=== PATIENT | male | born 1945 | race Caucasian/White ===

== ENCOUNTER 2017-12-05 21:25 | Emergency (ER) | payer MEDICARE, MEDICAID, SELFPAY ==
[2017-12-05 21:30] VITALS: BP 102/62; PULSE 61; RESP 18; TEMP 37.8; O2SAT 93
[2017-12-05 21:34] VITALS: RESP 18
--- NOTE | 2017-12-05 21:37 | DI.REPORT_ITS ---
SYMPTOM/DIAGNOSIS: COUGH AP AND LATERAL CHEST: Comparison is made with 11/13/17. Heart size and pulmonary vasculature are within normal limits. There are increased lung markings seen in the left base posteriorly suspicious for pneumonia. The right lung base medially appears stable compared to examinations dating back to 05/11/16. No effusions or pneumothoraces are identified. The bones are intact. IMPRESSION: Left basilar infiltrate suspicious for pneumonia.
--- NOTE | 2017-12-05 21:37 | ED.GENADUL ---
Disposition Clinical Impression: Pneumonia Disposition: HOME Condition: Stable Instructions: Pneumonia (ED) Additional Instructions: follow up with your primary care provider within one week if you have worsening shortness of breath return to the emergency department Prescriptions: Levofloxacin 750 mg PO DAILY #6 tablet Medical Decision Making - Radiology Data Radiology results: image reviewed - Medical Decision Making pt here with feeling agitated earlier now feels well. HE has had a cough for a month and has low grade temperature here, will obtain xray. Otherwise he feels well and has stable vitals so do not feel workup for sepsis indicated at is time pt remains stable. Xray on my read shows left lower lobe infiltrate. HE is hd stable and feel he can be managed with oral abx at [facility] and rehab - Differential Diagnosis pneumonia, viral illness History of Present Illness - General Chief complaint: GenMedical Stated complaint: CALEX Time Seen by Provider: 12/05/17 21:26 Source: patient, EMS Mode of arrival: EMS Limitations: no limitations - History of Present Illness Initial comments: 72 yo male with hx of parkinson's, bipolar, who comes in with chief complaint of wanting to be checked out. HE apparently earlier in the day was awoken from a nap by nursing taking vitals and he got agitated. He calmed down and declined transfer to the ED. Tonight he states he got in an argument with his family and he decided he wanted an eval here. He denies any symptoms other than a cough that he states he has had for a month otherwise he states he feels well MD Complaint: cough Onset/Timin -: month(s) Improves with: none Worsens with: none - Related Data Carbidopa/Levodopa [Carbidopa-Levo 25-100 mg Odt] 2 tab PO QID 08/08/15 Divalproex [Depakote] 500 mg PO TID 08/08/15 Docusate Sodium 100 mg PO HS 08/08/15 Ergocalciferol [Vitamin D] 50,000 units PO .Friday08/08/15 Finasteride [Proscar] 5 mg PO DAILY 08/08/15 Metformin HCl [Fortamet] 500 mg PO BID 08/08/15 Metoprolol Tartrate 50 mg PO BID 08/08/15 Levofloxacin [Levaquin] 750 mg PO HS #5 tablet 05/11/16 Acetaminophen [Tylenol] 650 mg PO Q4H PRN PRN 05/20/16 Albuterol Sulfate 2.5 mg IH Q2H PRN PRN 05/20/16 Guaifenesin/Dextromethorphan [Guaifenesin Dm Syrup] 5 ml PO Q4H PRN PRN 05/20/16 Magnesium Hydroxide [Milk of Magnesia] 30 ml PO PRN 05/20/16 Multivitamin with Minerals [Multiple Vitamin] 1 each PO DAILY 05/20/16 TraZODone [Desyrel] 100 mg PO HS 05/20/16 Levofloxacin 750 mg PO DAILY #6 tablet 12/05/17 Allergies Allergy/AdvReac Type Severity Reaction Status Date / Time No Known Allergies Allergy Unverified 12/05/17 21:33 Review of Systems Constitutional: denies: fever Respiratory: cough. denies: shortness of breath Cardiovascular: denies: chest pain Skin: denies: rash Neurological: denies: headache Comment: All other systems reviewed and negative Past Medical History - Past Medical History Medical history: diabetes, hypertension parkinsons - Social History Alcohol use: none Drug use: none General Exam - General Limitations: no limitations General appearance: alert, in no apparent distress - Head Head exam: Present: atraumatic - Eye Eye exam: Present: normal apperance - ENT ENT exam: Present: mucous membranes moist - Neck Neck exam: Present: normal inspection, full ROM. Absent: meningismus - Respiratory Respiratory exam: Absent: respiratory distress, wheezes, accessory muscle use - Cardiovascular Cardiovascular Exam: Present: regular rate - GI/Abdominal GI/Abdominal exam: Present: soft. Absent: tenderness, diminished bowel sounds - Extremities Exam Extremities exam: Present: normal capillary refill, other (chronic wound left lower leg without erythema or tenderness). Absent: pedal edema - Neurological Exam Neurological exam: Present: alert, oriented X3 - Psychiatric Psychiatric exam: Present: flat affect. Absent: homicidal ideation, suicidal ideation - Skin Skin exam: Present: warm Course Vital Signs - 24 hr 12/05/17 12/05/17 21:30 21:34 Temperature 100.0 F H Pulse 61 Respiratory 18 18 Rate Blood Pressure 102/62 Pulse Oximetry 93 L
[2017-12-05] MEDS: LEVOFLOXACIN 500 MG, LEVOFLOXACIN 250 MG 750 MG PO (22:36)
[2017-12-05 22:37] VITALS: BP 102/62; PULSE 61; RESP 18; TEMP 37.8; O2SAT 93
--- NOTE | 2017-12-05 22:38 | DI.VRAD_ITS ---
EXAM: XR Chest, 2 Views EXAM DATE/TIME: 12/05/2017 10:18 PM CLINICAL HISTORY: 72 years old, male; Signs and symptoms; Shortness of breath TECHNIQUE: XR of the chest, 2 views. COMPARISON: CR - CHEST 2 VIEWS PA,LAT 2017-11-13 12:56 FINDINGS: Lungs: Mild to moderate left posterior basilar pneumonia. Pleural space: Normal. No pneumothorax. Heart/Mediastinum: Normal. No cardiomegaly. Bones/joints: Unremarkable for age. IMPRESSION: Mild to moderate left posterior basilar pneumonia. Dictated and Authenticated by: Puma Cook MD. Ordering:BELINDA NICHOLAS MD
== END 2017-12-05 22:51 | disposition home or self-care (01) ==
PROVIDERS: Emergency Provider Emergency Medicine; PCP Family Medicine
DX: J18.9 Pneumonia, unspecified organism (principal); G20 Parkinson's disease
CPT/HCPCS: 71046; 99283 ×2

== ENCOUNTER 2017-12-09 07:45 | Outpatient (REF) | payer MEDICARE, MEDICAID, SELFPAY ==
[2017-12-09 11:38] LABS: Anion Gap 5.1 mmol/L (3-11); BUN 16 mg/dL (7-18); CO2 35.9 mmol/L (21.0-32.0); CREATININE 2.08 mg/dL (0.70-1.30); Calcium 9.4 mg/dL (8.5-10.1); Chloride 100 mmol/L (98-107); Estimated GFR 31.73 (mL/min/1.73m2); Glucose 82 mg/dL (70-100); Potassium 3.7 mmol/L (3.5-5.1); Sodium 141 mmol/L (136-145)
== END 2017-12-09 07:46 ==
LOC: LBN 07:45
PROVIDERS: PCP Family Medicine; Visit Provider Family Medicine
DX: I10 Essential (primary) hypertension (principal); R60.0 Localized edema; E11.9 Type 2 diabetes mellitus without complications
CPT/HCPCS: 80048

== ENCOUNTER 2017-12-10 14:07 | Inpatient (IN) | payer MEDICARE, MEDICAID, SELFPAY ==
[2017-12-10] VITALS (39 sets, daily range): BP systolic 91–142; BP diastolic 52–119; PULSE 66–136; RESP 14–34; TEMP 36.7–37.2; O2SAT 87–98
--- NOTE | 2017-12-10 14:42 | DI.REPORT_ITS ---
SYMPTOM/DIAGNOSIS: SOB PA AND LATERAL CHEST: When compared with the previous images of 12/05, there has been some interval deterioration with increasing consolidation involving the left lower lobe. The right lung remains clear. The heart is unchanged in size. SUMMARY: Findings consistent with worsening of a left lower lobe pneumonitis when compared with a previous study of 12/05.
--- NOTE | 2017-12-10 14:42 | ED.GENADUL ---
Disposition Clinical Impression: Healthcare-associated pneumonia, Hypoxia, Acute kidney injury Disposition: [facility] INPATIENT Condition: Serious Medical Decision Making - Medical Decision Making Patient presents today with chief complaint of shortness of breath. He was [facility] Patient has been treated twice for pneumonia in the past 2 months. Was initially treated with IM ceftriaxone. Subsequently treated with Levaquin over the past 4 days. Patient reports that he is feeling much improved given his baseline confusion is difficult to go by this. Nursing staff reported that he was tachypneic, hypoxic and clearly working to breathe while at [facility] and rehab. Will obtain baseline labs and repeat chest x-ray. Discussed this plan of the patient is in agreement. Patient initially 91% on room air. Vital signs are otherwise stable. I was contacted by radiologist who advised that the right lower lobe pneumonia that was noticed on 12/05/2017 appears to have gotten worse. I did question the need for further imaging, particularly as the patient has had pneumonia for the past 2 months. He advised holding off on CT at this point but obtaining a PA and lateral view in 4-6 weeks. Laboratory evaluation significant for acute kidney injury. Creatinine is up to 2.53. Patient's baseline is typically around 1.43. GFR is 25. No leukocytosis. Patient is noted to be anemic which is down slightly from baseline. While on room air, patient desaturated to 86%. Is currently on 2 L and 95%. Contacted hospitalist. Spoke with Dr. Ashwin Hubbard who agrees to admission for worsening pneumonia, hypoxia and acute kidney injury. Based on patient's history of we will treat for presumed healthcare associated pneumonia. Patient is currently sleeping. Discussed admission with the patient prior to him going upstairs. History of Present Illness - General Chief complaint: RespSymp Stated complaint: CALEX Time Seen by Provider: 12/10/17 14:15 Source: patient, RN notes reviewed Mode of arrival: EMS Limitations: no limitations - History of Present Illness Initial comments: She is 72-year-old male presenting today with chief complaint of shortness of breath. Patient was sent here from [facility]. Patient is currently being treated for pneumonia which is diagnosed 5 days ago. Nurse reports that today she felt the patient appeared more pale, tachypneic and short of breath. Patient is currently denying feeling short of breath. Just reports that he was more confused than his baseline. At baseline patient does have a history of schizophrenia and frequently thinks he has Jack. However, today the patient was more difficult to orient per nursing report. Nursing taking care of him today here, reports that this is typical she has taken care of the patient multiple times historically. Patient is denying any pain. Is currently denying feeling short of breath. Feels that if anything he has been improving since beginning Levaquin. Denies any cough. Denies any throat pain or ear pain. No recent fevers or chills. Patient is only endorsing discomfort in his bilateral lower extremities that she reports is chronic and unchanged. - Related Data Carbidopa/Levodopa [Carbidopa-Levo 25-100 mg Odt] 2 tab PO QID 08/08/15 Divalproex [Depakote] 500 mg PO TID 08/08/15 Docusate Sodium 100 mg PO HS PRN 08/08/15 Ergocalciferol [Vitamin D] 50,000 units PO .Friday08/08/15 Finasteride [Proscar] 5 mg PO DAILY 08/08/15 Metformin HCl [Fortamet] 500 mg PO BID 08/08/15 Metoprolol Tartrate 50 mg PO BID 08/08/15 Levofloxacin [Levaquin] 750 mg PO HS #5 tablet 05/11/16 Acetaminophen [Tylenol] 650 mg PO Q4H PRN PRN 05/20/16 Albuterol Sulfate 2.5 mg IH Q6H PRN PRN 05/20/16 Guaifenesin/Dextromethorphan [Guaifenesin Dm Syrup] 5 ml PO Q4H PRN PRN 05/20/16 Magnesium Hydroxide [Milk of Magnesia] 30 ml PO DAILY 05/20/16 Multivitamin with Minerals [Multiple Vitamin] 1 each PO DAILY 05/20/16 TraZODone [Desyrel] 100 mg PO HS 05/20/16 Levofloxacin 750 mg PO DAILY #6 tablet 12/05/17 Bisacodyl 5 mg PO DAILY PRN 12/10/17 Bisacodyl [Dulcolax] 10 mg [place] DAILY PRN 12/10/17 Docusate Sodium 100 mg PO BID 12/10/17 Furosemide [Lasix] 20 mg PO BID 12/10/17 Mineral Oil-Enema [Fleet Mineral Oil Enema] 133 ml [place] DAILY PRN 12/10/17 Mouthwash [Biotene Mouthwash] 5 ml PO AC 12/10/17 Quetiapine Fumarate 75 mg PO BID 12/10/17 Quetiapine Fumarate 200 mg PO HS 12/10/17 Sennosides/Docusate Sodium [Senna Plus Tablet] 1 each PO BID PRN 12/10/17 Allergies Allergy/AdvReac Type Severity Reaction Status Date / Time No Known Allergies Allergy Unverified 12/05/17 21:33 Review of Systems Limitations: ROS unobtainable due to patients medical condition (Patient's history baseline confusion does not make review of systems limite) Constitutional: no symptoms reported. denies: chills, fever Eyes: denies: vision change Respiratory: see HPI. denies: cough, shortness of breath (Patient is currently denying shortness of breath. His oxygen is noted to be 91%. He was sent here for SOB and hypoxia by nursing staff. Patient is noted to be tachypneic with a rate of 24 while at health and rehab.) Cardiovascular: denies: chest pain, palpitations Gastrointestinal: denies: abdominal pain, nausea, vomiting, diarrhea Genitourinary: denies: urgency Neurological: denies: headache, weakness Psychiatric: denies: anxiety Past Medical History - Past Medical History Medical history: diabetes, hypertension parkinsons - Social History Alcohol use: none Drug use: none Living Situation: lives in skilled nursing General Exam - General Limitations: no limitations General appearance: alert, in no apparent distress - Head Head exam: Present: atraumatic - Eye Eye exam: Present: normal apperance - ENT ENT exam: Present: mucous membranes dry - Respiratory Respiratory exam: Present: wheezes (The right lower lobe.). Absent: normal lung sounds bilaterally (Patient has poor inspiratory effort, exam is limited), respiratory distress, chest wall tenderness - Cardiovascular Cardiovascular Exam: Present: regular rate, normal rhythm, normal heart sounds - GI/Abdominal GI/Abdominal exam: Present: soft. Absent: distended, tenderness, guarding - Rectal Rectal exam: Present: deferred - Extremities Exam Extremities exam: Absent: normal inspection (Exam of the lower extremities revealed bilateral pedal edema. Right lower extremity is wrapped in gauze for chronic wound.) - Back Exam Back exam: Present: normal inspection - Psychiatric Psychiatric exam: Present: normal affect, normal mood Course Vital Signs - 24 hr 12/10/17 14:14 Temperature 37 C Pulse 74 Respiratory 20 Rate Blood Pressure 133/99 Pulse Oximetry 93 L
--- NOTE | 2017-12-10 14:46 | ED.GENADUL_ITS ---
Disposition Clinical Impression: Healthcare-associated pneumonia, Hypoxia, Acute kidney injury Disposition: [facility]PATIENT Condition: Serious Medical Decision Making - Medical Decision Making Patient presents today with chief complaint of shortness of breath. He was [facility] from [facility]. Patient has been treated twice for pneumonia in the past 2 months. Was initially treated with IM ceftriaxone. Subsequently treated with Levaquin over the past 4 days. Patient reports that he is feeling much improved given his baseline confusion is difficult to go by this. Nursing staff reported that he was tachypneic, hypoxic and clearly working to breathe while at [facility] and rehab. Will obtain baseline labs and repeat chest x-ray. Discussed this plan of the patient is in agreement. Patient initially 91% on room air. Vital signs are otherwise stable. I was contacted by radiologist who advised that the right lower lobe pneumonia that was noticed on 12/05/2017 appears to have gotten worse. I did question the need for further imaging, particularly as the patient has had pneumonia for the past 2 months. He advised holding off on CT at this point but obtaining a PA and lateral view in 4-6 weeks. Laboratory evaluation significant for acute kidney injury. Creatinine is up to 2.53. Patient's baseline is typically around 1.43. GFR is 25. No leukocytosis. Patient is noted to be anemic which is down slightly from baseline. While on room air, patient desaturated to 86%. Is currently on 2 L and 95%. Contacted hospitalist. Spoke with Dr. Ashwin Hubbard who agrees to admission for worsening pneumonia, hypoxia and acute kidney injury. Based on patient's history of we will treat for presumed healthcare associated pneumonia. Patient is currently sleeping. Discussed admission with the patient prior to him going upstairs. History of Present Illness - General Chief complaint: RespSymp Stated complaint: CALEX Time Seen by Provider: 12/10/17 14:15 Source: patient, RN notes reviewed Mode of arrival: EMS Limitations: no limitations - History of Present Illness Initial comments: She is 72-year-old male presenting today with chief complaint of shortness of breath. Patient was sent here from [facility]. Patient is currently being treated for pneumonia which is diagnosed 5 days ago. Nurse reports that today she felt the patient appeared more pale, tachypneic and short of breath. Patient is currently denying feeling short of breath. Just reports that he was more confused than his baseline. At baseline patient does have a history of schizophrenia and frequently thinks he has Jack. However, today the patient was more difficult to orient per nursing report. Nursing taking care of him today here, reports that this is typical she has taken care of the patient multiple times historically. Patient is denying any pain. Is currently denying feeling short of breath. Feels that if anything he has been improving since beginning Levaquin. Denies any cough. Denies any throat pain or ear pain. No recent fevers or chills. Patient is only endorsing discomfort in his bilateral lower extremities that she reports is chronic and unchanged. - Related Data Carbidopa/Levodopa [Carbidopa-Levo 25-100 mg Odt] 2 tab PO QID 08/08/15 Divalproex [Depakote] 500 mg PO TID 08/08/15 Docusate Sodium 100 mg PO HS PRN 08/08/15 Ergocalciferol [Vitamin D] 50,000 units PO .Friday08/08/15 Finasteride [Proscar] 5 mg PO DAILY 08/08/15 Metformin HCl [Fortamet] 500 mg PO BID 08/08/15 Metoprolol Tartrate 50 mg PO BID 08/08/15 Levofloxacin [Levaquin] 750 mg PO HS #5 tablet 05/11/16 Acetaminophen [Tylenol] 650 mg PO Q4H PRN PRN 05/20/16 Albuterol Sulfate 2.5 mg IH Q6H PRN PRN 05/20/16 Guaifenesin/Dextromethorphan [Guaifenesin Dm Syrup] 5 ml PO Q4H PRN PRN Magnesium Hydroxide [Milk of Magnesia] 30 ml PO DAILY 05/20/16 Multivitamin with Minerals [Multiple Vitamin] 1 each PO DAILY 05/20/16 TraZODone [Desyrel] 100 mg PO HS 05/20/16 Levofloxacin 750 mg PO DAILY #6 tablet 12/05/17 Bisacodyl 5 mg PO DAILY PRN 12/10/17 Bisacodyl [Dulcolax] 10 mg [place] DAILY PRN 12/10/17 Docusate Sodium 100 mg PO BID 12/10/17 Furosemide [Lasix] 20 mg PO BID 12/10/17 Mineral Oil-Enema [Fleet Mineral Oil Enema] 133 ml [place] DAILY PRN 12/10/17 Mouthwash [Biotene Mouthwash] 5 ml PO AC 12/10/17 Quetiapine Fumarate 75 mg PO BID 12/10/17 Quetiapine Fumarate 200 mg PO HS 12/10/17 Sennosides/Docusate Sodium [Senna Plus Tablet] 1 each PO BID PRN 12/10/17 Allergies Allergy/AdvReac Type Severity Reaction Status Date / Time No Known Allergies Allergy Unverified 12/05/17 21:33 Review of Systems Limitations: ROS unobtainable due to patients medical condition (Patient's history baseline confusion does not make review of systems limite) Constitutional: no symptoms reported. denies: chills, fever Eyes: denies: vision change Respiratory: see HPI. denies: cough, shortness of breath (Patient is currently denying shortness of breath. His oxygen is noted to be 91%. He was sent here for SOB and hypoxia by nursing staff. Patient is noted to be tachypneic with a rate of 24 while at health and rehab.) Cardiovascular: denies: chest pain, palpitations Gastrointestinal: denies: abdominal pain, nausea, vomiting, diarrhea Genitourinary: denies: urgency Neurological: denies: headache, weakness Psychiatric: denies: anxiety Past Medical History - Past Medical History Medical history: diabetes, hypertension parkinsons - Social History Alcohol use: none Drug use: none Living Situation: lives in jail General Exam - General Limitations: no limitations General appearance: alert, in no apparent distress - Head Head exam: Present: atraumatic - Eye Eye exam: Present: normal apperance - ENT ENT exam: Present: mucous membranes dry - Respiratory Respiratory exam: Present: wheezes (The right lower lobe.). Absent: normal lung sounds bilaterally (Patient has poor inspiratory effort, exam is limited), respiratory distress, chest wall tenderness - Cardiovascular Cardiovascular Exam: Present: regular rate, normal rhythm, normal heart sounds - GI/Abdominal GI/Abdominal exam: Present: soft. Absent: distended, tenderness, guarding - Rectal Rectal exam: Present: deferred - Extremities Exam Extremities exam: Absent: normal inspection (Exam of the lower extremities revealed bilateral pedal edema. Right lower extremity is wrapped in gauze for chronic wound.) - Back Exam Back exam: Present: normal inspection - Psychiatric Psychiatric exam: Present: normal affect, normal mood Course Vital Signs - 24 hr 12/10/17 14:14 Temperature 37 C Pulse 74 Respiratory 20 Rate Blood Pressure 133/99 Pulse Oximetry 93 L
[2017-12-10 14:57] LABS: Abs Immature Grans 0.01 k/cumm (0.0-0.09); Absolute Basophil Count 0.01 k/cumm (0.0-0.2); Absolute Eosinophil Count 0.01 k/cumm (0.0-0.7); Absolute Lymphocyte Count 2.08 k/cumm (1.2-3.4); Absolute Neutrophil Count 4.23 k/cumm (1.2-6.7); Basophils % 0.1; Eosinophils % 0.1; HGB 9.2 g/dL (13.5-17.5); Immature Grans % 0.1; Lymphocytes % 29.5; Mean Corp. HGB Concentration 32.9 g/dL (32.0-36.0); Mean Corpuscular Hemoglobin 31.8 pg (27.0-33.0); Mean Corpuscular Volume 96.9 fL (80-95); Mean Platelet Volume 9.8 fL (8.0-11.0); Monocytes % 9.9; Neutrophils % 60.3; Platelet Count 199 x1000/uL (130-400); RBC 2.89 m/cumm (4.50-6.00); RBC Distribution Width 13.2 % (11.8-14.1); White Blood Cell Count 7.04 k/cumm (4.4-10.8)
[2017-12-10 15:13] LABS: Diff Comment RBC Morph Reviewed; RBC Morphology Normal
[2017-12-10 15:15] LABS: AST 15 U/L (15-37); Albumin 2.5 g/dL (3.4-5.0); Alkaline Phosphatase 44 U/L (46-116); BUN 18 mg/dL (7-18); Bilirubin, Total 0.7 mg/dL (0.2-1.0); CREATININE 2.53 mg/dL (0.70-1.30); Calcium 9.3 mg/dL (8.5-10.1); Chloride 101 mmol/L (98-107); Estimated GFR 25.31 (mL/min/1.73m2); Glucose 88 mg/dL (70-100); Potassium 3.8 mmol/L (3.5-5.1); Sodium 139 mmol/L (136-145); Total Protein 7.1 g/dL (6.4-8.2)
[2017-12-10 15:26] LABS: ALT 5 U/L (12-78)
[2017-12-10 16:10] LABS: Bilirubin Negative (Negative); Blood Negative (Negative); Clarity Clear; Glucose Negative (Negative); Ketones Trace mg/dL (Negative); Leukocyte Esterase Negative (Negative); Nitrite Negative (Negative); Specific Gravity 1.015 (1.005-1.025)
[2017-12-10] MEDS: VANCOMYCIN 1,500 MG in Normal Saline 500 ML 333.333 MG IVPB (17:25)
--- NOTE | 2017-12-10 17:28 | PDOC.HP ---
Date of Service: 12/10/17 Time of Service: 17:28 Assessment/Plan - Assessment/Plan (1) Healthcare-associated pneumonia Plan: He was treated with ceftriaxone in November 2017 for pneumonia. He presented to the emergency department again 5 days ago and was diagnosed with pneumonia, treatment with Levaquin was started at that time. There has been interval worsening of his pneumonia on chest x-ray. Plan to initiate healthcare associated pneumonia coverage, he does live in a [facility]. Plan to start vancomycin and cefepime. Supplemental oxygen and updrafts as needed. Sputum cultures are pending. Blood cultures are pending. Plan to obtain speech consult to evaluate swallowing to ensure that he is not aspirating. (2) Acute kidney injury Plan: His creatinine is up to 2.5 from a baseline of 1-1.2. Will provide gentle IV fluid hydration overnight at 75 cc/h. His Lasix has been placed on hold. Will plan to reassess kidney function in the morning. (3) Schizophrenia Plan: Continue his home dosing of his antipsychotic medications. (4) Superficial wound Plan: To his right carballo. With erythema and edema. Obtain wound care consult for dressing recommendations. Continue to monitor closely. (5) DVT prophylaxis Plan: Subcutaneous heparin. (6) Discharge planning issues Plan: He is a DNR/DNI. The plan will be for him to return back to [facility] rehab when he is stable. History of Present Illness - History of Present Illness Chief Complaint: Pneumonia History of Present Illness: Benton Kurtz is a 72-year-old male resident of [facility] re[facility] with a history significant for schizophrenia, diabetes, hypertension who presented to the emergency department via ambulance. He was in the emergency department 5 days ago and had an x-ray at that time which revealed left basilar infiltrate suspicious for pneumonia. He was started on oral Levaquin at that time and discharged back to the [facility]. Apparently his respiratory status continued to worsen, he appeared more pale, tachypneic and short of breath to nursing. He presented back today and had a repeat chest x-ray which showed worsening left lower lobe pneumonitis. Apparently he seemed more confused than his baseline at the [facility]. He did have labs drawn in the emergency department which did not show leukocytosis but did show worsening kidney function. His creatinine was 2.53, his baseline appears to be between 1 and 1.2. He was also noted to have worsening anemia with a hemoglobin of 9.2 and a hematocrit of 28. Given that his pneumonia worsened on outpatient treatment of Levaquin and in the setting of having a recent episode of pneumonia in November treated with IM ceftriaxone at the [facility]. [facility], gentle IV fluid hydration in the setting of an acute kidney injury, he will have a speech evaluation to evaluate his swallowing to ensure that he is not aspirating. 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 He denies shortness of breath.) Cardiovascular: denies: Chest Pain Other: Mr. Kurtz is unable to engage in a full review of systems as he is not responsive enough to do so. He does open his eyes to verbal stimuli and answer questions briefly. - Medications/Allergies Allergies/Adverse Reactions: Allergies Allergy/AdvReac Type Severity Reaction Status Date / Time No Known Allergies Allergy Unverified 12/05/17 21:33 Medications: Current Medications Acetaminophen (Tylenol) 650 mg PO Q4H PRN PRN Albuterol Sulfate (Proventil Updraft) 2.5 mg IH Q6H PRN PRN Albuterol/Ipratropium (Duoneb Updraft) 3 ml UPD Q6H PRN PRN Bisacodyl (Dulcolax Suppository) 10 mg [place] DAILY PRN PRN Bisacodyl (Dulcolax) 5 mg PO DAILY PRN PRN Carbidopa/Levodopa (Parcopa 25/100) 2 tab PO QID JUANI Dextrose (Insta-Glucose) 0 gm PO DIRECTED PRN Dextrose/Water () 0 gm IVP DIRECTED PRN Dimethicone/Zinc Oxide (Mannie Protect Cream) 0 gm TP PRN PRN Divalproex Sodium (Depakote) 500 mg PO TID JUANI Docusate Sodium (Colace) 100 mg PO BID JUANI Docusate Sodium (Colace) 100 mg PO HS PRN PRN Ergocalciferol (Vitamin D) 50,000 units PO .FRIDAY JUANI Finasteride (Proscar) 5 mg PO DAILY JUANI Guaifenesin/Dextromethorphan (Robitussin-Dm Syrup) 5 ml PO Q4H PRN PRN Heparin Sodium (Porcine) () 5,000 units SC Q8H JUANI Cefepime HCl 2 gm/ Sodium (Chloride) 100 mls @ 200 mls/hr IVPB Q12H JUANI Stop: 12/10/17 20:00 Sodium Chloride (Saline 1000ml Bag) 1,000 mls @ 75 mls/hr IV INFUSION JUANI Vancomycin HCl 1,500 mg/ (Sodium Chloride) 500 mls @ 333.333 mls/hr IVPB NOW ONE Stop: 12/10/17 19:29 Last Admin: 12/10/17 17:25 Dose: 333.333 mls/hr Vancomycin HCl 1,000 mg/ (Sodium Chloride) 250 mls @ 166.667 mls/hr IVPB Q24H JUANI Cefepime HCl 2 gm/ Sodium (Chloride) 100 mls @ 200 mls/hr IVPB Q12H [facility] Insulin Aspart (Novolog Flexpen) 0 units SC 0800,1200,1700 JUANI PRN Reason: Protocol Iron/Minerals/Multivitamins (Theragran-M) 1 tab PO DAILY [facility] Magnesium Hydroxide (Milk Of Magnesia) 30 ml PO DAILY JUANI Metoprolol Tartrate (Lopressor) 50 mg PO BID JUANI Mineral Oil (Fleet Mineral Oil Enema) 133 ml [place] DAILY PRN PRN Multi-Ingredient Mouthwash/Gargle (Biotene Mouthwash) 5 ml PO AC [facility] Polyethylene Glycol (Miralax) 17 gm PO DAILY PRN PRN PRN Reason: Constipation Quetiapine Fumarate (Seroquel) 75 mg PO BID [facility] Quetiapine Fumarate (Seroquel) 200 mg PO HS [facility] Senna/Docusate Sodium (Anne-Colace Tablet) 1 tab PO BID PRN PRN Trazodone HCl (Desyrel) 100 mg PO HS [facility] Objective - Exam Vitals and I&O: Vital Signs Temp 37 C 12/10/17 14:14 Pulse 74 12/10/17 14:14 Resp 20 12/10/17 14:14 BP 133/99 12/10/17 14:14 Pulse Ox 93 L 12/10/17 14:14 Intake & Output 12/09/17 12/10/17 12/10/17 23:59 11:59 23:59 Weight 100.1 kg General: No acute distress (His resting with eyes closed, he opens his eyes briefly to verbal stimuli. He appears ill but in no acute distress.). denies: Alert, Oriented x3, Cooperative HEENT: Atraumatic, Mucous membr. moist/pink Neck: Supple. denies: JVD Lungs: denies: Clear to auscultation (Lungs sound rhonchorous throughout, with wheezing throughout anteriorly. Is unable to follow directions to reposition for me to assess posterior lung sounds.), Normal air movement Cardiovascular: Regular rate, Other (No murmur appreciated however it is difficult to auscultate heart sounds over his rhonchorous lung sounds.) Abdomen: Normal bowel sounds, Soft. denies: Tenderness, Masses Extremities: Edema (2-3+ pitting edema to his right lower extremity. Minimal edema to the left lower extremity.). denies: Clubbing, Cyanosis Skin: Breakdown (Right carballo with significant superficial lesion, with serosanguineous drainage, with erythema surrounding the wounds.) Psych/Mental Status: denies: Mental status NL (Not engaging in conversation. Occasionally opens his eyes to verbal stimuli with brief responses to questions.) Results - Laboratory Data Result Diagrams: 12/16/17 06:20 12/16/17 06:20 Laboratory Results: Laboratory Tests 12/10/17 12/10/17 12/10/17 14:30 14:30 16:05 WBC 7.04 RBC 2.89 L Hgb 9.2 L Hct 28.0 L MCV 96.9 H MCH 31.8 MCHC 32.9 RDW 13.2 Plt Count 199 MPV 9.8 Immature Gran % 0.1 Neutrophils % 60.3 Lymphocytes % 29.5 Monocytes % 9.9 Eosinophils % 0.1 Basophils % 0.1 Absolute Neutrophils 4.23 Absolute Lymphocytes 2.08 Absolute Monocytes 0.70 Absolute Eosinophils 0.01 Absolute Basophils 0.01 Differential Comment Rbc morph reviewed RBC Morphology Normal Sodium 139 Potassium 3.8 Chloride 101 Carbon Dioxide 32.0 Anion Gap 6.0 BUN 18 Creatinine 2.53 H Estimated GFR/1.73 m2 25.31 Glucose 88 Calcium 9.3 Total Bilirubin 0.7 AST 15 ALT 5 L Alkaline Phosphatase 44 L Total Protein 7.1 Albumin 2.5 L Urine Color Yellow Urine Clarity Clear Urine pH 6.0 Ur Specific [place] 1.015 Urine Protein Negative Urine Ketones Trace H Urine Blood Negative Urine Nitrite Negative Urine Bilirubin Negative Urine Urobilinogen 2.0 H Ur Leukocyte Esterase Negative Urine Glucose Negative
--- NOTE | 2017-12-10 17:37 | PDOC.HP_ITS ---
Date of Service: 12/10/17 Time of Service: 17:28 Assessment/Plan - Assessment/Plan (1) Healthcare-associated pneumonia Plan: He was treated with ceftriaxone in November 2017 for pneumonia. He presented to the emergency department again 5 days ago and was diagnosed with pneumonia, treatment with Levaquin was started at that time. There has been interval worsening of his pneumonia on chest x-ray. Plan to initiate healthcare associated pneumonia coverage, he does live in a [facility]. Plan to start vancomycin and cefepime. Supplemental oxygen and updrafts as needed. Sputum cultures are pending. Blood cultures are pending. Plan to obtain speech consult to evaluate swallowing to ensure that he is not aspirating. (2) Acute kidney injury Plan: His creatinine is up to 2.5 from a baseline of 1-1.2. Will provide gentle IV fluid hydration overnight at 75 cc/h. His Lasix has been placed on hold. Will plan to reassess kidney function in the morning. (3) Schizophrenia Plan: Continue his home dosing of his antipsychotic medications. (4) Superficial wound Plan: To his right carballo. With erythema and edema. Obtain wound care consult for dressing recommendations. Continue to monitor closely. (5) DVT prophylaxis Plan: Subcutaneous heparin. (6) Discharge planning issues Plan: He is a DNR/DNI. The plan will be for him to return back to [facility] rehab when he is stable. History of Present Illness - History of Present Illness Chief Complaint: Pneumonia History of Present Illness: Benton Kurtz is a 72-year-old male resident of [facility] re[facility] with a history significant for schizophrenia, diabetes, hypertension who presented to the emergency department via ambulance. He was in the emergency department 5 days ago and had an x-ray at that time which revealed left basilar infiltrate suspicious for pneumonia. He was started on oral Levaquin at that time and discharged back to the [facility]. Apparently his respiratory status continued to worsen, he appeared more pale, tachypneic and short of breath to nursing. He presented back today and had a repeat chest x-ray which showed worsening left lower lobe pneumonitis. Apparently he seemed more confused than his baseline at the [facility]. He did have labs drawn in the emergency department which did not show leukocytosis but did show worsening kidney function. His creatinine was 2.53, his baseline appears to be between 1 and 1.2. He was also noted to have worsening anemia with a hemoglobin of 9.2 and a hematocrit of 28. Given that his pneumonia worsened on outpatient treatment of Levaquin and in the setting of having a recent episode of pneumonia in November treated with IM ceftriaxone at the [facility]. [facility] healthcare associated pneumonia coverage, gentle IV fluid hydration in the setting of an acute kidney injury, he will have a speech evaluation to evaluate his swallowing to ensure that he is not aspirating. 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 He denies shortness of breath.) Cardiovascular: denies: Chest Pain Other: Mr. Kurtz is unable to engage in a full review of systems as he is not responsive enough to do so. He does open his eyes to verbal stimuli and answer questions briefly. - Medications/Allergies Allergies/Adverse Reactions: Allergies Allergy/AdvReac Type Severity Reaction Status Date / Time No Known Allergies Allergy Unverified 12/05/17 21:33 Medications: Current Medications Acetaminophen (Tylenol) 650 mg PO Q4H PRN PRN Albuterol Sulfate (Proventil Updraft) 2.5 mg IH Q6H PRN PRN Albuterol/Ipratropium (Duoneb Updraft) 3 ml UPD Q6H PRN PRN Bisacodyl (Dulcolax Suppository) 10 mg [place] DAILY PRN PRN Bisacodyl (Dulcolax) 5 mg PO DAILY PRN PRN Carbidopa/Levodopa (Parcopa 25/100) 2 tab PO QID JUANI Dextrose (Insta-Glucose) 0 gm PO DIRECTED PRN Dextrose/Water () 0 gm IVP DIRECTED PRN Dimethicone/Zinc Oxide (Mannie Protect Cream) 0 gm TP PRN PRN Divalproex Sodium (Depakote) 500 mg PO TID JUANI Docusate Sodium (Colace) 100 mg PO BID JUANI Docusate Sodium (Colace) 100 mg PO HS PRN PRN Ergocalciferol (Vitamin D) 50,000 units PO .FRIDAY JUANI Finasteride (Proscar) 5 mg PO DAILY JUANI Guaifenesin/Dextromethorphan (Robitussin-Dm Syrup) 5 ml PO Q4H PRN PRN Heparin Sodium (Porcine) () 5,000 units SC Q8H JUANI Cefepime HCl 2 gm/ Sodium (Chloride) 100 mls @ 200 mls/hr IVPB Q12H [facility]UANI Stop: 12/10/17 20:00 Sodium Chloride (Saline 1000ml Bag) 1,000 mls @ 75 mls/hr IV INFUSION JUANI Vancomycin HCl 1,500 mg/ (Sodium Chloride) 500 mls @ 333.333 mls/hr IVPB NOW ONE Stop: 12/10/17 19:29 Last Admin: 12/10/17 17:25 Dose: 333.333 mls/hr Vancomycin HCl 1,000 mg/ (Sodium Chloride) 250 mls @ 166.667 mls/hr IVPB Q24H [facility]UANI Cefepime HCl 2 gm/ Sodium (Chloride) 100 mls @ 200 mls/hr IVPB Q12H [facility] Insulin Aspart (Novolog Flexpen) 0 units SC 0800,1200,1700 JUANI PRN Reason: Protocol Iron/Minerals/Multivitamins (Theragran-M) 1 tab PO DAILY [facility] Magnesium Hydroxide (Milk Of Magnesia) 30 ml PO DAILY [facility] Metoprolol Tartrate (Lopressor) 50 mg PO BID JUANI Mineral Oil (Fleet Mineral Oil Enema) 133 ml [place] DAILY PRN PRN Multi-Ingredient Mouthwash/Gargle (Biotene Mouthwash) 5 ml PO AC [facility] Polyethylene Glycol (Miralax) 17 gm PO DAILY PRN PRN PRN Reason: Constipation Quetiapine Fumarate (Seroquel) 75 mg PO BID [facility] Quetiapine Fumarate (Seroquel) 200 mg PO HS [facility] Senna/Docusate Sodium (Anne-Colace Tablet) 1 tab PO BID PRN PRN Trazodone HCl (Desyrel) 100 mg PO HS [facility] Objective - Exam Vitals and I&O: Vital Signs Temp 37 C 12/10/17 14:14 Pulse 74 12/10/17 14:14 Resp 20 12/10/17 14:14 BP 133/99 12/10/17 14:14 Pulse Ox 93 L 12/10/17 14:14 Intake & Output 12/09/17 12/10/17 12/10/17 23:59 11:59 23:59 Weight 100.1 kg General: No acute distress (His resting with eyes closed, he opens his eyes briefly to verbal stimuli. He appears ill but in no acute distress.). denies: Alert, Oriented x3, Cooperative HEENT: Atraumatic, Mucous membr. moist/pink Neck: Supple. denies: JVD Lungs: denies: Clear to auscultation (Lungs sound rhonchorous throughout, with wheezing throughout anteriorly. Is unable to follow directions to reposition for me to assess posterior lung sounds.), Normal air movement Cardiovascular: Regular rate, Other (No murmur appreciated however it is difficult to auscultate heart sounds over his rhonchorous lung sounds.) Abdomen: Normal bowel sounds, Soft. denies: Tenderness, Masses Extremities: Edema (2-3+ pitting edema to his right lower extremity. Minimal edema to the left lower extremity.). denies: Clubbing, Cyanosis Skin: Breakdown (Right carballo with significant superficial lesion, with serosanguineous drainage, with erythema surrounding the wounds.) Psych/Mental Status: denies: Mental status NL (Not engaging in conversation. Occasionally opens his eyes to verbal stimuli with brief responses to questions. ) Results - Laboratory Data Result Diagrams: 12/16/17 06:20 12/16/17 06:20 Laboratory Results: Laboratory Tests 12/10/17 12/10/17 12/10/17 14:30 14:30 16:05 WBC 7.04 RBC 2.89 L Hgb 9.2 L Hct 28.0 L MCV 96.9 H MCH 31.8 MCHC 32.9 RDW 13.2 Plt Count 199 MPV 9.8 Immature Gran % 0.1 Neutrophils % 60.3 Lymphocytes % 29.5 Monocytes % 9.9 Eosinophils % 0.1 Basophils % 0.1 Absolute Neutrophils 4.23 Absolute Lymphocytes 2.08 Absolute Monocytes 0.70 Absolute Eosinophils 0.01 Absolute Basophils 0.01 Differential Comment Rbc morph reviewed RBC Morphology Normal Sodium 139 Potassium 3.8 Chloride 101 Carbon Dioxide 32.0 Anion Gap 6.0 BUN 18 Creatinine 2.53 H Estimated GFR/1.73 m2 25.31 Glucose 88 Calcium 9.3 Total Bilirubin 0.7 AST 15 ALT 5 L Alkaline Phosphatase 44 L Total Protein 7.1 Albumin 2.5 L Urine Color Yellow Urine Clarity Clear Urine pH 6.0 Ur Specific [place] 1.015 Urine Protein Negative Urine Ketones Trace H Urine Blood Negative Urine Nitrite Negative Urine Bilirubin Negative Urine Urobilinogen 2.0 H Ur Leukocyte Esterase Negative Urine Glucose Negative
[2017-12-10] MEDS: Normal Saline 500 ML IV (18:00)
[2017-12-10] MEDS: CEFEPIME 2 GM in Normal Saline 100 ML IVPB (18:41)
[2017-12-10] MEDS: Heparin 5,000 UNITS/ML VIAL 5000 UNITS SC (18:54)
[2017-12-10] MEDS: Normal Saline 1,000 ML 75 ML IV (19:05)
[2017-12-10] MEDS: Divalproex 500 MG TABEC PO (20:25)
[2017-12-10] MEDS: Docusate Sodium 100 MG CAP PO (20:25)
[2017-12-10] MEDS: Metoprolol 50 MG TAB PO (20:25)
[2017-12-10] MEDS: QUEtiapine 100 MG TAB 200 MG PO (22:08)
[2017-12-10] MEDS: traZODone 100 MG TAB PO (22:08)
[2017-12-11] MEDS: Heparin 5,000 UNITS/ML VIAL 5000 UNITS SC ×3 (01:58→18:07)
[2017-12-11 04:32] VITALS: BP 108/57; PULSE 74; RESP 19; TEMP 37; O2SAT 93
[2017-12-11] MEDS: CEFEPIME 2 GM in Normal Saline 100 ML IVPB ×2 (04:46→16:33)
[2017-12-11 07:02] LABS: Anion Gap 7.4 mmol/L (3-11); BUN 15 mg/dL (7-18); CO2 30.6 mmol/L (21.0-32.0); Calcium 8.8 mg/dL (8.5-10.1); Chloride 104 mmol/L (98-107); Estimated GFR 35.22 (mL/min/1.73m2); Glucose 87 mg/dL (70-100); Potassium 3.8 mmol/L (3.5-5.1); Sodium 142 mmol/L (136-145)
[2017-12-11 07:03] LABS: Abs Immature Grans 0.01 k/cumm (0.0-0.09); Absolute Basophil Count 0.01 k/cumm (0.0-0.2); Absolute Eosinophil Count 0.03 k/cumm (0.0-0.7); Absolute Lymphocyte Count 2.53 k/cumm (1.2-3.4); Absolute Monocyte Count 0.55 k/cumm (0.11-0.7); Basophils % 0.2; Eosinophils % 0.6; HCT 26.8 % (40.0-50.0); HGB 8.8 g/dL (13.5-17.5); Immature Grans % 0.2; Lymphocytes % 48.4; Mean Corp. HGB Concentration 32.8 g/dL (32.0-36.0); Mean Corpuscular Volume 97.5 fL (80-95); Mean Platelet Volume 9.9 fL (8.0-11.0); Monocytes % 10.5; Neutrophils % 40.1; Platelet Count 163 x1000/uL (130-400); RBC 2.75 m/cumm (4.50-6.00); RBC Distribution Width 13.2 % (11.8-14.1); White Blood Cell Count 5.23 k/cumm (4.4-10.8)
[2017-12-11 07:25] VITALS: BP 105/61; PULSE 68; RESP 24; TEMP 37.1; O2SAT 94
[2017-12-11] MEDS: Multivitamin w/Minerals TAB 1 TAB PO (08:56)
[2017-12-11] MEDS: QUEtiapine 25 MG TAB 75 MG PO ×2 (08:56→16:37)
[2017-12-11] MEDS: Metoprolol 50 MG TAB PO ×2 (08:56→19:58)
[2017-12-11] MEDS: Potassium Chloride 20 MEQ TABCR PO (08:56)
[2017-12-11] MEDS: Finasteride 5 MG TAB PO (08:56)
[2017-12-11] MEDS: Docusate Sodium 100 MG CAP PO ×2 (08:56→19:58)
[2017-12-11] MEDS: Milk of Magnesia 30 ML CUP PO (08:56)
[2017-12-11] MEDS: Divalproex 500 MG TABEC PO ×3 (08:56→19:58)
[2017-12-11] MEDS: Normal Saline 1,000 ML 75 ML IV ×2 (08:57→19:58)
[2017-12-11 11:50] VITALS: RESP 20; RESP 7; RESP 8; O2SAT 92
[2017-12-11] MEDS: Albuterol/Ipratropium 3 ML UPD VIAL UPD (11:50)
[2017-12-11 14:48] VITALS: O2SAT 94
--- NOTE | 2017-12-11 15:14 | WOUNDCARE ---
Wound Care Report Mr Kurtz is a 72 year old gentleman who comes to the hospital from [facility] with a Dx of HCAP. He is seen at bedside and greets me with a smile. Current problems include HCAP, NEHEMIAH, schizophrenia, bipolar disorder, partial thickness wound on Anterior RLE of unknown origin, stage 2 pressure injury on right buttox, and an unstageable pressure injury on his coccyx. A nurse at [facility] reports that the facility is unsure how Pt obtained RLE wound measuring 13x7.5x0.1 with approximately 6 open areas. Surrounding skin is edematous and red, but not warm. Pt has been afebrile, and is currently on IV abx. Denies pain to RLE. Recommendation to Anterior RLE wound: Cleanse w/anasept spray and gauze. Apply Anasept gel to open areas on right carballo, cover with telfa and secure with kerlix, change daily and PRN. Unstageable on coccyx measures 1x0.5x0.1. Has 100% white/yellow slough covering wound bed, edges are pink. Stage 2 on right buttox measures 0.6x0.3x0.1 has pink wound bed and pink edges. Recommendation for unstageable pressure injury and stage 2 on right buttox: Cleanse wounds w/anaspet spray and gauze, apply medihoney to both open areas and cover with mepilex w/border, secure edges w/skin prep. Change daily and PRN. Thank you for the consult.
--- NOTE | 2017-12-11 15:29 | PDOC.PROG ---
Date of Service: 12/11/17 Time of Service: 15:29 Assessment/Plan - Assessment/Plan (1) Healthcare-associated pneumonia Plan: He was treated with Levaquin just prior to his admission to the hospital. Prior to that he was treated with ceftriaxone IM in November 2017 for pneumonia. His x-ray in the emergency department on admission revealed worsening pneumonia. He is currently being treated for healthcare associated pneumonia, as he lives in a [facility]. Continue vancomycin and cefepime, supplemental oxygen and updrafts as needed. Sputum cultures are still pending. Blood cultures are still pending. An order has been placed for a speech consult to evaluate his swallowing to ensure that he is not aspirating. (2) Acute kidney injury Plan: His creatinine has improved to 1.90 today from 2.5 on admission. His baseline creatinine is 1-1.2. He is not taking in much in the way of fluids orally. Continue gentle IV hydration and reassess kidney function in the morning. (3) Schizophrenia Plan: Stable. Continue his home dosing of his antipsychotic medications. (4) Superficial wound Plan: He has been evaluated by the wound care nurse. Will plan to initiate dressing recommendations and continue to monitor his wounds. (5) DVT prophylaxis Plan: Subcutaneous heparin. (6) Discharge planning issues Plan: He is a DNR/DNI. The plan will be for him to return back to [facility] and rehab when he is stable. History of Present Illness - History of Present Illness Chief Complaint: HCAP History of Present Illness: Benton Kurtz is a 72-year-old male resident of [facility] and rehab with a history significant for schizophrenia, diabetes, hypertension who is currently being treated for healthcare associated pneumonia with vancomycin and cefepime. He was treated with Levaquin just prior to this admission. One month ago he was treated for pneumonia with [facility]riaxone at the [facility]. He states he feels much better this morning. He is able to engage in a conversation. He reports that he continues to cough, he does not feel short of breath, he denies wheezing. He denies chest pain, he reports that he is trying to drink fluids, he does not have an appetite. He feels very weak. He denies any other concerns. Review of Systems - Review of Systems Constitutional: Weakness. denies: Fever, Chills, Sweats Respiratory: Cough. denies: Shortness of Breath, Hemoptysis, Wheezing Cardiovascular: Edema. denies: Chest Pain, Palpitations Gastrointestinal: Other (He does not have an appetite.). denies: Nausea, Vomiting, Abdominal Pain Genitourinary: denies: Dysuria Musculoskeletal: Other (He denies pain.) Neurological: denies: Weakness, Numbness, Incoordination - Medications/Allergies Allergies/Adverse Reactions: Allergies Allergy/AdvReac Type Severity Reaction Status Date / Time No Known Allergies Allergy Unverified 12/05/17 21:33 Medications: Current Medications Acetaminophen (Tylenol) 650 mg PO Q4H PRN PRN Albuterol Sulfate (Proventil Updraft) 2.5 mg IH Q6H PRN PRN Albuterol/Ipratropium (Duoneb Updraft) 3 ml UPD Q6H PRN PRN Last Admin: 12/11/17 11:50 Dose: 3 ml Bisacodyl (Dulcolax Suppository) 10 mg [place] DAILY PRN PRN Bisacodyl (Dulcolax) 5 mg PO DAILY PRN PRN Carbidopa/Levodopa (Parcopa 25/100) 2 tab PO QID [facility] Last Admin: 12/11/17 14:01 Dose: 2 tab Dextrose (Insta-Glucose) 0 gm PO DIRECTED PRN Dextrose/Water () 0 gm IVP DIRECTED PRN Dimethicone/Zinc Oxide (Mannie Protect Cream) 0 gm TP PRN PRN Divalproex Sodium (Depakote) 500 mg PO TID [facility] Last Admin: 12/11/17 14:01 Dose: 500 mg Docusate Sodium (Colace) 100 mg PO BID [facility] Last Admin: 12/11/17 08:56 Dose: 100 mg Docusate Sodium (Colace) 100 mg PO HS PRN PRN Ergocalciferol (Vitamin D) 50,000 units PO .FRIDAY [facility] Finasteride (Proscar) 5 mg PO DAILY [facility] Last Admin: 12/11/17 08:56 Dose: 5 mg Guaifenesin/Dextromethorphan (Robitussin-Dm Syrup) 5 ml PO Q4H PRN PRN Heparin Sodium (Porcine) () 5,000 units SC Q8H [facility] Last Admin: 12/11/17 10:35 Dose: 5,000 units Sodium Chloride (Saline 1000ml Bag) 1,000 mls @ 75 mls/hr IV INFUSION [facility] Last Admin: 12/11/17 08:57 Dose: 75 mls/hr Vancomycin HCl 1,000 mg/ (Sodium Chloride) 250 mls @ 166.667 mls/hr IVPB Q24H [facility] Cefepime HCl 2 gm/ Sodium (Chloride) 100 mls @ 200 mls/hr IVPB Q12H [facility] Last Admin: 12/11/17 04:46 Dose: 200 mls/hr Insulin Aspart (Novolog Flexpen) 0 units SC 0800,1200,1700 [facility] PRN Reason: Protocol Last Admin: 12/11/17 12:55 Dose: Not Given Iron/Minerals/Multivitamins (Theragran-M) 1 tab PO DAILY [facility] Last Admin: 12/11/17 08:56 Dose: 1 tab Leptospermum Honey (Medihoney) 0 ml TP DAILY [facility] Last Admin: 12/11/17 12:54 Dose: 1 applic Magnesium Hydroxide (Milk Of Magnesia) 30 ml PO DAILY [facility] Last Admin: 12/11/17 08:56 Dose: 30 ml Metoprolol Tartrate (Lopressor) 50 mg PO BID [facility] Last Admin: 12/11/17 08:56 Dose: 50 mg Mineral Oil (Fleet Mineral Oil Enema) 133 ml [place] DAILY PRN PRN Multi-Ingredient Mouthwash/Gargle (Biotene Mouthwash) 5 ml PO AC [facility] Last Admin: 12/11/17 12:54 Dose: 5 ml Polyethylene Glycol (Miralax) 17 gm PO DAILY PRN PRN PRN Reason: Constipation Quetiapine Fumarate (Seroquel) [address] [facility] Last Admin: 12/10/17 22:08 Dose: 200 mg Quetiapine Fumarate (Seroquel) 75 mg PO BID@0800,1600 [facility] Last Admin: 12/11/17 08:56 Dose: 75 mg Senna/Docusate Sodium (Anne-Colace Tablet) 1 tab PO BID PRN PRN Trazodone HCl (Desyrel) [address] [facility] Last Admin: 12/10/17 22:08 Dose: 100 mg Objective - Exam Vitals and I&O: Vital Signs Temp 37.1 C 12/11/17 07:25 Pulse 68 12/11/17 07:25 Resp 20 12/11/17 11:50 BP 105/61 12/11/17 07:25 Pulse Ox 94 L 12/11/17 14:48 Intake & Output 12/10/17 12/11/17 12/11/17 23:59 11:59 23:59 Intake Total 1163 680 Balance 1163 680 Weight 100.1 kg Intake: IV 1163 Oral 680 Other: Urine Color Yellow Urine Odor Strong Comment pT incontinent of moderate amounts of urine. Voiding Methods Diaper Incontinent General: Alert, Oriented x3 (He is able to state his name and date of , that he is at the hosptial and names the month correctly.), Cooperative. denies: No acute distress HEENT: Atraumatic, Mucous membr. moist/pink Neck: Supple. denies: JVD Lungs: Clear to auscultation (Diminished but clear throughout. Respirations are even and unlabored.), Normal air movement Cardiovascular: Regular rate (Distant heart sounds, non-tachycardic.) Abdomen: Normal bowel sounds, Soft. denies: Tenderness, Masses Extremities: Edema (He has 2+ edema to the right lower extremity. Markedly improved from yesterday, no longer erythematous.), Normal pulses. denies: Clubbing, Cyanosis, Tenderness/swelling Skin: Significant lesion (Dressing to his right carballo over superficial skin openings.) Neurological: Normal speech, Strength at 5/5 X4 ext, Normal tone - Results Results: Laboratory Results WBC 5.23 k/cumm (4.4-10.8) 12/11/17 06:38 RBC 2.75 m/cumm (4.50-6.00) L 12/11/17 06:38 Hgb 8.8 g/dL (13.5-17.5) L 12/11/17 06:38 Hct 26.8 % (40.0-50.0) L 12/11/17 06:38 MCV 97.5 fL (80-95) H 12/11/17 06:38 MCH 32.0 pg (27.0-33.0) 12/11/17 06:38 MCHC 32.8 g/dL (32.0-36.0) 12/11/17 06:38 RDW 13.2 % (11.8-14.1) 12/11/17 06:38 Plt Count 163 x1000/uL (130-400) 12/11/17 06:38 MPV 9.9 fL (8.0-11.0) 12/11/17 06:38 Immature Gran % 0.2 12/11/17 06:38 Neutrophils % 40.1 08 06:38 Lymphocytes % 48.4 12/11/17 06:38 Monocytes % 10.5 12/11/17 06:38 Eosinophils % 0.6 12/11/17 06:38 Basophils % 0.2 12/11/17 06:38 Absolute Neutrophils 2.10 k/cumm (1.2-6.7) 12/11/17 06:38 Absolute Lymphocytes 2.53 k/cumm (1.2-3.4) 12/11/17 06:38 Absolute Monocytes 0.55 k/cumm (0.11-0.7) 12/11/17 06:38 Absolute Eosinophils 0.03 k/cumm (0.0-0.7) 12/11/17 06:38 Absolute Basophils 0.01 k/cumm (0.0-0.2) 12/11/17 06:38 Differential Comment Rbc morph reviewed 12/10/17 14:30 RBC Morphology Normal 12/10/17 14:30 Sodium 142 mmol/L (136-145) 12/11/17 06:38 Potassium 3.8 mmol/L (3.5-5.1) 12/11/17 06:38 Chloride 104 mmol/L (98-107) 12/11/17 06:38 Carbon Dioxide 30.6 mmol/L (21.0-32.0) 12/11/17 06:38 Anion Gap 7.4 mmol/L (3-11) 12/11/17 06:38 BUN 15 mg/dL (7-18) 12/11/17 06:38 Creatinine 1.90 mg/dL (0.70-1.30) H 12/11/17 06:38 Estimated GFR/1.73 m2 35.22 (mL/min/1.73m2) 12/11/17 06:38 Glucose 87 mg/dL (70-100) 12/11/17 06:38 Calcium 8.8 mg/dL (8.5-10.1) 12/11/17 06:38 Total Bilirubin 0.7 mg/dL (0.2-1.0) 12/10/17 14:30 AST 15 U/L (15-37) 12/10/17 14:30 ALT 5 U/L (12-78) L 12/10/17 14:30 Alkaline Phosphatase 44 U/L (46-116) L 12/10/17 14:30 Total Protein 7.1 g/dL (6.4-8.2) 12/10/17 14:30 Albumin 2.5 g/dL (3.4-5.0) L 12/10/17 14:30 Urine Color Yellow (Yellow) 12/10/17 16:05 Urine Clarity Clear 12/10/17 16:05 Urine pH 6.0 (5-8) 12/10/17 16:05 Ur Specific [place] 1.015 (1.005-1.025) 12/10/17 16:05 Urine Protein Negative mg/dL (Negative) 12/10/17 16:05 Urine Ketones Trace mg/dL (Negative) H 12/10/17 16:05 Urine Blood Negative (Negative) 12/10/17 16:05 Urine Nitrite Negative (Negative) 12/10/17 16:05 Urine Bilirubin Negative (Negative) 12/10/17 16:05 Urine Urobilinogen 2.0 EU/dL (Up TO 0.2) H 12/10/17 16:05 Ur Leukocyte Esterase Negative (Negative) 12/10/17 16:05 Urine Glucose Negative mg/dL (Negative) 12/10/17 16:05
[2017-12-11 15:38] VITALS: BP 115/68; PULSE 68; RESP 24; TEMP 36; O2SAT 94
--- NOTE | 2017-12-11 15:39 | PDOC.PROG_ITS ---
Date of Service: 12/11/17 Time of Service: 15:29 Assessment/Plan - Assessment/Plan (1) Healthcare-associated pneumonia Plan: He was treated with Levaquin just prior to his admission to the hospital. Prior to that he was treated with ceftriaxone IM in November 2017 for pneumonia. His x-ray in the emergency department on admission revealed worsening pneumonia. He is currently being treated for healthcare associated pneumonia, as he lives in a custodial. Continue vancomycin and cefepime, supplemental oxygen and updrafts as needed. Sputum cultures are still pending. Blood cultures are still pending. An order has been placed for a speech consult to evaluate his swallowing to ensure that he is not aspirating. (2) Acute kidney injury Plan: His creatinine has improved to 1.90 today from 2.5 on admission. His baseline creatinine is 1-1.2. He is not taking in much in the way of fluids orally. Continue gentle IV hydration and reassess kidney function in the morning. (3) Schizophrenia Plan: Stable. Continue his home dosing of his antipsychotic medications. (4) Superficial wound Plan: He has been evaluated by the wound care nurse. Will plan to initiate dressing recommendations and continue to monitor his wounds. (5) DVT prophylaxis Plan: Subcutaneous heparin. (6) Discharge planning issues Plan: He is a DNR/DNI. The plan will be for him to return back to [facility] and rehab when he is stable. History of Present Illness - History of Present Illness Chief Complaint: HCAP History of Present Illness: Benton Kurtz is a 72-year-old male resident of [facility] and rehab with a history significant for schizophrenia, diabetes, hypertension who is currently being treated for healthcare associated pneumonia with vancomycin and cefepime. He was treated with Levaquin just prior to this admission. One month ago he was treated for pneumonia with ceftriaxone at the [facility]. He states he feels much better this morning. He is able to engage in a conversation. He reports that he continues to cough, he does not feel short of breath, he denies wheezing. He denies chest pain, he reports that he is trying to drink fluids, he does not have an appetite. He feels very weak. He denies any other concerns. Review of Systems - Review of Systems Constitutional: Weakness. denies: Fever, Chills, Sweats Respiratory: Cough. denies: Shortness of Breath, Hemoptysis, Wheezing Cardiovascular: Edema. denies: Chest Pain, Palpitations Gastrointestinal: Other (He does not have an appetite.). denies: Nausea, Vomiting, Abdominal Pain Genitourinary: denies: Dysuria Musculoskeletal: Other (He denies pain.) Neurological: denies: Weakness, Numbness, Incoordination - Medications/Allergies Allergies/Adverse Reactions: Allergies Allergy/AdvReac Type Severity Reaction Status Date / Time No Known Allergies Allergy Unverified 12/05/17 21:33 Medications: Current Medications Acetaminophen (Tylenol) 650 mg PO Q4H PRN PRN Albuterol Sulfate (Proventil Updraft) 2.5 mg IH Q6H PRN PRN Albuterol/Ipratropium (Duoneb Updraft) 3 ml UPD Q6H PRN PRN Last Admin: 12/11/17 11:50 Dose: 3 ml Bisacodyl (Dulcolax Suppository) 10 mg [place] DAILY PRN PRN Bisacodyl (Dulcolax) 5 mg PO DAILY PRN PRN Carbidopa/Levodopa (Parcopa 25/100) 2 tab PO QID [facility] Last Admin: 12/11/17 14:01 Dose: 2 tab Dextrose (Insta-Glucose) 0 gm PO DIRECTED PRN Dextrose/Water () 0 gm IVP DIRECTED PRN Dimethicone/Zinc Oxide (Mannie Protect Cream) 0 gm TP PRN PRN Divalproex Sodium (Depakote) 500 mg PO TID [facility] Last Admin: 12/11/17 14:01 Dose: 500 mg Docusate Sodium (Colace) 100 mg PO BID [facility] Last Admin: 12/11/17 08:56 Dose: 100 mg Docusate Sodium (Colace) 100 mg PO HS PRN PRN Ergocalciferol (Vitamin D) 50,000 units PO .FRIDAY [facility] Finasteride (Proscar) 5 mg PO DAILY [facility] Last Admin: 12/11/17 08:56 Dose: 5 mg Guaifenesin/Dextromethorphan (Robitussin-Dm Syrup) 5 ml PO Q4H PRN PRN Heparin Sodium (Porcine) () 5,000 units SC Q8H [facility] Last Admin: 12/11/17 10:35 Dose: 5,000 units Sodium Chloride (Saline 1000ml Bag) 1,000 mls @ 75 mls/hr IV INFUSION [facility] Last Admin: 12/11/17 08:57 Dose: 75 mls/hr Vancomycin HCl 1,000 mg/ (Sodium Chloride) 250 mls @ 166.667 mls/hr IVPB Q24H [facility] Cefepime HCl 2 gm/ Sodium (Chloride) 100 mls @ 200 mls/hr IVPB Q12H [facility] Last Admin: 12/11/17 04:46 Dose: 200 mls/hr Insulin Aspart (Novolog Flexpen) 0 units SC 0800,1200,1700 [facility] PRN Reason: Protocol Last Admin: 12/11/17 12:55 Dose: Not Given Iron/Minerals/Multivitamins (Theragran-M) 1 tab PO DAILY [facility] Last Admin: 12/11/17 08:56 Dose: 1 tab Leptospermum Honey (Medihoney) 0 ml TP DAILY [facility] Last Admin: 12/11/17 12:54 Dose: 1 applic Magnesium Hydroxide (Milk Of Magnesia) 30 ml PO DAILY [facility] Last Admin: 12/11/17 08:56 Dose: 30 ml Metoprolol Tartrate (Lopressor) 50 mg PO BID [facility] Last Admin: 12/11/17 08:56 Dose: 50 mg Mineral Oil (Fleet Mineral Oil Enema) 133 ml [place] DAILY PRN PRN Multi-Ingredient Mouthwash/Gargle (Biotene Mouthwash) 5 ml PO AC [facility] Last Admin: 12/11/17 12:54 Dose: 5 ml Polyethylene Glycol (Miralax) 17 gm PO DAILY PRN PRN PRN Reason: Constipation Quetiapine Fumarate (Seroquel) 200 mg PO [facility] Last Admin: 12/10/17 22:08 Dose: 200 mg Quetiapine Fumarate (Seroquel) 75 mg PO BID@0800,1600 [facility] Last Admin: 12/11/17 08:56 Dose: 75 mg Senna/Docusate Sodium (Anne-Colace Tablet) 1 tab PO BID PRN PRN Trazodone HCl (Desyrel) 100 mg PO [facility] Last Admin: 12/10/17 22:08 Dose: 100 mg Objective - Exam Vitals and I&O: Vital Signs Temp 37.1 C 12/11/17 07:25 Pulse 68 12/11/17 07:25 Resp 20 12/11/17 11:50 BP 105/61 12/11/17 07:25 Pulse Ox 94 L 12/11/17 14:48 Intake & Output 12/10/17 12/11/17 12/11/17 23:59 11:59 23:59 Intake Total 1163 680 Balance 1163 680 Weight 100.1 kg Intake: IV 1163 Oral 680 Other: Urine Color Yellow Urine Odor Strong Comment pT incontinent of moderate amounts of urine. Voiding Methods Diaper Incontinent General: Alert, Oriented x3 (He is able to state his name and date of , that he is at the hosptial and names the month correctly.), Cooperative. denies : No acute distress HEENT: Atraumatic, Mucous membr. moist/pink Neck: Supple. denies: JVD Lungs: Clear to auscultation (Diminished but clear throughout. Respirations are even and unlabored.), Normal air movement Cardiovascular: Regular rate (Distant heart sounds, non-tachycardic.) Abdomen: Normal bowel sounds, Soft. denies: Tenderness, Masses Extremities: Edema (He has 2+ edema to the right lower extremity. Markedly improved from yesterday, no longer erythematous.), Normal pulses. denies: Clubbing, Cyanosis, Tenderness/swelling Skin: Significant lesion (Dressing to his right carballo over superficial skin openings.) Neurological: Normal speech, Strength at 5/5 X4 ext, Normal tone - Results Results: Laboratory Results WBC 5.23 k/cumm (4.4-10.8) 12/11/17 06:38 RBC 2.75 m/cumm (4.50-6.00) L 12/11/17 06:38 Hgb 8.8 g/dL (13.5-17.5) L 12/11/17 06:38 Hct 26.8 % (40.0-50.0) L 12/11/17 06:38 MCV 97.5 fL (80-95) H 12/11/17 06:38 MCH 32.0 pg (27.0-33.0) 12/11/17 06:38 MCHC 32.8 g/dL (32.0-36.0) 12/11/17 06:38 RDW 13.2 % (11.8-14.1) 12/11/17 06:38 Plt Count 163 x1000/uL (130-400) 12/11/17 06:38 MPV 9.9 fL (8.0-11.0) 12/11/17 06:38 Immature Gran % 0.2 12/11/17 06:38 Neutrophils % 40.1 08 06:38 Lymphocytes % 48.4 12/11/17 06:38 Monocytes % 10.5 12/11/17 06:38 Eosinophils % 0.6 12/11/17 06:38 Basophils % 0.2 12/11/17 06:38 Absolute Neutrophils 2.10 k/cumm (1.2-6.7) 12/11/17 06:38 Absolute Lymphocytes 2.53 k/cumm (1.2-3.4) 12/11/17 06:38 Absolute Monocytes 0.55 k/cumm (0.11-0.7) 12/11/17 06:38 Absolute Eosinophils 0.03 k/cumm (0.0-0.7) 12/11/17 06:38 Absolute Basophils 0.01 k/cumm (0.0-0.2) 12/11/17 06:38 Differential Comment Rbc morph reviewed 12/10/17 14:30 RBC Morphology Normal 12/10/17 14:30 Sodium 142 mmol/L (136-145) 12/11/17 06:38 Potassium 3.8 mmol/L (3.5-5.1) 12/11/17 06:38 Chloride 104 mmol/L (98-107) 12/11/17 06:38 Carbon Dioxide 30.6 mmol/L (21.0-32.0) 12/11/17 06:38 Anion Gap 7.4 mmol/L (3-11) 12/11/17 06:38 BUN 15 mg/dL (7-18) 12/11/17 06:38 Creatinine 1.90 mg/dL (0.70-1.30) H 12/11/17 06:38 Estimated GFR/1.73 m2 35.22 (mL/min/1.73m2) 12/11/17 06:38 Glucose 87 mg/dL (70-100) 12/11/17 06:38 Calcium 8.8 mg/dL (8.5-10.1) 12/11/17 06:38 Total Bilirubin 0.7 mg/dL (0.2-1.0) 12/10/17 14:30 AST 15 U/L (15-37) 12/10/17 14:30 ALT 5 U/L (12-78) L 12/10/17 14:30 Alkaline Phosphatase 44 U/L (46-116) L 12/10/17 14:30 Total Protein 7.1 g/dL (6.4-8.2) 12/10/17 14:30 Albumin 2.5 g/dL (3.4-5.0) L 12/10/17 14:30 Urine Color Yellow (Yellow) 12/10/17 16:05 Urine Clarity Clear 12/10/17 16:05 Urine pH 6.0 (5-8) 12/10/17 16:05 Ur Specific [place] 1.015 (1.005-1.025) 12/10/17 16:05 Urine Protein Negative mg/dL (Negative) 12/10/17 16:05 Urine Ketones Trace mg/dL (Negative) H 12/10/17 16:05 Urine Blood Negative (Negative) 12/10/17 16:05 Urine Nitrite Negative (Negative) 12/10/17 16:05 Urine Bilirubin Negative (Negative) 12/10/17 16:05 Urine Urobilinogen 2.0 EU/dL (Up TO 0.2) H 12/10/17 16:05 Ur Leukocyte Esterase Negative (Negative) 12/10/17 16:05 Urine Glucose Negative mg/dL (Negative) 12/10/17 16:05
--- NOTE | 2017-12-11 16:15 | INITIAL_ITS ---
Care Management Initial Assess REASON FOR HOSPITALIZATION:: HCAP PAST MEDICAL HISTORY/PAST SURGICAL HISTORY:: Incomplete medical history; possible bipolar, personality disorder, schizophrenia. PREVIOUS FUNCTIONAL STATUS/SOCIAL/FAMILY SUPPORTS:: Benton is a current resident at [facility]. Support people include Roya Mccollum his POA and his son, Luis who resides in [place], [place]. CURRENT FUNCTIONAL STATUS:: Benton is sleeping when attempts to meet with him. Emily of [facility] reports Benton is pleasant and manageable at baseline and has been a resident at the facility for more than a few years. ADVANCE DIRECTIVES:: Roya Mccollum; AMIE. Has patient been provided with information about the portal?: No Did the patient sign up for the portal?: No CODE STATUS:: DNR/DNI INSURANCE COVERAGE / FINANCIAL ISSUES:: Medicaid. Medicare CURRENT HOME/COMMUNITY SERVICES/EQUIPMENT:: Benton resides at [facility]; the facility manages his service and equipment needs. PRIMARY CARE PHYSICIAN:: Puma Johnston. POTENTIAL DISCHARGE NEEDS:: Coordinated return to [facility]. ANTICIPATED BARRIERS TO DISCHARGE:: None identifed. TRANSPORTATION:: He will transport via the facility's wheelchair van. PLAN:: Benton will be treated for HCAP and when medically stable, will return to [facility]. He will transport via the facility's wheelchair van.
--- NOTE | 2017-12-11 16:31 | DM INPTCON_ITS ---
DESCRIPTION/ASSESSMENT: Appreciate diabetes consult for Mr. Kurtz. His blood sugars have all been at a non-diabetes level and his BMI at 5.3 does not indicate diabetes. Will check with him to see if he has nutritional or diabetes questions.
--- NOTE | 2017-12-11 17:00 | PHARADMIT ---
Addendum entered by mEma Chaudhari 12/18/17 17:29: Pharmacy Note Subjective post g-tube placement, tolerating tube feedings Objective vs ok, Assessment meds being given per PEG tube Plan watch that all meds are able to put into PEG tube Original Note: Addendum entered by Calvin Kwon III 12/17/17 13:24: Pharmacy Note Subjective Patient went to OR for PEG tube placement. Will begin tube feedings to help cope with aspiration difficulties. Objective VS-OK K+3.2 SCr-1.08 WBC-8.78 H&[facility]-9.4/28.6/Plts 227 Assessment Vancomycin timing adjusted to 8&8 . Meds t change to PEG-Tubable use. Plan Once medications have been switched over, he may be ready to return to [facility] Original Note: Addendum entered by Rina Landaverde 12/16/17 13:07: some PO meds were discontinued, while others were put on hold (carbidopa/levodopa, divalproex, finasteride, metoprolol, quetiapine, trazodone) Original Note: Addendum entered by Rina Ladnaverde 12/16/17 12:31: Pharmacy Note Subjective speech and neuro consults today, family meeting this morning; pt refused care yesterday per morning report Objective HR-96 other VS okay Na-148 Cl-111 SCr-1.06(up) Assessment vanco trough yesterday came back at 17.1, dose continues at 750 mg Q12H to target a trough of 15.3 cefepime changed to zosyn yesterday benztropine 2mg IV daily ordered due to pts inability to take PO meds per neurology Plan vanco trough ordered for tomorrow @1500 Original Note: Addendum entered by Calvin Kwon III 12/13/17 14:55: Pharmacy Note Subjective md ordered speech consult to varify that patient is not aspirating, as he is reprorted to be choking on him on secretions. Nutrition consult also. Objective VS-OK Na-147 K+4.2 SCr-1.24 H&H-9.3/29.0 WBC,Plts-OK No BM reported yet. Assessment Patient SCr has greatly improved, His Vanco trough was low 12.0, dose adjusted to a q12 schedule per MD request, Cefepime dosing is still appropriate. Plan Return to [facility] once IV ABX have completed Original Note: Admission Pharmacy Clinical Review HCAP Code Status DNR/DNI Current Weight Wgt-100.1 kg Renally Cleared and Narrow Therapeutic Index Meds CrCl~ 36 mL/min Meds-OK QTc Value / Action Taken QTc-440 na BP Control, Fever BP-115/68 Tmax- 37.2C Electrolytes reviewed Na- 142 K+3.8 DVT Prophylaxis Heparin SC Opiate Usage / Scheduled Bowel Regimen Ordered No Yes Plt/SCr for Heparin / Enoxaparin Plts-163 SCr-1.90 INR for Warfarin na H/H stable, WBC/Bands H&H- .8/26.8 WBC- 5.23 Antibiotic appropriateness Cefepime, Vancomycin Cultures and Sensitivities MRSA,Blood-Pending Surgical ABX d/c within 24 hr na DM control / Insulin Dosing BG- 87 Aspart, Heart Failure (Check EF%) (ZANE's, B-Block, Diuretics) Lopressor, IV to PO Switch No Home Meds Reviewed Yes Home Meds Not Ordered Lasix, Levaquin, Metformin, Comments [place]
[2017-12-11] MEDS: VANCOMYCIN 1,000 MG in Normal Saline 250 ML 166.667 MG IVPB (18:06)
[2017-12-11 20:01] VITALS: BP 128/65; PULSE 63; RESP 24
[2017-12-11] MEDS: QUEtiapine 100 MG TAB 200 MG PO (21:37)
[2017-12-11] MEDS: traZODone 100 MG TAB PO (21:37)
[2017-12-12 00:09] VITALS: BP 107/62; PULSE 60; RESP 18; TEMP 36; O2SAT 97
[2017-12-12] MEDS: Heparin 5,000 UNITS/ML VIAL 5000 UNITS SC ×3 (02:16→18:15)
[2017-12-12] MEDS: CEFEPIME 2 GM in Normal Saline 100 ML IVPB ×2 (05:05→17:01)
[2017-12-12 07:15] LABS: Abs Immature Grans 0.01 k/cumm (0.0-0.09); Absolute Basophil Count 0.01 k/cumm (0.0-0.2); Absolute Eosinophil Count 0.08 k/cumm (0.0-0.7); Absolute Lymphocyte Count 1.79 k/cumm (1.2-3.4); Absolute Monocyte Count 0.52 k/cumm (0.11-0.7); Basophils % 0.2; Eosinophils % 1.8; HGB 9.6 g/dL (13.5-17.5); Immature Grans % 0.2; Lymphocytes % 41.3; Mean Corpuscular Hemoglobin 31.6 pg (27.0-33.0); Mean Corpuscular Volume 98.7 fL (80-95); Neutrophils % 44.5; Platelet Count 164 x1000/uL (130-400); RBC 3.04 m/cumm (4.50-6.00); RBC Distribution Width 13.4 % (11.8-14.1); White Blood Cell Count 4.33 k/cumm (4.4-10.8)
[2017-12-12 07:25] LABS: Absolute Neutrophil Count 1.93 k/cumm (1.2-6.7)
[2017-12-12 07:29] LABS: Anion Gap 5.8 mmol/L (3-11); BUN 11 mg/dL (7-18); CO2 32.2 mmol/L (21.0-32.0); CREATININE 1.36 mg/dL (0.70-1.30); Calcium 9.1 mg/dL (8.5-10.1); Chloride 107 mmol/L (98-107); Estimated GFR 51.81 (mL/min/1.73m2); Glucose 84 mg/dL (70-100); Potassium 4.2 mmol/L (3.5-5.1); Sodium 145 mmol/L (136-145)
[2017-12-12 07:40] VITALS: BP 137/73; PULSE 65; RESP 18; TEMP 36.1; O2SAT 93
[2017-12-12] MEDS: Milk of Magnesia 30 ML CUP PO (08:38)
[2017-12-12] MEDS: Metoprolol 50 MG TAB PO ×2 (08:40→19:53)
[2017-12-12] MEDS: QUEtiapine 25 MG TAB 75 MG PO ×2 (08:40→17:00)
[2017-12-12] MEDS: Docusate Sodium 100 MG CAP PO ×2 (08:41→19:53)
[2017-12-12] MEDS: Divalproex 500 MG TABEC PO ×3 (08:41→19:53)
[2017-12-12] MEDS: Multivitamin w/Minerals TAB 1 TAB PO (08:41)
[2017-12-12] MEDS: Finasteride 5 MG TAB PO (08:41)
[2017-12-12 09:15] VITALS: O2SAT 93
--- NOTE | 2017-12-12 09:15 | EVALE_ITS ---
SPEECH EVALUATION DATE OF SERVICE December 12, 2017 CONCLUSIONS AND RECOMMENDATIONS On this limited bedside swallowing assessment, Benton Kurtz presents the clinical picture of dys phagia, but does respond to nectar-thick liquids and level 2 altered mechanical soft safely. Based u padmini these findings, this pathologist is recommending the following. 1. All liquids be thickened to nectar consistency. If he shows later in the day perhaps that he is u nable to manage these successfully, then he should have honey-thick liquids p.r.n., but it is my impr ession that he is managing the nectar well enough and safely enough. 2. The patient should be on an altered mechanical soft diet. This is soft mechanical soft and does n ot include breads and does not include solid foods and meats. 3. The patient should be fully assisted at all meals and observation should be made to ensure his sa fety. Thank you for referring this most interesting patient to my attention,. Demar Daniel M.A., C.C.C. Speech Pathologist HISTORY OF PRESENT ILLNESS Benton Kurtz was evaluated at [facility] on December 12, 2017 for dysp hagia. This 72-year-old male is a resident of [facility] and was admi tted with a pneumonia. The patient also has a history of psychiatric and mental disorders and also brings several wounds jacqiue t need tending for which he is currently receiving services. The staff reports that he has been coug joon and choking at times when eating and one nurse noted that he did have an entire piece of peerz d own in the back of the esophagus that came up on a very hard cough and apparently this had been lodge d there for possibly one or two hours. The patient refused most of the food that was provided on his a.m. tray, so supplemental food was del ivered. The results of the evaluation are as follows. 1. With the patient in an upright and 90-degree position, he was given thin liquids and he had signi ficant difficulty managing these. One of the staff who had worked with him at [facility] noted that he had been on thickened liquids. 2. [place]-thick liquids were then presented and he was able to drink these without any significant d ifficulty and with only an occasional clearing cough. 3. Puree food was presented by spoon and he was able to swallow this without any coughing or choking noted. Excursion times for all foods were satisfactory and elevation of the larynx during swallowing showed that excursion was satisfactory. 4. Food that was in the level 2 altered mechanical soft range, was also presented and he did well wi th this. He is edentulous, but was able to chew this food satisfactorily. This also may have been the problem with the perez, as he is probably unable to grind and break the food down and is more likely to put the entire piece in his mouth if he is not supervised. 5. Level 3 foods (advanced mechanical soft) were also presented, but he began having difficulty and at one point actually spit the food out. This came in the form of a muffin and he was unable to take anymore by his own request. It should be noted that he is an extremely picky eater.
[2017-12-12] MEDS: Normal Saline 1,000 ML 75 ML IV (09:38)
--- NOTE | 2017-12-12 10:28 | PDOC.CMPRO ---
Care Management Progress Note S/O: Benton was sitting up in his chair, speaking on the phone when CM entered the room. He has shown signs of improvement per provider and remains animated and conversant with staff. No change to overall plan. A: 72 year old male admitted to [facility] 12/10/17 for HCAP. P: Benton will be treated for HCAP and when medically stable, will return to [facility]. He will transport via the facility's wheelchair van.
--- NOTE | 2017-12-12 11:30 | PDOC.PROG ---
Date of Service: 12/12/17 Time of Service: 11:30 Assessment/Plan - Assessment/Plan (1) Healthcare-associated pneumonia Plan: He was treated with Levaquin just prior to his admission to the hospital. Prior to that he was treated with ceftriaxone IM in November 2017 for pneumonia. His x-ray in the emergency department on admission revealed worsening pneumonia. He is currently being treated for healthcare associated pneumonia, as he lives in a long term. Continue vancomycin and cefepime, supplemental oxygen and updrafts as needed. No sputum culture has been collected although it was ordered. His blood cultures are negative at 24 hours. (2) Acute kidney injury Plan: His creatinine has improved to 1.36 today, from 2.5 on admission. His baseline is 1-1.2. Plan to discontinue IV fluids today as long as he is taking in plenty of oral fluids. Plan to reassess kidney function in the morning. (3) Schizophrenia Plan: Stable. Continue his home dosing of his antipsychotic medications. (4) Superficial wound Plan: His right carballo was initially edematous, erythematous and warm, concerning for cellulitis. His leg is no longer erythematous, his edema has improved, it is no longer warm. He has been evaluated by the wound care nurse. Dressing orders per recommendations of wound care nurse. Continue to monitor wounds. (5) DVT prophylaxis Plan: Subcutaneous heparin. (6) Discharge planning issues Plan: He is a DNR/DNI. The plan will be for him to return back to [facility] when he is ready for discharge. History of Present Illness - History of Present Illness Chief Complaint: HCAP History of Present Illness: Benton Kurtz is a 72-year-old male resident of [facility] with a history significant for schizophrenia, diabetes, hypertension who is currently being treated for healthcare associated pneumonia with vancomycin and cefepime. He was treated with Levaquin just prior to this admission. One month ago he was treated for pneumonia with ceftriaxone at the long term. He reports improvement in his overall condition. He reports a continued cough. He is unable to tell me if it is a productive cough. He does not feel short of breath or wheezy. He denies chest pain/pressure or palpitations. He reports to me that he did not eat breakfast, however, review of the chart shows that he ate 75%. He states he is drinking fluids. He denies nausea. He has urinary incontinence. He denies problems with his stools. He was alert and oriented yesterday at the time of his exam. Today he thought it was near [place] time. He was able to state that he was at the hospital in [facility]. He denies pain. He had a speech consult today, recommendations were made to alter the texture of his foot. Review of Systems - Review of Systems Constitutional: Weakness (He reports continued weakness.). denies: Fever, Chills, Sweats, Malaise ENT: Other (Dry lips.) Respiratory: Cough. denies: Shortness of Breath, Wheezing Cardiovascular: Edema. denies: Chest Pain, Palpitations Gastrointestinal: Other (His appetite continues to be depressed.). denies: Nausea, Vomiting, Abdominal Pain, Diarrhea Genitourinary: Incontinence. denies: Dysuria Musculoskeletal: Other (He denies pain.) - Medications/Allergies Allergies/Adverse Reactions: Allergies Allergy/AdvReac Type Severity Reaction Status Date / Time No Known Allergies Allergy Unverified 12/05/17 21:33 Medications: Current Medications Acetaminophen (Tylenol) 650 mg PO Q4H PRN PRN Albuterol Sulfate (Proventil Updraft) 2.5 mg IH Q6H PRN PRN Albuterol/Ipratropium (Duoneb Updraft) 3 ml UPD Q6H PRN PRN Last Admin: 12/11/17 11:50 Dose: 3 ml Bisacodyl (Dulcolax Suppository) 10 mg WI DAILY PRN PRN Bisacodyl (Dulcolax) 5 mg PO DAILY PRN PRN Carbidopa/Levodopa (Parcopa 25/100) 2 tab PO QID [facility] Last Admin: 12/12/17 08:40 Dose: 2 tab Dextrose (Insta-Glucose) 0 gm PO DIRECTED PRN Dextrose/Water () 0 gm IVP DIRECTED PRN Dimethicone/Zinc Oxide (Mannie Protect Cream) 0 gm TP PRN PRN Divalproex Sodium (Depakote) 500 mg PO TID [facility] Last Admin: 12/12/17 08:41 Dose: 500 mg Docusate Sodium (Colace) 100 mg PO BID [facility] Last Admin: 12/12/17 08:41 Dose: 100 mg Docusate Sodium (Colace) 100 mg PO HS PRN PRN Ergocalciferol (Vitamin D) 50,000 units PO .FRIDAY [facility] Finasteride (Proscar) 5 mg PO DAILY [facility] Last Admin: 12/12/17 08:41 Dose: 5 mg Guaifenesin/Dextromethorphan (Robitussin-Dm Syrup) 5 ml PO Q4H PRN PRN Heparin Sodium (Porcine) () 5,000 units SC Q8H [facility] Last Admin: 12/12/17 09:46 Dose: 5,000 units Sodium Chloride (Saline 1000ml Bag) 1,000 mls @ 75 mls/hr IV INFUSION [facility] Last Admin: 12/12/17 09:38 Dose: 75 mls/hr Vancomycin HCl 1,000 mg/ (Sodium Chloride) 250 mls @ 166.667 mls/hr IVPB Q24H [facility] Last Admin: 12/11/17 18:06 Dose: 166.667 mls/hr Cefepime HCl 2 gm/ Sodium (Chloride) 100 mls @ 200 mls/hr IVPB Q12H [facility] Last Admin: 12/12/17 05:05 Dose: 200 mls/hr Insulin Aspart (Novolog Flexpen) 0 units SC 0800,1200,1700 [facility] PRN Reason: Protocol Last Admin: 12/12/17 08:43 Dose: Not Given Iron/Minerals/Multivitamins (Theragran-M) 1 tab PO DAILY [facility] Last Admin: 12/12/17 08:41 Dose: 1 tab Leptospermum Honey (Medihoney) 0 ml TP DAILY [facility] Last Admin: 12/12/17 09:46 Dose: 1 applic Magnesium Hydroxide (Milk Of Magnesia) 30 ml PO DAILY [facility] Last Admin: 12/12/17 08:38 Dose: 30 ml Metoprolol Tartrate (Lopressor) 50 mg PO BID [facility] Last Admin: 12/12/17 08:40 Dose: 50 mg Mineral Oil (Fleet Mineral Oil Enema) 133 ml WI DAILY PRN PRN Multi-Ingredient Mouthwash/Gargle (Biotene Mouthwash) 5 ml PO AC [facility] Last Admin: 12/12/17 08:41 Dose: 5 ml Polyethylene Glycol (Miralax) 17 gm PO DAILY PRN PRN PRN Reason: Constipation Quetiapine Fumarate (Seroquel) 200 mg PO HS [facility] Last Admin: 12/11/17 21:37 Dose: 200 mg Quetiapine Fumarate (Seroquel) 75 mg PO BID@0800,1600 [facility] Last Admin: 12/12/17 08:40 Dose: 75 mg Senna/Docusate Sodium (Anne-Colace Tablet) 1 tab PO BID PRN PRN Trazodone HCl (Desyrel) 100 mg PO [facility] Last Admin: 12/11/17 21:37 Dose: 100 mg Objective - Exam Vitals and I&O: Vital Signs Temp 36.1 C L 12/12/17 07:40 Pulse 65 12/12/17 07:40 Resp 18 12/12/17 07:40 BP 137/73 12/12/17 07:40 Pulse Ox 93 L 12/12/17 07:40 Intake & Output 12/11/17 12/11/17 12/12/17 11:59 23:59 11:59 Intake Total 1163 2015 960 Balance 1163 2015 960 Intake: IV 1163 1096 710 Oral 920 250 Other: Urine Color Yellow Yellow Yellow Urine Odor Strong Comment pT incontinent of moderate amounts of urine. Incontinent moderate amount of urine. Incontinent moderate amount of urine. Voiding Methods Diaper Diaper Diaper Incontinent Incontinent Incontinent General: Alert, Cooperative, No acute distress. denies: Oriented x3 (He is oriented to person and place, not time today, he thought it was winter.) HEENT: Atraumatic, PERRLA. denies: Mucous membr. moist/pink (lips dry.) Neck: Supple. denies: JVD Lungs: denies: Clear to auscultation, Normal air movement (Lung sounds diminished, more diminished on right than left. Few scattered wheezes on the right. No rales.) Cardiovascular: Regular rate. denies: Murmurs Abdomen: Normal bowel sounds. denies: Soft, Tenderness, Masses Extremities: Edema (He has mild edema to RUE and RLE. No erythema of right carballo, dressing intact to right carballo.), Normal pulses. denies: Clubbing, Cyanosis, Tenderness/swelling (No calf swelling or tenderness. ) Skin: Significant lesion (He has a dressing to his right carballo over superficial skin openings that he presented with. ) Neurological: Strength at 5/5 X4 ext, Normal tone - Results Results: Laboratory Results WBC 4.33 k/cumm (4.4-10.8) L 12/12/17 06:58 RBC 3.04 m/cumm (4.50-6.00) L 12/12/17 06:58 Hgb 9.6 g/dL (13.5-17.5) L 12/12/17 06:58 Hct 30.0 % (40.0-50.0) L 12/12/17 06:58 MCV 98.7 fL (80-95) H 12/12/17 06:58 MCH 31.6 pg (27.0-33.0) 12/12/17 06:58 MCHC 32.0 g/dL (32.0-36.0) 12/12/17 06:58 RDW 13.4 % (11.8-14.1) 12/12/17 06:58 Plt Count 164 x1000/uL (130-400) 12/12/17 06:58 MPV 10.0 fL (8.0-11.0) 12/12/17 06:58 Immature Gran % 0.2 12/12/17 06:58 Neutrophils % 44.5 12/12/17 06:58 Lymphocytes % 41.3 12/12/17 06:58 Monocytes % 12.0 12/12/17 06:58 Eosinophils % 1.8 12/12/17 06:58 Basophils % 0.2 12/12/17 06:58 Absolute Neutrophils 1.93 k/cumm (1.2-6.7) 12/12/17 06:58 Absolute Lymphocytes 1.79 k/cumm (1.2-3.4) 12/12/17 06:58 Absolute Monocytes 0.52 k/cumm (0.11-0.7) 12/12/17 06:58 Absolute Eosinophils 0.08 k/cumm (0.0-0.7) 12/12/17 06:58 Absolute Basophils 0.01 k/cumm (0.0-0.2) 12/12/17 06:58 Differential Comment Rbc morph reviewed 12/10/17 14:30 RBC Morphology Normal 12/10/17 14:30 Sodium 145 mmol/L (136-145) 12/12/17 06:58 Potassium 4.2 mmol/L (3.5-5.1) 12/12/17 06:58 Chloride 107 mmol/L (98-107) 12/12/17 06:58 Carbon Dioxide 32.2 mmol/L (21.0-32.0) H 12/12/17 06:58 Anion Gap 5.8 mmol/L (3-11) 12/12/17 06:58 BUN 11 mg/dL (7-18) 12/12/17 06:58 Creatinine 1.36 mg/dL (0.70-1.30) H 12/12/17 06:58 Estimated GFR/1.73 m2 51.81 (mL/min/1.73m2) 12/12/17 06:58 Glucose 84 mg/dL (70-100) 12/12/17 06:58 Calcium 9.1 mg/dL (8.5-10.1) 12/12/17 06:58 Total Bilirubin 0.7 mg/dL (0.2-1.0) 12/10/17 14:30 AST 15 U/L (15-37) 12/10/17 14:30 ALT 5 U/L (12-78) L 12/10/17 14:30 Alkaline Phosphatase 44 U/L (46-116) L 12/10/17 14:30 Total Protein 7.1 g/dL (6.4-8.2) 12/10/17 14:30 Albumin 2.5 g/dL (3.4-5.0) L 12/10/17 14:30 Urine Color Yellow (Yellow) 12/10/17 16:05 Urine Clarity Clear 12/10/17 16:05 Urine pH 6.0 (5-8) 12/10/17 16:05 Ur Specific [place] 1.015 (1.005-1.025) 12/10/17 16:05 Urine Protein Negative mg/dL (Negative) 12/10/17 16:05 Urine Ketones Trace mg/dL (Negative) H 12/10/17 16:05 Urine Blood Negative (Negative) 12/10/17 16:05 Urine Nitrite Negative (Negative) 12/10/17 16:05 Urine Bilirubin Negative (Negative) 12/10/17 16:05 Urine Urobilinogen 2.0 EU/dL (Up TO 0.2) H 12/10/17 16:05 Ur Leukocyte Esterase Negative (Negative) 12/10/17 16:05 Urine Glucose Negative mg/dL (Negative) 12/10/17 16:05
--- NOTE | 2017-12-12 11:36 | PDOC.PROG_ITS ---
Date of Service: 12/12/17 Time of Service: 11:30 Assessment/Plan - Assessment/Plan (1) Healthcare-associated pneumonia Plan: He was treated with Levaquin just prior to his admission to the hospital. Prior to that he was treated with ceftriaxone IM in November 2017 for pneumonia. His x-ray in the emergency department on admission revealed worsening pneumonia. He is currently being treated for healthcare associated pneumonia, as he lives in a long term. Continue vancomycin and cefepime, supplemental oxygen and updrafts as needed. No sputum culture has been collected although it was ordered. His blood cultures are negative at 24 hours. (2) Acute kidney injury Plan: His creatinine has improved to 1.36 today, from 2.5 on admission. His baseline is 1-1.2. Plan to discontinue IV fluids today as long as he is taking in plenty of oral fluids. Plan to reassess kidney function in the morning. (3) Schizophrenia Plan: Stable. Continue his home dosing of his antipsychotic medications. (4) Superficial wound Plan: His right carballo was initially edematous, erythematous and warm, concerning for cellulitis. His leg is no longer erythematous, his edema has improved, it is no longer warm. He has been evaluated by the wound care nurse. Dressing orders per recommendations of wound care nurse. Continue to monitor wounds. (5) DVT prophylaxis Plan: Subcutaneous heparin. (6) Discharge planning issues Plan: He is a DNR/DNI. The plan will be for him to return back to [facility] when he is ready for discharge. History of Present Illness - History of Present Illness Chief Complaint: HCAP History of Present Illness: Benton Kurtz is a 72-year-old male resident of [facility] and rehab with a history significant for schizophrenia, diabetes, hypertension who is currently being treated for healthcare associated pneumonia with vancomycin and cefepime. He was treated with Levaquin just prior to this admission. One month ago he was treated for pneumonia with ceftriaxone at the long term. He reports improvement in his overall condition. He reports a continued cough. He is unable to tell me if it is a productive cough. He does not feel short of breath or wheezy. He denies chest pain/pressure or palpitations. He reports to me that he did not eat breakfast, however, review of the chart shows that he ate 75%. He states he is drinking fluids. He denies nausea. He has urinary incontinence. He denies problems with his stools. He was alert and oriented yesterday at the time of his exam. Today he thought it was near [place] time. He was able to state that he was at the hospital in [facility]. He denies pain. He had a speech consult today, recommendations were made to alter the texture of his foot. Review of Systems - Review of Systems Constitutional: Weakness (He reports continued weakness.). denies: Fever, Chills, Sweats, Malaise ENT: Other (Dry lips.) Respiratory: Cough. denies: Shortness of Breath, Wheezing Cardiovascular: Edema. denies: Chest Pain, Palpitations Gastrointestinal: Other (His appetite continues to be depressed.). denies: Nausea, Vomiting, Abdominal Pain, Diarrhea Genitourinary: Incontinence. denies: Dysuria Musculoskeletal: Other (He denies pain.) - Medications/Allergies Allergies/Adverse Reactions: Allergies Allergy/AdvReac Type Severity Reaction Status Date / Time No Known Allergies Allergy Unverified 12/05/17 21:33 Medications: Current Medications Acetaminophen (Tylenol) 650 mg PO Q4H PRN PRN Albuterol Sulfate (Proventil Updraft) 2.5 mg IH Q6H PRN PRN Albuterol/Ipratropium (Duoneb Updraft) 3 ml UPD Q6H PRN PRN Last Admin: 12/11/17 11:50 Dose: 3 ml Bisacodyl (Dulcolax Suppository) 10 mg [place] DAILY PRN PRN Bisacodyl (Dulcolax) 5 mg PO DAILY PRN PRN Carbidopa/Levodopa (Parcopa 25/100) 2 tab PO QID [facility] Last Admin: 12/12/17 08:40 Dose: 2 tab Dextrose (Insta-Glucose) 0 gm PO DIRECTED PRN Dextrose/Water () 0 gm IVP DIRECTED PRN Dimethicone/Zinc Oxide (Mannie Protect Cream) 0 gm TP PRN PRN Divalproex Sodium (Depakote) 500 mg PO TID [facility] Last Admin: 12/12/17 08:41 Dose: 500 mg Docusate Sodium (Colace) 100 mg PO BID [facility] Last Admin: 12/12/17 08:41 Dose: 100 mg Docusate Sodium (Colace) 100 mg PO HS PRN PRN Ergocalciferol (Vitamin D) 50,000 units PO .FRIDAY [facility] Finasteride (Proscar) 5 mg PO DAILY [facility] Last Admin: 12/12/17 08:41 Dose: 5 mg Guaifenesin/Dextromethorphan (Robitussin-Dm Syrup) 5 ml PO Q4H PRN PRN Heparin Sodium (Porcine) () 5,000 units SC Q8H [facility] Last Admin: 12/12/17 09:46 Dose: 5,000 units Sodium Chloride (Saline 1000ml Bag) 1,000 mls @ 75 mls/hr IV INFUSION [facility] Last Admin: 12/12/17 09:38 Dose: 75 mls/hr Vancomycin HCl 1,000 mg/ (Sodium Chloride) 250 mls @ 166.667 mls/hr IVPB Q24H [facility] Last Admin: 12/11/17 18:06 Dose: 166.667 mls/hr Cefepime HCl 2 gm/ Sodium (Chloride) 100 mls @ 200 mls/hr IVPB Q12H [facility] Last Admin: 12/12/17 05:05 Dose: 200 mls/hr Insulin Aspart (Novolog Flexpen) 0 units SC 0800,1200,1700 [facility] PRN Reason: Protocol Last Admin: 12/12/17 08:43 Dose: Not Given Iron/Minerals/Multivitamins (Theragran-M) 1 tab PO DAILY [facility] Last Admin: 12/12/17 08:41 Dose: 1 tab Leptospermum Honey (Medihoney) 0 ml TP DAILY [facility] Last Admin: 12/12/17 09:46 Dose: 1 applic Magnesium Hydroxide (Milk Of Magnesia) 30 ml PO DAILY [facility] Last Admin: 12/12/17 08:38 Dose: 30 ml Metoprolol Tartrate (Lopressor) 50 mg PO BID [facility] Last Admin: 12/12/17 08:40 Dose: 50 mg Mineral Oil (Fleet Mineral Oil Enema) 133 ml AR DAILY PRN PRN Multi-Ingredient Mouthwash/Gargle (Biotene Mouthwash) 5 ml PO AC [facility] Last Admin: 12/12/17 08:41 Dose: 5 ml Polyethylene Glycol (Miralax) 17 gm PO DAILY PRN PRN PRN Reason: Constipation Quetiapine Fumarate (Seroquel) 200 mg PO HS [facility] Last Admin: 12/11/17 21:37 Dose: 200 mg Quetiapine Fumarate (Seroquel) 75 mg PO BID@0800,1600 [facility] Last Admin: 12/12/17 08:40 Dose: 75 mg Senna/Docusate Sodium (Anne-Colace Tablet) 1 tab PO BID PRN PRN Trazodone HCl (Desyrel) 100 mg PO [facility] Last Admin: 12/11/17 21:37 Dose: 100 mg Objective - Exam Vitals and I&O: Vital Signs Temp 36.1 C L 12/12/17 07:40 Pulse 65 12/12/17 07:40 Resp 18 12/12/17 07:40 BP 137/73 12/12/17 07:40 Pulse Ox 93 L 12/12/17 07:40 Intake & Output 12/11/17 12/11/17 12/12/17 11:59 23:59 11:59 Intake Total 1163 2015 960 Balance 1163 2015 960 Intake: IV 1163 1096 710 Oral 920 250 Other: Urine Color Yellow Yellow Yellow Urine Odor Strong Comment pT incontinent of moderate amounts of urine. Incontinent moderate amount of urine. Incontinent moderate amount of urine. Voiding Methods Diaper Diaper Diaper Incontinent Incontinent Incontinent General: Alert, Cooperative, No acute distress. denies: Oriented x3 (He is oriented to person and place, not time today, he thought it was winter.) HEENT: Atraumatic, PERRLA. denies: Mucous membr. moist/pink (lips dry.) Neck: Supple. denies: JVD Lungs: denies: Clear to auscultation, Normal air movement (Lung sounds diminished, more diminished on right than left. Few scattered wheezes on the right. No rales.) Cardiovascular: Regular rate. denies: Murmurs Abdomen: Normal bowel sounds. denies: Soft, Tenderness, Masses Extremities: Edema (He has mild edema to RUE and RLE. No erythema of right carballo , dressing intact to right carballo.), Normal pulses. denies: Clubbing, Cyanosis, Tenderness/swelling (No calf swelling or tenderness. ) Skin: Significant lesion (He has a dressing to his right carballo over superficial skin openings that he presented with. ) Neurological: Strength at 5/5 X4 ext, Normal tone - Results Results: Laboratory Results WBC 4.33 k/cumm (4.4-10.8) L 12/12/17 06:58 RBC 3.04 m/cumm (4.50-6.00) L 12/12/17 06:58 Hgb 9.6 g/dL (13.5-17.5) L 12/12/17 06:58 Hct 30.0 % (40.0-50.0) L 12/12/17 06:58 MCV 98.7 fL (80-95) H 12/12/17 06:58 MCH 31.6 pg (27.0-33.0) 12/12/17 06:58 MCHC 32.0 g/dL (32.0-36.0) 12/12/17 06:58 RDW 13.4 % (11.8-14.1) 12/12/17 06:58 Plt Count 164 x1000/uL (130-400) 12/12/17 06:58 MPV 10.0 fL (8.0-11.0) 12/12/17 06:58 Immature Gran % 0.2 12/12/17 06:58 Neutrophils % 44.5 12/12/17 06:58 Lymphocytes % 41.3 12/12/17 06:58 Monocytes % 12.0 12/12/17 06:58 Eosinophils % 1.8 12/12/17 06:58 Basophils % 0.2 12/12/17 06:58 Absolute Neutrophils 1.93 k/cumm (1.2-6.7) 12/12/17 06:58 Absolute Lymphocytes 1.79 k/cumm (1.2-3.4) 12/12/17 06:58 Absolute Monocytes 0.52 k/cumm (0.11-0.7) 12/12/17 06:58 Absolute Eosinophils 0.08 k/cumm (0.0-0.7) 12/12/17 06:58 Absolute Basophils 0.01 k/cumm (0.0-0.2) 12/12/17 06:58 Differential Comment Rbc morph reviewed 12/10/17 14:30 RBC Morphology Normal 12/10/17 14:30 Sodium 145 mmol/L (136-145) 12/12/17 06:58 Potassium 4.2 mmol/L (3.5-5.1) 12/12/17 06:58 Chloride 107 mmol/L (98-107) 12/12/17 06:58 Carbon Dioxide 32.2 mmol/L (21.0-32.0) H 12/12/17 06:58 Anion Gap 5.8 mmol/L (3-11) 12/12/17 06:58 BUN 11 mg/dL (7-18) 12/12/17 06:58 Creatinine 1.36 mg/dL (0.70-1.30) H 12/12/17 06:58 Estimated GFR/1.73 m2 51.81 (mL/min/1.73m2) 12/12/17 06:58 Glucose 84 mg/dL (70-100) 12/12/17 06:58 Calcium 9.1 mg/dL (8.5-10.1) 12/12/17 06:58 Total Bilirubin 0.7 mg/dL (0.2-1.0) 12/10/17 14:30 AST 15 U/L (15-37) 12/10/17 14:30 ALT 5 U/L (12-78) L 12/10/17 14:30 Alkaline Phosphatase 44 U/L (46-116) L 12/10/17 14:30 Total Protein 7.1 g/dL (6.4-8.2) 12/10/17 14:30 Albumin 2.5 g/dL (3.4-5.0) L 12/10/17 14:30 Urine Color Yellow (Yellow) 12/10/17 16:05 Urine Clarity Clear 12/10/17 16:05 Urine pH 6.0 (5-8) 12/10/17 16:05 Ur Specific [place] 1.015 (1.005-1.025) 12/10/17 16:05 Urine Protein Negative mg/dL (Negative) 12/10/17 16:05 Urine Ketones Trace mg/dL (Negative) H 12/10/17 16:05 Urine Blood Negative (Negative) 12/10/17 16:05 Urine Nitrite Negative (Negative) 12/10/17 16:05 Urine Bilirubin Negative (Negative) 12/10/17 16:05 Urine Urobilinogen 2.0 EU/dL (Up TO 0.2) H 12/10/17 16:05 Ur Leukocyte Esterase Negative (Negative) 12/10/17 16:05 Urine Glucose Negative mg/dL (Negative) 12/10/17 16:05
[2017-12-12 12:15] VITALS: O2SAT 91
[2017-12-12 14:07] VITALS: BP 107/62; PULSE 65; O2SAT 95
[2017-12-12] MEDS: Normal Saline Flush 10 ML SYR (14:23)
--- NOTE | 2017-12-12 15:40 | SATEXT_ITS ---
Assessment: Consult for wound healing. Pt. 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 Diet order is now carbohydrate counting mechanically altered with nectar thick liquids. Supervised feedings. Pt. is 71 and 100.1 kg. BMI is 32.6 kg/m2 c/w class 1 obesity. Adjusted IBW is 93.8 kg. Estimated energy needs are 2120 kcal/day based on REE x 1.2. Estimated protein needs are 120 grams per day based on 1.2 g/kg/day adjusted IBW. Nutritional Diagnosis: Increased needs for nutrients related to wounds. Intervention: Providing Sidney supplement (glutamine/arginine liquid supplement ) for wound healing twice daily with meals. Also providing Glucerna at meals as pt. verbalizes that liquids are easier for him. Monitoring and Evaluation: 1. Will monitor tolerance to supplements 2. Will monitor PO intake. 3. Will monitor weight. 4. Evaluate nutrition care plan ongoing and adjust as needed. Thank you for the consult.
[2017-12-12 16:30] VITALS: BP 121/61; PULSE 62; RESP 20; TEMP 36; O2SAT 99
[2017-12-12] MEDS: VANCOMYCIN 1,000 MG in Normal Saline 250 ML 166.667 MG IVPB (18:14)
[2017-12-12] MEDS: QUEtiapine 100 MG TAB 200 MG PO (21:55)
[2017-12-12] MEDS: traZODone 100 MG TAB PO (21:56)
[2017-12-13] MEDS: Heparin 5,000 UNITS/ML VIAL 5000 UNITS SC ×3 (01:34→17:24)
[2017-12-13 01:57] VITALS: BP 158/90; PULSE 66; RESP 20; TEMP 37.2; O2SAT 96
[2017-12-13] MEDS: CEFEPIME 2 GM in Normal Saline 100 ML IVPB ×2 (04:19→15:40)
[2017-12-13 07:15] VITALS: BP 163/90; PULSE 94; RESP 19; TEMP 37; O2SAT 94
[2017-12-13 07:23] LABS: Abs Immature Grans 0.02 k/cumm (0.0-0.09); Absolute Basophil Count 0.01 k/cumm (0.0-0.2); Absolute Eosinophil Count 0.08 k/cumm (0.0-0.7); Absolute Monocyte Count 0.57 k/cumm (0.11-0.7); Absolute Neutrophil Count 2.14 k/cumm (1.2-6.7); Basophils % 0.2; Eosinophils % 1.7; HGB 9.3 g/dL (13.5-17.5); Immature Grans % 0.4; Mean Corp. HGB Concentration 32.1 g/dL (32.0-36.0); Mean Corpuscular Hemoglobin 31.7 pg (27.0-33.0); Mean Platelet Volume 9.6 fL (8.0-11.0); Monocytes % 12.3; Neutrophils % 46.4; Platelet Count 157 x1000/uL (130-400); RBC 2.93 m/cumm (4.50-6.00); RBC Distribution Width 13.2 % (11.8-14.1); White Blood Cell Count 4.62 k/cumm (4.4-10.8)
[2017-12-13 07:28] LABS: Anion Gap 3.6 mmol/L (3-11); BUN 11 mg/dL (7-18); CO2 33.4 mmol/L (21.0-32.0); CREATININE 1.24 mg/dL (0.70-1.30); Calcium 9.3 mg/dL (8.5-10.1); Chloride 110 mmol/L (98-107); Estimated GFR 57.63 (mL/min/1.73m2); Glucose 77 mg/dL (70-100); Potassium 4.2 mmol/L (3.5-5.1); Sodium 147 mmol/L (136-145)
[2017-12-13] MEDS: QUEtiapine 25 MG TAB 75 MG PO ×2 (08:48→16:16)
[2017-12-13] MEDS: Milk of Magnesia 30 ML CUP PO (08:48)
[2017-12-13] MEDS: Docusate Sodium 100 MG CAP PO ×2 (08:48→19:33)
[2017-12-13] MEDS: Finasteride 5 MG TAB PO (08:48)
[2017-12-13] MEDS: Metoprolol 50 MG TAB PO ×2 (08:48→19:33)
[2017-12-13] MEDS: Divalproex 500 MG TABEC PO ×3 (08:49→19:33)
[2017-12-13] MEDS: Multivitamin w/Minerals TAB 1 TAB PO (08:49)
--- NOTE | 2017-12-13 14:10 | PDOC.PROG ---
Date of Service: 12/13/17 Time of Service: 11:40 Assessment/Plan - Assessment/Plan (1) Healthcare-associated pneumonia Plan: Continue cefepime and vancomycin. Vanco trough today. Will adjust vancomycin dosing accordingly. Today is day 3 of antibiotics. No leukocytosis, fever, evidence of increased work of breathing. RT following to administer nebs. (2) Discharge planning issues Plan: CM working on DC plan. Will likely head back to [facility] and rehab once abx course is complete. (3) Schizophrenia Plan: No significant behavioral issues. Continue home antipsychotics. (4) Acute kidney injury Plan: NEHEMIAH has improved. Now with normal Cr. Will continue to monitor. Time spent with patient 25 mins Discuss[address] case with Dr. Chavira who is in agreement. History of Present Illness - History of Present Illness History of Present Illness: Mr. Kurtz is a 72 yo usp resident of [facility] and rehab who is currently being treated for healthcare associated pneumonia. Overall he seems to be doing well from a respiratory standpoint. Complains of a persistent productive cough. His schizophrenia makes obtaining a history somewhat difficult. Overall he is not noticing much improvement. States he has not been eating much because he does not like the food. Denies SOB, CP, abd pain, N/V/D/constipation, dysuria. Review of Systems - Review of Systems Constitutional: Other (10 point ROS obtained with pertinent positives noted in HPI, otherwise negative.) - Medications/Allergies Allergies/Adverse Reactions: Allergies Allergy/AdvReac Type Severity Reaction Status Date / Time No Known Allergies Allergy Unverified 12/05/17 21:33 Medications: Current Medications Acetaminophen (Tylenol) 650 mg PO Q4H PRN PRN Albuterol Sulfate (Proventil Updraft) 2.5 mg IH Q6H PRN PRN Albuterol/Ipratropium (Duoneb Updraft) 3 ml UPD Q6H PRN PRN Last Admin: 12/11/17 11:50 Dose: 3 ml Bisacodyl (Dulcolax Suppository) 10 mg [place] DAILY PRN PRN Bisacodyl (Dulcolax) 5 mg PO DAILY PRN PRN Carbidopa/Levodopa (Parcopa 25/100) 2 tab PO QID [facility] Last Admin: 12/13/17 12:18 Dose: 2 tab Dextrose (Insta-Glucose) 0 gm PO DIRECTED PRN Dextrose/Water () 0 gm IVP DIRECTED PRN Dimethicone/Zinc Oxide (Mannie Protect Cream) 0 gm TP PRN PRN Divalproex Sodium (Depakote) 500 mg PO TID [facility] Last Admin: 12/13/17 08:49 Dose: 500 mg Docusate Sodium (Colace) 100 mg PO BID [facility] Last Admin: 12/13/17 08:48 Dose: 100 mg Docusate Sodium (Colace) 100 mg PO HS PRN PRN Ergocalciferol (Vitamin D) 50,000 units PO .FRIDAY [facility] Finasteride (Proscar) 5 mg PO DAILY [facility] Last Admin: 12/13/17 08:48 Dose: 5 mg Guaifenesin/Dextromethorphan (Robitussin-Dm Syrup) 5 ml PO Q4H PRN PRN Heparin Sodium (Porcine) () 5,000 units SC Q8H [facility] Last Admin: 12/13/17 10:55 Dose: 5,000 units Vancomycin HCl 1,000 mg/ (Sodium Chloride) 250 mls @ 166.667 mls/hr IVPB Q24H [facility] Last Admin: 12/12/17 18:14 Dose: 166.667 mls/hr Cefepime HCl 2 gm/ Sodium (Chloride) 100 mls @ 200 mls/hr IVPB Q12H [facility] Last Admin: 12/13/17 04:19 Dose: 200 mls/hr Insulin Aspart (Novolog Flexpen) 0 units SC 0800,1200,1700 [facility] PRN Reason: Protocol Last Admin: 12/13/17 11:58 Dose: Not Given Iron/Minerals/Multivitamins (Theragran-M) 1 tab PO DAILY [facility] Last Admin: 12/13/17 08:49 Dose: 1 tab Leptospermum Honey (Medihoney) 0 ml TP DAILY [facility] Last Admin: 12/13/17 08:50 Dose: 1 applic Magnesium Hydroxide (Milk Of Magnesia) 30 ml PO DAILY [facility] Last Admin: 12/13/17 08:48 Dose: 30 ml Metoprolol Tartrate (Lopressor) 50 mg PO BID [facility] Last Admin: 12/13/17 08:48 Dose: 50 mg Mineral Oil (Fleet Mineral Oil Enema) 133 ml RI DAILY PRN PRN Multi-Ingredient Mouthwash/Gargle (Biotene Mouthwash) 5 ml PO AC [facility] Last Admin: 12/13/17 12:18 Dose: 5 ml Polyethylene Glycol (Miralax) 17 gm PO DAILY PRN PRN PRN Reason: Constipation Quetiapine Fumarate (Seroquel) 200 mg PO HS [facility] Last Admin: 12/12/17 21:55 Dose: 200 mg Quetiapine Fumarate (Seroquel) 75 mg PO BID@0800,1600 [facility] Last Admin: 12/13/17 08:48 Dose: 75 mg Senna/Docusate Sodium (Anne-Colace Tablet) 1 tab PO BID PRN PRN Trazodone HCl (Desyrel) 100 mg PO [facility] Last Admin: 12/12/17 21:56 Dose: 100 mg Objective - Exam Vitals and I&O: Vital Signs Temp 37 C 12/13/17 07:15 Pulse 94 H 12/13/17 07:15 Resp 19 12/13/17 07:15 BP 163/90 12/13/17 07:15 Pulse Ox 94 L 12/13/17 07:15 Intake & Output 12/12/17 12/13/17 12/13/17 23:59 11:59 23:59 Intake Total 621 550 Balance 621 550 Intake: IV 621 550 Other: Urine Color Yellow Comment Incontinent moderate amount. Voiding Methods Diaper Incontinent General: Alert, Cooperative, No acute distress, Other (A/Ox2, person and place) HEENT: Atraumatic, PERRLA, EOMI, Mucous membr. moist/pink Neck: Supple Lungs: Normal air movement, Other (LLL fine crackles, otherwise lungs CTA, somewhat diminished BLL) Cardiovascular: Regular rate, Normal S1, Normal S2. denies: Murmurs, Gallops, Rubs, Other Abdomen: Normal bowel sounds, Soft. denies: Tenderness, Hepatospenomegaly, Masses, Other Extremities: Normal pulses, Other (non pitting bilateral pedal edema) Neurological: Normal tone, Sensation intact, Other (non focal, generalized weakness/debilitation) - Results Results: Laboratory Results WBC 4.62 k/cumm (4.4-10.8) 12/13/17 07:00 RBC 2.93 m/cumm (4.50-6.00) L 12/13/17 07:00 Hgb 9.3 g/dL (13.5-17.5) L 12/13/17 07:00 Hct 29.0 % (40.0-50.0) L 12/13/17 07:00 MCV 99.0 fL (80-95) H 12/13/17 07:00 MCH 31.7 pg (27.0-33.0) 12/13/17 07:00 MCHC 32.1 g/dL (32.0-36.0) 12/13/17 07:00 RDW 13.2 % (11.8-14.1) 12/13/17 07:00 Plt Count 157 x1000/uL (130-400) 12/13/17 07:00 MPV 9.6 fL (8.0-11.0) 12/13/17 07:00 Immature Gran % 0.4 12/13/17 07:00 Neutrophils % 46.4 12/13/17 07:00 Lymphocytes % 39.0 12/13/17 07:00 Monocytes % 12.3 12/13/17 07:00 Eosinophils % 1.7 12/13/17 07:00 Basophils % 0.2 12/13/17 07:00 Absolute Neutrophils 2.14 k/cumm (1.2-6.7) 12/13/17 07:00 Absolute Lymphocytes 1.80 k/cumm (1.2-3.4) 12/13/17 07:00 Absolute Monocytes 0.57 k/cumm (0.11-0.7) 12/13/17 07:00 Absolute Eosinophils 0.08 k/cumm (0.0-0.7) 12/13/17 07:00 Absolute Basophils 0.01 k/cumm (0.0-0.2) 12/13/17 07:00 Differential Comment Rbc morph reviewed 12/10/17 14:30 RBC Morphology Normal 12/10/17 14:30 Sodium 147 mmol/L (136-145) H 12/13/17 07:00 Potassium 4.2 mmol/L (3.5-5.1) 12/13/17 07:00 Chloride 110 mmol/L (98-107) H 12/13/17 07:00 Carbon Dioxide 33.4 mmol/L (21.0-32.0) H 12/13/17 07:00 Anion Gap 3.6 mmol/L (3-11) 12/13/17 07:00 BUN 11 mg/dL (7-18) 12/13/17 07:00 Creatinine 1.24 mg/dL (0.70-1.30) 12/13/17 07:00 Estimated GFR/1.73 m2 57.63 (mL/min/1.73m2) 12/13/17 07:00 Glucose 77 mg/dL (70-100) 12/13/17 07:00 Calcium 9.3 mg/dL (8.5-10.1) 12/13/17 07:00 Total Bilirubin 0.7 mg/dL (0.2-1.0) 12/10/17 14:30 AST 15 U/L (15-37) 12/10/17 14:30 ALT 5 U/L (12-78) L 12/10/17 14:30 Alkaline Phosphatase 44 U/L (46-116) L 12/10/17 14:30 Total Protein 7.1 g/dL (6.4-8.2) 12/10/17 14:30 Albumin 2.5 g/dL (3.4-5.0) L 12/10/17 14:30 Urine Color Yellow (Yellow) 12/10/17 16:05 Urine Clarity Clear 12/10/17 16:05 Urine pH 6.0 (5-8) 12/10/17 16:05 Ur Specific [place] 1.015 (1.005-1.025) 12/10/17 16:05 Urine Protein Negative mg/dL (Negative) 12/10/17 16:05 Urine Ketones Trace mg/dL (Negative) H 12/10/17 16:05 Urine Blood Negative (Negative) 12/10/17 16:05 Urine Nitrite Negative (Negative) 12/10/17 16:05 Urine Bilirubin Negative (Negative) 12/10/17 16:05 Urine Urobilinogen 2.0 EU/dL (Up TO 0.2) H 12/10/17 16:05 Ur Leukocyte Esterase Negative (Negative) 12/10/17 16:05 Urine Glucose Negative mg/dL (Negative) 12/10/17 16:05 Vancomycin Trough 12.0 ug/mL (10.0-20.0) 12/13/17 13:08
--- NOTE | 2017-12-13 14:15 | PDOC.PROG_ITS ---
Date of Service: 12/13/17 Time of Service: 11:40 Assessment/Plan - Assessment/Plan (1) Healthcare-associated pneumonia Plan: Continue cefepime and vancomycin. Vanco trough today. Will adjust vancomycin dosing accordingly. Today is day 3 of antibiotics. No leukocytosis, fever, evidence of increased work of breathing. RT following to administer nebs. (2) Discharge planning issues Plan: CM working on DC plan. Will likely head back to [facility] re[facility] once abx course is complete. (3) Schizophrenia Plan: No significant behavioral issues. Continue home antipsychotics. (4) Acute kidney injury Plan: NEHEMIAH has improved. Now with normal Cr. Will continue to monitor. Time spent with patient 25 mins [address]iscuss[address] case with Dr. Chavira who is in agreement. History of Present Illness - History of Present Illness History of Present Illness: Mr. Kurtz is a 72 yo fdc resident of [facility] rehab who is currently being treated for healthcare associated pneumonia. Overall he seems to be doing well from a respiratory standpoint. Complains of a persistent productive cough. His schizophrenia makes obtaining a history somewhat difficult. Overall he is not noticing much improvement. States he has not been eating much because he does not like the food. Denies SOB, CP, abd pain, N/V/D/ constipation, dysuria. Review of Systems - Review of Systems Constitutional: Other (10 point ROS obtained with pertinent positives noted in HPI, otherwise negative.) - Medications/Allergies Allergies/Adverse Reactions: Allergies Allergy/AdvReac Type Severity Reaction Status Date / Time No Known Allergies Allergy Unverified 12/05/17 21:33 Medications: Current Medications Acetaminophen (Tylenol) 650 mg PO Q4H PRN PRN Albuterol Sulfate (Proventil Updraft) 2.5 mg IH Q6H PRN PRN Albuterol/Ipratropium (Duoneb Updraft) 3 ml UPD Q6H PRN PRN Last Admin: 12/11/17 11:50 Dose: 3 ml Bisacodyl (Dulcolax Suppository) 10 mg [place] DAILY PRN PRN Bisacodyl (Dulcolax) 5 mg PO DAILY PRN PRN Carbidopa/Levodopa (Parcopa 25/100) 2 tab PO QID [facility] Last Admin: 12/13/17 12:18 Dose: 2 tab Dextrose (Insta-Glucose) 0 gm PO DIRECTED PRN Dextrose/Water () 0 gm IVP DIRECTED PRN Dimethicone/Zinc Oxide (Mannie Protect Cream) 0 gm TP PRN PRN Divalproex Sodium (Depakote) 500 mg PO TID [facility] Last Admin: 12/13/17 08:49 Dose: 500 mg Docusate Sodium (Colace) 100 mg PO BID [facility] Last Admin: 12/13/17 08:48 Dose: 100 mg Docusate Sodium (Colace) 100 mg PO HS PRN PRN Ergocalciferol (Vitamin D) 50,000 units PO .FRIDAY [facility] Finasteride (Proscar) 5 mg PO DAILY [facility] Last Admin: 12/13/17 08:48 Dose: 5 mg Guaifenesin/Dextromethorphan (Robitussin-Dm Syrup) 5 ml PO Q4H PRN PRN Heparin Sodium (Porcine) () 5,000 units SC Q8H [facility] Last Admin: 12/13/17 10:55 Dose: 5,000 units Vancomycin HCl 1,000 mg/ (Sodium Chloride) 250 mls @ 166.667 mls/hr IVPB Q24H [facility] Last Admin: 12/12/17 18:14 Dose: 166.667 mls/hr Cefepime HCl 2 gm/ Sodium (Chloride) 100 mls @ 200 mls/hr IVPB Q12H [facility] Last Admin: 12/13/17 04:19 Dose: 200 mls/hr Insulin Aspart (Novolog Flexpen) 0 units SC 0800,1200,1700 [facility] PRN Reason: Protocol Last Admin: 12/13/17 11:58 Dose: Not Given Iron/Minerals/Multivitamins (Theragran-M) 1 tab PO DAILY [facility] Last Admin: 12/13/17 08:49 Dose: 1 tab Leptospermum Honey (Medihoney) 0 ml TP DAILY [facility] Last Admin: 12/13/17 08:50 Dose: 1 applic Magnesium Hydroxide (Milk Of Magnesia) 30 ml PO DAILY [facility] Last Admin: 12/13/17 08:48 Dose: 30 ml Metoprolol Tartrate (Lopressor) 50 mg PO BID [facility] Last Admin: 12/13/17 08:48 Dose: 50 mg Mineral Oil (Fleet Mineral Oil Enema) 133 ml [place] DAILY PRN PRN Multi-Ingredient Mouthwash/Gargle (Biotene Mouthwash) 5 ml PO AC [facility] Last Admin: 12/13/17 12:18 Dose: 5 ml Polyethylene Glycol (Miralax) 17 gm PO DAILY PRN PRN PRN Reason: Constipation Quetiapine Fumarate (Seroquel) 200 mg PO HS [facility] Last Admin: 12/12/17 21:55 Dose: 200 mg Quetiapine Fumarate (Seroquel) 75 mg PO BID@0800,1600 [facility] Last Admin: 12/13/17 08:48 Dose: 75 mg Senna/Docusate Sodium (Anne-Colace Tablet) 1 tab PO BID PRN PRN Trazodone HCl (Desyrel) 100 mg PO [facility] Last Admin: 12/12/17 21:56 Dose: 100 mg Objective - Exam Vitals and I&O: Vital Signs Temp 37 C 12/13/17 07:15 Pulse 94 H 12/13/17 07:15 Resp 19 12/13/17 07:15 BP 163/90 12/13/17 07:15 Pulse Ox 94 L 12/13/17 07:15 Intake & Output 12/12/17 12/13/17 12/13/17 23:59 11:59 23:59 Intake Total 621 550 Balance 621 550 Intake: IV 621 550 Other: Urine Color Yellow Comment Incontinent moderate amount. Voiding Methods Diaper Incontinent General: Alert, Cooperative, No acute distress, Other (A/Ox2, person and place) HEENT: Atraumatic, PERRLA, EOMI, Mucous membr. moist/pink Neck: Supple Lungs: Normal air movement, Other (LLL fine crackles, otherwise lungs CTA, somewhat diminished BLL) Cardiovascular: Regular rate, Normal S1, Normal S2. denies: Murmurs, Gallops, Rubs, Other Abdomen: Normal bowel sounds, Soft. denies: Tenderness, Hepatospenomegaly, Masses, Other Extremities: Normal pulses, Other (non pitting bilateral pedal edema) Neurological: Normal tone, Sensation intact, Other (non focal, generalized weakness/debilitation) - Results Results: Laboratory Results WBC 4.62 k/cumm (4.4-10.8) 12/13/17 07:00 RBC 2.93 m/cumm (4.50-6.00) L 12/13/17 07:00 Hgb 9.3 g/dL (13.5-17.5) L 12/13/17 07:00 Hct 29.0 % (40.0-50.0) L 12/13/17 07:00 MCV 99.0 fL (80-95) H 12/13/17 07:00 MCH 31.7 pg (27.0-33.0) 12/13/17 07:00 MCHC 32.1 g/dL (32.0-36.0) 12/13/17 07:00 RDW 13.2 % (11.8-14.1) 12/13/17 07:00 Plt Count 157 x1000/uL (130-400) 12/13/17 07:00 MPV 9.6 fL (8.0-11.0) 12/13/17 07:00 Immature Gran % 0.4 12/13/17 07:00 Neutrophils % 46.4 12/13/17 07:00 Lymphocytes % 39.0 12/13/17 07:00 Monocytes % 12.3 12/13/17 07:00 Eosinophils % 1.7 12/13/17 07:00 Basophils % 0.2 12/13/17 07:00 Absolute Neutrophils 2.14 k/cumm (1.2-6.7) 12/13/17 07:00 Absolute Lymphocytes 1.80 k/cumm (1.2-3.4) 12/13/17 07:00 Absolute Monocytes 0.57 k/cumm (0.11-0.7) 12/13/17 07:00 Absolute Eosinophils 0.08 k/cumm (0.0-0.7) 12/13/17 07:00 Absolute Basophils 0.01 k/cumm (0.0-0.2) 12/13/17 07:00 Differential Comment Rbc morph reviewed 12/10/17 14:30 RBC Morphology Normal 12/10/17 14:30 Sodium 147 mmol/L (136-145) H 12/13/17 07:00 Potassium 4.2 mmol/L (3.5-5.1) 12/13/17 07:00 Chloride 110 mmol/L (98-107) H 12/13/17 07:00 Carbon Dioxide 33.4 mmol/L (21.0-32.0) H 12/13/17 07:00 Anion Gap 3.6 mmol/L (3-11) 12/13/17 07:00 BUN 11 mg/dL (7-18) 12/13/17 07:00 Creatinine 1.24 mg/dL (0.70-1.30) 12/13/17 07:00 Estimated GFR/1.73 m2 57.63 (mL/min/1.73m2) 12/13/17 07:00 Glucose 77 mg/dL (70-100) 12/13/17 07:00 Calcium 9.3 mg/dL (8.5-10.1) 12/13/17 07:00 Total Bilirubin 0.7 mg/dL (0.2-1.0) 12/10/17 14:30 AST 15 U/L (15-37) 12/10/17 14:30 ALT 5 U/L (12-78) L 12/10/17 14:30 Alkaline Phosphatase 44 U/L (46-116) L 12/10/17 14:30 Total Protein 7.1 g/dL (6.4-8.2) 12/10/17 14:30 Albumin 2.5 g/dL (3.4-5.0) L 12/10/17 14:30 Urine Color Yellow (Yellow) 12/10/17 16:05 Urine Clarity Clear 12/10/17 16:05 Urine pH 6.0 (5-8) 12/10/17 16:05 Ur Specific [place] 1.015 (1.005-1.025) 12/10/17 16:05 Urine Protein Negative mg/dL (Negative) 12/10/17 16:05 Urine Ketones Trace mg/dL (Negative) H 12/10/17 16:05 Urine Blood Negative (Negative) 12/10/17 16:05 Urine Nitrite Negative (Negative) 12/10/17 16:05 Urine Bilirubin Negative (Negative) 12/10/17 16:05 Urine Urobilinogen 2.0 EU/dL (Up TO 0.2) H 12/10/17 16:05 Ur Leukocyte Esterase Negative (Negative) 12/10/17 16:05 Urine Glucose Negative mg/dL (Negative) 12/10/17 16:05 Vancomycin Trough 12.0 ug/mL (10.0-20.0) 12/13/17 13:08
--- NOTE | 2017-12-13 14:26 | PDOC.CMPRO ---
Date of Service: 12/13/17 Time of Service: 14:26 Care Management Progress Note S/O: Pt presented at interdisciplinary rounds. Benton was sleeping both times CM attempted to visit. He has reportedly shown signs of improvement per his provider. There are no changes to his overall plan. A: 72 year old male admitted to [facility] 12/10/17 for HCAP. P: Benton will discharge to [facility] where he has been residing when medically ready per MD. He will transport via the facility's wheelchair van. CM will continue to provide support to patient and careteam regarding discharge planning and disposition.
--- NOTE | 2017-12-13 14:31 | CMPROGNOTE_ITS ---
Date of Service: 12/13/17 Time of Service: 14:26 Care Management Progress Note S/O: Pt presented at interdisciplinary rounds. Benton was sleeping both times CM attempted to visit. He has reportedly shown signs of improvement per his provider. There are no changes to his overall plan. A: 72 year old male admitted to [facility] 12/10/17 for HCAP. P: Benton will discharge to [facility] where he has been residing when medically ready per MD. He will transport via the facility's wheelchair van. CM will continue to provide support to patient and careteam regarding discharge planning and disposition.
[2017-12-13 15:50] VITALS: BP 117/74; PULSE 74; RESP 22; TEMP 36.5; O2SAT 97
[2017-12-13] MEDS: VANCOMYCIN 750 MG in Normal Saline 250 ML 166.667 MG IVPB (16:15)
[2017-12-13] MEDS: traZODone 100 MG TAB PO (21:55)
[2017-12-13] MEDS: QUEtiapine 100 MG TAB 200 MG PO (21:55)
[2017-12-14 00:02] VITALS: BP 158/86; PULSE 73; RESP 18; TEMP 36.2; O2SAT 97
[2017-12-14] MEDS: Heparin 5,000 UNITS/ML VIAL 5000 UNITS SC ×2 (02:50→12:23)
[2017-12-14] MEDS: CEFEPIME 2 GM in Normal Saline 100 ML IVPB ×2 (03:09→16:01)
[2017-12-14] MEDS: VANCOMYCIN 750 MG in Normal Saline 250 ML 166.667 MG IVPB ×2 (03:58→16:52)
[2017-12-14 07:32] VITALS: BP 147/93; PULSE 70; RESP 20; TEMP 36.6; O2SAT 99
[2017-12-14 07:39] LABS: Anion Gap 2.9 mmol/L (3-11); BUN 11 mg/dL (7-18); CO2 32.1 mmol/L (21.0-32.0); CREATININE 1.04 mg/dL (0.70-1.30); Calcium 9.5 mg/dL (8.5-10.1); Chloride 112 mmol/L (98-107); Glucose 79 mg/dL (70-100); Potassium 4.3 mmol/L (3.5-5.1); Sodium 147 mmol/L (136-145)
[2017-12-14 07:40] LABS: Abs Immature Grans 0.01 k/cumm (0.0-0.09); Absolute Basophil Count 0.01 k/cumm (0.0-0.2); Absolute Eosinophil Count 0.05 k/cumm (0.0-0.7); Absolute Lymphocyte Count 1.83 k/cumm (1.2-3.4); Absolute Monocyte Count 0.58 k/cumm (0.11-0.7); Absolute Neutrophil Count 2.44 k/cumm (1.2-6.7); Basophils % 0.2; HCT 27.9 % (40.0-50.0); HGB 8.9 g/dL (13.5-17.5); Immature Grans % 0.2; Lymphocytes % 37.2; Mean Corp. HGB Concentration 31.9 g/dL (32.0-36.0); Mean Corpuscular Hemoglobin 31.7 pg (27.0-33.0); Mean Corpuscular Volume 99.3 fL (80-95); Monocytes % 11.8; Neutrophils % 49.6; Platelet Count 169 x1000/uL (130-400); RBC 2.81 m/cumm (4.50-6.00); RBC Distribution Width 13.5 % (11.8-14.1); White Blood Cell Count 4.92 k/cumm (4.4-10.8)
--- NOTE | 2017-12-14 11:55 | PDOC.PROG ---
Date of Service: 12/14/17 Time of Service: 11:30 Assessment/Plan - Assessment/Plan (1) Healthcare-associated pneumonia Plan: Continue cefepime and vancomycin, both are currently Q12H. No leukocystosis, fever. (2) Discharge planning issues Plan: Likely discharge to [facility] tomorrow if they have staff to support IV antibiotics twice daily. If not tomorrow will be day 5 of antibiotics and he could be discharged without IV meds as early as Friday if stable from a respiratory standpoint. (3) Schizophrenia Plan: Continue antipsychotics. (4) Acute kidney injury Plan: This has resolved as evidenced by normalized Cr. Time spent with patient 25 mins Discussed case with Dr. Chavira who is in agreement History of Present Illness - History of Present Illness History of Present Illness: Benton is a 72 yo gentleman with schizophrenia who is a custodial resident at [facility] and [facility] and is currently admitted being treated for healthcare associated pneumonia. Today nursing reports that he has thus far been refusing oral medications but has allowed IV antibiotics. Has also been complaining of the food resulting in some decreased po intake. Obtaining a history continues to be difficult, however nursing and I entered the room around the same time when Benton had finally agreed to take his PO meds. He then began coughing excessively and appeared to have significant dysphagia, possibly aspiration. It seems that he is unable to manage secretions and his expiratory effort is poor. Other than having difficulty swallowing he appears to be doing ok. Has not complained of anything to nursing. Denies CP, SOB, abd pain, N/V/D/constipation, dysuria. Review of Systems - Review of Systems Constitutional: Other (10 point ROS obtained with pertinent positives noted in HPI, otherwise negative.) - Medications/Allergies Allergies/Adverse Reactions: Allergies Allergy/AdvReac Type Severity Reaction Status Date / Time No Known Allergies Allergy Unverified 12/05/17 21:33 Medications: Current Medications Acetaminophen (Tylenol) 650 mg PO Q4H PRN PRN Albuterol Sulfate (Proventil Updraft) 2.5 mg IH Q6H PRN PRN Albuterol/Ipratropium (Duoneb Updraft) 3 ml UPD Q6H PRN PRN Last Admin: 12/11/17 11:50 Dose: 3 ml Bisacodyl (Dulcolax Suppository) 10 mg [place] DAILY PRN PRN Bisacodyl (Dulcolax) 5 mg PO DAILY PRN PRN Carbidopa/Levodopa (Parcopa 25/100) 2 tab PO QID [facility] Last Admin: 12/13/17 19:33 Dose: 2 tab Dextrose (Insta-Glucose) 0 gm PO DIRECTED PRN Dextrose/Water () 0 gm IVP DIRECTED PRN Dimethicone/Zinc Oxide (Mannie Protect Cream) 0 gm TP PRN PRN Divalproex Sodium (Depakote) 500 mg PO TID [facility] Last Admin: 12/13/17 19:33 Dose: 500 mg Docusate Sodium (Colace) 100 mg PO BID [facility] Last Admin: 12/13/17 19:33 Dose: 100 mg Docusate Sodium (Colace) 100 mg PO HS PRN PRN Ergocalciferol (Vitamin D) 50,000 units PO .FRIDAY [facility] Finasteride (Proscar) 5 mg PO DAILY [facility] Last Admin: 12/13/17 08:48 Dose: 5 mg Guaifenesin/Dextromethorphan (Robitussin-Dm Syrup) 5 ml PO Q4H PRN PRN Heparin Sodium (Porcine) () 5,000 units SC Q8H [facility] Last Admin: 12/14/17 02:50 Dose: 5,000 units Cefepime HCl 2 gm/ Sodium (Chloride) 100 mls @ 200 mls/hr IVPB Q12H [facility] Last Admin: 12/14/17 03:09 Dose: 200 mls/hr Vancomycin HCl 750 mg/ Sodium (Chloride) 250 mls @ 166.667 mls/hr IVPB Q12H [facility] Last Admin: 12/14/17 03:58 Dose: 166.667 mls/hr Insulin Aspart (Novolog Flexpen) 0 units SC 0800,1200,1700 [facility] PRN Reason: Protocol Last Admin: 12/13/17 17:14 Dose: Not Given Iron/Minerals/Multivitamins (Theragran-M) 1 tab PO DAILY [facility] Last Admin: 12/13/17 08:49 Dose: 1 tab Leptospermum Honey (Medihoney) 0 ml TP DAILY [facility] Last Admin: 12/14/17 08:59 Dose: 1 applic Magnesium Hydroxide (Milk Of Magnesia) 30 ml PO DAILY [facility] Last Admin: 12/13/17 08:48 Dose: 30 ml Metoprolol Tartrate (Lopressor) 50 mg PO BID [facility] Last Admin: 12/13/17 19:33 Dose: 50 mg Mineral Oil (Fleet Mineral Oil Enema) 133 ml [place] DAILY PRN PRN Multi-Ingredient Mouthwash/Gargle (Biotene Mouthwash) 5 ml PO AC [facility] Last Admin: 12/14/17 08:59 Dose: Not Given Polyethylene Glycol (Miralax) 17 gm PO DAILY PRN PRN PRN Reason: Constipation Quetiapine Fumarate (Seroquel) 200 mg PO [facility] Last Admin: 12/13/17 21:55 Dose: 200 mg Quetiapine Fumarate (Seroquel) 75 mg PO BID@0800,1600 [facility] Last Admin: 12/13/17 16:16 Dose: 75 mg Senna/Docusate Sodium (Anne-Colace Tablet) 1 tab PO BID PRN PRN Trazodone HCl (Desyrel) 100 mg PO [facility] Last Admin: 12/13/17 21:55 Dose: 100 mg Objective - Exam Vitals and I&O: Vital Signs Temp 36.6 C 12/14/17 07:32 Pulse 70 12/14/17 07:32 Resp 20 12/14/17 07:32 BP 147/93 12/14/17 07:32 Pulse Ox 99 12/14/17 07:32 Intake & Output 12/13/17 12/13/17 12/14/17 11:59 23:59 11:59 Intake Total 550 450 423 Balance 550 450 423 Intake: IV 550 400 423 Oral 50 Other: Urine Color Yellow Comment Incontinent moderate amount. dry Voiding Methods Diaper Diaper Incontinent Incontinent General: Alert, Cooperative, Mild distress, Other (oriented x2) HEENT: Atraumatic, PERRLA, EOMI, Mucous membr. moist/pink Neck: Supple Lungs: Normal air movement (coarse lung sounds throughout, more so on the R, clears mostly with cough), Other Cardiovascular: Regular rate, Normal S1, Normal S2. denies: Murmurs, Gallops, Rubs, Other Abdomen: Normal bowel sounds, Soft Extremities: Other (non pitting pedal edema BLE) Neurological: Other (nonfocal) - Results Results: Laboratory Results WBC 4.92 k/cumm (4.4-10.8) 12/14/17 06:30 RBC 2.81 m/cumm (4.50-6.00) L 12/14/17 06:30 Hgb 8.9 g/dL (13.5-17.5) L 12/14/17 06:30 Hct 27.9 % (40.0-50.0) L 12/14/17 06:30 MCV 99.3 fL (80-95) H 12/14/17 06:30 MCH 31.7 pg (27.0-33.0) 12/14/17 06:30 MCHC 31.9 g/dL (32.0-36.0) L 12/14/17 06:30 RDW 13.5 % (11.8-14.1) 12/14/17 06:30 Plt Count 169 x1000/uL (130-400) 12/14/17 06:30 MPV 10.0 fL (8.0-11.0) 12/14/17 06:30 Immature Gran % 0.2 12/14/17 06:30 Neutrophils % 49.6 12/14/17 06:30 Lymphocytes % 37.2 12/14/17 06:30 Monocytes % 11.8 12/14/17 06:30 Eosinophils % 1.0 12/14/17 06:30 Basophils % 0.2 12/14/17 06:30 Absolute Neutrophils 2.44 k/cumm (1.2-6.7) 12/14/17 06:30 Absolute Lymphocytes 1.83 k/cumm (1.2-3.4) 12/14/17 06:30 Absolute Monocytes 0.58 k/cumm (0.11-0.7) 12/14/17 06:30 Absolute Eosinophils 0.05 k/cumm (0.0-0.7) 12/14/17 06:30 Absolute Basophils 0.01 k/cumm (0.0-0.2) 12/14/17 06:30 Differential Comment Rbc morph reviewed 12/10/17 14:30 RBC Morphology Normal 12/10/17 14:30 Sodium 147 mmol/L (136-145) H 12/14/17 06:30 Potassium 4.3 mmol/L (3.5-5.1) 12/14/17 06:30 Chloride 112 mmol/L (98-107) H 12/14/17 06:30 Carbon Dioxide 32.1 mmol/L (21.0-32.0) H 12/14/17 06:30 Anion Gap 2.9 mmol/L (3-11) L 12/14/17 06:30 BUN 11 mg/dL (7-18) 12/14/17 06:30 Creatinine 1.04 mg/dL (0.70-1.30) 12/14/17 06:30 Estimated GFR/1.73 m2 >= 60.00 (mL/min/1.73m2) 12/14/17 06:30 Glucose 79 mg/dL (70-100) 12/14/17 06:30 Calcium 9.5 mg/dL (8.5-10.1) 12/14/17 06:30 Total Bilirubin 0.7 mg/dL (0.2-1.0) 12/10/17 14:30 AST 15 U/L (15-37) 12/10/17 14:30 ALT 5 U/L (12-78) L 12/10/17 14:30 Alkaline Phosphatase 44 U/L (46-116) L 12/10/17 14:30 Total Protein 7.1 g/dL (6.4-8.2) 12/10/17 14:30 Albumin 2.5 g/dL (3.4-5.0) L 12/10/17 14:30 Urine Color Yellow (Yellow) 12/10/17 16:05 Urine Clarity Clear 12/10/17 16:05 Urine pH 6.0 (5-8) 12/10/17 16:05 Ur Specific [place] 1.015 (1.005-1.025) 12/10/17 16:05 Urine Protein Negative mg/dL (Negative) 12/10/17 16:05 Urine Ketones Trace mg/dL (Negative) H 12/10/17 16:05 Urine Blood Negative (Negative) 12/10/17 16:05 Urine Nitrite Negative (Negative) 12/10/17 16:05 Urine Bilirubin Negative (Negative) 12/10/17 16:05 Urine Urobilinogen 2.0 EU/dL (Up TO 0.2) H 12/10/17 16:05 Ur Leukocyte Esterase Negative (Negative) 12/10/17 16:05 Urine Glucose Negative mg/dL (Negative) 12/10/17 16:05 Vancomycin Trough 12.0 ug/mL (10.0-20.0) 12/13/17 13:08
--- NOTE | 2017-12-14 11:59 | PDOC.PROG_ITS ---
Date of Service: 12/14/17 Time of Service: 11:30 Assessment/Plan - Assessment/Plan (1) Healthcare-associated pneumonia Plan: Continue cefepime and vancomycin, both are currently Q12H. No leukocystosis, fever. (2) Discharge planning issues Plan: Likely discharge to [facility] tomorrow if they have staff to support IV antibiotics twice daily. If not tomorrow will be day 5 of antibiotics and he could be discharged without IV meds as early as Friday if stable from a respiratory standpoint. (3) Schizophrenia Plan: Continue antipsychotics. (4) Acute kidney injury Plan: This has resolved as evidenced by normalized Cr. Time spent with patient 25 mins Discussed case with Dr. Chavira who is in agreement History of Present Illness - History of Present Illness History of Present Illness: Benton is a 72 yo gentleman with schizophrenia who is a correction resident at [facility] and is currently admitted being treated for healthcare associated pneumonia. Today nursing reports that he has thus far been refusing oral medications but has allowed IV antibiotics. Has also been complaining of the food resulting in some decreased po intake. Obtaining a history continues to be difficult, however nursing and I entered the room around the same time when Benton had finally agreed to take his PO meds. He then began coughing excessively and appeared to have significant dysphagia, possibly aspiration. It seems that he is unable to manage secretions and his expiratory effort is poor. Other than having difficulty swallowing he appears to be doing ok. Has not complained of anything to nursing. Denies CP, SOB, abd pain, N/V/D/constipation, dysuria. Review of Systems - Review of Systems Constitutional: Other (10 point ROS obtained with pertinent positives noted in HPI, otherwise negative.) - Medications/Allergies Allergies/Adverse Reactions: Allergies Allergy/AdvReac Type Severity Reaction Status Date / Time No Known Allergies Allergy Unverified 12/05/17 21:33 Medications: Current Medications Acetaminophen (Tylenol) 650 mg PO Q4H PRN PRN Albuterol Sulfate (Proventil Updraft) 2.5 mg IH Q6H PRN PRN Albuterol/Ipratropium (Duoneb Updraft) 3 ml UPD Q6H PRN PRN Last Admin: 12/11/17 11:50 Dose: 3 ml Bisacodyl (Dulcolax Suppository) 10 mg KS DAILY PRN PRN Bisacodyl (Dulcolax) 5 mg PO DAILY PRN PRN Carbidopa/Levodopa (Parcopa 25/100) 2 tab PO QID [facility] Last Admin: 12/13/17 19:33 Dose: 2 tab Dextrose (Insta-Glucose) 0 gm PO DIRECTED PRN Dextrose/Water () 0 gm IVP DIRECTED PRN Dimethicone/Zinc Oxide (Mannie Protect Cream) 0 gm TP PRN PRN Divalproex Sodium (Depakote) 500 mg PO TID [facility] Last Admin: 12/13/17 19:33 Dose: 500 mg Docusate Sodium (Colace) 100 mg PO BID [facility] Last Admin: 12/13/17 19:33 Dose: 100 mg Docusate Sodium (Colace) 100 mg PO HS PRN PRN Ergocalciferol (Vitamin D) 50,000 units PO .FRIDAY [facility] Finasteride (Proscar) 5 mg PO DAILY [facility] Last Admin: 12/13/17 08:48 Dose: 5 mg Guaifenesin/Dextromethorphan (Robitussin-Dm Syrup) 5 ml PO Q4H PRN PRN Heparin Sodium (Porcine) () 5,000 units SC Q8H [facility] Last Admin: 12/14/17 02:50 Dose: 5,000 units Cefepime HCl 2 gm/ Sodium (Chloride) 100 mls @ 200 mls/hr IVPB Q12H [facility] Last Admin: 12/14/17 03:09 Dose: 200 mls/hr Vancomycin HCl 750 mg/ Sodium (Chloride) 250 mls @ 166.667 mls/hr IVPB Q12H [facility] Last Admin: 12/14/17 03:58 Dose: 166.667 mls/hr Insulin Aspart (Novolog Flexpen) 0 units SC 0800,1200,1700 [facility] PRN Reason: Protocol Last Admin: 12/13/17 17:14 Dose: Not Given Iron/Minerals/Multivitamins (Theragran-M) 1 tab PO DAILY [facility] Last Admin: 12/13/17 08:49 Dose: 1 tab Leptospermum Honey (Medihoney) 0 ml TP DAILY [facility] Last Admin: 12/14/17 08:59 Dose: 1 applic Magnesium Hydroxide (Milk Of Magnesia) 30 ml PO DAILY [facility] Last Admin: 12/13/17 08:48 Dose: 30 ml Metoprolol Tartrate (Lopressor) 50 mg PO BID [facility] Last Admin: 12/13/17 19:33 Dose: 50 mg Mineral Oil (Fleet Mineral Oil Enema) 133 ml KS DAILY PRN PRN Multi-Ingredient Mouthwash/Gargle (Biotene Mouthwash) 5 ml PO AC [facility] Last Admin: 12/14/17 08:59 Dose: Not Given Polyethylene Glycol (Miralax) 17 gm PO DAILY PRN PRN PRN Reason: Constipation Quetiapine Fumarate (Seroquel) 200 mg PO [facility] Last Admin: 12/13/17 21:55 Dose: 200 mg Quetiapine Fumarate (Seroquel) 75 mg PO BID@0800,1600 [facility] Last Admin: 12/13/17 16:16 Dose: 75 mg Senna/Docusate Sodium (Anne-Colace Tablet) 1 tab PO BID PRN PRN Trazodone HCl (Desyrel) 100 mg PO [facility] Last Admin: 12/13/17 21:55 Dose: 100 mg Objective - Exam Vitals and I&O: Vital Signs Temp 36.6 C 12/14/17 07:32 Pulse 70 12/14/17 07:32 Resp 20 12/14/17 07:32 BP 147/93 12/14/17 07:32 Pulse Ox 99 12/14/17 07:32 Intake & Output 12/13/17 12/13/17 12/14/17 11:59 23:59 11:59 Intake Total 550 450 423 Balance 550 450 423 Intake: IV 550 400 423 Oral 50 Other: Urine Color Yellow Comment Incontinent moderate amount. dry Voiding Methods Diaper Diaper Incontinent Incontinent General: Alert, Cooperative, Mild distress, Other (oriented x2) HEENT: Atraumatic, PERRLA, EOMI, Mucous membr. moist/pink Neck: Supple Lungs: Normal air movement (coarse lung sounds throughout, more so on the R, clears mostly with cough), Other Cardiovascular: Regular rate, Normal S1, Normal S2. denies: Murmurs, Gallops, Rubs, Other Abdomen: Normal bowel sounds, Soft Extremities: Other (non pitting pedal edema BLE) Neurological: Other (nonfocal) - Results Results: Laboratory Results WBC 4.92 k/cumm (4.4-10.8) 12/14/17 06:30 RBC 2.81 m/cumm (4.50-6.00) L 12/14/17 06:30 Hgb 8.9 g/dL (13.5-17.5) L 12/14/17 06:30 Hct 27.9 % (40.0-50.0) L 12/14/17 06:30 MCV 99.3 fL (80-95) H 12/14/17 06:30 MCH 31.7 pg (27.0-33.0) 12/14/17 06:30 MCHC 31.9 g/dL (32.0-36.0) L 12/14/17 06:30 RDW 13.5 % (11.8-14.1) 12/14/17 06:30 Plt Count 169 x1000/uL (130-400) 12/14/17 06:30 MPV 10.0 fL (8.0-11.0) 12/14/17 06:30 Immature Gran % 0.2 12/14/17 06:30 Neutrophils % 49.6 12/14/17 06:30 Lymphocytes % 37.2 12/14/17 06:30 Monocytes % 11.8 12/14/17 06:30 Eosinophils % 1.0 12/14/17 06:30 Basophils % 0.2 12/14/17 06:30 Absolute Neutrophils 2.44 k/cumm (1.2-6.7) 12/14/17 06:30 Absolute Lymphocytes 1.83 k/cumm (1.2-3.4) 12/14/17 06:30 Absolute Monocytes 0.58 k/cumm (0.11-0.7) 12/14/17 06:30 Absolute Eosinophils 0.05 k/cumm (0.0-0.7) 12/14/17 06:30 Absolute Basophils 0.01 k/cumm (0.0-0.2) 12/14/17 06:30 Differential Comment Rbc morph reviewed 12/10/17 14:30 RBC Morphology Normal 12/10/17 14:30 Sodium 147 mmol/L (136-145) H 12/14/17 06:30 Potassium 4.3 mmol/L (3.5-5.1) 12/14/17 06:30 Chloride 112 mmol/L (98-107) H 12/14/17 06:30 Carbon Dioxide 32.1 mmol/L (21.0-32.0) H 12/14/17 06:30 Anion Gap 2.9 mmol/L (3-11) L 12/14/17 06:30 BUN 11 mg/dL (7-18) 12/14/17 06:30 Creatinine 1.04 mg/dL (0.70-1.30) 12/14/17 06:30 Estimated GFR/1.73 m2 >= 60.00 (mL/min/1.73m2) 12/14/17 06:30 Glucose 79 mg/dL (70-100) 12/14/17 06:30 Calcium 9.5 mg/dL (8.5-10.1) 12/14/17 06:30 Total Bilirubin 0.7 mg/dL (0.2-1.0) 12/10/17 14:30 AST 15 U/L (15-37) 12/10/17 14:30 ALT 5 U/L (12-78) L 12/10/17 14:30 Alkaline Phosphatase 44 U/L (46-116) L 12/10/17 14:30 Total Protein 7.1 g/dL (6.4-8.2) 12/10/17 14:30 Albumin 2.5 g/dL (3.4-5.0) L 12/10/17 14:30 Urine Color Yellow (Yellow) 12/10/17 16:05 Urine Clarity Clear 12/10/17 16:05 Urine pH 6.0 (5-8) 12/10/17 16:05 Ur Specific Haines 1.015 (1.005-1.025) 12/10/17 16:05 Urine Protein Negative mg/dL (Negative) 12/10/17 16:05 Urine Ketones Trace mg/dL (Negative) H 12/10/17 16:05 Urine Blood Negative (Negative) 12/10/17 16:05 Urine Nitrite Negative (Negative) 12/10/17 16:05 Urine Bilirubin Negative (Negative) 12/10/17 16:05 Urine Urobilinogen 2.0 EU/dL (Up TO 0.2) H 12/10/17 16:05 Ur Leukocyte Esterase Negative (Negative) 12/10/17 16:05 Urine Glucose Negative mg/dL (Negative) 12/10/17 16:05 Vancomycin Trough 12.0 ug/mL (10.0-20.0) 12/13/17 13:08
--- NOTE | 2017-12-14 14:09 | PDOC.CMPRO ---
Date of Service: 12/14/17 (n) Time of Service: 14:09 Care Management Progress Note S/O: Pt presented at interdisciplinary rounds. Benton was sleeping both times CM attempted to visit. There are no changes to his overall plan. A: 72 year old male admitted to [facility] 12/10/17 for HCAP. P: Benton will discharge to [facility] where he has been residing when medically ready per MD. He will transport via the facility's wheelchair van. CM will continue to provide support to patient and careteam regarding discharge planning and disposition.
[2017-12-14] MEDS: Divalproex 500 MG TABEC PO (14:23)
--- NOTE | 2017-12-14 14:51 | CMPROGNOTE_ITS ---
Date of Service: 12/14/17 (n) Time of Service: 14:09 Care Management Progress Note S/O: Pt presented at interdisciplinary rounds. Benton was sleeping both times CM attempted to visit. There are no changes to his overall plan. A: 72 year old male admitted to [facility] 12/10/17 for HCAP. P: Benton will discharge to [facility] where he has been residing when medically ready per MD. He will transport via the facility's wheelchair van. CM will continue to provide support to patient and careteam regarding discharge planning and disposition.
[2017-12-14 15:58] VITALS: BP 173/85; PULSE 83; RESP 18; TEMP 37; O2SAT 96
--- NOTE | 2017-12-14 18:03 | NUR.NOTE ---
Pt attempted to drink v8 juice for pts dinner tray with nursing assistance. Pt aspirated and coughed up sputum pt was suctioned PRN. Doctor is aware of pts aspirations and that pt is unable to tolerate PO pills. Nursing Note:
--- NOTE | 2017-12-14 18:14 | PNE_ITS ---
DATE: December 14, 2017 SUBJECTIVE: This pathologist received a phone call to indicate that the patient has been choking on his saliva an d has been refusing many of the foods that have been offered to him. OBJECTIVE: The patient would not eat breakfast this morning, indicting he had no preference for anything on his tray. He did try some chocolate ice cream but took nothing else. CARE GIVEN: Management of secretions by having the patient sitting upright at a 90-degree angle and by keeping th e TV set off, with his chin and head down. ASSESSMENT: It appears that the patient is usually either in bed or in a reclined position watching television, b ringing his chin higher than it should be. By turning the TV off and suggesting that a table top TV be procured for his room the patient will be able to keep his chin down and this should help. The sa me is true for the liquids. It was suggested he continue to keep his chin on the horizon and that he should be offered different foods to build up his blood sugar which is low. He could try again some Coca-Cola which he refused this morning, but I would suggest intermittent supplements such as ice cr eam or other things he prefers including V8 juice and tomato juice. This pathologist spoke with a me mber of the kitchen staff and they will put V8 juice in the refrigerator for his consumption. PLAN: The staff is to continue the current outline and follow the safe swallow protocol posted at bedside. Demar Daniel M.A., C.C.C., Speech Pathologist
[2017-12-15 00:10] VITALS: BP 149/90; PULSE 79; RESP 19; TEMP 37.5; O2SAT 93
[2017-12-15] MEDS: Normal Saline Flush 10 ML SYR IVP ×2 (03:16→10:32)
[2017-12-15] MEDS: Normal Saline 500 ML 100 ML IV (03:17)
[2017-12-15] MEDS: Heparin 5,000 UNITS/ML VIAL 5000 UNITS SC ×3 (03:18→18:03)
[2017-12-15 03:24] VITALS: BP 166/90; PULSE 86; RESP 19; TEMP 37.8; O2SAT 92
[2017-12-15] MEDS: CEFEPIME 2 GM in Normal Saline 100 ML IVPB (04:20)
[2017-12-15] MEDS: VANCOMYCIN 750 MG in Normal Saline 250 ML 166.667 MG IVPB ×2 (05:03→16:40)
[2017-12-15 05:42] VITALS: O2SAT 93
[2017-12-15 07:20] VITALS: BP 172/94; PULSE 75; RESP 18; TEMP 37.4; O2SAT 95
[2017-12-15 07:21] LABS: Abs Immature Grans 0.01 k/cumm (0.0-0.09); Absolute Basophil Count 0.02 k/cumm (0.0-0.2); Absolute Eosinophil Count 0.01 k/cumm (0.0-0.7); Absolute Lymphocyte Count 1.81 k/cumm (1.2-3.4); Absolute Monocyte Count 0.99 k/cumm (0.11-0.7); Basophils % 0.2; Eosinophils % 0.1; HCT 28.6 % (40.0-50.0); HGB 9.3 g/dL (13.5-17.5); Immature Grans % 0.1; Lymphocytes % 20.7; Mean Corp. HGB Concentration 32.5 g/dL (32.0-36.0); Mean Corpuscular Hemoglobin 32.2 pg (27.0-33.0); Mean Platelet Volume 9.8 fL (8.0-11.0); Monocytes % 11.3; Neutrophils % 67.6; Platelet Count 164 x1000/uL (130-400); RBC 2.89 m/cumm (4.50-6.00); RBC Distribution Width 13.5 % (11.8-14.1); White Blood Cell Count 8.73 k/cumm (4.4-10.8)
[2017-12-15 07:35] VITALS: O2SAT 95
[2017-12-15 07:37] LABS: Anion Gap 5.6 mmol/L (3-11); BUN 14 mg/dL (7-18); CO2 29.4 mmol/L (21.0-32.0); CREATININE 0.99 mg/dL (0.70-1.30); Calcium 9.6 mg/dL (8.5-10.1); Chloride 113 mmol/L (98-107); Glucose 91 mg/dL (70-100); Potassium 4.1 mmol/L (3.5-5.1); Sodium 148 mmol/L (136-145)
[2017-12-15] MEDS: PIPERACILLIN/TAZO 4.5 GM in Normal Saline 100 ML IVPB ×2 (09:12→14:44)
--- NOTE | 2017-12-15 09:40 | NUR.NOTE ---
Nursing Note: 0951 pt continues to refuse breakfast, meds and CXR - discussed with Nash and Care Management. This nurse will call Power of Director Of Archives
--- NOTE | 2017-12-15 09:54 | PDOC.CMPRO ---
Care Management Progress Note S/O: Benton was refusing medications and interventions including Chest Xray today. Nani; PATIENT CARE ASSOCIATE outreached to Benton's Guardian; his daughter who requested a family meeting with hospitalist tomorrow at 1000 to decide next steps in Benton's care. CM spoke with Vaishali at [facility] who faxed documents including COLST, POA and Involuntary Guardianship to this story writer who provided to Afsaneh; Registered Associate. CM left for Dr. Johnston; scheduled hospitalist for tomorrow; 12/16/17 to notify of requested family meeting for approval and coordination. A: 72 year old male admitted to [facility] 12/10/17 for HCAP. P: CM will participate in family meeting with Benton and his daughter tomorrow; plan remains for Benton to return to [facility]. He will transport via the facility's wheelchair van.
[2017-12-15] MEDS: Normal Saline 500 ML 250 ML IV (11:28)
--- NOTE | 2017-12-15 12:31 | CMPROGNOTE_ITS ---
Care Management Progress Note S/O: Benton was refusing medications and interventions including Chest Xray today. Nani; REHAB AID outreached to Benton's Guardian; his daughter who requested a family meeting with hospitalist tomorrow at 1000 to decide next steps in Benton's care. CM spoke with Vaishali at [facility] who faxed documents including COLST, POA and Involuntary Guardianship to this staff writer who provided to Afsaneh; [employer]. CM left for Dr. Johnston; scheduled hospitalist for tomorrow; 12/16/17 to notify of requested family meeting for approval and coordination. A: 72 year old male admitted to [facility] 12/10/17 for HCAP. P: CM will participate in family meeting with Benton and his daughter tomorrow; plan remains for Benton to return to [facility]. He will transport via the facility's wheelchair van.
--- NOTE | 2017-12-15 14:11 | PGE_ITS ---
DATE: DECEMBER 15, 2017 @14:22 ASSESSMENT/PLAN: 1. Healthcare associated pneumonia. I now suspect there is significant likelihood that this also involves aspiration pneumonia. Currently Benton is unable to manage his own secretions, let alone food or drink. At this point he has choked so many times during attempts at eating, drinking, taking medications that he is now refusing all p.o. intake. Will discontinue Cefepime and start him o Piperacillin/ Tazobactam for presumed treatment of aspiration pneumonia. I ordered a portable chest x-ray however Benton is currently refusing. I do not believe that he would e a great candidate for an artificial feeding tube nor do I think this is consistent with his goals or plan of care. His daughter Pretty is his court appointed guardian. I was able to have a long discussion with her on the telephone regarding goals and plan as I suspect that he will not be safe from aspiration any time soon meaning he would need some sort of artificial delivery of his nutrition. She did not think that he would want this, however requested a family meeting to be held tomorrow at 10:00 a.m. to include herself in addition to the hospitalist and case management to decide what his plan of care will be moving forward. We did briefly discuss that there were one of two options being either letting him dictate what he eats or drinks knowing that he will likely aspirate leading to future bouts of aspiration pneumonia versus artificially feeding him and not allowing him to have any p.o. intake. We also briefly discussed Palliative Care. She is interested to have a discussion tomorrow at which point she will decide how we will move forward. 2. Discharge planning issues. He will likely be transferred back to [facility]. Case Management is currently involved in discharge plan. Family meeting tomorrow. 3. Schizophrenia Continue antipsychotics however he is currently refusing medications. Advised nursing to offer medications crushed in pudding 4. Acute kidney injury, resolved. Creatinine is normal. Time spent with patient 35 minutes, over 50% of which was in counselling and education and coordinating with family. I discussed the case with Dr. Chavira who is in agreement. HISTORY: Benton is a 72 year-old gentleman, long-term resident at [facility] with a past medical history significant for schizophrenia who is currently being treated for presumed healthcare aspiration pneumonia. In the past he has had a feeding tube however was deemed safe to eat so this was removed. According to his long-term partner Roya this was removed a couple of years ago. Since then he has not seemed to have any difficulties swallowing , at least to her knowledge. During his hospital admission he has been noted to aspirate and have difficulty managing his own secretions. Speech therapy has been involved in his care and has made a few recommendations, please refer to their notes. Overnight Benton spiked a fever of 37.8 despite being on Cefepime and Vancomycin. Today he is refusing all p.o. intake and has had a persistent and productive cough, however, he has been having difficulty clearing his own secretions. Nursing also reports he has had more rhonchorous lung sounds. He continues to require two liter via nasal cannula to maintain sats in the low 90s. It is extremely difficult to obtain any sort of history from Benton given his severe delusions. Currently he believes he is Jack Gallo. REVIEW OF SYSTEMS: Ten point review of systems obtained with pertinent positives noted in history of present illness, otherwise negative. EXAMINATION: General: Alert, uncooperative, is not oriented even to self. Vital Signs: Temperature 37.4, pulse 75 and regular, blood pressure 172/94, respirations 18, O2 sat 95% on two liters. Cardiovascular: Regular rate and rhythm, S-1, S-2, no S-3, S-4. No murmurs. Lungs: Chest expansion symmetrical, respirations unlabored. Rhonchorous lung sounds bilaterally, clear minimally with cough. Abdomen: Round, soft, nontender to palpation with normal active bowel sounds in all four quadrants, no hepatosplenomegaly or prominent masses. Extremities: Nonpitting edema to bilateral lower and upper extremities. Neurological examination is nonfocal. LABORATORY DATA: White blood count 8.73, hemoglobin 9.3, hematocrit 28.6, platelets 164, no evidence of left shift. Sodium 148, potassium 4.1, chloride 113, bicarb 29.4, BUN 14, creatinine 0.99. Dictated by Nani Stone N.P. under the supervision of Michael Chavira M.D.
[2017-12-15 16:03] LABS: Vancomycin, Trough 17.1 ug/mL (10.0-20.0)
[2017-12-15 21:30] VITALS: BP 133/85; PULSE 91; RESP 19; TEMP 37.5; O2SAT 92
--- NOTE | 2017-12-15 22:06 | NUR.NOTE ---
Nursing Note: RN assume care for patient at 1999. Patient refused all PM medications, assessment and care until 2129. Patient verbally abusive towards RN with repeating swears and assisting RN to leave his room. RN re-approached with HOSPITAL ADMITTING CLERK; vital signs, assessment and IV atbx administered. Patient upset with staff, however agreeable to care at this time.
[2017-12-16] MEDS: Normal Saline Flush 10 ML SYR IVP ×5 (02:10→15:40)
[2017-12-16] MEDS: Heparin 5,000 UNITS/ML VIAL 5000 UNITS SC ×3 (02:10→17:29)
[2017-12-16 03:31] VITALS: BP 150/91; PULSE 88; RESP 20; TEMP 37.3; O2SAT 94
[2017-12-16] MEDS: VANCOMYCIN 750 MG in Normal Saline 250 ML 166.667 MG IVPB ×2 (03:49→17:30)
[2017-12-16 07:32] LABS: Abs Immature Grans 0.02 k/cumm (0.0-0.09); Absolute Basophil Count 0.02 k/cumm (0.0-0.2); Absolute Eosinophil Count 0.05 k/cumm (0.0-0.7); Absolute Lymphocyte Count 2.11 k/cumm (1.2-3.4); Absolute Neutrophil Count 4.92 k/cumm (1.2-6.7); Basophils % 0.2; Eosinophils % 0.6; HCT 30.2 % (40.0-50.0); HGB 9.6 g/dL (13.5-17.5); Immature Grans % 0.2; Lymphocytes % 25.7; Mean Corp. HGB Concentration 31.8 g/dL (32.0-36.0); Mean Corpuscular Hemoglobin 31.3 pg (27.0-33.0); Mean Corpuscular Volume 98.4 fL (80-95); Monocytes % 13.4; Neutrophils % 59.9; Platelet Count 182 x1000/uL (130-400); RBC 3.07 m/cumm (4.50-6.00); RBC Distribution Width 13.6 % (11.8-14.1); White Blood Cell Count 8.22 k/cumm (4.4-10.8)
[2017-12-16 07:40] VITALS: BP 143/109; PULSE 96; RESP 22; TEMP 36.5; O2SAT 91
[2017-12-16 07:45] LABS: Anion Gap 9.5 mmol/L (3-11); BUN 16 mg/dL (7-18); CO2 27.5 mmol/L (21.0-32.0); CREATININE 1.06 mg/dL (0.70-1.30); Calcium 10.1 mg/dL (8.5-10.1); Chloride 111 mmol/L (98-107); Glucose 89 mg/dL (70-100); Potassium 3.5 mmol/L (3.5-5.1); Sodium 148 mmol/L (136-145)
[2017-12-16] MEDS: Normal Saline 500 ML 30 ML IV (09:20)
[2017-12-16] MEDS: QUEtiapine 25 MG TAB 75 MG PO (09:30)
[2017-12-16] MEDS: Metoprolol 50 MG TAB PO (09:31)
[2017-12-16] MEDS: Finasteride 5 MG TAB PO (09:31)
[2017-12-16 11:08] VITALS: O2SAT 95
--- NOTE | 2017-12-16 13:52 | NCONE_ITS ---
DATE OF CONSULTATION: December 16, 2017 ASSESSMENT/PLAN: Mr. Kurtz is a 72-year-old right-handed man with a history of bipolar disorder and neuroleptic-induced Parkinsonism and tardive dyskinesia. He was recently admitted for worsening pneumonia which has been progressing over the last two months; likely secondary to aspiration with concomitant increasing dysphagia and dysarthria with difficulty clearing his oral secretions. He has also had increase in his bipolar disorder and is now refusing his oral medications, including his Parkinson medications, which are contributing further to his dysarthria and dysphagia. Mr. Kurtz remains a very complex patient. He had previously had a PEG tube in 2016 and it was recommended at that time that he keep it forever due to likely progression of dysphagia over time, but at some point between then and now it was taken out. The question is whether he needs another PEG placement and whether family wants to do this at this time. My recommendation at this time would be to consult Psychiatry for medication management while he is refusing medications. Perhaps with improvement in his bipolar disorder he will be agreeable to taking medications. In the meantime, I think it is important to restart medications for his Parkinsonism to see if that can improve his ability to swallow. After discussion with the pharmacy, we will try 2 mg of IV Cogentin daily. This does have anticholinergic properties, which may help with his secretions and further improve his ability to swallow. This can worsen cognition and thus he needs close monitoring here in the hospital. I will continue to follow along. Thank you for this consult. Addendum: per primary team, after I met with patient and family, they opted for PEG tube placement. Once PEG is placed and usable, I recommend d/c Cogentin and resume previous Sinemet dosing 2x25/100mg QID (q4-5hr during wakefulness). I will sign off. Please call with any questions or concerns. He should probably follow-up in the neurology clinic for further management of his PDism. He can be seen in 4-6 weeks. ++++++++++++++++++ REASON FOR CONSULTATION: I was asked to see Mr. Kurtz in neurological consultation by Dr. Johnston for Parkinsonism and progressive dysphagia. HISTORY OF PRESENT ILLNESS: Mr. Kurtz is a 72-year-old right-handed man with a past medical history of bipolar disorder, hypertension, BPH, type 2 diabetes, Parkinsonism and an idiopathic severe axonal peripheral neuropathy. Per prior notes, he was treated with Navane and Depakote for his bipolar disorder since the with fairly good benefit. He first developed a tremor in the right arm beginning in 2011 and eventually sought neurological care in 2014 at [facility] with movement specialist Dr. Hilliard at which time he was also developing dysphagia. She stopped Navane thinking it could have been causing his Parkinsonian symptoms; however, he had no improvement after stopping it. He was thus then diagnosed with Parkinsonism and started on Artane , which initially was helpful. In early 2015 he had further decline (lower extremity weakness/imbalance) and difficulty swallowing for which he was admitted to [facility]. At that time he was found to have the severe axonal peripheral neuropathy via nerve conduction and EMG. He underwent an extensive laboratory workup including anti-MAG antibodies , B6, Celiac antibodies, SYLVAIN, SSA, SSB, anti-Hu, GD1b antibodies, GQ1 antibodies , HIV, HTLV, CK, aldolase, lumbar puncture, thyroid, B12, Lyme and heavy metal screening, all of which was normal. He also underwent brain and spine imaging which was unremarkable per prior notes. He underwent a muscle biopsy at that time but I could not find the results. His neuropathy was concluded to be idiopathic. He continued to decline and was admitted to [facility] in August and September of 2015 with progressive aspiration, dysphagia, UTI and acute renal injury. He had a PEG placed in September of 2015. He was also started on Sinemet at that time with apparent improvement in Parkinsonian symptoms and his dysphagia. He last followed with neurologist Dr. Hilliard in November of 2015 at which time she increased his Sinemet from three times a day to four times per day. She also recommended that he keep his PEG forever, i.e. indefinitely, even though he was no longer requiring it, as she anticipated that his swallowing would get worse over time, as Parkinson's does get worse over time. His difficulty swallowing was felt to be multifactorial from the Parkinson's and his tardive dyskinesia. Since his admission in August of 2015 he has been living at the [facility]. Prior to that he was living independently and his family notes that his bipolar has been significantly worse since being off of Navane. They had not noticed any coughing or aspiration with eating or drinking; however he's had multiple E.R. visits recently for pneumonia; the first occurred on November 13 in which he was first diagnosed with pneumonia and treated initially with IM Ceftriaxone. He had a CT head at that time, which I was able to review, and showed moderate, diffuse cerebral and cerebellar atrophy with slightly more atrophy in the frontal lobes. He presented back to the E.R. on August 05 where he was again diagnosed with pneumonia and started on Levaquin and then readmitted on December 10 with worsening pneumonia, hypoxia and acute renal injury with a creatinine of 2.5. His creatinine is now at 1.06. Initially he was thought to have healthcare-acquired pneumonia, however during his hospital stay he has had progressive difficulty swallowing with aspiration and choking and now it's presumed that his pneumonia was actually an aspiration pneumonia. In addition, he has had increased agitation and has refused all oral medication since 12/13/17 p.m., including his Parkinson's medications. He's had increasing secretions that he is unable to clear on his own. His last previous known bout of pneumonia was in May of 2016; though his daughter and sister who are with him today note that he has had pneumonia for six months or longer. He also has some mild dysarthria on exam, which they think is new this admission. He otherwise does not have any focal abnormalities and remains confused with hallucinations. PAST MEDICAL HISTORY: 1. Bipolar disorder. 2. Neuroleptic-induced tardive dyskinesia and Parkinsonism. 3. Hypertension. 4. Type 2 diabetes. 5. BPH. 6. Idiopathic severe axonal peripheral neuropathy. PAST SURGICAL HISTORY: Unknown. FAMILY HISTORY: No Parkinson's. SOCIAL HISTORY: [facility]. He has two children. His sister's name is Sindy. He does not smoke, drink alcohol or use illicit drugs. REVIEW OF SYSTEMS: Unobtainable due to his confusion. VITALS: T-max 37.8, pulse 75-96, blood pressure 133-172/85-109, respiratory rate 18-20, saturation 91-95% on 2 liters nasal cannula. PHYSICAL EXAM: GENERAL: Patient of apparent stated age. No apparent distress. Fairly constant oral movements consistent with tardive dyskinesia. HEAD/FACE: No facial or cranial abnormalities. NECK: Supple, no meningismus, no occipital tenderness. CARDIOVASCULAR: Regular rate and rhythm. RESPIRATORY: Reduced air sounds in the right lower lobe. ABDOMEN: Soft, nontender, nondistended, positive bowel sounds. EXTREMITIES: No edema, no clubbing or cyanosis; no bony deformity. NEUROLOGICAL EXAM: Language: fluency, naming and repetition intact. Comprehension is impaired. Mental Status: he's awake and alert; oriented to self only. He has significant delusions, which he talks about frequently. Speech: CRANIAL NERVES: CN II: visual bocanegra intact. CN III, IV and : extraocular movements intact; no nystagmus; pupils are symmetric and reactive to light. CN V: face sensation intact to pinprick. CN VII: no facial asymmetry noted. CN VIII: hearing intact bilaterally. CN IX and X: palate rises symmetrically. CN XI: unable to test due to patient noncooperation. CN XII: protrudes tongue symmetrically. Sensation: intact to pinprick throughout. Unable to test other modalities reliably in this confused patient. Motor: bulk intact; he has significant cogwheel rigidity in the bilateral upper extremities, left greater than right. Fine motor movements were significantly reduced bilaterally. He had no apparent pronator drift. He has diffuse bradykinesia. Strength appears 5/5 throughout, but difficult to test. Reflexes: were reduced throughout with absent lower extremity reflexes. Toes were neutral bilaterally. Coordination: he had a bilateral, left greater than right, upper extremity resting tremor with bilateral postural and kinetic tremors of the bilateral upper extremities, mild to moderate. Gait: deferred.
--- NOTE | 2017-12-16 14:47 | PDOC.CMPRO ---
Care Management Progress Note S/O: CM met with Dr. Johnston and Benton's family including his longtime partner, Roya and his daughter/guardian; Pretty. His daughter reported she had discussed next steps with her brother, Luis and wished for Benton to have PED tube placed due to risk of aspiration and medication refusal. Dr. Johnston processed decision making with Benton (who struggled to engage appropriately throughout the meeting) and reported Surgery would be contacted to coordinate next steps. CM will continue to follow. A: 72 year old male admitted to [facility] 12/10/17 for HCAP. P: Benton will have surgical consult for planning of PEG tube placement; plan remains for Benton to return to [facility] when ready. He will transport via the facility's wheelchair van.
--- NOTE | 2017-12-16 14:55 | CMPROGNOTE_ITS ---
Care Management Progress Note S/O: CM met with Dr. Johnston and Benton's family including his longtime partner, Roya and his daughter/guardian; Pretty. His daughter reported she had discussed next steps with her brother, Luis and wished for Benton to have PED tube placed due to risk of aspiration and medication refusal. Dr. Johnston processed decision making with Benton (who struggled to engage appropriately throughout the meeting) and reported Surgery would be contacted to coordinate next steps. CM will continue to follow. A: 72 year old male admitted to [facility] 12/10/17 for HCAP. P: Benton will have surgical consult for planning of PEG tube placement; plan remains for Benton to return to [facility] when ready. He will transport via the facility's wheelchair van.
[2017-12-16 15:56] VITALS: BP 183/95; PULSE 71; RESP 18; TEMP 37.3; O2SAT 92
--- NOTE | 2017-12-16 17:40 | SCONE_ITS ---
DATE: December 16, 2017 ASSESSMENT: 72-year-old male with worsening dysphagia and dysarthria secondary to being unable to take his Parkinsonian and bipolar medications along with difficulty secondary to aspiration. PLAN: For endoscopic gastrostomy tube placement, possible open gastrostomy tube placement. I have discussed this plan with Mr. Kurtz's daughter. The risks and benefits of this were discu ssed with her and all her questions were answered to her satisfaction. Consent was obtained to proce ed. CONSULTING PHYSICIAN: Huey Molina D.O. CONSULT REGARDING: I have been asked to place a percutaneous gastrostomy tube for nutritional and m edication needs in a 72-year-old gentleman with worsening Parkinson's and progressive dysphagia. HISTORY OF PRESENT ILLNESS: Mr. Kurtz is a 72-year-old gentleman with multiple medical comorbi dities. He was recently admitted for worsening pneumonia which he has been progressing over the last 2 months, believed to be secondary to aspiration with concomitant increasing dysphagia and dysarthri a. He is refusing his bipolar medications and his Parkinson's medications which are making his dysar thria and dysphagia worse. Family wishes to continue treatment for Mr. Kurtz and therefore has requested placement of a percutaneous endoscopic gastrostomy tube. He has had a prior tube placed a number of years ago. At some point it was removed. Surgery was consulted for placement. ALLERGIES: He has no known drug allergies. PAST MEDICAL HISTORY: Health-care acquired pneumonia. Acute kidney injury. Schizophrenia. Hypertension. Parkinson's disease. Diabetes. PAST SURGICAL HISTORY: Gastrostomy tube placement. FAMILY HISTORY: Reviewed and noncontributory. SOCIAL HISTORY: The patient is a resident of [facility]. No recent to bacco use. No recent alcohol use. No illicit drug use. REVIEW OF SYSTEMS: Unobtainable as the patient is a poor historian. PHYSICAL EXAMINATION: Vital signs - temperature 37.3, blood pressure 183/95, pulse 71, respirations 18, O2 saturation is 92%. He is on 2 L. On physical examination, this is a 72-year-old male who appears his stated age, alert but not oriente d to person, place or time. Chest - coarse. Heart regular. Abdomen - soft, nontender, nondistended. Integument - warm and dry.
--- NOTE | 2017-12-16 20:13 | PNE_ITS ---
DATE: December 16, 2017 SUBJECTIVE: The staff reports that the patient has been refusing food, especially with the advanced thickener. A pparently they felt that he would do better with the honey-thick liquid as opposed to the nectar-thic k liquids but he has been refusing intake in this way. Some of the staff feels that he may do better once he goes back to [facility]. OBJECTIVE: The patient did indicate to this pathologist that he felt that we (the staff) were trying to poison h im because we were wearing masks and gowns and gloves. CARE GIVEN: Dysphagia therapy. ASSESSMENT: The patient did not respond well to therapy this day. He refused most intake but did manage a small amount of chocolate ice cream. It was suggested again that the patient be in an upright position and if he is watching TV, if possible, the TV screen should be at horizon level and not above his head. At this time, the staff may want to consider alternative feeding to assist the patient in nourishmen t and hydration. I do not believe that he will respond to traditional therapy treatment but this faith uld be continued, offering the patient food and drink that he likes or agrees to. PLAN: Therapy should continue while he is a patient at [facility]. Demar Daniel M.A., C.C.C., Speech Pathologist
--- NOTE | 2017-12-16 21:06 | PGE_ITS ---
DATE: December 16, 2017 ASSESSMENT AND PLAN: #1. Healthcare-associated pneumonia. He continues on Zosyn and vancomycin. He is now afebrile without an elevated white count. His respiratory status appears to be stable. The concern is that he has ongoing aspiration episodes and he is at risk for recurrent pneumonia. The plan is to insert the PEG tube and limit p.o. intake. It will also allow us to medication compliant. His daughter who is his guardian would like him to receive his usual medications as ordered. Plan: Surgical consult. Discussed the case with Dr. Huey Molina and I believe his plan is to consent him through his guardian and place him on the schedule to have a PEG tube placed this week. #2. Bipolar disorder. Behaviors are escalating. He is refusing medications, spitting them onto staff. We will hold on p.o. medications for now. #3. Parkinsonism. Dr. Estrella Kapadia saw him from Neurology. She recommended IV Cogentin until he can take his p.o. reliably. #4. Neurodegenerative disorder. He has been diagnosed with an axonal degenerative disorder in the past. Dr. Kapadia notes the Neurology team at [facility] recommended that he keep his PEG tube indefinitely because his swallowing issues would become worse over time. His PEG tube had been discontinued [facility] because it had not been used in several months and his nutritional status had improved greatly. The plan is to reinsert the PEG tube and begin PEG tube feeds, given his meds through his PEG tube, and try to minimize his risk of recurrent aspiration. #5. Disposition. He is DNR/DNI. His daughter is his guardian and is helping make his healthcare decisions despite the patient's apparent wishes to just . REASON FOR ADMISSION: Healthcare-associated pneumonia/aspiration pneumonia. SUBJECTIVE: The patient is markedly confused and confabulatory yet is oriented to self and date of . His sister and daughter were here for a family meeting today. We had an extensive discussion of his overall deterioration. They are familiar with this from previous episodes of deteriorating health. He is now refusing all p.o. medications (he spit his morning meds onto the nurse's chest). We had a long discussion about ongoing swallowing difficulties and how this is actually made worse when he misses his medications. The upshot of the discussion was that the PEG tube should be replaced. Neurology consult today. The patient refused his chest x-ray. OBJECTIVE: Vital signs: Temperature 37.3. Blood pressure 183/95. Respiratory rate 18. Pulse 71. Saturation 92% on 2 liters. General: On exam he is awake and alert. He carries on about wanting Governor Anders and President Guido to come evaluate him, It's an emergency. He seemed fairly clear that he did not want to go on living. He thought, If I that' s no problem. He had no respiratory difficulty. He had a mild cough. He agreed to sit upright for me. Lungs: His posterior lung exam showed some quiet breath sounds, especially in the left lower region of his lung field, but otherwise good air movement. I did not hear a lot of adventitial breath sounds. Heart: Heart sounds were somewhat distant. I did not appreciate a murmur. Abdomen: Obese but very soft and nontender. Lower extremities: No significant edema. LABORATORY EVALUATION: White count 8.22 thousand, hemoglobin 9.6, hematocrit 30.2, platelets 182,000, 59 segs, 25 lymphs, no bands. Sodium 148, potassium 3.5, BUN 16, creatinine 1.06, blood sugar 89.
[2017-12-17] VITALS (25 sets, daily range): BP systolic 160–207; BP diastolic 88–145; PULSE 66–115; RESP 20–46; TEMP 36.6–37.8; O2SAT 92–100
[2017-12-17] MEDS: Normal Saline Flush 10 ML SYR IVP ×6 (01:39→22:13)
[2017-12-17] MEDS: Heparin 5,000 UNITS/ML VIAL 5000 UNITS SC ×2 (01:39→17:42)
[2017-12-17 07:20] LABS: Abs Immature Grans 0.02 k/cumm (0.0-0.09); Absolute Basophil Count 0.03 k/cumm (0.0-0.2); Absolute Eosinophil Count 0.04 k/cumm (0.0-0.7); Absolute Lymphocyte Count 2.23 k/cumm (1.2-3.4); Absolute Monocyte Count 1.15 k/cumm (0.11-0.7); Absolute Neutrophil Count 5.31 k/cumm (1.2-6.7); Basophils % 0.3; Eosinophils % 0.5; HCT 28.6 % (40.0-50.0); HGB 9.4 g/dL (13.5-17.5); Immature Grans % 0.2; Lymphocytes % 25.4; Mean Corp. HGB Concentration 32.9 g/dL (32.0-36.0); Mean Corpuscular Hemoglobin 31.9 pg (27.0-33.0); Mean Corpuscular Volume 96.9 fL (80-95); Mean Platelet Volume 9.2 fL (8.0-11.0); Monocytes % 13.1; Neutrophils % 60.5; Platelet Count 227 x1000/uL (130-400); RBC 2.95 m/cumm (4.50-6.00); RBC Distribution Width 13.4 % (11.8-14.1); White Blood Cell Count 8.78 k/cumm (4.4-10.8)
[2017-12-17 07:25] LABS: Anion Gap 10.9 mmol/L (3-11); BUN 19 mg/dL (7-18); CO2 27.1 mmol/L (21.0-32.0); CREATININE 1.08 mg/dL (0.70-1.30); Calcium 10.2 mg/dL (8.5-10.1); Chloride 110 mmol/L (98-107); Glucose 95 mg/dL (70-100); Potassium 3.2 mmol/L (3.5-5.1); Sodium 148 mmol/L (136-145)
[2017-12-17] MEDS: Normal Saline 500 ML 30 ML IV (09:09)
[2017-12-17] MEDS: VANCOMYCIN 750 MG in Normal Saline 250 ML 166.667 MG IVPB ×2 (10:07→20:55)
--- NOTE | 2017-12-17 10:21 | PDOC.CMPRO ---
Care Management Progress Note S/O: Benton was lying in bed, readying for surgery; his comprehension remains limited. Benton was reviewed in interdisciplinary rounds the goal is for PEG tube placement to allow for medication administration and nutrition, and once Benton is more stable, aspiration risk will decrease per MD. A: 72 year old male admitted to [facility] 12/10/17 for HCAP. P: Benton will have PEG tube placed in the OR today. Plan remains for Benton to return to [facility] when ready. He will transport via the facility's wheelchair van.
--- NOTE | 2017-12-17 10:31 | CMPROGNOTE_ITS ---
Care Management Progress Note S/O: Benton was lying in bed, readying for surgery; his comprehension remains limited. Benton was reviewed in interdisciplinary rounds the goal is for PEG tube placement to allow for medication administration and nutrition, and once Benton is more stable, aspiration risk will decrease per MD. A: 72 year old male admitted to [facility] 12/10/17 for HCAP. P: Benton will have PEG tube placed in the OR today. Plan remains for Benton to return to [facility] when ready. He will transport via the facility's wheelchair van.
[2017-12-17] MEDS: Normal Saline 500 ML 400 ML IV (10:59)
--- NOTE | 2017-12-17 13:43 | ROE_ITS ---
REPORT OF OPERATIVE PROCEDURE DATE OF PROCEDURE December 17, 2017 PREOPERATIVE DIAGNOSES Aspiration pneumonia secondary to dysphagia and dysarthria from Parkinson's disease. POSTOPERATIVE DIAGNOSES Aspiration pneumonia secondary to dysphagia and dysarthria from Parkinson's disease. PROCEDURE Percutaneous endoscopic gastrostomy tube placement. SURGEON Huey Molina D.O. MR TEACHER Emily Manriquez PA-C. ANESTHESIA General anesthesia by Pat Chance CRNA ASA-III Mallampati Class - 4 ESTIMATED BLOOD LOSS Minimal. TUBE: BARD percutaneous Ponsky gastrostomy tube, lot #[id number]. INDICATIONS This is a 72-year-old gentleman who has multiple medical comorbidities. He is bipolar. He has Parkinson's disease. He has developed aspiration pneumonia that has really been recurrent, secondary to dysphagia and dysarthria caused by his Parkinsonian disease. It has regressed to the point where he is unable to swallow his bipolar medications, nor his Parkinsonian medications, which worsens all of his symptoms. It was recommended that he have a gastrostomy tube placed. The risks and benefits of which were discussed with his daughter, who is the DPOA. All of the daughter's questions were answered and consent was obtained to proceed with percutaneous endoscopic gastrostomy tube placement and possible open placement. The risks and benefits of the procedure again had been discussed with her. These included bleeding, infection, injury to bowel, worsened aspiration. FINDINGS Percutaneous endoscopic gastrostomy tube placed without apparent complications. DESCRIPTION OF PROCEDURE The patient was brought to the preanesthesia staging area. The patient's identification was confirmed and consent signed. He was then brought to the Operating Room positioned supine. An endotracheal tube was inserted and sedation titrated for effect. Once adequate sedation was reached, appropriate time-out was performed reviewing the patient's identification, allergies, medications, procedure. He is on Zosyn for his resolving pneumonia. His abdomen was prepped with ChloraPrep and block draped in standard sterile fashion. I began by advancing the Olympus variable stiffness endoscope from the oropharynx down into the stomach. The room was darkened, and we could see the illumination of the light on the anterior abdominal wall. Gentle probing and with pressure on the abdominal wall, I could see indentation of the stomach to coincide with position. Local was then infiltrated over the illuminated spot on the anterior abdominal wall, and an introducer catheter with needle was advanced into the stomach. I then passed a wire snare down through the scope looping this over the introducer shaft. The needle was removed and the wire was passed through the snare, which was cinched holding the wire. I then removed the endoscope and the wire up through the esophagus out through the oropharynx. Once this was done, I then attached the Ponsky gastrostomy tube to the wire and then the wire was pulled back through the incision after the skin incision was widened slightly. As the tube was being pulled back into the stomach, I followed this down with the endoscope to check position. The tube was pulled up into position onto the stomach wall and then pulled up against the abdominal wall. Once this was in place, I adjusted it until the button for the G-tube could be easily spun, where it was adequately holding the stomach against the anterior abdominal wall. I then trimmed the end of the Ponsky tube allowing passage over the skin platen, clamp and adaptor. With these in place, I again checked position of the Ponsky gastrostomy tube to make sure it was pulled up adequately. I could see the abdominal wall, and that the button could easily spin in place. Once this was confirmed and the platen was pressed up against the skin, the platen was then sewn in place with three -point fixation. A fixation suture was placed around the neck to prevent migration of the tube and the gastrostomy tube was open to drainage. I then withdrew the scope. There were no apparent complications during the case. The patient tolerated it very well. He was returned to his room in good condition.
--- NOTE | 2017-12-17 13:54 | NS.NUTBLAN_ITS ---
ASSESSMENT: Consult for tube feeding for Mr. Kurtz who has had poor to no PO intake since admission. It is possibly multifactorial with the predominant reason being that he has difficulty swallowing secondary to neurodegenerative disorder even with mechanically altered nectar thick liquids. His intake since admission 12/10 has been negligible. BMI 31; height 69 and weight 100.1kg. Caloric needs: 2120 caloires based on REE x 1.2. Protein needs 120 grams daily based on 1.2g/kg/day adjusted IBW. NUTRITIONAL DIAGNOSIS: Inadequate nutrient intake due to inability to swallow. INTERVENTION: Mr. Kurtz needs 1.8 liters Osmolite 1.2 per 24 hours to obtain 2120 calories and 100 grams protein. This is inadequate for protein. Consider offering Sidney to his tube to promote wound healing and offer protein supplementation. If his blood sugars are elevated as a result of tube feeding, we can switch to Gluerna 1.2. MONITORING and EVALUATION: Will monitor his tolerance to Peg tube feeding. Will follow blood sugars. Will monitor his weight and assess any further nutritional needs as they arise.
[2017-12-17] MEDS: Metoprolol 5 MG/5 ML VIAL IVP ×3 (15:08→22:16)
[2017-12-17] MEDS: LORazepam 2 MG/ML VIAL 0.5 MG IVP (16:09)
[2017-12-17] MEDS: POTASSIUM CHLORIDE/D5-0.45NACL 1,000 ML 125 MEQ IV (16:12)
[2017-12-17 16:33] LABS: Vancomycin, Trough 19.3 ug/mL (10.0-20.0)
--- NOTE | 2017-12-17 16:38 | PDOC.PROG ---
Date of Service: 12/17/17 Time of Service: 16:38 Assessment/Plan - Assessment/Plan (1) Healthcare-associated pneumonia Assessment: He remains on parenteral antibiotics. No recent fever, normal white count. He should be able to complete IV antibiotics in the next 24-48 hours. PEG tube placed for enteral feeding, to avoid further aspiration events. (2) Bipolar disorder Assessment: He has been off his p.o. Depakote for several days now. His behaviors are escalating. Goal is to get him back on his usual meds once the G-tube is functioning. His daughter, guardian, wishes him to be medicated via the G-tube despite his protestations. (3) Schizoaffective disorder Assessment: He been off his meds a few days now because of refusal. He clearly demonstrates itself in behavioral changes. Hopefully will be able to resume his usual medical regimen once the G-tube is cleared for use tomorrow. (4) Parkinsons disease Assessment: He has been off of his Sinemet for several days now. Ideally we will be able to resume this via G-tube tomorrow. Continue on the IV Cogentin as a bridging measure. (5) Hypokalemia Assessment: Potassium level remains low he did not take the p.o. dose ordered yesterday. Will add IV fluids with potassium supplementation. Recheck electrolytes in the a.m. (6) Tardive dyskinesia Assessment: Continues with tongue thrusting. This may be affecting his swallowing as well. Remains n.p.o. for now. (7) Discharge planning issues Assessment: Continues DNR/DNI. Continue to monitor in acute care status. History of Present Illness - History of Present Illness Chief Complaint: Aspiration pneumonia/swallowing dysfunction History of Present Illness: Patient remains quite confabulatory. At times he seems frustrated and angry. He expresses his frustration about his appointed guardian, his daughter. He became somewhat verbally abusive toward the latter part of our encounter. He went down for PEG tube placement today. The procedure was uneventful. He remains n.p.o. He states he wants a [employer]. Review of Systems - Review of Systems Constitutional: denies: Fever, Chills, Sweats Respiratory: Cough. denies: Shortness of Breath Cardiovascular: denies: Chest Pain, Palpitations Gastrointestinal: denies: Nausea, Vomiting, Abdominal Pain Musculoskeletal: denies: Foot Pain Neurological: denies: Weakness, Numbness - Medications/Allergies Allergies/Adverse Reactions: Allergies Allergy/AdvReac Type Severity Reaction Status Date / Time No Known Allergies Allergy Unverified 12/05/17 21:33 Medications: Current Medications Acetaminophen (Tylenol) 650 mg PO Q4H PRN PRN Albuterol Sulfate (Proventil Updraft) 2.5 mg IH Q6H PRN PRN Albuterol/Ipratropium (Duoneb Updraft) 3 ml UPD Q6H PRN PRN Last Admin: 12/11/17 11:50 Dose: 3 ml Benztropine Mesylate (Cogentin Injection) 2 mg IV DAILY [facility] Last Admin: 12/17/17 09:10 Dose: 2 mg Bisacodyl (Dulcolax Suppository) 10 mg WI DAILY PRN PRN Bisacodyl (Dulcolax) 5 mg PO DAILY PRN PRN Carbidopa/Levodopa (Parcopa 25/100) 2 tab PO QID [facility] Last Admin: 12/16/17 13:18 Dose: Not Given Dextrose (Insta-Glucose) 0 gm PO DIRECTED PRN Dextrose/Water () 0 gm IVP DIRECTED PRN Dimethicone/Zinc Oxide (Mannie Protect Cream) 0 gm TP PRN PRN Divalproex Sodium (Depakote) 500 mg PO TID [facility] Last Admin: 12/16/17 10:02 Dose: Not Given Docusate Sodium (Colace) 100 mg PO HS PRN PRN Finasteride (Proscar) 5 mg PO DAILY [facility] Last Admin: 12/16/17 09:31 Dose: 5 mg Heparin Sodium (Porcine) () 5,000 units SC Q8H [facility] Last Admin: 12/17/17 10:00 Dose: Not Given Sodium Chloride (Saline 500ml Bag) 500 mls @ 0 mls/hr IV PRN PRN PRN Reason: As Directed Last Admin: 12/17/17 10:59 Dose: 400 mls Piperacillin/Tazobactam/Dextrose (Zosyn) 4.5 gm in 100 mls @ 200 mls/hr IVPB Q6H [facility] Last Admin: 12/17/17 13:51 Dose: 200 mls/hr Vancomycin HCl 750 mg/ Sodium (Chloride) 250 mls @ 166.667 mls/hr IVPB Q12H [facility] Last Admin: 12/17/17 10:07 Dose: 166.667 mls/hr Potassium Chloride/Sodium Chloride (Kcl 40meq/D5-0.45% Nacl) 1,000 mls @ 125 mls/hr IV INFUSION [facility] Last Admin: 12/17/17 16:12 Dose: 125 mls/hr IV Miscellaneous Supplies () 1 each IV DIRECTED [facility] Insulin Aspart (Novolog Flexpen) 0 units SC 0800,1200,1700 [facility] PRN Reason: Protocol Last Admin: 12/17/17 12:00 Dose: Not Given Leptospermum Honey (Medihoney) 0 ml TP DAILY [facility] Last Admin: 12/17/17 09:01 Dose: 1 applic Lorazepam (Ativan Injection) 0.5 mg IVP Q4H PRN PRN Last Admin: 12/17/17 16:09 Dose: 0.5 mg Metoprolol Tartrate (Lopressor) 50 mg PO BID [facility] Last Admin: 12/16/17 09:31 Dose: 50 mg Metoprolol Tartrate (Lopressor Injection) 5 mg IVP Q4H [facility] Last Admin: 12/17/17 15:08 Dose: 5 mg Mineral Oil (Fleet Mineral Oil Enema) 133 ml WI DAILY PRN PRN Multi-Ingredient Mouthwash/Gargle (Biotene Mouthwash) 5 ml PO AC [facility] Last Admin: 12/17/17 13:45 Dose: 5 ml Polyethylene Glycol (Miralax) 17 gm PO DAILY PRN PRN PRN Reason: Constipation Quetiapine Fumarate (Seroquel) 200 mg PO [facility] Last Admin: 12/15/17 20:59 Dose: Not Given Quetiapine Fumarate (Seroquel) 75 mg PO BID@0800,1600 [facility] Last Admin: 12/16/17 09:30 Dose: 75 mg Senna/Docusate Sodium (Anne-Colace Tablet) 1 tab PO BID PRN PRN Sodium Chloride (Saline Flush 10 Ml Syringe) 0 ml IVP PRN PRN Last Admin: 12/17/17 16:09 Dose: 20 ml Trazodone HCl (Desyrel) 100 mg PO [facility] Last Admin: 12/15/17 21:00 Dose: Not Given Objective - Exam Vitals and I&O: Vital Signs Temp 37.4 C 12/17/17 15:44 Pulse 83 12/17/17 15:44 Resp 46 H 12/17/17 15:44 BP 166/112 12/17/17 15:44 Pulse Ox 95 12/17/17 15:44 Intake & Output 12/16/17 12/17/17 12/17/17 23:59 11:59 23:59 Intake Total 10 400 200 Balance 10 400 200 Intake: IV 10 400 200 Oral 0 Other: Urine Color Yellow Yellow Urine Appearance Clear Comment inc care given incont care given Voiding Methods Diaper Diaper Diaper Incontinent Incontinent General: Alert, Other (Agitated and upset). denies: Cooperative Lungs: Clear to auscultation Cardiovascular: Regular rate Abdomen: Soft, Other (PEG tube in place dressing intact no drainage or discharge). denies: Tenderness Extremities: denies: Clubbing, Cyanosis, Edema Psych/Mental Status: Other (Moderately agitated, confused, disoriented, confabulatory) - Results Results: Laboratory Results WBC 8.78 k/cumm (4.4-10.8) 12/17/17 07:03 RBC 2.95 m/cumm (4.50-6.00) L 12/17/17 07:03 Hgb 9.4 g/dL (13.5-17.5) L 12/17/17 07:03 Hct 28.6 % (40.0-50.0) L 12/17/17 07:03 MCV 96.9 fL (80-95) H 12/17/17 07:03 MCH 31.9 pg (27.0-33.0) 12/17/17 07:03 MCHC 32.9 g/dL (32.0-36.0) 12/17/17 07:03 RDW 13.4 % (11.8-14.1) 12/17/17 07:03 Plt Count 227 x1000/uL (130-400) 12/17/17 07:03 MPV 9.2 fL (8.0-11.0) 12/17/17 07:03 Immature Gran % 0.2 12/17/17 07:03 Neutrophils % 60.5 12/17/17 07:03 Lymphocytes % 25.4 12/17/17 07:03 Monocytes % 13.1 12/17/17 07:03 Eosinophils % 0.5 12/17/17 07:03 Basophils % 0.3 12/17/17 07:03 Absolute Neutrophils 5.31 k/cumm (1.2-6.7) 12/17/17 07:03 Absolute Lymphocytes 2.23 k/cumm (1.2-3.4) 12/17/17 07:03 Absolute Monocytes 1.15 k/cumm (0.11-0.7) H 12/17/17 07:03 Absolute Eosinophils 0.04 k/cumm (0.0-0.7) 12/17/17 07:03 Absolute Basophils 0.03 k/cumm (0.0-0.2) 12/17/17 07:03 Differential Comment Rbc morph reviewed 12/10/17 14:30 RBC Morphology Normal 12/10/17 14:30 Sodium 148 mmol/L (136-145) H 12/17/17 07:03 Potassium 3.2 mmol/L (3.5-5.1) L 12/17/17 07:03 Chloride 110 mmol/L (98-107) H 12/17/17 07:03 Carbon Dioxide 27.1 mmol/L (21.0-32.0) 12/17/17 07:03 Anion Gap 10.9 mmol/L (3-11) 12/17/17 07:03 BUN 19 mg/dL (7-18) H 12/17/17 07:03 Creatinine 1.08 mg/dL (0.70-1.30) 12/17/17 07:03 Estimated GFR/1.73 m2 >= 60.00 (mL/min/1.73m2) 12/17/17 07:03 Glucose 95 mg/dL (70-100) 12/17/17 07:03 Calcium 10.2 mg/dL (8.5-10.1) H 12/17/17 07:03 Total Bilirubin 0.7 mg/dL (0.2-1.0) 12/10/17 14:30 AST 15 U/L (15-37) 12/10/17 14:30 ALT 5 U/L (12-78) L 12/10/17 14:30 Alkaline Phosphatase 44 U/L (46-116) L 12/10/17 14:30 Total Protein 7.1 g/dL (6.4-8.2) 12/10/17 14:30 Albumin 2.5 g/dL (3.4-5.0) L 12/10/17 14:30 Urine Color Yellow (Yellow) 12/10/17 16:05 Urine Clarity Clear 12/10/17 16:05 Urine pH 6.0 (5-8) 12/10/17 16:05 Ur Specific [place] 1.015 (1.005-1.025) 12/10/17 16:05 Urine Protein Negative mg/dL (Negative) 12/10/17 16:05 Urine Ketones Trace mg/dL (Negative) H 12/10/17 16:05 Urine Blood Negative (Negative) 12/10/17 16:05 Urine Nitrite Negative (Negative) 12/10/17 16:05 Urine Bilirubin Negative (Negative) 12/10/17 16:05 Urine Urobilinogen 2.0 EU/dL (Up TO 0.2) H 12/10/17 16:05 Ur Leukocyte Esterase Negative (Negative) 12/10/17 16:05 Urine Glucose Negative mg/dL (Negative) 12/10/17 16:05 Vancomycin Trough 17.1 ug/mL (10.0-20.0) 12/15/17 15:28
[2017-12-17] MEDS: Insulin Aspart 300 UNITS/3 ML PEN SC (17:39)
[2017-12-18] VITALS (14 sets, daily range): BP systolic 98–198; BP diastolic 66–113; PULSE 69–107; RESP 18–24; TEMP 36.7–37.4; O2SAT 88–95
[2017-12-18] MEDS: POTASSIUM CHLORIDE/D5-0.45NACL 1,000 ML 125 MEQ IV ×3 (02:23→21:17)
[2017-12-18] MEDS: Normal Saline Flush 10 ML SYR IVP ×3 (02:41→11:30)
[2017-12-18] MEDS: Metoprolol 5 MG/5 ML VIAL IVP ×2 (02:41→11:31)
[2017-12-18] MEDS: Heparin 5,000 UNITS/ML VIAL 5000 UNITS SC ×3 (02:45→18:27)
[2017-12-18 07:22] LABS: Abs Immature Grans 0.07 k/cumm (0.0-0.09); Absolute Basophil Count 0.01 k/cumm (0.0-0.2); Absolute Monocyte Count 1.48 k/cumm (0.11-0.7); Absolute Neutrophil Count 9.86 k/cumm (1.2-6.7); Basophils % 0.1; HCT 32.9 % (40.0-50.0); HGB 11.2 g/dL (13.5-17.5); Immature Grans % 0.5; Lymphocytes % 14.3; Mean Platelet Volume 9.5 fL (8.0-11.0); Monocytes % 11.1; Platelet Count 322 x1000/uL (130-400); RBC Distribution Width 13.6 % (11.8-14.1); White Blood Cell Count 13.32 k/cumm (4.4-10.8)
[2017-12-18 07:36] LABS: Anion Gap 8.3 mmol/L (3-11); BUN 24 mg/dL (7-18); CO2 26.7 mmol/L (21.0-32.0); CREATININE 1.16 mg/dL (0.70-1.30); Calcium 9.7 mg/dL (8.5-10.1); Chloride 111 mmol/L (98-107); Glucose 167 mg/dL (70-100); Potassium 3.3 mmol/L (3.5-5.1); Sodium 146 mmol/L (136-145)
[2017-12-18] MEDS: Insulin Aspart 300 UNITS/3 ML PEN SC ×2 (09:00→12:15)
[2017-12-18] MEDS: VANCOMYCIN 750 MG in Normal Saline 250 ML 166.667 MG IVPB (10:00)
--- NOTE | 2017-12-18 10:31 | WOUNDCARE ---
Wound Care Report Weekly reevaluation of Mr. Moser' wounds completed @ bedside. Right carballo is markedly improved. No edema, warmth, or redness noted. No open areas at this time. All previously open areas are now closed/scabbed over, surrounding skin light pink. Recommend changing current Tx to as follows: RLE Wound: Cleanse area with soap and water. Pat dry. Cover with Mepilex Ag w/o border 6x6. Placed Flex net over Drsg. Change drsg every 3 days and PRN. Assess wound Daily for deterioration. Unstageable coccyx pressure injury and Stage 2 on right buttox have no significant, noticeable improvement. Wound bed of coccyx PI is still 100% white/pale yellow slough. Buttox wound is still pink, partial thickness, and painful. Surround skin of both sites is turning purple in color, blanchable. Recommend changing current Tx to as follows: Coccyx and right buttox: Cleanse area with wound cleanser, pat dry. Apply skin prep to regine wound skin. Apply hydrocolloid drsg, position so it covers both wounds. Change every 5 days and PRN. Please notify wound nurse if drsg is not staying in place r/t incontinence.
--- NOTE | 2017-12-18 10:44 | PDOC.CMPRO ---
Care Management Progress Note S/O: Benton continues to be monitored with his new PEG tube placement, CM supported coordination of his return for tomorrow, 12/19/17@1100; the facility is requesting a change in enteral nutrition to Jevity 1.2. CM consulted Michell Alberto who reported Benton could safely transition to Jevity once he returns to [facility]. CM updated Bernadette; JUJU CC of this information. A: 72 year old male admitted to [facility] 12/10/17 for HCAP. P: Benton will discharge to [facility] when ready. CM supported coordination of his return for tomorrow, 12/19/17@1100. The facility is requesting a change in enteral nutrition to Jevity 1.2. He will transport via the facility's wheelchair van.
[2017-12-18] MEDS: Carbidopa 25/Levodopa 100 TAB PO ×3 (13:22→20:50)
--- NOTE | 2017-12-18 13:36 | CMPROGNOTE_ITS ---
Care Management Progress Note S/O: Benton continues to be monitored with his new PEG tube placement, CM supported coordination of his return for tomorrow, 12/19/17@1100; the facility is requesting a change in enteral nutrition to Jevity 1.2. CM consulted Michell Alberto who reported Benton could safely transition to Jevity once he returns to [facility]. CM updated Bernadette; JUJU CC of this information. A: 72 year old male admitted to [facility] 12/10/17 for HCAP. P: Benton will discharge to [facility] when ready. CM supported coordination of his return for tomorrow, 12/19/17@1100. The facility is requesting a change in enteral nutrition to Jevity 1.2. He will transport via the facility's wheelchair van.
--- NOTE | 2017-12-18 14:36 | PROG.BLANK ---
Progress Note POD #1 Patient is status post G-Tube placement. He is tolerating tube feedings today. Site- some dried blood. No redness or swelling A\\ 72 year old status post G-Tube placement P\\ Continue Tube feedings per personalized living manager nurse We will sign off at this time. If you need us for anything else please let us know. Thank you for allowing us to assist in this patients care
--- NOTE | 2017-12-18 14:39 | PROG.BLANK_ITS ---
Progress Note POD #1 Patient is status post G-Tube placement. He is tolerating tube feedings today. Site- some dried blood. No redness or swelling A\\ 72 year old status post G-Tube placement P\\ Continue Tube feedings per product development manager We will sign off at this time. If you need us for anything else please let us know. Thank you for allowing us to assist in this patients care
[2017-12-18] MEDS: QUEtiapine 25 MG TAB 75 MG PO (16:35)
[2017-12-18] MEDS: QUEtiapine 100 MG TAB 200 MG PO (20:50)
[2017-12-18] MEDS: traZODone 100 MG TAB PO (21:07)
[2017-12-19] MEDS: Heparin 5,000 UNITS/ML VIAL 5000 UNITS SC (02:23)
[2017-12-19] MEDS: Insulin Aspart 300 UNITS/3 ML PEN SC ×2 (02:38→09:48)
[2017-12-19 02:52] VITALS: BP 112/74; PULSE 103; RESP 19; TEMP 36.4; O2SAT 96
[2017-12-19] MEDS: POTASSIUM CHLORIDE/D5-0.45NACL 1,000 ML 125 MEQ IV (04:54)
[2017-12-19 07:20] VITALS: O2SAT 98
[2017-12-19 07:22] LABS: HCT 29.3 % (40.0-50.0); HGB 9.7 g/dL (13.5-17.5); Mean Corp. HGB Concentration 33.1 g/dL (32.0-36.0); Mean Corpuscular Hemoglobin 32.1 pg (27.0-33.0); Mean Platelet Volume 9.4 fL (8.0-11.0); Platelet Count 269 x1000/uL (130-400); RBC 3.02 m/cumm (4.50-6.00); RBC Distribution Width 14.2 % (11.8-14.1); White Blood Cell Count 12.28 k/cumm (4.4-10.8)
[2017-12-19 07:25] VITALS: BP 144/84; PULSE 95; RESP 24; TEMP 36.7; O2SAT 95
[2017-12-19 07:26] LABS: Anion Gap 4.4 mmol/L (3-11); BUN 38 mg/dL (7-18); CO2 26.6 mmol/L (21.0-32.0); CREATININE 1.15 mg/dL (0.70-1.30); Calcium 9.4 mg/dL (8.5-10.1); Chloride 113 mmol/L (98-107); Glucose 167 mg/dL (70-100); Magnesium 1.5 mg/dL (1.8-2.4); Potassium 4.8 mmol/L (3.5-5.1); Sodium 144 mmol/L (136-145)
[2017-12-19] MEDS: Metoprolol 50 MG TAB PO (09:18)
[2017-12-19] MEDS: QUEtiapine 25 MG TAB 75 MG PO (09:18)
[2017-12-19] MEDS: Carbidopa 25/Levodopa 100 TAB PO (09:19)
[2017-12-19 09:20] VITALS: O2SAT 94
--- NOTE | 2017-12-19 10:57 | PDOC.DISCH_ITS ---
Discharge - Discharge Orders Referrals: Hortencia Chou [ NON-[facility] STAFF PHYSICIAN] - - Discharge Plan Disposition: SNF (LEVEL 1) [facility] Condition: Improving Diet:: NPO Equipment/Supplies:: tube feeds Activity:: Activity as Tolerated - Instructions Micromedex Instructions: Hospital Acquired Pneumonia (DC), Chronic Dysphagia ( DC), Aspiration Pneumonia (DC)
--- NOTE | 2017-12-19 11:28 | PDOC.CMDIS ---
Care Management Discharge Reason for Hospitalization: HCAP Discharge Plan: Benton will return to [facility] when ready per MD. The facility is requesting a change in enteral nutrition to Jevity 1.2/Promote 1.0 which CM relayed to MARY Fleming, Dr Johnston and Michell Alberto. Benton will transport via the facility's wheelchair van. Patient/Family Education Needs: Review of discharge process, return to [facility]. CM completed new HIPPA with Benton's daughter; Pretty. Services Needed at Discharge: Detention Facility ([facility] return. )
--- NOTE | 2017-12-19 11:31 | CMDISCH_ITS ---
Care Management Discharge Reason for Hospitalization: HCAP Discharge Plan: Benton will return to [facility] when ready per MD. The facility is requesting a change in enteral nutrition to Jevity 1.2/ Promote 1.0 which CM relayed to MARY Fleming, Dr Johnston and Michell Alberto. Benton will transport via the facility's wheelchair van. Patient/Family Education Needs: Review of discharge process, return to [facility]. CM completed new HIPPA with Benton's daughter; Pretty. Services Needed at Discharge: Long Term Facility ([facility] return. )
--- NOTE | 2017-12-19 18:26 | PDOC.DCSUM ---
Date of Service: 12/19/17 Time of Service: 18:26 This is a 72-year-old male admitted from [facility] and rehab because of worsening cough and shortness of breath. He was assumed to have a health care associated pneumonia. He was empirically started on cefepime and vancomycin. This was gradually switched over to Zosyn and vancomycin with the assumption that there was a component of aspiration pneumonia. He ended up completing 9 full days of IV antibiotics with largely improvement of his respiratory symptoms. He was weaned off of oxygen. He was seen by speech therapy as there was a concern about ongoing aspiration. Coincident with this he became frustrated with the diet modifications and began to refuse food and medications. Given his underlying Parkinson's disease, bipolar disorder, schizoaffective disorder the lack of medications caused worsening of his behavioral problems and movement disorder. A family meeting held on 12/16/2017 with his daughter, guardian, resulted in decision to replace the PEG tube and begin tube feedings as well as provide his medications via G-tube. The hope was with better medication compliance and better nutrition he would get stronger and better protect his airway. He was made n.p.o. He had his PEG tube placed on 12/17/2017. He began tube feeds on 12/18/2017 as well as resumption of his usual medical regimen. He was deemed appropriate for transfer back to [facility] and rehab. Speech therapy consult there was recommended as the expectation is that his swallowing will improve once he is back on his medications. All Active Problems Acute kidney injury (Acute) Bipolar disorder (Acute) Healthcare-associated pneumonia (Acute) Hypokalemia (Acute) Parkinsons disease (Acute) Schizoaffective disorder (Acute) Superficial wound (Acute) Tardive dyskinesia (Acute) Albuterol Sulfate 2.5 mg IH Q6H PRN PRN 05/20/16 Bisacodyl [Dulcolax Suppository] 10 mg IN DAILY PRN 12/10/17 Mineral Oil-Enema [Fleet Mineral Oil Enema] 133 ml IN DAILY PRN 12/10/17 Mouthwash [Biotene Mouthwash] 5 ml PO AC 12/10/17 Acetaminophen [Tylenol] 650 mg GT Q4H PRN PRN #0 12/19/17 Bisacodyl 5 mg GT DAILY PRN #0 12/19/17 Carbidopa/Levodopa [Carbidopa-Levo 25-100 mg Odt] 2 tab GT QID #0 12/19/17 Divalproex [Depakote] 500 mg GT TID #0 12/19/17 Docusate Sodium 100 mg GT BID #0 12/19/17 Docusate Sodium 100 mg GT HS PRN #0 12/19/17 Ergocalciferol [Vitamin D] 50,000 units GT .FRIDAY #0 12/19/17 Finasteride [Proscar] 5 mg GT DAILY #0 12/19/17 Furosemide [Lasix] 20 mg GT BID #0 12/19/17 Guaifenesin/Dextromethorphan [Guaifenesin Dm Syrup] 5 ml GT Q4H PRN PRN #0 12/19/17 Magnesium Hydroxide [Milk of Magnesia] 30 ml GT DAILY #0 12/19/17 Metformin HCl [Fortamet] 500 mg GT BID #0 12/19/17 Metoprolol Tartrate 50 mg GT BID #0 12/19/17 Multivitamin with Minerals [Multiple Vitamin] 1 each GT DAILY #0 12/19/17 Quetiapine Fumarate 75 mg GT BID #0 12/19/17 Quetiapine Fumarate 200 mg GT HS #0 12/19/17 Sennosides/Docusate Sodium [Senna Plus Tablet] 1 each GT BID PRN #0 12/19/17 TraZODone [Desyrel] 100 mg GT HS #0 12/19/17 Allergies Allergy/AdvReac Type Severity Reaction Status Date / Time No Known Allergies Allergy Unverified 12/05/17 21:33 Laboratory Results WBC 12.28 k/cumm (4.4-10.8) H 12/19/17 07:02 RBC 3.02 m/cumm (4.50-6.00) L 12/19/17 07:02 Hgb 9.7 g/dL (13.5-17.5) L 12/19/17 07:02 Hct 29.3 % (40.0-50.0) L 12/19/17 07:02 MCV 97.0 fL (80-95) H 12/19/17 07:02 MCH 32.1 pg (27.0-33.0) 12/19/17 07:02 MCHC 33.1 g/dL (32.0-36.0) 12/19/17 07:02 RDW 14.2 % (11.8-14.1) H 12/19/17 07:02 Plt Count 269 x1000/uL (130-400) 12/19/17 07:02 MPV 9.4 fL (8.0-11.0) 12/19/17 07:02 Immature Gran % 0.5 12/18/17 06:53 Neutrophils % 74.0 12/18/17 06:53 Lymphocytes % 14.3 12/18/17 06:53 Monocytes % 11.1 12/18/17 06:53 Eosinophils % 0.0 12/18/17 06:53 Basophils % 0.1 12/18/17 06:53 Absolute Neutrophils 9.86 k/cumm (1.2-6.7) H 12/18/17 06:53 Absolute Lymphocytes 1.90 k/cumm (1.2-3.4) 12/18/17 06:53 Absolute Monocytes 1.48 k/cumm (0.11-0.7) H 12/18/17 06:53 Absolute Eosinophils 0.00 k/cumm (0.0-0.7) 12/18/17 06:53 Absolute Basophils 0.01 k/cumm (0.0-0.2) 12/18/17 06:53 Differential Comment Rbc morph reviewed 12/10/17 14:30 RBC Morphology Normal 12/10/17 14:30 Sodium 144 mmol/L (136-145) 12/19/17 07:02 Potassium 4.8 mmol/L (3.5-5.1) D 12/19/17 07:02 Chloride 113 mmol/L (98-107) H 12/19/17 07:02 Carbon Dioxide 26.6 mmol/L (21.0-32.0) 12/19/17 07:02 Anion Gap 4.4 mmol/L (3-11) 12/19/17 07:02 BUN 38 mg/dL (7-18) H D 12/19/17 07:02 Creatinine 1.15 mg/dL (0.70-1.30) 12/19/17 07:02 Estimated GFR/1.73 m2 >= 60.00 (mL/min/1.73m2) 12/19/17 07:02 Glucose 167 mg/dL (70-100) H 12/19/17 07:02 Calcium 9.4 mg/dL (8.5-10.1) 12/19/17 07:02 Magnesium 1.5 mg/dL (1.8-2.4) L 12/19/17 07:02 Total Bilirubin 0.7 mg/dL (0.2-1.0) 12/10/17 14:30 AST 15 U/L (15-37) 12/10/17 14:30 ALT 5 U/L (12-78) L 12/10/17 14:30 Alkaline Phosphatase 44 U/L (46-116) L 12/10/17 14:30 Total Protein 7.1 g/dL (6.4-8.2) 12/10/17 14:30 Albumin 2.5 g/dL (3.4-5.0) L 12/10/17 14:30 Urine Color Yellow (Yellow) 12/10/17 16:05 Urine Clarity Clear 12/10/17 16:05 Urine pH 6.0 (5-8) 12/10/17 16:05 Ur Specific [place] 1.015 (1.005-1.025) 12/10/17 16:05 Urine Protein Negative mg/dL (Negative) 12/10/17 16:05 Urine Ketones Trace mg/dL (Negative) H 12/10/17 16:05 Urine Blood Negative (Negative) 12/10/17 16:05 Urine Nitrite Negative (Negative) 12/10/17 16:05 Urine Bilirubin Negative (Negative) 12/10/17 16:05 Urine Urobilinogen 2.0 EU/dL (Up TO 0.2) H 12/10/17 16:05 Ur Leukocyte Esterase Negative (Negative) 12/10/17 16:05 Urine Glucose Negative mg/dL (Negative) 12/10/17 16:05 Vancomycin Trough 19.3 ug/mL (10.0-20.0) 12/17/17 16:05 Disposition: Returned to [facility] and rehab for ongoing long-term care. Speech therapy consult. G-tube feeds using Jevity 1.2 400 cc every 8 hours plus [place] to 40 cc every 8 hours. 500 cc of free water daily. Further investigation into his wishes regarding tube feeding, mandated medication, his will to live. Total time arranging his discharge 71 minutes. Cc: [facility]
--- NOTE | 2017-12-19 18:32 | PDOC.DCSUM_ITS ---
Date of Service: 12/19/17 Time of Service: 18:26 This is a 72-year-old male admitted from [facility] rehab because of worsening cough and shortness of breath. He was assumed to have a health care associated pneumonia. He was empirically started on cefepime and vancomycin. This was gradually switched over to Zosyn and vancomycin with the assumption that there was a component of aspiration pneumonia. He ended up completing 9 full days of IV antibiotics with largely improvement of his respiratory symptoms. He was weaned off of oxygen. He was seen by speech therapy as there was a concern about ongoing aspiration. Coincident with this he became frustrated with the diet modifications and began to refuse food and medications. Given his underlying Parkinson's disease, bipolar disorder, schizoaffective disorder the lack of medications caused worsening of his behavioral problems and movement disorder. A family meeting held on 12/16/2017 with his daughter, guardian, resulted in decision to replace the PEG tube and begin tube feedings as well as provide his medications via G- tube. The hope was with better medication compliance and better nutrition he would get stronger and better protect his airway. He was made n.p.o. He had his PEG tube placed on 12/17/2017. He began tube feeds on 12/18/2017 as well as resumption of his usual medical regimen. He was deemed appropriate for transfer back to [facility] and rehab. Speech therapy consult there was recommended as the expectation is that his swallowing will improve once he is back on his medications. All Active Problems Acute kidney injury (Acute) Bipolar disorder (Acute) Healthcare-associated pneumonia (Acute) Hypokalemia (Acute) Parkinsons disease (Acute) Schizoaffective disorder (Acute) Superficial wound (Acute) Tardive dyskinesia (Acute) Albuterol Sulfate 2.5 mg IH Q6H PRN PRN 05/20/16 Bisacodyl [Dulcolax Suppository] 10 mg AK DAILY PRN 12/10/17 Mineral Oil-Enema [Fleet Mineral Oil Enema] 133 ml AK DAILY PRN 12/10/17 Mouthwash [Biotene Mouthwash] 5 ml PO AC 12/10/17 Acetaminophen [Tylenol] 650 mg GT Q4H PRN PRN #0 12/19/17 Bisacodyl 5 mg GT DAILY PRN #0 12/19/17 Carbidopa/Levodopa [Carbidopa-Levo 25-100 mg Odt] 2 tab GT QID #0 12/19/17 Divalproex [Depakote] 500 mg GT TID #0 12/19/17 Docusate Sodium 100 mg GT BID #0 12/19/17 Docusate Sodium 100 mg GT HS PRN #0 12/19/17 Ergocalciferol [Vitamin D] 50,000 units GT .FRIDAY #0 12/19/17 Finasteride [Proscar] 5 mg GT DAILY #0 12/19/17 Furosemide [Lasix] 20 mg GT BID #0 12/19/17 Guaifenesin/Dextromethorphan [Guaifenesin Dm Syrup] 5 ml GT Q4H PRN PRN #0 12/19 Magnesium Hydroxide [Milk of Magnesia] 30 ml GT DAILY #0 12/19/17 Metformin HCl [Fortamet] 500 mg GT BID #0 12/19/17 Metoprolol Tartrate 50 mg GT BID #0 12/19/17 Multivitamin with Minerals [Multiple Vitamin] 1 each GT DAILY #0 12/19/17 Quetiapine Fumarate 75 mg GT BID #0 12/19/17 Quetiapine Fumarate 200 mg GT HS #0 12/19/17 Sennosides/Docusate Sodium [Senna Plus Tablet] 1 each GT BID PRN #0 12/19/17 TraZODone [Desyrel] 100 mg GT HS #0 12/19/17 Allergies Allergy/AdvReac Type Severity Reaction Status Date / Time No Known Allergies Allergy Unverified 12/05/17 21:33 Laboratory Results WBC 12.28 k/cumm (4.4-10.8) H 12/19/17 07:02 RBC 3.02 m/cumm (4.50-6.00) L 12/19/17 07:02 Hgb 9.7 g/dL (13.5-17.5) L 12/19/17 07:02 Hct 29.3 % (40.0-50.0) L 12/19/17 07:02 MCV 97.0 fL (80-95) H 12/19/17 07:02 MCH 32.1 pg (27.0-33.0) 12/19/17 07:02 MCHC 33.1 g/dL (32.0-36.0) 12/19/17 07:02 RDW 14.2 % (11.8-14.1) H 12/19/17 07:02 Plt Count 269 x1000/uL (130-400) 12/19/17 07:02 MPV 9.4 fL (8.0-11.0) 12/19/17 07:02 Immature Gran % 0.5 12/18/17 06:53 Neutrophils % 74.0 12/18/17 06:53 Lymphocytes % 14.3 12/18/17 06:53 Monocytes % 11.1 12/18/17 06:53 Eosinophils % 0.0 12/18/17 06:53 Basophils % 0.1 12/18/17 06:53 Absolute Neutrophils 9.86 k/cumm (1.2-6.7) H 12/18/17 06:53 Absolute Lymphocytes 1.90 k/cumm (1.2-3.4) 12/18/17 06:53 Absolute Monocytes 1.48 k/cumm (0.11-0.7) H 12/18/17 06:53 Absolute Eosinophils 0.00 k/cumm (0.0-0.7) 12/18/17 06:53 Absolute Basophils 0.01 k/cumm (0.0-0.2) 12/18/17 06:53 Differential Comment Rbc morph reviewed 12/10/17 14:30 RBC Morphology Normal 12/10/17 14:30 Sodium 144 mmol/L (136-145) 12/19/17 07:02 Potassium 4.8 mmol/L (3.5-5.1) D 12/19/17 07:02 Chloride 113 mmol/L (98-107) H 12/19/17 07:02 Carbon Dioxide 26.6 mmol/L (21.0-32.0) 12/19/17 07:02 Anion Gap 4.4 mmol/L (3-11) 12/19/17 07:02 BUN 38 mg/dL (7-18) H D 12/19/17 07:02 Creatinine 1.15 mg/dL (0.70-1.30) 12/19/17 07:02 Estimated GFR/1.73 m2 >= 60.00 (mL/min/1.73m2) 12/19/17 07:02 Glucose 167 mg/dL (70-100) H 12/19/17 07:02 Calcium 9.4 mg/dL (8.5-10.1) 12/19/17 07:02 Magnesium 1.5 mg/dL (1.8-2.4) L 12/19/17 07:02 Total Bilirubin 0.7 mg/dL (0.2-1.0) 12/10/17 14:30 AST 15 U/L (15-37) 12/10/17 14:30 ALT 5 U/L (12-78) L 12/10/17 14:30 Alkaline Phosphatase 44 U/L (46-116) L 12/10/17 14:30 Total Protein 7.1 g/dL (6.4-8.2) 12/10/17 14:30 Albumin 2.5 g/dL (3.4-5.0) L 12/10/17 14:30 Urine Color Yellow (Yellow) 12/10/17 16:05 Urine Clarity Clear 12/10/17 16:05 Urine pH 6.0 (5-8) 12/10/17 16:05 Ur Specific Rousseau 1.015 (1.005-1.025) 12/10/17 16:05 Urine Protein Negative mg/dL (Negative) 12/10/17 16:05 Urine Ketones Trace mg/dL (Negative) H 12/10/17 16:05 Urine Blood Negative (Negative) 12/10/17 16:05 Urine Nitrite Negative (Negative) 12/10/17 16:05 Urine Bilirubin Negative (Negative) 12/10/17 16:05 Urine Urobilinogen 2.0 EU/dL (Up TO 0.2) H 12/10/17 16:05 Ur Leukocyte Esterase Negative (Negative) 12/10/17 16:05 Urine Glucose Negative mg/dL (Negative) 12/10/17 16:05 Vancomycin Trough 19.3 ug/mL (10.0-20.0) 12/17/17 16:05 Disposition: Returned to [facility] re[facility] for ongoing long-term care. Speech therapy consult. G-tube feeds using Jevity 1.2 400 cc every 8 hours plus Sidney to 40 cc every 8 hours. 500 cc of free water daily. Further investigation into his wishes regarding tube feeding, mandated medication, his will to live. Total time arranging his discharge 71 minutes. Cc: [facility]
== END 2017-12-19 11:23 | disposition skilled nursing facility (03) | DRG 194 ==
LOC: ER 06-03 14:20 → MS 06-03 14:20
PROVIDERS: Nurse Practitioner; Physician Assistant; Admitting Provider Internal Medicine; Emergency Provider Student in an Organized Health Care Education/Training Program; PCP Family Medicine; Visit Provider Family Medicine
DX: J18.9 Pneumonia, unspecified organism (principal); G21.11 Neuroleptic induced parkinsonism; N17.9 Acute kidney failure, unspecified; B37.89 Other sites of candidiasis; J69.0 Pneumonitis due to inhalation of food and vomit; Y95 Nosocomial condition; T43.505A Adverse effect of unspecified antipsychotics and neuroleptics, initial encounter; F31.9 Bipolar disorder, unspecified; F20.9 Schizophrenia, unspecified; E87.6 Hypokalemia; R13.19 Other dysphagia; R47.1 Dysarthria and anarthria; G24.01 Drug induced subacute dyskinesia; S80.921A Unspecified superficial injury of right lower leg, initial encounter; X58.XXXA Exposure to other specified factors, initial encounter; E11.9 Type 2 diabetes mellitus without complications; I10 Essential (primary) hypertension; D64.9 Anemia, unspecified; B95.62 Methicillin resistant Staphylococcus aureus infection as the cause of diseases classified elsewhere; Z22.322 Carrier or suspected carrier of Methicillin resistant Staphylococcus aureus; L89.312 Pressure ulcer of right buttock, stage 2; L89.150 Pressure ulcer of sacral region, unstageable
CPT/HCPCS: 43246; 36415 ×7; 80048 ×9; 80053; 83735; 80202 ×3; 85025 ×9; 85027; 81003; 87077; 87081; 87070; 87205; 87186; 87040 ×2; 71046; 36569; 94640; 92507 ×2; 99285; 51701; 93010; 99222; 99232 ×6; 99233 ×2; 99239; J0515 ×3; J1644 ×24; J2543 ×2; J7620; J1100; J2060; J3010; 36410; 92526; 92610; 93005; 99223; J3490

== ENCOUNTER 2017-12-29 11:50 | Outpatient (REF) | payer SELFPAY ==
[2017-12-29 13:38] LABS: Abs Immature Grans 0.02 k/cumm (0.0-0.09); Absolute Basophil Count 0.03 k/cumm (0.0-0.2); Absolute Eosinophil Count 0.15 k/cumm (0.0-0.7); Absolute Monocyte Count 0.79 k/cumm (0.11-0.7); Absolute Neutrophil Count 5.77 k/cumm (1.2-6.7); Basophils % 0.3; Eosinophils % 1.7; HCT 27.8 % (40.0-50.0); Immature Grans % 0.2; Lymphocytes % 25.4; Mean Corp. HGB Concentration 32.4 g/dL (32.0-36.0); Mean Corpuscular Hemoglobin 31.8 pg (27.0-33.0); Mean Corpuscular Volume 98.2 fL (80-95); Monocytes % 8.7; Neutrophils % 63.7; Platelet Count 280 x1000/uL (130-400); RBC 2.83 m/cumm (4.50-6.00); RBC Distribution Width 14.4 % (11.8-14.1); White Blood Cell Count 9.06 k/cumm (4.4-10.8)
[2017-12-29 13:57] LABS: AST 9 U/L (15-37); Albumin 2.4 g/dL (3.4-5.0); Alkaline Phosphatase 51 U/L (46-116); Anion Gap 3.4 mmol/L (3-11); BUN 21 mg/dL (7-18); Bilirubin, Total 0.5 mg/dL (0.2-1.0); CO2 28.6 mmol/L (21.0-32.0); CREATININE 0.99 mg/dL (0.70-1.30); Calcium 9.4 mg/dL (8.5-10.1); Chloride 105 mmol/L (98-107); Glucose 106 mg/dL (70-100); Potassium 4.5 mmol/L (3.5-5.1); Sodium 137 mmol/L (136-145); Total Protein 6.4 g/dL (6.4-8.2)
[2017-12-29 14:13] LABS: ALT < 6 U/L (12-78)
[2017-12-30 11:04] LABS: Prealbumin 13 mg/dL (20-40)
== END 2017-12-29 11:51 ==
LOC: LBN 11:50
PROVIDERS: PCP Family Medicine; Visit Provider Family Medicine
DX: J18.9 Pneumonia, unspecified organism (principal); R13.12 Dysphagia, oropharyngeal phase; R63.5 Abnormal weight gain; E11.9 Type 2 diabetes mellitus without complications; F33.9 Major depressive disorder, recurrent, unspecified; I10 Essential (primary) hypertension
CPT/HCPCS: 80053; 84134; 85025

== ENCOUNTER 2018-03-01 10:52 | Inpatient (IN) | payer MEDICARE, MEDICAID, SELFPAY ==
[2018-03-01] VITALS (50 sets, daily range): BP systolic 132–199; BP diastolic 32–129; PULSE 90–174; RESP 15–50; TEMP 36–37.5; O2SAT 71–99
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
[2018-03-01] MEDS: Haloperidol 5 MG/ML VIAL 4 MG IM (11:16)
[2018-03-01 12:07] LABS: Bilirubin Negative (Negative); Blood Negative (Negative); Clarity Clear; Glucose Negative (Negative); Ketones Trace mg/dL (Negative); Leukocyte Esterase Negative (Negative); Nitrite Negative (Negative)
[2018-03-01 12:13] LABS: Abs Immature Grans 0.01 k/cumm (0.0-0.09); Absolute Basophil Count 0.01 k/cumm (0.0-0.2); Absolute Eosinophil Count 0.03 k/cumm (0.0-0.7); Absolute Lymphocyte Count 1.99 k/cumm (1.2-3.4); Absolute Monocyte Count 0.46 k/cumm (0.11-0.7); Absolute Neutrophil Count 3.87 k/cumm (1.2-6.7); Basophils % 0.2; Eosinophils % 0.5; HCT 36.1 % (40.0-50.0); HGB 12.2 g/dL (13.5-17.5); Immature Grans % 0.2; Lymphocytes % 31.2; Mean Corp. HGB Concentration 33.8 g/dL (32.0-36.0); Mean Corpuscular Hemoglobin 30.9 pg (27.0-33.0); Mean Corpuscular Volume 91.4 fL (80-95); Mean Platelet Volume 10.5 fL (8.0-11.0); Monocytes % 7.2; Neutrophils % 60.7; Platelet Count 236 x1000/uL (130-400); RBC 3.95 m/cumm (4.50-6.00); RBC Distribution Width 13.1 % (11.8-14.1); White Blood Cell Count 6.37 k/cumm (4.4-10.8)
[2018-03-01 12:26] LABS: ALT 14 U/L (12-78); AST 15 U/L (15-37); Albumin 3.3 g/dL (3.4-5.0); Alkaline Phosphatase 65 U/L (46-116); Anion Gap 9.2 mmol/L (3-11); BUN 17 mg/dL (7-18); Bilirubin, Total 0.5 mg/dL (0.2-1.0); CO2 26.8 mmol/L (21.0-32.0); CREATININE 1.17 mg/dL (0.70-1.30); Calcium 10.5 mg/dL (8.5-10.1); Chloride 102 mmol/L (98-107); Glucose 153 mg/dL (70-100); Potassium 3.5 mmol/L (3.5-5.1); Sodium 138 mmol/L (136-145); Total Protein 7.5 g/dL (6.4-8.2)
--- NOTE | 2018-03-01 13:58 | NUR.NOTE ---
Nursing Note: Pt has remained out of restraints for 15 minutes. Laying on back, awake and alert, airway patent. Excessive rambling of insults/swears towards staff but has not attempted to harm himself or staff at this time. Remains in bed and has not needed any verbal intervention for safety. Will continue to monitor and update provider as needed
[2018-03-01] MEDS: Haloperidol 5 MG/ML VIAL IM (14:39)
--- NOTE | 2018-03-01 15:06 | NUR.NOTE ---
Nursing Note: Pt respirations on monitor are reading high in 30's-40's. THis is due to pateint talking/artifact. Manual counting of respirations are 16-22
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
--- NOTE | 2018-03-01 15:42 | PDOC.MHCN ---
Date of service: 03/01/18 Time of Service: 15:42 Mental Health Crisis Note Presenting Issue How did you arrive at the ED and why did you come: [facility] for increased mental health disturbances. Precipitating Factors When asked if he is suicidal/homicidal he responds with not yet. Patient frequently mentions the Mafia and asks if I have a picture. He is unable to further elaborate. His voice is soft and his words are mumbled, much of which is inaudible. Patient has several known mental health diagnoses (Schizophrenia, Schizoaffective disorder, Bipolar disorder) Disposition BEHAVIOR: Patient is in 4 point restraints EYE CONTACT: None MOOD: Confused. Patient is medicated AFFECT: Flat APPETITE: Patient denies disturbance in appetite SLEEP(trouble falling/staying asleep: Patient denies sleep disturbances Plan Patient will remain at the hospital until he is able to be discharged to an appropriate facility. Pending admission to [facility]. Before admission can take place, patient needs gastro tube removed. Signature Clinician's Name/Title: Tamie Conde [facility] Emergency Clinician
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
--- NOTE | 2018-03-01 15:54 | PDOC.MHCN_ITS ---
Date of service: 03/01/18 Time of Service: 15:42 Mental Health Crisis Note Presenting Issue How did you arrive at the ED and why did you come: Patient [facility] for increased mental health disturbances. Precipitating Factors When asked if he is suicidal/homicidal he responds with not yet. Patient frequently mentions the Mafia and asks if I have a picture. He is unable to further elaborate. His voice is soft and his words are mumbled, much of which is inaudible. Patient has several known mental health diagnoses (Schizophrenia, Schizoaffective disorder, Bipolar disorder) Disposition BEHAVIOR: Patient is in 4 point restraints EYE CONTACT: None MOOD: Confused. Patient is medicated AFFECT: Flat APPETITE: Patient denies disturbance in appetite SLEEP(trouble falling/staying asleep: Patient denies sleep disturbances Plan Patient will remain at the hospital until he is able to be discharged to an appropriate facility. Pending admission to [facility]. Before admission can take place, patient needs gastro tube removed. Signature Clinician's Name/Title: Tamie Conde [facility] Emergency Clinician
[2018-03-01] MEDS: Furosemide 20 MG TAB NG (17:54)
[2018-03-01] MEDS: metFORMIN 500 MG TAB NG (17:54)
[2018-03-01] MEDS: Carbidopa 25/Levodopa 100 TAB NG ×2 (18:56→21:13)
--- NOTE | 2018-03-01 20:57 | NUR.NOTE ---
Nursing Note: Pt remains in room with nurse, RR even and unlabored. Supine in bed- has remained out of restraints. Pt allows this nurse with another to turn and change his briefs and pad and do regine care. Redness to coccyx noted, blanchable. Pt allows VS taking with minimal questioning. Some tangential thought present.
[2018-03-01] MEDS: Divalproex 125 MG SPRINKLE 500 MG PO (21:13)
[2018-03-01] MEDS: Metoprolol 50 MG TAB NG (21:13)
[2018-03-01] MEDS: traZODone 100 MG TAB NG (21:14)
[2018-03-01] MEDS: QUEtiapine 100 MG TAB NG (21:14)
--- NOTE | 2018-03-01 23:21 | W.PM.HP.N ---
Date of service: 03/01/18 Time of Service: 23:21 Assessment and Plan (1) Schizoaffective disorder: Current visit: No Status: Chronic resume his previous doses of his Seroquel and his Trazodone, and his Depakote. Use haldol prn for severe agitation/acute hallucinations w/ aggressive behvior; attempt to place him in a geriatric psychiatry unit. Case management and behavioral health specialist from [facility] here to follow-up on this case to make appropriate referrals in the morning. (2) Cellulitis of right lower extremity: Current visit: Yes Status: Suspected right lower leg (tibia) appears reddened and warmer compared to his left lower leg. There also appears to be some edema of the leg; I suspect a mild cellulitis of his leg from picking at his skin excoriations however d/t the unilateral swelling of the leg, I feel that a dvt needs to be ruled out. I have put him on dvt prophylaxis w/ Lovenox 40 mg SC daily and will start him on Keflex but will check inflammatory markers (ESR, CRP) and venous duplex of his legs in the a.m. (3) Parkinsons disease: Current visit: No Status: Chronic continue his previous dosing of his Sinement two 25/100 mg tabs per his g tube qid (4) Dysphagia: Current visit: No Status: Chronic although the medical csr at [facility] reportedly had been bargaining w/ the patient regarding removal of his g-tube, I do not think this a landeros move as the patient has had a history of dysphagia and prior aspiration pneumonias and required replacement of his g-tube in December of this year. His g-tube does not look infected and while keeping the g-tube does not preclude attempts at oral feedings and follow up speech therapy evaluations, if his g-tube is removed then when he becomes delusional or suffers from dysphagia, the patient has no safe form of taking his meds. (5) Type 2 diabetes mellitus: Current visit: No Status: Chronic cont. metformin; monitor blood sugars and use prn insulin per low dose scale (6) Essential hypertension: Current visit: No Status: Chronic cont. metoprolol and lasix (7) History of percutaneous endoscopic gastrostomy: Current visit: Yes Status: Chronic as above. I would leave his g-tube in place unless there is a compelling reason to remove this. History of Present Illness Chief Complaint: acute mental status change Narrative: 72-year-old male who is a resident of [facility] who has a history of bipolar disorder, neuroleptic induced parkinsonism, essential hypertension, BPH, dysphagia secondary to parkinsonism, history of PEG tube placement, and peripheral neuropathy now presents to the emergency department with acute behavioral changes. He was brought to the emergency department by [facility] police with the assistance of [facility] ambulance service after he had an acute psychotic break. He has had increased delusional thoughts and aggressive behavior . Patient has been non-compliant w/ taking his antipsychotic medications and over the past week has had escalating delutional thoughts regarding the mafia, Ghandi and [place] women trying to kill him. He apparently took over the dining tapia at the [facility] where he resided necessitating the staff to call [facility]. Apparently the medical csr at [facility] has been trying to get him placed in a geriatric psychiatry unit in [facility] but d/t his having a g-tube they have not accepted the patient. Patient was evaluated and treated in the emergency dept. by Puma Quiñonez CNP, who did routine labs and treated the patient's acute delusional behavior and agitation w/ haldol. First gave the patient 4 mg IM and patient had to be restrained and then after giving him his usual medications of Seroquel the patient required another dose of Haldol 5 mg after which the patient calmed down and was taken out of restraints. After initial medical evaluation including routine labs of CBC, CMP and UA and not finding any acute medical issues, Mr. Quiñonez spoke w/ the medical csr from [facility], Dr. Santoro,and indicated that there was no acute medical issues to admit the patient; however, Dr. Santoro reportedly indicated that she did not feel it appropriate or safe for the patient to return to [facility]. human resources safety manager and behavioral health from [facility] were consulted regarding need for psychiatric placement. The patient was admitted to hospital pending psychiatric bed placement. Review of Systems Review of Systems Unobtainable due to mental condition PFSH Medical History Dysphagia (Chronic) Type 2 diabetes mellitus (Chronic) Peripheral axonal neuropathy (Chronic) BPH (benign prostatic hyperplasia) (Chronic) Essential hypertension (Chronic) Neuroleptic induced Parkinsonism (Chronic) Schizophrenia (Chronic) Bipolar disorder (Chronic) Schizoaffective disorder (Chronic) Parkinsons disease (Chronic) Tardive dyskinesia (Chronic) Social History Smoking/Tobacco Use Status: Never Surgical History History of percutaneous endoscopic gastrostomy (Chronic) Meds Home Medications Medication Instructions Recorded Confirmed Type albuterol sulfate 2.5 mg INHALATION Q6H PRN PRN 05/20/16 03/01/18 History Mouthwash [Biotene Mouthwash] 5 ml PO AC 12/10/17 03/01/18 History bisacodyl 10 mg IN DAILY PRN 12/10/17 03/01/18 History mineral oil [Fleet Mineral Oil] 133 ml IN DAILY PRN 12/10/17 03/01/18 History acetaminophen [Tylenol] 650 mg GT Q4H PRN PRN #0 12/19/17 03/01/18 Rx bisacodyl 5 mg GT DAILY PRN #0 12/19/17 03/01/18 Rx carbidopa-levodopa 2 tab GT QID #0 12/19/17 03/01/18 Rx divalproex 500 mg GT TID #0 12/19/17 03/01/18 Rx docusate sodium 100 mg GT BID #0 12/19/17 03/01/18 Rx docusate sodium 100 mg GT HS PRN #0 12/19/17 03/01/18 Rx ergocalciferol (vitamin D2) 50,000 units GT .FRIDAY #0 12/19/17 03/01/18 Rx [Vitamin D2] finasteride [Proscar] 5 mg GT DAILY #0 12/19/17 03/01/18 Rx furosemide 20 mg GT BID #0 12/19/17 03/01/18 Rx magnesium hydroxide [Milk of 30 ml GT DAILY #0 12/19/17 03/01/18 Rx Magnesia] metformin [Fortamet] 500 mg GT BID #0 12/19/17 03/01/18 Rx metoprolol tartrate 50 mg GT BID #0 12/19/17 03/01/18 Rx multivitamin with minerals 1 ea GT DAILY #0 12/19/17 03/01/18 Rx [Multiple Vitamin-Minerals] quetiapine 75 mg GT BID #0 12/19/17 03/01/18 Rx sennosides-docusate sodium [Senna 1 ea GT BID PRN #0 12/19/17 03/01/18 Rx Plus] trazodone 100 mg GT HS #0 12/19/17 03/01/18 Rx quetiapine 100 mg GT HS 03/01/18 03/01/18 History Allergies Allergy/AdvReac Type Severity Reaction Status Date / Time No Known Allergies Allergy Unverified 03/01/18 11:00 Exam Const General: no acute distress Nutritional Appearance: obese Orientation: alert, awake and not oriented x3 Limitations: behavioral limitations HENMT Head: normal to inspection Face and sinus: normal facial exam Eyes General: appearance normal, both eyes and all related structures Periorbital: periorbital findings normal Eyelids: eyelids normal Conjunctivae: conjunctivae normal Sclera: sclerae normal Cornea: corneas normal Neck Neck: normal visual inspection, full ROM, no lymphadenopathy and no meningeal signs Carotids: normal carotid upstroke Lymphatic: no lymphadenopathy noted Resp Effort & Inspection: normal respiratory effort and able to speak in complete sentences Auscultation: clear to auscultation bilaterally Cardio Jugular venous pressure: no JVD Palpation: normal PMI Rate: regular rate Rhythm: regular rhythm Heart Sounds: S1 normal, S2 normal, normal, physiologic split S2 and no murmurs Bruits: no abdominal aortic bruits and no carotid bruits Pulses: normal peripheral pulses GI Inspection: normal to inspection and other (g tube present and stoma site w/out redness nor induration nor any drainage) Palpation: soft, no guarding and nontender Percussion: normal to percussion Auscultation: normal bowel sounds Skin General skin exam: erythema (right pretibial surface slightly reddened and warm compared to left leg; some edema of his right calf compared to his left but nontender) Lesions: lesion noted (some excoriations over pretibial surfaces) Extrem General: no calf tenderness bilaterally, edema Laterality: right and pedal edema on the right Right lower extremity: lower leg Details: erythema Location: of the distal lower leg and pitting edema Details: 1+ Psych Appearance: disheveled Mental Status: other (delusional, nonsensical speech tangential thought process) Speech and Movement: speech and movement normal Mood: paranoid, labile mood and other (delusional, nonsensical speech tangential thought process) Affect: irritable affect Attitude: cooperative Thought Process: confabulating and illogical Thought Content: delusions and ideas of reference Insight: poor Judgment: poor Results Labs : 03/01/18 12:08 03/01/18 12:08 Laboratory Results - last 24 hr 03/01/18 03/01/18 03/01/18 12:00 12:08 12:08 WBC 6.37 RBC 3.95 L Hgb 12.2 L Hct 36.1 L MCV 91.4 MCH 30.9 MCHC 33.8 RDW 13.1 Plt Count 236 MPV 10.5 Immature Gran % 0.2 Neutrophils % 60.7 Lymphocytes % 31.2 Monocytes % 7.2 Eosinophils % 0.5 Basophils % 0.2 Absolute Neutrophils 3.87 Absolute Lymphocytes 1.99 Absolute Monocytes 0.46 Absolute Eosinophils 0.03 Absolute Basophils 0.01 Sodium 138 Potassium 3.5 Chloride 102 Carbon Dioxide 26.8 Anion Gap 9.2 BUN 17 Creatinine 1.17 Estimated GFR/1.73 m2 >= 60.00 Glucose 153 H Calcium 10.5 H Total Bilirubin 0.5 AST 15 ALT 14 Alkaline Phosphatase 65 Total Protein 7.5 Albumin 3.3 L Urine Color Yellow Urine Clarity Clear Urine pH 7.0 Ur Specific [place] 1.010 Urine Protein Negative Urine Ketones Trace H Urine Blood Negative Urine Nitrite Negative Urine Bilirubin Negative Urine Urobilinogen 1.0 H Ur Leukocyte Esterase Negative Urine Glucose Negative Last Vital Signs Temp 37.5 C 03/01/18 20:32 Pulse 99 H 03/01/18 20:32 Resp 20 03/01/18 20:32 BP 158/83 H 03/01/18 20:32 Pulse Ox 97 03/01/18 20:32
--- NOTE | 2018-03-01 23:27 | HPE_ITS ---
Date of service: 03/01/18 Time of Service: 23:21 Assessment and Plan (1) Schizoaffective disorder: Current visit: No Status: Chronic resume his previous doses of his Seroquel and his Trazodone, and his Depakote. Use haldol prn for severe agitation/acute hallucinations w/ aggressive behvior; attempt to place him in a geriatric psychiatry unit. Case management and behavioral health specialist from [facility] here to follow-up on this case to make appropriate referrals in the morning. (2) Cellulitis of right lower extremity: Current visit: Yes Status: Suspected right lower leg (tibia) appears reddened and warmer compared to his left lower leg. There also appears to be some edema of the leg; I suspect a mild cellulitis of his leg from picking at his skin excoriations however d/t the unilateral swelling of the leg, I feel that a dvt needs to be ruled out. I have put him on dvt prophylaxis w/ Lovenox 40 mg SC daily and will start him on Keflex but will check inflammatory markers (ESR, CRP) and venous duplex of his legs in the a.m. (3) Parkinsons disease: Current visit: No Status: Chronic continue his previous dosing of his Sinement two 25/100 mg tabs per his g tube qid (4) Dysphagia: Current visit: No Status: Chronic although the medical sonographer at [facility] reportedly had been bargaining w/ the patient regarding removal of his g-tube, I do not think this a landeros move as the patient has had a history of dysphagia and prior aspiration pneumonias and required replacement of his g-tube in December of this year. His g-tube does not look infected and while keeping the g- tube does not preclude attempts at oral feedings and follow up speech therapy evaluations, if his g-tube is removed then when he becomes delusional or suffers from dysphagia, the patient has no safe form of taking his meds. (5) Type 2 diabetes mellitus: Current visit: No Status: Chronic cont. metformin; monitor blood sugars and use prn insulin per low dose scale (6) Essential hypertension: Current visit: No Status: Chronic cont. metoprolol and lasix (7) History of percutaneous endoscopic gastrostomy: Current visit: Yes Status: Chronic as above. I would leave his g-tube in place unless there is a compelling reason to remove this. History of Present Illness Chief Complaint: acute mental status change Narrative: 72-year-old male who is a resident of [facility] who has a history of bipolar disorder, neuroleptic induced parkinsonism, essential hypertension, BPH, dysphagia secondary to parkinsonism, history of PEG tube placement, and peripheral neuropathy now presents to the emergency department with acute behavioral changes. He was brought to the emergency department by [facility] police with the assistance of [facility] ambulance service after he had an acute psychotic break. He has had increased delusional thoughts and aggressive behavior . Patient has been non- compliant w/ taking his antipsychotic medications and over the past week has had escalating delutional thoughts regarding the mafia, Ghandi and women trying to kill him. He apparently took over the dining tapia at the [facility] where he resided necessitating the staff to call [facility]. Apparently the medical sonographer at [facility] has been trying to get him placed in a geriatric psychiatry unit in [facility] but d/t his having a g-tube they have not accepted the patient. Patient was evaluated and treated in the emergency dept. by Puma Quiñonez CNP, who did routine labs and treated the patient's acute delusional behavior and agitation w/ haldol. First gave the patient 4 mg IM and patient had to be restrained and then after giving him his usual medications of Seroquel the patient required another dose of Haldol 5 mg after which the patient calmed down and was taken out of restraints. After initial medical evaluation including routine labs of CBC, CMP and UA and not finding any acute medical issues, Mr. Quiñonez spoke w/ the medical sonographer from [facility], Dr. Santoro,and indicated that there was no acute medical issues to admit the patient; however, Dr. Santoro reportedly indicated that she did not feel it appropriate or safe for the patient to return to [facility]. international manager and behavioral health from [facility] were consulted regarding need for psychiatric placement. The patient was admitted to hospital pending psychiatric bed placement. Review of Systems Review of Systems Unobtainable due to mental condition PFSH Medical History Dysphagia (Chronic) Type 2 diabetes mellitus (Chronic) Peripheral axonal neuropathy (Chronic) BPH (benign prostatic hyperplasia) (Chronic) Essential hypertension (Chronic) Neuroleptic induced Parkinsonism (Chronic) Schizophrenia (Chronic) Bipolar disorder (Chronic) Schizoaffective disorder (Chronic) Parkinsons disease (Chronic) Tardive dyskinesia (Chronic) Social History Smoking/Tobacco Use Status: Never Surgical History History of percutaneous endoscopic gastrostomy (Chronic) Meds Home Medications Medication Instructions Recorded Confirmed Type albuterol sulfate 2.5 mg INHALATION Q6H PRN PRN 05/20/16 03/01/18 History Mouthwash [Biotene Mouthwash] 5 ml PO AC 12/10/17 03/01/18 History bisacodyl 10 mg MO DAILY PRN 12/10/17 03/01/18 History mineral oil [Fleet Mineral Oil] 133 ml MO DAILY PRN 12/10/17 03/01/18 History acetaminophen [Tylenol] 650 mg GT Q4H PRN PRN #0 12/19/17 03/01/18 Rx bisacodyl 5 mg GT DAILY PRN #0 12/19/17 03/01/18 Rx carbidopa-levodopa 2 tab GT QID #0 12/19/17 03/01/18 Rx divalproex 500 mg GT TID #0 12/19/17 03/01/18 Rx docusate sodium 100 mg GT BID #0 12/19/17 03/01/18 Rx docusate sodium 100 mg GT HS PRN #0 12/19/17 03/01/18 Rx ergocalciferol (vitamin D2) 50,000 units GT .FRIDAY #0 12/19/17 03/01/18 Rx [Vitamin D2] finasteride [Proscar] 5 mg GT DAILY #0 12/19/17 03/01/18 Rx furosemide 20 mg GT BID #0 12/19/17 03/01/18 Rx magnesium hydroxide [Milk of 30 ml GT DAILY #0 12/19/17 03/01/18 Rx Magnesia] metformin [Fortamet] 500 mg GT BID #0 12/19/17 03/01/18 Rx metoprolol tartrate 50 mg GT BID #0 12/19/17 03/01/18 Rx multivitamin with minerals 1 ea GT DAILY #0 12/19/17 03/01/18 Rx [Multiple Vitamin-Minerals] quetiapine 75 mg GT BID #0 12/19/17 03/01/18 Rx sennosides-docusate sodium [Senna 1 ea GT BID PRN #0 12/19/17 03/01/18 Rx Plus] trazodone 100 mg GT HS #0 12/19/17 03/01/18 Rx quetiapine 100 mg GT HS 03/01/18 03/01/18 History Allergies Allergy/AdvReac Type Severity Reaction Status Date / Time No Known Allergies Allergy Unverified 03/01/18 11:00 Exam Const General: no acute distress Nutritional Appearance: obese Orientation: alert, awake and not oriented x3 Limitations: behavioral limitations HENMT Head: normal to inspection Face and sinus: normal facial exam Eyes General: appearance normal, both eyes and all related structures Periorbital: periorbital findings normal Eyelids: eyelids normal Conjunctivae: conjunctivae normal Sclera: sclerae normal Cornea: corneas normal Neck Neck: normal visual inspection, full ROM, no lymphadenopathy and no meningeal signs Carotids: normal carotid upstroke Lymphatic: no lymphadenopathy noted Resp Effort & Inspection: normal respiratory effort and able to speak in complete sentences Auscultation: clear to auscultation bilaterally Cardio Jugular venous pressure: no JVD Palpation: normal PMI Rate: regular rate Rhythm: regular rhythm Heart Sounds: S1 normal, S2 normal, normal, physiologic split S2 and no murmurs Bruits: no abdominal aortic bruits and no carotid bruits Pulses: normal peripheral pulses GI Inspection: normal to inspection and other (g tube present and stoma site w/out redness nor induration nor any drainage) Palpation: soft, no guarding and nontender Percussion: normal to percussion Auscultation: normal bowel sounds Skin General skin exam: erythema (right pretibial surface slightly reddened and warm compared to left leg; some edema of his right calf compared to his left but nontender) Lesions: lesion noted (some excoriations over pretibial surfaces) Extrem General: no calf tenderness bilaterally, edema Laterality: right and pedal edema on the right Right lower extremity: lower leg Details: erythema Location: of the distal lower leg and pitting edema Details: 1+ Psych Appearance: disheveled Mental Status: other (delusional, nonsensical speech tangential thought process) Speech and Movement: speech and movement normal Mood: paranoid, labile mood and other (delusional, nonsensical speech tangential thought process) Affect: irritable affect Attitude: cooperative Thought Process: confabulating and illogical Thought Content: delusions and ideas of reference Insight: poor Judgment: poor Results Labs : 03/01/18 12:08 03/01/18 12:08 Laboratory Results - last 24 hr 03/01/18 03/01/18 03/01/18 12:00 12:08 12:08 WBC 6.37 RBC 3.95 L Hgb 12.2 L Hct 36.1 L MCV 91.4 MCH 30.9 MCHC 33.8 RDW 13.1 Plt Count 236 MPV 10.5 Immature Gran % 0.2 Neutrophils % 60.7 Lymphocytes % 31.2 Monocytes % 7.2 Eosinophils % 0.5 Basophils % 0.2 Absolute Neutrophils 3.87 Absolute Lymphocytes 1.99 Absolute Monocytes 0.46 Absolute Eosinophils 0.03 Absolute Basophils 0.01 Sodium 138 Potassium 3.5 Chloride 102 Carbon Dioxide 26.8 Anion Gap 9.2 BUN 17 Creatinine 1.17 Estimated GFR/1.73 m2 >= 60.00 Glucose 153 H Calcium 10.5 H Total Bilirubin 0.5 AST 15 ALT 14 Alkaline Phosphatase 65 Total Protein 7.5 Albumin 3.3 L Urine Color Yellow Urine Clarity Clear Urine pH 7.[address] 1.010 Urine Protein Negative Urine Ketones Trace H Urine Blood Negative Urine Nitrite Negative Urine Bilirubin Negative Urine Urobilinogen 1.0 H Ur Leukocyte Esterase Negative Urine Glucose Negative Last Vital Signs Temp 37.5 C 03/01/18 20:32 Pulse 99 H 03/01/18 20:32 Resp 20 03/01/18 20:32 BP 158/83 H 03/01/18 20:32 Pulse Ox 97 03/01/18 20:32
[2018-03-02 01:00] VITALS: BP 152/82; PULSE 66; RESP 16; TEMP 36.7; O2SAT 98
[2018-03-02] MEDS: Cephalexin 250 MG/5 ML 100 ML BTL 500 MG NG (01:48)
--- NOTE | 2018-03-02 09:54 | PDOC.CMPRO ---
Care Management Progress Note CM spoke with Dr. Chavira of [facility] and Dr. Spain of [facility]. Dr. Spain is advocating for speech consult and oral feedings to enable Benton to transfer to [facility]) program at [facility] who reportedly will not accept Benton with a G-Tube. Dr. Torrez shared concerns around Benton stabilizing at [facility] and returning to [facility] and continuing this cycle without intervention of Geriatric Psyche oversight at a inpatient facility such as [facility]. CM requested Dr. Chavira order Speech therapy consult; Dr. Chavira reported speaking with Dr. Spain via phone prior to morning meeting today. Per Dr. Thakkar's H&P; his recommendation would be to keep the G-tube for consistent medication administration; this CM did have Benton upon his last admission and met with the family and Dr. Johnston around planning-the family did decide on G-tube placement for this purpose. The concern would be that Benton would be unable to have investigative shopper oral intake which would result in requiring the G-tube a few months ago. Bentno sits in a difficult place as both a medical and MH (Carlene-Psyche) patient. He will require a medical carlene-psyche program placement to accept him with the G-tube as other facilities in [place] will not accept patients with co-occurring medical issues. If he stabilizes at [facility] the plan will be for Benton to return to [facility]; the facility will then continue [facility] placement coordination. CM rec'd call from Pravin Quiñonez of the [facility] ED stating he had rec'd a call from [facility] who reported the facility would not accept Benton from [facility]-reporting they were a short term (less than 14 days) and would only accept Benton once he returned to [facility]. Use of Safety Plan central for management of Benton while inpatient; currently a psychiatric placement is unlikely-therefore care will be tailored at stabilization; encouragement to take medications. Benton is unable to engage meaningfully with this health technical writer , though he did converse for some time. His responses were consistent with paranoia and grandiosity. He was wearing jewelry and a watch and stated the watch had the same sparks as this health technical writer's pager. He reported he was not cold though he was sitting up in bed with just a brief on. His body was tremulous; likely due to Parkinson's. He reported he had taken his medications regularly and that anyone who said otherwise was not being truthful (he stated this in more colorful language). SAFETY PLAN: 1. Will remain in room under direct supervision of [facility] staff. 2. Benton may have use of television at RN discretion. 3. Follow [facility] Management of the Admitted Behavioral Health Patient policy. 4. Comfort bath system only. 5. Personal belongings limited to comfort at RN discretion; may also have adalid, paper clothes or personal clothing at RN discretion for comfort as well. 6. Visitors - daughter/guardian; Pretty KANG will continue to seek discharge disposition and support stabilization. The plan will be for Benton to return to [facility] once he is taking his medications, and stabilizes as he has done in the past.
--- NOTE | 2018-03-02 10:09 | CMPROGNOTE_ITS ---
Care Management Progress Note CM spoke with Dr. Chavira of [facility] and Dr. Spain of [facility]. Dr. Spain is advocating for speech consult and oral feedings to enable Benton to transfer to [facility]) program at [facility] who reportedly will not accept Benton with a G-Tube. Dr. Torrez shared concerns around Benton stabilizing at [facility] and returning to [facility] and continuing this cycle without intervention of Geriatric Psyche oversight at a inpatient facility such as [facility]. CM requested Dr. Chavira order Speech therapy consult; Dr. Chavira reported speaking with Dr. Spain via phone prior to morning meeting today. Per Dr. Thakkar's H&P; his recommendation would be to keep the G-tube for consistent medication administration; this CM did have Benton upon his last admission and met with the family and Dr. Johnston around planning-the family did decide on G-tube placement for this purpose. The concern would be that Benton would be unable to have intermediate card tender oral intake which would result in requiring the G-tube a few months ago. Benton sits in a difficult place as both a medical and MH (Carlene-Psyche) patient. He will require a medical carlene-psyche program placement to accept him with the G-tube as other facilities in [place] will not accept patients with co- occurring medical issues. If he stabilizes at [facility] the plan will be for Benton to return to [facility]; the facility will then continue [facility] placement coordination. CM rec'd call from Pravin Quiñonez of the [facility] ED stating he had rec'd a call from [facility] who reported the facility would not accept Benton from [facility]-reporting they were a short term (less than 14 days) and would only accept Benton once he returned to [facility] Use of Safety Plan central for management of Benton while inpatient; currently a psychiatric placement is unlikely-therefore care will be tailored at stabilization; encouragement to take medications. Benton is unable to engage meaningfully with this press writer , though he did converse for some time. His responses were consistent with paranoia and grandiosity. He was wearing jewelry and a watch and stated the watch had the same sparks as this press writer's pager. He reported he was not cold though he was sitting up in bed with just a brief on. His body was tremulous; likely due to Parkinson's. He reported he had taken his medications regularly and that anyone who said otherwise was not being truthful (he stated this in more colorful language). SAFETY PLAN: 1. Will remain in room under direct supervision of [facility] staff. 2. Benton may have use of television at RN discretion. 3. Follow [facility] Management of the Admitted Behavioral Health Patient policy. 4. Comfort bath system only. 5. Personal belongings limited to comfort at RN discretion; may also have adalid , paper clothes or personal clothing at RN discretion for comfort as well. 6. Visitors - daughter/guardian; Pretty KANG will continue to seek discharge disposition and support stabilization. The plan will be for Benton to return to [facility] once he is taking his medications, and stabilizes as he has done in the past.
--- NOTE | 2018-03-02 10:28 | W.PM.PROGNOT ---
Assessment and Plan (1) Schizoaffective disorder: Current visit: No Status: Chronic Resume Seroquel, trazadone and depakote. Use haldol prn for severe agitation/acute hallucinations w/ aggressive behvior; attempt to place him in a geriatric psychiatry unit. Case management and behavioral health specialist from [facility] services involved in safe discharge planning. (2) Cellulitis of right lower extremity: Current visit: Yes Status: Suspected Placed on PO Keflex for suspected cellulitis secondary to picking. US pending to rule out DVT. Continue Lovenox SC for DVT prophylaxis. (3) Parkinsons disease: Current visit: No Status: Chronic Continue Sinement 25/100 mg 2tabs/day per g tube qid (4) Dysphagia: Current visit: No Status: Chronic With extensive history of dysphagia resulting in recurrent bouts of aspiration pneumonia in the past. (5) Type 2 diabetes mellitus: Current visit: No Status: Chronic cont. metformin; monitor blood sugars and use prn insulin per low dose scale (6) Essential hypertension: Current visit: No Status: Chronic cont. metoprolol and lasix (7) History of percutaneous endoscopic gastrostomy: Current visit: Yes Status: Chronic as above. I would leave his g-tube in place unless there is a compelling reason to remove this. Subjective Interval history since last seen: Benton is a 72-year-old male who is a resident of [facility] who has a history of bipolar disorder, neuroleptic induced parkinsonism, essential hypertension, BPH, dysphagia secondary to parkinsonism, history of PEG tube placement, and peripheral neuropathy who was admitted to the hospitalist service overnight with acute behavioral changes related to refusal of psychiatric medications for several days prior to his presentation. There have been several attempts to place him at a geriatric psych facility however given the presence of a g-tube this has been difficult. In the ER he was given IM haldol which seemed to help with his behaviors some. Today he is sitting up in bed without specific physical complaints. He seems frustrated regarding an incident that occurred overnight where he urinated in bed and claims staff waited until 830 this morning before changing him, however nursing reports that he never informed his nurse that he had urinated, instead they learned he had been incontinent after Benton threw a urine soaked chucks at them. Exam Const General: no acute distress, anxious and frail appearing Nutritional Appearance: obese and overweight Orientation: alert, awake, not oriented x3, oriented to person and oriented to place Limitations: altered mental status and behavioral limitations [facility] Head: normal to inspection Ears: hearing grossly normal bilaterally and external ears normal General nose exam: external nose normal Face and sinus: normal facial exam Mouth: oral mucosae normal Eyes General: appearance normal, both eyes and all related structures Periorbital: periorbital findings normal Eyelids: eyelids normal Conjunctivae: conjunctivae normal Sclera: sclerae normal Cornea: corneas normal Neck Neck: normal visual inspection, full ROM, no lymphadenopathy and no meningeal signs Carotids: normal carotid upstroke Lymphatic: no lymphadenopathy noted Chest Chest: normal inspection of the chest Resp Effort & Inspection: normal respiratory effort and able to speak in complete sentences Auscultation: clear to auscultation bilaterally Cardio Jugular venous pressure: no JVD Palpation: normal PMI Rate: regular rate Rhythm: regular rhythm Heart Sounds: S1 normal, S2 normal and no murmurs Bruits: no abdominal aortic bruits and no carotid bruits Pulses: normal peripheral pulses GI Inspection: normal to inspection and other (g tube present and stoma site w/out redness nor induration nor any drainage) Palpation: soft, no guarding and nontender Percussion: normal to percussion Auscultation: normal bowel sounds Skin General skin exam: no rashes or lesions noted and erythema (right pretibial surface slightly reddened and warm compared to left leg; some edema of his right calf compared to his left but nontender) Lesions: lesion noted (some excoriations over pretibial surfaces) Neuro General: alert and awake Extrem General: no calf tenderness bilaterally, edema Laterality: right and pedal edema on the right Right lower extremity: lower leg Details: erythema and pitting edema Psych Appearance: grossly normal and disheveled Mental Status: other (delusional, nonsensical speech tangential thought process) Speech and Movement: speech and movement normal and agitated Mood: paranoid, labile mood, irritable mood and other (delusional, nonsensical speech tangential thought process) Affect: irritable affect Attitude: cooperative and belligerent Thought Process: confabulating and illogical Thought Content: delusions, homicidality, ideas of reference and phobias Insight: poor Judgment: poor Objective Objective Clinical Data: Abnormal lab results 03/01/18 03/01/18 03/01/18 Range/Units 12:00 12:08 12:08 RBC 3.95 L (4.50-6.00) m/cumm Hgb 12.2 L (13.5-17.5) g/dL Hct 36.1 L (40.0-50.0) % Glucose 153 H (70-100) mg/dL Calcium 10.5 H (8.5-10.1) mg/dL Albumin 3.3 L (3.4-5.0) g/dL Urine Ketones Trace H (Negative) mg/dL Urine Urobilinogen 1.0 H (Up TO 0.2) EU/dL Vital Signs Temperature 36.7 C 03/02/18 01:00 Temperature Source Skin 03/02/18 01:00 Pulse 66 03/02/18 01:00 Pulse Rhythm Regular 03/02/18 01:00 Pulse Strength Normal 03/01/18 16:00 Pulse 110 H 03/01/18 16:34 Respiratory Rate 16 03/02/18 01:00 Respiratory Effort 03/02/18 01:00 Respiratory Depth Normal 03/02/18 01:00 Respiratory Pattern Normal 03/02/18 01:00 Blood Pressure 152/82 H 03/02/18 01:00 Blood Pressure Mean 106 03/01/18 17:45 Blood Pressure Position Supine 03/01/18 16:00 Pulse Oximetry 98 03/02/18 01:00 Oxygen Delivery Method Room Air 03/02/18 01:00 Oxygen Flow Rate 0 03/02/18 01:00 Pain Level 0 03/02/18 01:00 Intake & Output 03/01/18 03/01/18 03/02/18 11:59 23:59 11:59 Weight 90.718 kg 90.718 kg 86.5 kg Other: Comment VOIDED WHEN DAY SHIFT CAME ON Laboratory Results WBC 6.37 k/cumm (4.4-10.8) 03/01/18 12:08 RBC 3.95 m/cumm (4.50-6.00) L 03/01/18 12:08 Hgb 12.2 g/dL (13.5-17.5) L 03/01/18 12:08 Hct 36.1 % (40.0-50.0) L 03/01/18 12:08 MCV 91.4 fL (80-95) 03/01/18 12:08 MCH 30.9 pg (27.0-33.0) 03/01/18 12:08 MCHC 33.8 g/dL (32.0-36.0) 03/01/18 12:08 RDW 13.1 % (11.8-14.1) 03/01/18 12:08 Plt Count 236 x1000/uL (130-400) 03/01/18 12:08 MPV 10.5 fL (8.0-11.0) 03/01/18 12:08 Immature Gran % 0.2 03/01/18 12:08 Neutrophils % 60.7 03/01/18 12:08 Lymphocytes % 31.2 03/01/18 12:08 Monocytes % 7.2 03/01/18 12:08 Eosinophils % 0.5 03/01/18 12:08 Basophils % 0.2 03/01/18 12:08 Absolute Neutrophils 3.87 k/cumm (1.2-6.7) 03/01/18 12:08 Absolute Lymphocytes 1.99 k/cumm (1.2-3.4) 03/01/18 12:08 Absolute Monocytes 0.46 k/cumm (0.11-0.7) 03/01/18 12:08 Absolute Eosinophils 0.03 k/cumm (0.0-0.7) 03/01/18 12:08 Absolute Basophils 0.01 k/cumm (0.0-0.2) 03/01/18 12:08 Sodium 138 mmol/L (136-145) 03/01/18 12:08 Potassium 3.5 mmol/L (3.5-5.1) 03/01/18 12:08 Chloride 102 mmol/L (98-107) 03/01/18 12:08 Carbon Dioxide 26.8 mmol/L (21.0-32.0) 03/01/18 12:08 Anion Gap 9.2 mmol/L (3-11) 03/01/18 12:08 BUN 17 mg/dL (7-18) 03/01/18 12:08 Creatinine 1.17 mg/dL (0.70-1.30) 03/01/18 12:08 Estimated GFR/1.73 m2 >= 60.00 (mL/min/1.73m2) 03/01/18 12:08 Glucose 153 mg/dL (70-100) H 03/01/18 12:08 Calcium 10.5 mg/dL (8.5-10.1) H 03/01/18 12:08 Total Bilirubin 0.5 mg/dL (0.2-1.0) 03/01/18 12:08 AST 15 U/L (15-37) 03/01/18 12:08 ALT 14 U/L (12-78) 03/01/18 12:08 Alkaline Phosphatase 65 U/L (46-116) 03/01/18 12:08 Total Protein 7.5 g/dL (6.4-8.2) 03/01/18 12:08 Albumin 3.3 g/dL (3.4-5.0) L 03/01/18 12:08 Urine Color Yellow (Yellow) 03/01/18 12:00 Urine Clarity Clear 03/01/18 12:00 Urine pH 7.0 (5-8) 03/01/18 12:00 Ur Specific [place] 1.010 (1.005-1.025) 03/01/18 12:00 Urine Protein Negative mg/dL (Negative) 03/01/18 12:00 Urine Ketones Trace mg/dL (Negative) H 03/01/18 12:00 Urine Blood Negative (Negative) 03/01/18 12:00 Urine Nitrite Negative (Negative) 03/01/18 12:00 Urine Bilirubin Negative (Negative) 03/01/18 12:00 Urine Urobilinogen 1.0 EU/dL (Up TO 0.2) H 03/01/18 12:00 Ur Leukocyte Esterase Negative (Negative) 03/01/18 12:00 Urine Glucose Negative mg/dL (Negative) 03/01/18 12:00
--- NOTE | 2018-03-02 10:42 | NUR.NOTE ---
Nursing Note: 07: when RN in pt's room this am rounding, pt believes RN is a worker at [facility]. pt asks how many little ones do you have?. RN avoids question and asks pt how he is feeling; how the fuck do you think I'm feeling? you're stupid, get out of my room!. rounding at 0815, RN notes pt to be demanding clothes where the fuck are they?! I came with them and now you don't know where they are? they looked all night for them. pt moving around bed, shifting positions. pt states you are here to cut off my penis and balls, right?. RN states that no one is going to remove his genitalia. pt fixated on 2 staff members who had provided regine care during the 11-7 shift; pt making sexual remarks. RN enters room at 0945 to administer medications; pt declines all medications, denies water via G tube. RN leaves room and re-enters approximately 5 minutes later and offers medications again; pt again declines medications and tells RN to get the fuck out. pt has observer in room with him. at 1030 pt removes brief and is naked in bed. continue to monitor.
--- NOTE | 2018-03-02 12:37 | NUR.NOTE ---
Nursing Note: 1235: spoke with pt's guardian, Liz, who is also the pt's daughter. updated to pt not taking medications; Liz states that pt sounds like he has for several months. 1245: Gold from US in to do pt's RLE US to r/o DVT. pt declines US and states I don't have a fucking blood clot, see it's already gone!. pt asked x 3 if he would like the US and pt declined each offer. Jae Yancey in tapia and patient observer in room who heard conversations.
--- NOTE | 2018-03-02 12:47 | PHARADMIT ---
Addendum entered by Calvin Kwon III 03/05/18 13:18: Nursing has been able to get patient to agree to medications and tube feedings ([facility] VS-OK Labs-OK FSBS-140, CM working on having patient return to [facility] now he is stable. Original Note: Addendum entered by Calvin Kwon III 03/03/18 17:18: pATIENT FROM [facility], HAS peg TUBE FOR MEDICATIONS AND NUTRITION BUT HAS BEEN REFUSING ALL. nUSRE WAS ABLE TO GET HIM TO TAKE SOME MEDICATIONS TODAY. PATIENT'S PSYCHOSIS WORSENS WITHOUT MEDS, A DOWNWARD SPIRAL. HOPE IS TO GET HIM BACK ON MEDS TO LESSEN HIS PSYCHOSIS WHICH SHOULD MAKE HIM MORE COOPERATIVE. VS-OK Labs-OK Original Note: Admission Pharmacy Clinical Review Delusion with Psychotic event (patient has PEG tube) Code Status DNR/DNI Current Weight Wgt- 86.5 kg Renally Cleared and Narrow Therapeutic Index Meds CrCl~ 64 mL/min meds-OK QTc Value / Action Taken NA BP Control, Fever BP- 152/82 Tmax-36.7C Electrolytes reviewed Na- 138 K+3.5 DVT Prophylaxis Lovenox 40mg Opiate Usage / Scheduled Bowel Regimen Ordered No Yes Plt/SCr for Heparin / Enoxaparin Plts-236 SCr-1.17 INR for Warfarin na H/H stable, WBC/Bands H&H- 12.2/36.1 WBC- 6.37 Antibiotic appropriateness Keflex Susp. Cultures and Sensitivities NONE Surgical ABX d/c within 24 hr NA DM control / Insulin Dosing BG- 153, Metformin, Aspart Heart Failure (Check EF%) (ZANE's, B-Block, Diuretics) Lopressor,Lasix, IV to PO Switch No Home Meds Reviewed Yes Home Meds Not Ordered Ordered Comments
--- NOTE | 2018-03-02 12:52 | NUR.NOTE ---
Nursing Note: 1245: RN offers hydration via G tube. 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
[2018-03-02 14:01] VITALS: BP 183/73; PULSE 80; RESP 22; TEMP 37.4; O2SAT 99
--- NOTE | 2018-03-02 14:57 | NUR.NOTE ---
Nursing Note: 1455: RN offers fluids through G tube. pt declines stating all I want it gingerale!.
[2018-03-02 15:52] VITALS: BP 151/89; PULSE 96; RESP 18; TEMP 37.1; O2SAT 98
[2018-03-02 20:11] LABS: C-Reactive Protein 6.41 mg/dL (0.0-0.3)
[2018-03-02 20:19] LABS: TSH (W/Ref FT4) 1.36 uIU/mL (0.358-3.74)
[2018-03-02 21:42] LABS: ESR 31 MM/HR (1-20)
[2018-03-02 23:18] VITALS: BP 163/98; PULSE 87; RESP 19; TEMP 36.8; O2SAT 95
[2018-03-03] MEDS: Docusate Sodium 100 MG/10 ML CUP PO ×3 (02:31→20:34)
[2018-03-03 07:30] VITALS: BP 145/82; PULSE 104; RESP 22; TEMP 36.9; O2SAT 93
[2018-03-03 07:50] LABS: Anion Gap 12.5 mmol/L (3-11); BUN 16 mg/dL (7-18); CO2 25.5 mmol/L (21.0-32.0); CREATININE 1.03 mg/dL (0.70-1.30); Calcium 10.8 mg/dL (8.5-10.1); Chloride 104 mmol/L (98-107); Glucose 85 mg/dL (70-100); Magnesium 1.7 mg/dL (1.8-2.4); Potassium 3.9 mmol/L (3.5-5.1); Sodium 142 mmol/L (136-145)
[2018-03-03] MEDS: metFORMIN 500 MG TAB NG ×2 (09:02→17:36)
[2018-03-03] MEDS: Metoprolol 50 MG TAB NG ×2 (09:02→20:34)
[2018-03-03] MEDS: QUEtiapine 25 MG TAB 75 MG NG ×2 (09:02→20:34)
[2018-03-03] MEDS: Carbidopa 25/Levodopa 100 TAB NG ×4 (09:02→20:33)
[2018-03-03] MEDS: Divalproex 125 MG SPRINKLE 500 MG PO ×3 (09:03→20:33)
--- NOTE | 2018-03-03 09:20 | W.SPEECHEVAL ---
Date of service: 03/03/18 Time of Service: 08:00 Speech Therapy Evaluation Note: REFERRING PROVIDER: Dr. Chavira BACKGROUND This is a 72-year-old right-handed male who is a resident of [facility]. On 02/21/2018 staff at that facility noticed a change in behavior/mental status. The patient was apparently quite disruptive and ultimately the [facility] Police were called. The police transferred the patient to the ED and he was subsequently admitted to the [facility] floor. The patient has a known history of psychiatric illness as well as dysphagia. This resulted in his previous admission of December 2017 when a PEG tube was placed due to swallowing concerns. It was hoped at that time that the placement of the tube would allow for intake of necessary medications. However, he has apparently been refusing p.o. intake, including his medications, at the rehab center. It was the hope of the director of the rehab center that the patient could be admitted to a local psychiatric facility, however, the facility will not take a patient with a PEG tube. Consequently, an order for a new swallow evaluation to assess for possible p.o. intake was made. [facility] is positve for the followin. Schizoaffective disorder 2. Bipolar disorder 3. Neuroleptic-induced Parkinsonism 4. DM II 5. Essential HTN 6. BPH 7. Peripheral neuropathy 8. PEG tube (12/10/17) secondary to h/o dysphagia with resulting recurrent aspiration pneumonia and inconsistent acceptance of necessary medications OBJECTIVE Nursing reports the followin. Temp: 36.9 2. O2 sat: 93% on room air 4. Lung sounds: CTA-B 5. The patient has refused all p. o. intake as well as all PEG tube intake during this admission so far. This includes necessary medications. The patient makes good direct eye contact with me when I enter the room. When I introduce myself and explain why I'm here, he states his name is Jack. He then makes some additional utterances that are unintelligible. He confirms that he is right-handed. He is A & O x 1 (date) and does not follow instructions for assessment of multi-step directions despite repeated cueing. He shows an occasional spontaneous wet-sounding but nonproductive cough. He also shows a significant RUE tremor. Oral Sensorimotor Exam The patient is totally edentulous. He follows directions for much, but not all, of this part of the visit. Oral sensation is WNL for buccal, labiial and lingual areas bilaterally. Motorically, the smile is symmetrical. No lingual deviation on protrusion is seen in a setting of good excursion. Lingual lateralization is WNL bilaterally. Lingual rapid alternating movements are mildly decreased. Lingual strength is mildly decreased bilaterally. Velopharyngeal elevation is strong and symmetrical. Volitional cough is mildly decreased; volitional throat-clear is moderatelydecreased. Estimated speech intelligibility to this unfamiliar listener in a setting of mild background noise is 80% secondary to production of imprecise consonants. Vocal quality is WNL; vocal intensity is mildly decreased. With regard to swallowing, the following is noted: 1. Honey-thick liquid: Patient refuses after taking a 1 tsp bolus. For that 1 bolus he shows: good bolus control and posterior oral transit; no marleni s/s aspiration/penetration; 100% oral clearance; no oral escape. 2. [place]-thick liquid: Patient refuses after taking a 1 tsp bolus. Results for that 1 tsp bolus are the same as for the Honey-thick liquid. 3. Thin liquid: Patient refuses after taking a 1 tsp bolus. Results for that 1 tsp bolus are the same as for the Honey-thick liquid. 4. Puree food: Patient completely refuses and says I'm DONE! Patient then becomes more belligerent, both verbally and gesturally. Consequently, the evaluation is terminated. INTERPRETATION Regarding swallowing, I am unable to arrive at a confident diagnosis due to insufficient p. o. intake. However, it is likely that he has at least some level of oral-prep dysphagia secondary to total edentulousness. 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 RECOMMENDATIONS I am unable to give any recommendations regarding the safety of p. o. intake for this patient. However, it does seem as though his refusal of p. o. and PEG tube intake is the more salient problem, as opposed to the existence of the PEG tube itself. Thank you for referring this patient.
--- NOTE | 2018-03-03 09:27 | EVALE_ITS ---
Date of service: 03/03/18 Time of Service: 08:00 Speech Therapy Evaluation Note: REFERRING PROVIDER: Dr. Chavira BACKGROUND This is a 72-year-old right-handed male who is a resident of [facility]. On 02/21/2018 staff at that facility noticed a change in behavior/mental status. The patient was apparently quite disruptive and ultimately the [facility] Police were called. The police transferred the patient to the ED and he was subsequently admitted to the [facility] floor. The patient has a known history of psychiatric illness as well as dysphagia. This resulted in his previous admission of December 2017 when a PEG tube was placed due to swallowing concerns. It was hoped at that time that the placement of the tube would allow for intake of necessary medications. However, he has apparently been refusing p.o. intake, including his medications , at the rehab center. It was the hope of the director of the rehab center that the patient could be admitted to a local psychiatric facility, however, the facility will not take a patient with a PEG tube. Consequently, an order for a new swallow evaluation to assess for possible p.o. intake was made. [facility] is positve for the followin. Schizoaffective disorder 2. Bipolar disorder 3. Neuroleptic-induced Parkinsonism 4. DM II 5. Essential HTN 6. BPH 7. Peripheral neuropathy 8. PEG tube (12/10/17) secondary to h/o dysphagia with resulting recurrent aspiration pneumonia and inconsistent acceptance of necessary medications OBJECTIVE Nursing reports the followin. Temp: 36.9 2. O2 sat: 93% on room air 4. Lung sounds: CTA-B 5. The patient has refused all p. o. intake as well as all PEG tube intake during this admission so far. This includes necessary medications. The patient makes good direct eye contact with me when I enter the room. When I introduce myself and explain why I'm here, he states his name is Jack. He then makes some additional utterances that are unintelligible. He confirms that he is right-handed. He is A & O x 1 (date) and does not follow instructions for assessment of multi-step directions despite repeated cueing. He shows an occasional spontaneous wet-sounding but nonproductive cough. He also shows a significant RUE tremor. Oral Sensorimotor Exam The patient is totally edentulous. He follows directions for much, but not all , of this part of the visit. Oral sensation is WNL for buccal, labiial and lingual areas bilaterally. Motorically, the smile is symmetrical. No lingual deviation on protrusion is seen in a setting of good excursion. Lingual lateralization is WNL bilaterally. Lingual rapid alternating movements are mildly decreased. Lingual strength is mildly decreased bilaterally. Velopharyngeal elevation is strong and symmetrical. Volitional cough is mildly decreased; volitional throat-clear is moderatelydecreased. Estimated speech intelligibility to this unfamiliar listener in a setting of mild background noise is 80% secondary to production of imprecise consonants. Vocal quality is WNL; vocal intensity is mildly decreased. With regard to swallowing, the following is noted: 1. Honey-thick liquid: Patient refuses after taking a 1 tsp bolus. For that 1 bolus he shows: good bolus control and posterior oral transit; no marleni s/s aspiration/penetration; 100% oral clearance; no oral escape. 2. [place]-thick liquid: Patient refuses after taking a 1 tsp bolus. Results for that 1 tsp bolus are the same as for the Honey-thick liquid. 3. Thin liquid: Patient refuses after taking a 1 tsp bolus. Results for that 1 tsp bolus are the same as for the Honey-thick liquid. 4. Puree food: Patient completely refuses and says I'm DONE! Patient then becomes more belligerent, both verbally and gesturally. Consequently, the evaluation is terminated. INTERPRETATION Regarding swallowing, I am unable to arrive at a confident diagnosis due to insufficient p. o. intake. However, it is likely that he has at least some level of oral-prep dysphagia secondary to total edentulousness. 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 RECOMMENDATIONS I am unable to give any recommendations regarding the safety of p. o. intake for this patient. However, it does seem as though his refusal of p. o. and PEG tube intake is the more salient problem, as opposed to the existence of the PEG tube itself. Thank you for referring this patient.
[2018-03-03] MEDS: Milk of Magnesia 30 ML CUP NG (13:16)
[2018-03-03] MEDS: Magnesium Oxide 400 MG TAB PO ×2 (13:16→20:34)
--- NOTE | 2018-03-03 13:33 | NUR.NOTE ---
Nursing Note: 1330: pt has been partially compliant with medications today. agreeable to certain medications he is regularly on and is accepting of magnesium once the purpose was explained. pt has been happy today, tremors have decreased in comparison to 03/02. pt has been verbally appropriate and non aggressive. pt has had a one on one cadre today and has enjoyed talking with her. pt allows for assessment. pt requesting chap stick appropriately. continue to monitor.
--- NOTE | 2018-03-03 15:44 | SATEXT_ITS ---
Assessment: Mr. Kurtz was evaluated today by SCREEN REPAIRER CRUSHER and he did not cooperate sufficiently to be deemed safe for PO feeds. We will continue with tube feeding regimen per [facility] orders [facility] to the best of our interpretation. I have also assessed the orders and they appropriate by my nutritional assessment of Mr. Kurtz. He is 74 and 86.5 kg/190 lbs. His BMI is 26 kg/m2 which is WNL for his age. He is getting 400 ml of Jevity 1.2 elida in four boluses per day. His feeding provides 1995 kcals/day (23 kcal/kg) , 88 grams of protein ((1.0 g/kg), and 1279 ml of free water. This feeding regimen provides 100% of his estimated calorie and protein needs as well as 100 % of his micronutrient needs. Nutritional Diagnosis: Inability to take oral foods and fluids related to dysphagia. Intervention: Tube feeding regimen recommendations as follows: Jevity 1.2 elida: 400 ml bolus, 4 times per day. Suggested times at approximately 0800, 1100, 1400, and 1700. Each bolus contains 67 grams of carbohydrate. Mr. Kurtz will likely require at least an additional 1000 ml of free water to meet his hydration needs which can also be given in 250 ml boluses 4 times per day with meds or in a schedule that works throughout the day. Monitoring and Evaluation: 1. Will monitor weight, tolerance to feedings. 2. Will evaluate nutrition care plan ongoing and adjust as needed. Thank you for the consult.
[2018-03-03 16:19] VITALS: BP 149/89; PULSE 78; RESP 22; TEMP 36.1; O2SAT 98
[2018-03-03 16:19] LABS: Ionized Calcium 1.39 mmol/L (1.12-1.32)
--- NOTE | 2018-03-03 16:37 | PDOC.CMPRO ---
Care Management Progress Note S/O:Benton was more agreeable to taking his meds today and continues to show signs of stabilization throughout the day. No changes to care plan at this time (see below). CM will continue to monitor progress and support discharge planning considerations. A:72 year old male admitted to [facility] for Delusion with Psychotic Event P: Benton will return to [facility] once stabilized; he will transport via the facility's W/C Van. SAFETY PLAN: 1. Will remain in room under direct supervision of [facility] staff. 2. Benton may have use of television at RN discretion. 3. Follow [facility] Management of the Admitted Behavioral Health Patient policy. 4. Comfort bath system only. 5. Personal belongings limited to comfort at RN discretion; may also have adalid, paper clothes or personal clothing at RN discretion for comfort as well. 6. Visitors - daughter/guardian; Pretty CM will continue to seek discharge disposition and support stabilization. The plan will be for Benton to return to [facility] once he is taking his medications, and stabilizes as he has done in the past.
--- NOTE | 2018-03-03 16:40 | CMPROGNOTE_ITS ---
Care Management Progress Note S/O:Benton was more agreeable to taking his meds today and continues to show signs of stabilization throughout the day. No changes to care plan at this time (see below). CM will continue to monitor progress and support discharge planning considerations. A:72 year old male admitted to [facility] for Delusion with Psychotic Event P: Benton will return to [facility] once stabilized; he will transport via the facility's W/C Van. SAFETY PLAN: 1. Will remain in room under direct supervision of [facility] staff. 2. Benton may have use of television at RN discretion. 3. Follow [facility] Management of the Admitted Behavioral Health Patient policy. 4. Comfort bath system only. 5. Personal belongings limited to comfort at RN discretion; may also have adalid , paper clothes or personal clothing at RN discretion for comfort as well. 6. Visitors - daughter/guardian; Pretty CM will continue to seek discharge disposition and support stabilization. The plan will be for Benton to return to [facility] once he is taking his medications, and stabilizes as he has done in the past.
--- NOTE | 2018-03-03 17:25 | W.PM.PROGNOT ---
Assessment and Plan (1) Schizoaffective disorder: Current visit: No Status: Chronic He is agreeable to taking some medications. Continue Seroquel, trazadone and depakote. Continue haldol prn for severe agitation/acute hallucinations w/ aggressive behavior. attempt to place him in a geriatric psychiatry unit versus return to [facility] once he stabilizes after taking medications consistently. (2) Cellulitis of right lower extremity: Current visit: Yes Status: Suspected Improving. Continue PO Keflex for suspected cellulitis secondary to picking. There was some concern initially that he could possibly have a DVT. He refused workup with ultrasound of the lower extremities. Continue antibiotics. If concern for DVT continues, attempt work up again. Repeat labs in the morning. (3) Parkinsons disease: Current visit: No Status: Chronic Continue Sinement 25/100 mg, 2 tabs/day per g-tube qid. (4) Dysphagia: Current visit: No Status: Chronic With extensive history of dysphagia resulting in recurrent episodes of aspiration pneumonia in the past. Continue NPO status. Speech Therapy attempted evaluation, but this was unable to be completed due to his paranoid delusions (he thought she brought 3 cups of poison in and attempted to feed them to him). Consider repeat speech evaluation. Continue to maintain NPO status. Begin tube feedings per nutrition recommendations. (5) Type 2 diabetes mellitus: Current visit: No Status: Chronic Blood sugar within appropriate level. Continue metformin, continue to monitor blood sugar. Continue PRN short acting insulin. (6) Essential hypertension: Current visit: No Status: Chronic Blood pressure stable on current regimen. Continue metformin and Lasix. (7) DVT prophylaxis: Current visit: Yes Status: Acute Subcutaneous Lovenox. (8) Discharge planning issues: Current visit: Yes Status: Acute He is a DNR/DNI. Attempt to place him at geriatric psychiatric facility vs back to [facility] once he is back on his medications and his mood stabilizes. This case was discussed with Dr. Chavira who is in agreement. Subjective Interval history since last seen: Benton is a 72-year-old male who is a resident of [facility] who has a history of bipolar disorder, neuroleptic induced parkinsonism, essential hypertension, BPH, dysphagia secondary to parkinsonism, history of PEG tube placement, and peripheral neuropathy who was admitted to the hospitalist service 03/01/18 with acute behavioral changes related to refusal of psychiatric medications for several days prior to his presentation. [facility] has made attempts to place him at a geriatric psychiatric facility, however, given the presence of a g-tube this has been difficult. Today, he is in a pleasant mood, smiling and conversing with staff. He is sitting up in bed. He has a patient observer present. He continues to have grandiose ideas and tangential though process. He has agreed to take some medications today and accept tube feedings. A nutrition consult was placed for tube feeding recommendations. He reports a cough, denies shortness of breath, wheezing, chest pain or pressure, no palpitations, no pain. Exam Narrative Exam Narrative: General: He is in no acute distress. He is alert, oriented to person and place but not situation. Neurological: Speech is somewhat garbled, he continues to have grandiose ideas, he is delusional with nonsensical speech and tangential thought process. HEENT: normocephalic, atraumatic. Pupils are equal and round. Respiratory: Respirations are even and unlabored. Lung sounds are diminished throughout. Infrequent congested cough without sputum production, appears to have difficulty clearing secretions. No rales, rhonchi or wheezing noted. Cardiovascular: Heart has regular rate and rhythm, no murmur appreciated. GI: abdomen soft, nontender, no masses appreciated, normoactive bowel sounds throughout. Peg tube intact, tied in a knot, dressing at sight. Extremities: left carballo with lesion with mild erythema and warmth, no significant edema or swelling of calf. Pedal pulses palpable. Objective Objective Clinical Data: Abnormal lab results 03/02/18 03/02/18 03/03/18 Range/Units 17:14 17:14 06:58 ESR 31 H (1-20) MM/HR Anion Gap 12.5 H (3-11) mmol/L Calcium 10.8 H (8.5-10.1) mg/dL Magnesium 1.7 L (1.8-2.4) mg/dL C-Reactive Protein 6.41 H (0.0-0.3) mg/dL Vital Signs Temperature 36.1 C L 03/03/18 16:19 Temperature Source Tympanic 03/03/18 16:19 Pulse 78 03/03/18 16:19 Pulse Rhythm Irregular 03/03/18 09:42 Pulse Strength Normal 03/01/18 16:00 Pulse 110 H 03/01/18 16:34 Respiratory Rate 22 03/03/18 16:19 Respiratory Effort Non-Labored 03/03/18 09:42 Respiratory Depth Normal 03/03/18 09:42 Respiratory Pattern Normal 03/03/18 09:42 Blood Pressure 149/89 H 03/03/18 16:19 Blood Pressure Mean 106 03/01/18 17:45 Blood Pressure Position Supine 03/01/18 16:00 Pulse Oximetry 98 03/03/18 16:19 Oxygen Delivery Method Room Air 03/03/18 16:19 Oxygen Flow Rate 0 03/03/18 16:19 Pain Level 0 03/03/18 16:19 Intake & Output 03/02/18 03/03/18 03/03/18 23:59 11:59 23:59 Output Total 400 / 400 Balance -400 / -400 Weight 86.5 kg Output: Urine 400 / 400 Other: Urine Color Dark Cathleen Urine Appearance Clear Urine Odor Strong Comment pt incontinent to urine in brief this scribe scanned left side, middle and right side. 0 mls x 3 Stool Size Smear Stool Characteristics Brown Voiding Methods Diaper Diaper Incontinent Laboratory Results WBC 6.37 k/cumm (4.4-10.8) 03/01/18 12:08 RBC 3.95 m/cumm (4.50-6.00) L 03/01/18 12:08 Hgb 12.2 g/dL (13.5-17.5) L 03/01/18 12:08 Hct 36.1 % (40.0-50.0) L 03/01/18 12:08 MCV 91.4 fL (80-95) 03/01/18 12:08 MCH 30.9 pg (27.0-33.0) 03/01/18 12:08 MCHC 33.8 g/dL (32.0-36.0) 03/01/18 12:08 RDW 13.1 % (11.8-14.1) 03/01/18 12:08 Plt Count 236 x1000/uL (130-400) 03/01/18 12:08 MPV 10.5 fL (8.0-11.0) 03/01/18 12:08 Immature Gran % 0.2 03/01/18 12:08 Neutrophils % 60.7 03/01/18 12:08 Lymphocytes % 31.2 03/01/18 12:08 Monocytes % 7.2 03/01/18 12:08 Eosinophils % 0.5 03/01/18 12:08 Basophils % 0.2 03/01/18 12:08 Absolute Neutrophils 3.87 k/cumm (1.2-6.7) 03/01/18 12:08 Absolute Lymphocytes 1.99 k/cumm (1.2-3.4) 03/01/18 12:08 Absolute Monocytes 0.46 k/cumm (0.11-0.7) 03/01/18 12:08 Absolute Eosinophils 0.03 k/cumm (0.0-0.7) 03/01/18 12:08 Absolute Basophils 0.01 k/cumm (0.0-0.2) 03/01/18 12:08 ESR 31 MM/HR (1-20) H 03/02/18 17:14 Sodium 142 mmol/L (136-145) 03/03/18 06:58 Potassium 3.9 mmol/L (3.5-5.1) 03/03/18 06:58 Chloride 104 mmol/L (98-107) 03/03/18 06:58 Carbon Dioxide 25.5 mmol/L (21.0-32.0) 03/03/18 06:58 Anion Gap 12.5 mmol/L (3-11) H 03/03/18 06:58 BUN 16 mg/dL (7-18) 03/03/18 06:58 Creatinine 1.03 mg/dL (0.70-1.30) 03/03/18 06:58 Estimated GFR/1.73 m2 >= 60.00 (mL/min/1.73m2) 03/03/18 06:58 Glucose 85 mg/dL (70-100) D 03/03/18 06:58 Calcium 10.8 mg/dL (8.5-10.1) H 03/03/18 06:58 Magnesium 1.7 mg/dL (1.8-2.4) L 03/03/18 06:58 Total Bilirubin 0.5 mg/dL (0.2-1.0) 03/01/18 12:08 AST 15 U/L (15-37) 03/01/18 12:08 ALT 14 U/L (12-78) 03/01/18 12:08 Alkaline Phosphatase 65 U/L (46-116) 03/01/18 12:08 C-Reactive Protein 6.41 mg/dL (0.0-0.3) H 03/02/18 17:14 Total Protein 7.5 g/dL (6.4-8.2) 03/01/18 12:08 Albumin 3.3 g/dL (3.4-5.0) L 03/01/18 12:08 TSH 1.36 uIU/mL (0.358-3.74) 03/02/18 17:14 Urine Color Yellow (Yellow) 03/01/18 12:00 Urine Clarity Clear 03/01/18 12:00 Urine pH 7.0 (5-8) 03/01/18 12:00 Ur Specific [place] 1.010 (1.005-1.025) 03/01/18 12:00 Urine Protein Negative mg/dL (Negative) 03/01/18 12:00 Urine Ketones Trace mg/dL (Negative) H 03/01/18 12:00 Urine Blood Negative (Negative) 03/01/18 12:00 Urine Nitrite Negative (Negative) 03/01/18 12:00 Urine Bilirubin Negative (Negative) 03/01/18 12:00 Urine Urobilinogen 1.0 EU/dL (Up TO 0.2) H 03/01/18 12:00 Ur Leukocyte Esterase Negative (Negative) 03/01/18 12:00 Urine Glucose Negative mg/dL (Negative) 03/01/18 12:00
--- NOTE | 2018-03-03 17:50 | NUR.NOTE ---
Nursing Note: When patient finished swishing and spitting out the biotine he started coughing and sounding gurgly
[2018-03-03] MEDS: traZODone 100 MG TAB NG (20:33)
[2018-03-03] MEDS: QUEtiapine 100 MG TAB NG (20:34)
[2018-03-03] MEDS: Cephalexin 250 MG/5 ML 100 ML BTL 500 MG NG (20:37)
[2018-03-03 23:41] VITALS: BP 93/56; PULSE 66; RESP 18; TEMP 36; O2SAT 96
[2018-03-04] VITALS: BP 100/52
[2018-03-04 01:33] VITALS: BP 98/54
[2018-03-04] MEDS: Cephalexin 250 MG/5 ML 100 ML BTL 500 MG NG ×2 (01:38→20:10)
[2018-03-04 05:45] VITALS: BP 106/54
[2018-03-04 07:50] VITALS: BP 131/86; PULSE 67; RESP 19; TEMP 35.9; O2SAT 97
[2018-03-04] MEDS: Milk of Magnesia 30 ML CUP NG (08:58)
[2018-03-04] MEDS: Docusate Sodium 100 MG/10 ML CUP PO ×2 (08:59→20:13)
[2018-03-04] MEDS: Furosemide 20 MG TAB NG ×2 (08:59→17:19)
[2018-03-04] MEDS: Carbidopa 25/Levodopa 100 TAB NG ×4 (09:00→20:14)
[2018-03-04] MEDS: Magnesium Oxide 400 MG TAB PO ×2 (09:00→20:14)
[2018-03-04] MEDS: Metoprolol 50 MG TAB NG ×2 (09:01→20:14)
[2018-03-04] MEDS: QUEtiapine 25 MG TAB 75 MG NG (09:02)
[2018-03-04] MEDS: Divalproex 125 MG SPRINKLE 500 MG PO ×3 (09:03→20:14)
[2018-03-04] MEDS: metFORMIN 500 MG TAB NG ×2 (09:03→17:18)
[2018-03-04 11:23] LABS: Platelet Count 293 x1000/uL (130-400)
[2018-03-04 11:33] LABS: Anion Gap 6.5 mmol/L (3-11); BUN 22 mg/dL (7-18); CO2 28.5 mmol/L (21.0-32.0); CREATININE 1.16 mg/dL (0.70-1.30); Calcium 10.1 mg/dL (8.5-10.1); Chloride 102 mmol/L (98-107); Glucose 122 mg/dL (70-100); Magnesium 1.9 mg/dL (1.8-2.4); Potassium 3.8 mmol/L (3.5-5.1); Sodium 137 mmol/L (136-145)
--- NOTE | 2018-03-04 11:38 | PDOC.CMPRO ---
Care Management Progress Note S/O: Benton was sitting up in bed, smiling and conversant when CM met with him. He appeared much more content and engaged. No changes to care plan at this time (see below). Per CAROLYN Hatch his kidney function and compliance continues to be monitored. CM will continue to monitor progress and support discharge planning considerations. A:72 year old male admitted to [facility] for Delusion with Psychotic Event P: Benton will return to [facility] once stabilized; he will transport via the facility's W/C Van. SAFETY PLAN: 1. Will remain in room under direct supervision of [facility] staff. 2. Benton may have use of television at RN discretion. 3. Follow [facility] Management of the Admitted Behavioral Health Patient policy. 4. Comfort bath system only. 5. Personal belongings limited to comfort at RN discretion; may also have adalid, paper clothes or personal clothing at RN discretion for comfort as well. 6. Visitors - daughter/guardian; Pretty CM will continue to seek discharge disposition and support stabilization. The plan will be for Benton to return to [facility] once he is taking his medications, and stabilizes as he has done in the past.
--- NOTE | 2018-03-04 14:05 | W.PM.PROGNOT ---
Assessment and Plan (1) Schizoaffective disorder: Current visit: No Status: Chronic He is agreeable to taking some medications. Continue Seroquel, trazadone and depakote. His Seroquel dose has been lower here at the hospital than what he was [facility] Plan to increase his at bedtime Seroquel to get him closer to the dose that he was previously taking. This plan was discussed with Dr. Spain, medical lab technician at [facility]. Dr. Spain is in agreement with this plan. He appears to be back near his baseline, the plan will be for him to return to [facility], likely tomorrow. (2) Cellulitis of right lower extremity: Current visit: Yes Status: Suspected Improving. Continue PO Keflex for suspected cellulitis secondary to picking. There was some concern initially that he could possibly have a DVT. He refused workup with ultrasound of the lower extremities. He does not have significant calf swelling, erythema or tenderness. We will hold off on further DVT workup for now as this appears to be less likely, his left carballo appears to be improving significantly with antibiotics. Continue antibiotics. Repeat labs in the morning. (3) Parkinsons disease: Current visit: No Status: Chronic Continue Sinement 25/100 mg, 2 tabs/day per g-tube qid. (4) Dysphagia: Current visit: No Status: Chronic With extensive history of dysphagia resulting in recurrent episodes of aspiration pneumonia in the past. Continue NPO status. Speech Therapy attempted evaluation, but this was unable to be completed due to his paranoid delusions (he thought she brought 3 cups of poison in and attempted to feed them to him). Consider repeat speech evaluation [facility] Continue to maintain NPO status. Continue tube feedings and free water per nutrition recommendations. (5) Type 2 diabetes mellitus: Current visit: No Status: Chronic Blood sugar within appropriate level. Continue metformin, continue to monitor blood sugar. Continue PRN short acting insulin. (6) Essential hypertension: Current visit: No Status: Chronic Blood pressure stable on current regimen. Continue metformin and Lasix. (7) DVT prophylaxis: Current visit: Yes Status: Acute Subcutaneous Lovenox. (8) Discharge planning issues: Current visit: Yes Status: Acute He is a DNR/DNI. I was able to speak with Dr. Spain, the medical lab technician at [facility] today. We discussed his current medications extensively and compared them to what he was previously taking at the rehab center. He has been compliant with taking his medications and tube feedings. He has not been aggressive with staff. He has not received additional as needed medications. We discussed the plan for him to return to [facility] rehab, likely tomorrow. Dr. Spain was in agreement with this plan. This case was discussed with Dr. Chavira who is in agreement. Subjective Interval history since last seen: Benton is a 72-year-old male who is a resident of [facility] who has a history of bipolar disorder, neuroleptic induced parkinsonism, essential hypertension, BPH, dysphagia secondary to parkinsonism, history of PEG tube placement, and peripheral neuropathy who was admitted to the hospitalist service 03/01/18 with acute behavioral changes related to refusal of psychiatric medications for several days prior to his presentation. [facility] has made attempts to place him at a geriatric psychiatric facility, however, given the presence of a g-tube this has been difficult. A speech evaluation was attempted, however he was paranoid and thought the Speech Pathologist was trying to give him poison and he refused to participate. He began taking his medications and agreed to start tube feedings and free water yesterday. Today, he is again in a pleasant mood, he is smiling and winking. He is conversing, he continues to express grandiose ideas. His thought process is tangential. He denies any complaints such as shortness of breath, wheezing, chest pain or pressure, no palpitations, no pain. Exam Narrative Exam Narrative: General: He is in no acute distress. He is alert, oriented to person and place but not situation. Neurological: Speech is somewhat garbled, he continues to have grandiose ideas, he is delusional with nonsensical speech at times and tangential thought process. HEENT: normocephalic, atraumatic. Pupils are equal and round. Respiratory: Respirations are even and unlabored. Lung sounds are diminished throughout. Infrequent congested cough without sputum production, appears to have some difficulty clearing secretions. No rales, rhonchi or wheezing noted. Cardiovascular: Heart has regular rate and rhythm, no murmur appreciated. GI: abdomen soft, nontender, no masses appreciated, normoactive bowel sounds throughout. Peg tube intact, tied in a knot again today, dressing at sight clean dry and intact. Extremities: left carballo with lesion with mild erythema and warmth, erythema appears improved from yesterday. No drainage from the lesion. No significant edema or swelling of calf. Pedal pulses palpable. Objective Objective Clinical Data: Abnormal lab results 03/02/18 03/04/18 Range/Units 17:14 11:08 BUN 22 H D (7-18) mg/dL Glucose 122 H (70-100) mg/dL Ionized Calcium 1.39 H (1.12-1.32) mmol/L Vital Signs Temperature 35.9 C L 03/04/18 07:50 Temperature Source Tympanic 03/04/18 07:50 Pulse 67 03/04/18 07:50 Pulse Rhythm Irregular 03/04/18 08:45 Pulse Strength Normal 03/01/18 16:00 Pulse 110 H 03/01/18 16:34 Respiratory Rate 19 03/04/18 07:50 Respiratory Effort Non-Labored 03/04/18 08:45 Respiratory Depth Normal 03/04/18 08:45 Respiratory Pattern Normal 03/04/18 08:45 Blood Pressure 131/86 03/04/18 07:50 Blood Pressure Mean 106 03/01/18 17:45 Blood Pressure Position Supine 03/01/18 16:00 Pulse Oximetry 97 03/04/18 07:50 Oxygen Delivery Method Room Air 03/04/18 07:50 Oxygen Flow Rate 0 03/04/18 07:50 Pain Level 0 03/04/18 07:50 Intake & Output 03/03/18 03/04/18 03/04/18 23:59 11:59 23:59 Intake Total 480 / 480 400 / 400 Output Total 400 / 400 0 / 0 Balance 80 / 80 400 / 400 Intake: Intake, Tube Feeding Amount 480 / 480 400 / 400 Output: Urine 400 / 400 Output, Residual 0 / 0 0 / 0 Other: Urine Color Dark Cathleen Urine Appearance Clear Urine Odor Strong Comment this scribe scanned left side, middle and right side. 0 mls x 3 pt incontinent of large amounts. Voiding Methods Diaper Diaper Diaper Incontinent Laboratory Results WBC 6.37 k/cumm (4.4-10.8) 03/01/18 12:08 RBC 3.95 m/cumm (4.50-6.00) L 03/01/18 12:08 Hgb 12.2 g/dL (13.5-17.5) L 03/01/18 12:08 Hct 36.1 % (40.0-50.0) L 03/01/18 12:08 MCV 91.4 fL (80-95) 03/01/18 12:08 MCH 30.9 pg (27.0-33.0) 03/01/18 12:08 MCHC 33.8 g/dL (32.0-36.0) 03/01/18 12:08 RDW 13.1 % (11.8-14.1) 03/01/18 12:08 Plt Count 293 x1000/uL (130-400) 03/04/18 11:08 MPV 10.5 fL (8.0-11.0) 03/01/18 12:08 Immature Gran % 0.2 03/01/18 12:08 Neutrophils % 60.7 03/01/18 12:08 Lymphocytes % 31.2 03/01/18 12:08 Monocytes % 7.2 03/01/18 12:08 Eosinophils % 0.5 03/01/18 12:08 Basophils % 0.2 03/01/18 12:08 Absolute Neutrophils 3.87 k/cumm (1.2-6.7) 03/01/18 12:08 Absolute Lymphocytes 1.99 k/cumm (1.2-3.4) 03/01/18 12:08 Absolute Monocytes 0.46 k/cumm (0.11-0.7) 03/01/18 12:08 Absolute Eosinophils 0.03 k/cumm (0.0-0.7) 03/01/18 12:08 Absolute Basophils 0.01 k/cumm (0.0-0.2) 03/01/18 12:08 ESR 31 MM/HR (1-20) H 03/02/18 17:14 Sodium 137 mmol/L (136-145) 03/04/18 11:08 Potassium 3.8 mmol/L (3.5-5.1) 03/04/18 11:08 Chloride 102 mmol/L (98-107) 03/04/18 11:08 Carbon Dioxide 28.5 mmol/L (21.0-32.0) 03/04/18 11:08 Anion Gap 6.5 mmol/L (3-11) 03/04/18 11:08 BUN 22 mg/dL (7-18) H D 03/04/18 11:08 Creatinine 1.16 mg/dL (0.70-1.30) 03/04/18 11:08 Estimated GFR/1.73 m2 >= 60.00 (mL/min/1.73m2) 03/04/18 11:08 Glucose 122 mg/dL (70-100) H 03/04/18 11:08 Calcium 10.1 mg/dL (8.5-10.1) 03/04/18 11:08 Ionized Calcium 1.39 mmol/L (1.12-1.32) H 03/02/18 17:14 Magnesium 1.9 mg/dL (1.8-2.4) 03/04/18 11:08 Total Bilirubin 0.5 mg/dL (0.2-1.0) 03/01/18 12:08 AST 15 U/L (15-37) 03/01/18 12:08 ALT 14 U/L (12-78) 03/01/18 12:08 Alkaline Phosphatase 65 U/L (46-116) 03/01/18 12:08 C-Reactive Protein 6.41 mg/dL (0.0-0.3) H 03/02/18 17:14 Total Protein 7.5 g/dL (6.4-8.2) 03/01/18 12:08 Albumin 3.3 g/dL (3.4-5.0) L 03/01/18 12:08 TSH 1.36 uIU/mL (0.358-3.74) 03/02/18 17:14 Urine Color Yellow (Yellow) 03/01/18 12:00 Urine Clarity Clear 03/01/18 12:00 Urine pH 7.0 (5-8) 03/01/18 12:00 Ur Specific [place] 1.010 (1.005-1.025) 03/01/18 12:00 Urine Protein Negative mg/dL (Negative) 03/01/18 12:00 Urine Ketones Trace mg/dL (Negative) H 03/01/18 12:00 Urine Blood Negative (Negative) 03/01/18 12:00 Urine Nitrite Negative (Negative) 03/01/18 12:00 Urine Bilirubin Negative (Negative) 03/01/18 12:00 Urine Urobilinogen 1.0 EU/dL (Up TO 0.2) H 03/01/18 12:00 Ur Leukocyte Esterase Negative (Negative) 03/01/18 12:00 Urine Glucose Negative mg/dL (Negative) 03/01/18 12:00
--- NOTE | 2018-03-04 15:56 | PGE_ITS ---
Assessment and Plan (1) Schizoaffective disorder: Current visit: No Status: Chronic He is agreeable to taking some medications. Continue Seroquel, trazadone and depakote. His Seroquel dose has been lower here at the hospital than what he was [facility] Plan to increase his at bedtime Seroquel to get him closer to the dose that he was previously taking. This plan was discussed with Dr. Spain, medical assistant secretary at [facility]. Dr. Spain is in agreement with this plan. He appears to be back near his baseline, the plan will be for him to return to [facility], likely tomorrow. (2) Cellulitis of right lower extremity: Current visit: Yes Status: Suspected Improving. Continue PO Keflex for suspected cellulitis secondary to picking. There was some concern initially that he could possibly have a DVT. He refused workup with ultrasound of the lower extremities. He does not have significant calf swelling, erythema or tenderness. We will hold off on further DVT workup for now as this appears to be less likely, his left carballo appears to be improving significantly with antibiotics. Continue antibiotics. Repeat labs in the morning. (3) Parkinsons disease: Current visit: No Status: Chronic Continue Sinement 25/100 mg, 2 tabs/day per g-tube qid. (4) Dysphagia: Current visit: No Status: Chronic With extensive history of dysphagia resulting in recurrent episodes of aspiration pneumonia in the past. Continue NPO status. Speech Therapy attempted evaluation, but this was unable to be completed due to his paranoid delusions ( he thought she brought 3 cups of poison in and attempted to feed them to him) . Consider repeat speech evaluation once [facility] is [facility]. Continue to maintain NPO status. Continue tube feedings and free water per nutrition recommendations. (5) Type 2 diabetes mellitus: Current visit: No Status: Chronic Blood sugar within appropriate level. Continue metformin, continue to monitor blood sugar. Continue PRN short acting insulin. (6) Essential hypertension: Current visit: No Status: Chronic Blood pressure stable on current regimen. Continue metformin and Lasix. (7) DVT prophylaxis: Current visit: Yes Status: Acute Subcutaneous Lovenox. (8) Discharge planning issues: Current visit: Yes Status: Acute He is a DNR/DNI. I was able to speak with Dr. Spain, the medical assistant secretary at [facility] today. We discussed his current medications extensively and compared them to what he was previously taking at the rehab center. He has been compliant with taking his medications and tube feedings. He has not been aggressive with staff. He has not received additional as needed medications. We discussed the plan for him to return to [facility], likely tomorrow. Dr. Spain was in agreement with this plan. This case was discussed with Dr. Chavira who is in agreement. Subjective Interval history since last seen: Benton is a 72-year-old male who is a resident of [facility] who has a history of bipolar disorder, neuroleptic induced parkinsonism, essential hypertension, BPH, dysphagia secondary to parkinsonism, history of PEG tube placement, and peripheral neuropathy who was admitted to the hospitalist service 03/01/18 with acute behavioral changes related to refusal of psychiatric medications for several days prior to his presentation. [facility]& has made attempts to place him at a geriatric psychiatric facility, however, given the presence of a g-tube this has been difficult. A speech evaluation was attempted, however he was paranoid and thought the Speech Pathologist was trying to give him poison and he refused to participate. He began taking his medications and agreed to start tube feedings and free water yesterday. Today, he is again in a pleasant mood, he is smiling and winking. He is conversing, he continues to express grandiose ideas. His thought process is tangential. He denies any complaints such as shortness of breath, wheezing, chest pain or pressure, no palpitations, no pain. Exam Narrative Exam Narrative: General: He is in no acute distress. He is alert, oriented to person and place but not situation. Neurological: Speech is somewhat garbled, he continues to have grandiose ideas, he is delusional with nonsensical speech at times and tangential thought process. HEENT: normocephalic, atraumatic. Pupils are equal and round. Respiratory: Respirations are even and unlabored. Lung sounds are diminished throughout. Infrequent congested cough without sputum production, appears to have some difficulty clearing secretions. No rales, rhonchi or wheezing noted. Cardiovascular: Heart has regular rate and rhythm, no murmur appreciated. GI: abdomen soft, nontender, no masses appreciated, normoactive bowel sounds throughout. Peg tube intact, tied in a knot again today, dressing at sight clean dry and intact. Extremities: left carballo with lesion with mild erythema and warmth, erythema appears improved from yesterday. No drainage from the lesion. No significant edema or swelling of calf. Pedal pulses palpable. Objective Objective Clinical Data: Abnormal lab results 03/02/18 03/04/18 Range/Units 17:14 11:08 BUN 22 H D (7-18) mg/dL Glucose 122 H (70-100) mg/dL Ionized Calcium 1.39 H (1.12-1.32) mmol/L Vital Signs Temperature 35.9 C L 03/04/18 07:50 Temperature Source Tympanic 03/04/18 07:50 Pulse 67 03/04/18 07:50 Pulse Rhythm Irregular 03/04/18 08:45 Pulse Strength Normal 03/01/18 16:00 Pulse 110 H 03/01/18 16:34 Respiratory Rate 19 03/04/18 07:50 Respiratory Effort Non-Labored 03/04/18 08:45 Respiratory Depth Normal 03/04/18 08:45 Respiratory Pattern Normal 03/04/18 08:45 Blood Pressure 131/86 03/04/18 07:50 Blood Pressure Mean 106 03/01/18 17:45 Blood Pressure Position Supine 03/01/18 16:00 Pulse Oximetry 97 03/04/18 07:50 Oxygen Delivery Method Room Air 03/04/18 07:50 Oxygen Flow Rate 0 03/04/18 07:50 Pain Level 0 03/04/18 07:50 Intake & Output 03/03/18 03/04/18 03/04/18 23:59 11:59 23:59 Intake Total 480 / 480 400 / 400 Output Total 400 / 400 0 / 0 Balance 80 / 80 400 / 400 Intake: Intake, Tube Feeding Amount 480 / 480 400 / 400 Output: Urine 400 / 400 Output, Residual 0 / 0 0 / 0 Other: Urine Color Dark Cathleen Urine Appearance Clear Urine Odor Strong Comment this scribe scanned left side, middle and right side. 0 mls x 3 pt incontinent of large amounts. Voiding Methods Diaper Diaper Diaper Incontinent Laboratory Results WBC 6.37 k/cumm (4.4-10.8) 03/01/18 12:08 RBC 3.95 m/cumm (4.50-6.00) L 03/01/18 12:08 Hgb 12.2 g/dL (13.5-17.5) L 03/01/18 12:08 Hct 36.1 % (40.0-50.0) L 03/01/18 12:08 MCV 91.4 fL (80-95) 03/01/18 12:08 MCH 30.9 pg (27.0-33.0) 03/01/18 12:08 MCHC 33.8 g/dL (32.0-36.0) 03/01/18 12:08 RDW 13.1 % (11.8-14.1) 03/01/18 12:08 Plt Count 293 x1000/uL (130-400) 03/04/18 11:08 MPV 10.5 fL (8.0-11.0) 03/01/18 12:08 Immature Gran % 0.2 03/01/18 12:08 Neutrophils % 60.7 03/01/18 12:08 Lymphocytes % 31.2 03/01/18 12:08 Monocytes % 7.2 03/01/18 12:08 Eosinophils % 0.5 03/01/18 12:08 Basophils % 0.2 03/01/18 12:08 Absolute Neutrophils 3.87 k/cumm (1.2-6.7) 03/01/18 12:08 Absolute Lymphocytes 1.99 k/cumm (1.2-3.4) 03/01/18 12:08 Absolute Monocytes 0.46 k/cumm (0.11-0.7) 03/01/18 12:08 Absolute Eosinophils 0.03 k/cumm (0.0-0.7) 03/01/18 12:08 Absolute Basophils 0.01 k/cumm (0.0-0.2) 03/01/18 12:08 ESR 31 MM/HR (1-20) H 03/02/18 17:14 Sodium 137 mmol/L (136-145) 03/04/18 11:08 Potassium 3.8 mmol/L (3.5-5.1) 03/04/18 11:08 Chloride 102 mmol/L (98-107) 03/04/18 11:08 Carbon Dioxide 28.5 mmol/L (21.0-32.0) 03/04/18 11:08 Anion Gap 6.5 mmol/L (3-11) 03/04/18 11:08 BUN 22 mg/dL (7-18) H D 03/04/18 11:08 Creatinine 1.16 mg/dL (0.70-1.30) 03/04/18 11:08 Estimated GFR/1.73 m2 >= 60.00 (mL/min/1.73m2) 03/04/18 11:08 Glucose 122 mg/dL (70-100) H 03/04/18 11:08 Calcium 10.1 mg/dL (8.5-10.1) 03/04/18 11:08 Ionized Calcium 1.39 mmol/L (1.12-1.32) H 03/02/18 17:14 Magnesium 1.9 mg/dL (1.8-2.4) 03/04/18 11:08 Total Bilirubin 0.5 mg/dL (0.2-1.0) 03/01/18 12:08 AST 15 U/L (15-37) 03/01/18 12:08 ALT 14 U/L (12-78) 03/01/18 12:08 Alkaline Phosphatase 65 U/L (46-116) 03/01/18 12:08 C-Reactive Protein 6.41 mg/dL (0.0-0.3) H 03/02/18 17:14 Total Protein 7.5 g/dL (6.4-8.2) 03/01/18 12:08 Albumin 3.3 g/dL (3.4-5.0) L 03/01/18 12:08 TSH 1.36 uIU/mL (0.358-3.74) 03/02/18 17:14 Urine Color Yellow (Yellow) 03/01/18 12:00 Urine Clarity Clear 03/01/18 12:00 Urine pH 7.0 (5-8) 03/01/18 12:00 Ur Specific [place] 1.010 (1.005-1.025) 03/01/18 12:00 Urine Protein Negative mg/dL (Negative) 03/01/18 12:00 Urine Ketones Trace mg/dL (Negative) H 03/01/18 12:00 Urine Blood Negative (Negative) 03/01/18 12:00 Urine Nitrite Negative (Negative) 03/01/18 12:00 Urine Bilirubin Negative (Negative) 03/01/18 12:00 Urine Urobilinogen 1.0 EU/dL (Up TO 0.2) H 03/01/18 12:00 Ur Leukocyte Esterase Negative (Negative) 03/01/18 12:00 Urine Glucose Negative mg/dL (Negative) 03/01/18 12:00
[2018-03-04 17:21] VITALS: BP 96/59; PULSE 64; RESP 20; TEMP 36.4; O2SAT 100
[2018-03-04] MEDS: traZODone 100 MG TAB NG (20:13)
[2018-03-04] MEDS: QUEtiapine 100 MG TAB 200 MG NG (20:18)
[2018-03-05 00:40] VITALS: BP 110/72; PULSE 62; RESP 20; TEMP 36.4; O2SAT 95
[2018-03-05 07:50] VITALS: BP 151/79; PULSE 75; RESP 17; TEMP 36.3; O2SAT 99
[2018-03-05 08:05] LABS: Anion Gap 7.7 mmol/L (3-11); BUN 25 mg/dL (7-18); CO2 29.3 mmol/L (21.0-32.0); CREATININE 1.02 mg/dL (0.70-1.30); Calcium 9.8 mg/dL (8.5-10.1); Chloride 100 mmol/L (98-107); Glucose 92 mg/dL (70-100); Sodium 137 mmol/L (136-145)
[2018-03-05] MEDS: Cephalexin 250 MG/5 ML 100 ML BTL 500 MG NG ×2 (08:55→13:50)
[2018-03-05] MEDS: Milk of Magnesia 30 ML CUP NG (08:56)
[2018-03-05] MEDS: Divalproex 125 MG SPRINKLE 500 MG PO ×2 (08:56→13:50)
[2018-03-05] MEDS: Docusate Sodium 100 MG/10 ML CUP PO (08:56)
[2018-03-05] MEDS: Finasteride 5 MG TAB PO (08:57)
[2018-03-05] MEDS: Furosemide 20 MG TAB NG (08:57)
[2018-03-05] MEDS: Metoprolol 50 MG TAB NG (08:57)
[2018-03-05] MEDS: Carbidopa 25/Levodopa 100 TAB NG ×2 (08:57→11:53)
[2018-03-05] MEDS: Magnesium Oxide 400 MG TAB PO (08:57)
[2018-03-05] MEDS: QUEtiapine 100 MG TAB NG (08:57)
[2018-03-05] MEDS: metFORMIN 500 MG TAB NG (08:57)
--- NOTE | 2018-03-05 09:41 | NUR.NOTE ---
Nursing Note: 0915: pt willing to take all medications this am after nine o'clock. RN brings in medications, pt agreeable to administration via G tube. pt accepting of jevity bolus feeding and agreeable to free water. pt has permitted regine care and incontinent care this am without difficulty. pt is in a good mood, laughing with staff and conversating. continue to monitor.
--- NOTE | 2018-03-05 10:13 | NUR.NOTE ---
Nursing Note: Pt does not require one on one observation as he has been cooperative with care.
--- NOTE | 2018-03-05 14:28 | PDOC.CMIN ---
- If Service Date Differs Date of service: 03/05/18 Time of Service: 14:28 Care Management Initial Assess REASON FOR HOSPITALIZATION:: Delusion admitted for stablization. PAST MEDICAL HISTORY/PAST SURGICAL HISTORY:: DM type 2, dysphagia, schizophrenia, bipolar disorder, parkinsons, disease, schizoaffective disorder, peripheral axonal neuropathy, tardive dyskinesia, PEG tube. PREVIOUS FUNCTIONAL STATUS/SOCIAL/FAMILY SUPPORTS:: [facility] Support person is daughter Liz Cid who is also his DPOA CURRENT FUNCTIONAL STATUS:: Benton is calm and appropiate at this time when CM into visit. Primary nurse reports that he has been cooperative able to tolerate his medicaitons today via peg tube. ADVANCE DIRECTIVES:: Guardian, DPOA Liz Rodrigues Has patient been provided with information about the portal?: No Did the patient sign up for the portal?: No CODE STATUS:: DNR/DNI INSURANCE COVERAGE / FINANCIAL ISSUES:: Medicare and Medicaid CURRENT HOME/COMMUNITY SERVICES/EQUIPMENT:: Benton is a resident of [facility] for [facility]TC. He has a wheelchair and receives total assistance from health and rehab to meet his ADL's and needs. PRIMARY CARE PHYSICIAN:: at [facility] POTENTIAL DISCHARGE NEEDS:: Return to [facility]. PATIENT/FAMILY EDUCATION NEEDS:: Discharge education and follow up plan of care to [facility]. ANTICIPATED BARRIERS TO DISCHARGE:: Barriers identified to discharge include SNF willingness to allow the patient to return to his place of residence. CM coordianted return of patient with admissions and Debora Torres. TRANSPORTATION:: [place] vs van PLAN:: Benton will be returning back to [facility] today. He is medically ready for return per provider. He has been appropiate and had stabilized per provider.
--- NOTE | 2018-03-05 14:48 | W.PM.DS.N ---
Date of service: 03/05/18 Time of Service: 14:48 DS: Diagnosis Discharge Diagnosis (1) Schizoaffective disorder: Status: Chronic (2) Cellulitis of right lower extremity: Status: Suspected (3) Parkinsons disease: Status: Chronic (4) Dysphagia: Status: Chronic (5) Type 2 diabetes mellitus: Status: Chronic (6) Essential hypertension: Status: Chronic Discharge Plan Disposition Patient Disposition: SNF (LEVEL 1) [facility] Condition: Improving Discharge Details Reason For Visit: DELUSION WITH PSYCHOTIC EVENT Admit Date/Time: 03/03/18 19:38 Admit Provider: Hipolito Thakkar Attending Provider: Hipolito Thakkar Primary Care Provider: Puma Johnston Hospital Course Hospital Course: 72-year-old male who is a resident of [facility] who has a history of bipolar disorder, neuroleptic induced parkinsonism, essential hypertension, BPH, dysphagia secondary to parkinsonism, history of PEG tube placement, and peripheral neuropathy who presented to the emergency department with acute behavioral changes. He was brought to the emergency department by [facility] police with the assistance of [facility] after he appeared to have had an acute psychotic break. He was noted to have increased delusional thoughts and aggressive behavior at the time of admission. It was reported that he had not been compliant taking his antipsychotic medications and over the week prior and had escalating delusional thoughts. He reportedly took over the dining tapia at the [facility] where he resides, necessitating the staff to call [facility] Police. It was reported at the time of his presentation that the medical sonographer at [facility] has been trying to get him placed in a geriatric psychiatry unit in [facility] but had difficulty related to his having a g-tube. The patient was evaluated and treated in the emergency department with routine labs and treatment of acute delusional behavior and agitation with haldol. He was initially restrained. After taking his usual dose of Seroquel and another dose of Haldol he was able to calm down and was taken out of restraints. He does have residual bruising to his wrists bilaterally from the restraints. After initial medical evaluation including routine labs of CBC, CMP and UA and not finding any acute medical issues, Robina Quiñonez, ED DRYING OVEN ATTENDANT spoke w/ the medical sonographer from [facility], Dr. D.,and indicated that there was no acute medical issues to admit the patient; however, Dr. Santoro reportedly indicated that she did not feel it appropriate or safe for the patient to return to [facility]. At that time he was admitted to the Med/surg floor. He initially had a 1:1 patient observer for his safety. On 03/03/18, he agreed to take his medications and accept tube feedings. He was actually taking a significantly lower amount of Seroquel here at the hospital than he was prescribed at [facility]. He was initially taking Seroquel 75 mg BID (8a & 8p) and 100 mg at HS via his g-tube, of the short acting variety. He did very well on this dose. I had the opportunity to talk to Dr. Spain, medical sonographer at [facility] on 03/04/18. We discussed the Seroquel dose here versus a Seroquel dose at [facility]. Dr. Spain requested that we increase his Seroquel to get the dose closer to what his typical dose is at the rehab. Given that he was doing well on the lower dose we decided to increase his at bedtime dose from 100 mg to 200 mg (note that he typically takes 300 mg at at bedtime at the [facility]) and his a.m. dose from 75 mg to 100 mg (notes that he typically takes 100 mg of the long-acting variety at the [facility]). We were unable to provide him with the long acting Seroquel as the tablets could not be crushed. During my conversation with Dr. Spain, we considered the fact that he may be more sleepy with this higher dose of Seroquel. Dr. Spain was willing to take that risk. She verbalized that she would be able to decrease his dose as needed in conjunction with his psychiatric nurse practitioner that follows him. Mr. Kurtz is in fact sleepy today. I would encourage the long-term facility to review his Seroquel dosing to find an appropriate dose that is sufficient to keep him safe and calm but not sleepy. The 1400 dose of seroquel was held today due to his sleepiness. He was seen by speech pathologist and did attempt to resume oral feeding. The speech pathologist was unable to make the determination if he was safe to swallow due to his paranoia. He was concerned that she was bringing in 3 cups of poison and feeding them to him. He will need to follow-up with speech at [facility] and rehab. He did have a lesion on his right carballo that was initially surrounded by erythema and edema. He was started on Keflex. His CRP was initially elevated came down very nicely over the following days. There was concern on admission that this could represent a DVT, he refused to have ultrasound imaging of his lower extremities. The swelling and erythema has since resolved. He should continue on the Keflex. He has remained calm and appropriate. He will return to routine [facility] and rehab. His care will be taken over by Dr. Santoro [place] Meds and New Rx's Prescriptions: New magnesium oxide 400 mg (241.3 mg magnesium) Tablet 400 mg PO DAILY PRNQty: 1 RF: 0 cephalexin 250 mg/5 mL Suspension For Reconstitution 500 mg NG Q6H 4 Days Qty: 160 RF: 0 Continue albuterol sulfate 2.5 MG/3 ML solution for nebulization 2.5 mg Inhalation Q6H PRN PRNRF: 0 quetiapine 200 MG tablet 100 mg GT HS RF: 0 mineral oil [Fleet Mineral Oil] 133 ML enema 133 ml [place] DAILY PRNRF: 0 bisacodyl 10 MG suppository 10 mg [place] DAILY PRNRF: 0 Mouthwash [Biotene Mouthwash] 59 ML Btl 5 ml PO AC RF: 0 quetiapine 25 MG tablet 75 mg GT BID Qty: 0 RF: 0 acetaminophen [Tylenol] 325 MG tablet 650 mg GT Q4H PRN PRNQty: 0 RF: 0 sennosides-docusate sodium [Senna Plus] 1 EACH tablet 1 ea GT BID PRNQty: 0 RF: 0 divalproex 500 MG tablet,delayed release (DR/EC) 500 mg GT TID Qty: 0 RF: 0 magnesium hydroxide [Milk of Magnesia] 400 MG/5 ML suspension 30 ml GT DAILY Qty: 0 RF: 0 trazodone 100 MG tablet 100 mg GT HS Qty: 0 RF: 0 metoprolol tartrate 50 MG tablet 50 mg GT BID Qty: 0 RF: 0 docusate sodium 100 MG capsule 100 mg GT HS PRNQty: 0 RF: 0 docusate sodium 100 MG capsule 100 mg GT BID Qty: 0 RF: 0 bisacodyl 5 MG tablet,delayed release (DR/EC) 5 mg GT DAILY PRNQty: 0 RF: 0 furosemide 20 MG tablet 20 mg GT BID Qty: 0 RF: 0 ergocalciferol (vitamin D2) [Vitamin D2] 50,000 UNITS capsule 50,000 units GT .FRIDAY Qty: 0 RF: 0 multivitamin with minerals [Multiple Vitamin-Minerals] 1 EACH tablet 1 ea GT DAILY Qty: 0 RF: 0 finasteride [Proscar] 5 MG tablet 5 mg GT DAILY Qty: 0 RF: 0 metformin [Fortamet] 500 MG tablet extended release 24hr 500 mg GT BID Qty: 0 RF: 0 carbidopa-levodopa 1 EACH tablet,disintegrating 2 tab GT QID Qty: 0 RF: 0 Discharge Instructions Activity:: Activity as Tolerated Equipment/Supplies:: No Equipment Needed Diet:: Carb Counting Discharge Orders Discharge Orders: Discharge Order (Routine); Ordered 03/05/18 Ordered By: Mamie Ryan Exam Narrative Exam Narrative: Exam Narrative: General: He is in no acute distress. He has been sleeping most of the day. he awakens easily to verbal stimuli. HEENT: normocephalic, atraumatic. Pupils are equal and round. Respiratory: Respirations are even and unlabored. Lung sounds are diminished throughout. Infrequent congested cough without sputum production, appears to have some difficulty clearing secretions. No rales, rhonchi or wheezing noted. Cardiovascular: Heart has regular rate and rhythm, no murmur appreciated. GI: abdomen soft, nontender, no masses appreciated, normoactive bowel sounds throughout. Peg tube intact, dressing at sight clean dry and intact. Extremities: left carballo with lesion with mild erythema and warmth, erythema appears improved from yesterday. No drainage from the lesion. No significant edema or swelling of calf. Pedal pulses palpable. DS: Data Vitals/I&O Vitals and I&O: Vital Signs Temperature 36.3 C L 03/05/18 07:50 Temperature Source Tympanic 03/05/18 07:50 Pulse 75 03/05/18 07:50 Pulse Rhythm Irregular 03/05/18 11:32 Pulse Strength Normal 03/01/18 16:00 Pulse 110 H 03/01/18 16:34 Respiratory Rate 17 03/05/18 07:50 Respiratory Effort Non-Labored 03/05/18 11:32 Respiratory Depth Normal 03/05/18 11:32 Respiratory Pattern Normal 03/05/18 11:32 Blood Pressure 151/79 H 03/05/18 07:50 Blood Pressure Mean 106 03/01/18 17:45 Blood Pressure Position Supine 03/01/18 16:00 Pulse Oximetry 99 03/05/18 07:50 Oxygen Delivery Method Room Air 03/05/18 07:50 Oxygen Flow Rate 0 03/05/18 07:50 Pain Level 0 03/05/18 07:50 Intake & Output 03/04/18 03/05/18 03/05/18 23:59 11:59 23:59 Intake Total 1200 / 1200 400 / 400 800 / 800 Output Total 120 / 120 Balance 1080 / 1080 395 / 395 785 / 785 Intake: Intake, Tube Feeding Amount 1200 / 1200 400 / 400 800 / 800 Output: Output, Residual 120 / 120 Other: Comment pt has been incontinent x 2 this shift incontinent x 1 of moderate amount, concentrated urine. Voiding Methods Diaper Diaper Incontinent Incontinent Labs on day of discharge: Labs from last 24 hours 03/05/18 07:12 Sodium 137 Potassium 4.0 Chloride 100 Carbon Dioxide 29.3 Anion Gap 7.7 BUN 25 H Creatinine 1.02 Estimated GFR/1.73 m2 >= 60.00 Glucose 92 Calcium 9.8 Magnesium 2.0 C-Reactive Protein 2.60 H 03/04/18 18:15 Nose MRSA Screen - Pending Preliminary micro results at discharge 03/04/18 18:15 MRSA Screen - Pending Nose
--- NOTE | 2018-03-05 14:52 | DSE_ITS ---
Date of service: 03/05/18 Time of Service: 14:48 DS: Diagnosis Discharge Diagnosis (1) Schizoaffective disorder: Status: Chronic (2) Cellulitis of right lower extremity: Status: Suspected (3) Parkinsons disease: Status: Chronic (4) Dysphagia: Status: Chronic (5) Type 2 diabetes mellitus: Status: Chronic (6) Essential hypertension: Status: Chronic Discharge Plan Disposition Patient Disposition: SNF (LEVEL 1) [facility] Condition: Improving Discharge Details Reason For Visit: DELUSION WITH PSYCHOTIC EVENT Admit Date/Time: 03/03/18 19:38 Admit Provider: Hipolito Thakkar Attending Provider: Hipolito Thakkar Primary Care Provider: Puma Johnston Hospital Course Hospital Course: 72-year-old male who is a resident of [facility] who has a history of bipolar disorder, neuroleptic induced parkinsonism, essential hypertension, BPH, dysphagia secondary to parkinsonism, history of PEG tube placement, and peripheral neuropathy who presented to the emergency department with acute behavioral changes. He was brought to the emergency department by [facility] police with the assistance of [facility] ambulance service after he appeared to have had an acute psychotic break. He was noted to have increased delusional thoughts and aggressive behavior at the time of admission. It was reported that he had not been compliant taking his antipsychotic medications and over the week prior and had escalating delusional thoughts. He reportedly took over the dining tapia at the [facility] where he resides, necessitating the staff to call [facility] Police. It was reported at the time of his presentation that the medical care administrator at [facility] has been trying to get him placed in a geriatric psychiatry unit in [facility] but had difficulty related to his having a g-tube. The patient was evaluated and treated in the emergency department with routine labs and treatment of acute delusional behavior and agitation with haldol. He was initially restrained. After taking his usual dose of Seroquel and another dose of Haldol he was able to calm down and was taken out of restraints. He does have residual bruising to his wrists bilaterally from the restraints. After initial medical evaluation including routine labs of CBC, CMP and UA and not finding any acute medical issues, Robina Quiñonez, ED RADIOLOGICAL HEALTH SPECIALIST spoke w/ the medical care administrator from [facility], Dr. D.,and indicated that there was no acute medical issues to admit the patient; however, Dr. Santoor reportedly indicated that she did not feel it appropriate or safe for the patient to return to [facility]. At that time he was admitted to the Med/surg floor. He initially had a 1:1 patient observer for his safety. On 03/03/18, he agreed to take his medications and accept tube feedings. He was actually taking a significantly lower amount of Seroquel here at the hospital than he was prescribed at [facility]. He was initially taking Seroquel 75 mg BID (8a & 8p) and 100 mg at HS via his g-tube, of the short acting variety. He did very well on this dose. I had the opportunity to talk to Dr. Spain, medical care administrator at [facility] on 03/04/18. We discussed the Seroquel dose here versus a Seroquel dose at [facility]. Dr. Spain requested that we increase his Seroquel to get the dose closer to what his typical dose is at the rehab. Given that he was doing well on the lower dose we decided to increase his at bedtime dose from 100 mg to 200 mg (note that he typically takes 300 mg at at bedtime at the [facility]) and his a.m. dose from 75 mg to 100 mg (notes that he typically takes 100 mg of the long-acting variety at the [facility]). We were unable to provide him with the long acting Seroquel as the tablets could not be crushed. During my conversation with Dr. Spain, we considered the fact that he may be more sleepy with this higher dose of Seroquel. Dr. Spain was willing to take that risk. She verbalized that she would be able to decrease his dose as needed in conjunction with his psychiatric nurse practitioner that follows him. Mr. Kurtz is in fact sleepy today. I would encourage the correction facility to review his Seroquel dosing to find an appropriate dose that is sufficient to keep him safe and calm but not sleepy. The 1400 dose of seroquel was held today due to his sleepiness. He was seen by speech pathologist and did attempt to resume oral feeding. The speech pathologist was unable to make the determination if he was safe to swallow due to his paranoia. He was concerned that she was bringing in 3 cups of poison and feeding them to him. He will need to follow-up with speech at [facility] and rehab. He did have a lesion on his right carballo that was initially surrounded by erythema and edema. He was started on Keflex. His CRP was initially elevated came down very nicely over the following days. There was concern on admission that this could represent a DVT, he refused to have ultrasound imaging of his lower extremities. The swelling and erythema has since resolved. He should continue on the Keflex. He has remained calm and appropriate. He will return to routine [facility] and rehab. His care will be taken over by Dr. Santoro [place] Meds and New Rx's Prescriptions: New magnesium oxide 400 mg (241.3 mg magnesium) Tablet 400 mg PO DAILY PRNQty: 1 RF: 0 cephalexin 250 mg/5 mL Suspension For Reconstitution 500 mg NG Q6H 4 Days Qty: 160 RF: 0 Continue albuterol sulfate 2.5 MG/3 ML solution for nebulization 2.5 mg Inhalation Q6H PRN PRNRF: 0 quetiapine 200 MG tablet 100 mg GT HS RF: 0 mineral oil [Fleet Mineral Oil] 133 ML enema 133 ml [place] DAILY PRNRF: 0 bisacodyl 10 MG suppository 10 mg [place] DAILY PRNRF: 0 Mouthwash [Biotene Mouthwash] 59 ML Btl 5 ml PO AC RF: 0 quetiapine 25 MG tablet 75 mg GT BID Qty: 0 RF: 0 acetaminophen [Tylenol] 325 MG tablet 650 mg GT Q4H PRN PRNQty: 0 RF: 0 sennosides-docusate sodium [Senna Plus] 1 EACH tablet 1 ea GT BID PRNQty: 0 RF: 0 divalproex 500 MG tablet,delayed release (DR/EC) 500 mg GT TID Qty: 0 RF: 0 magnesium hydroxide [Milk of Magnesia] 400 MG/5 ML suspension 30 ml GT DAILY Qty: 0 RF: 0 trazodone 100 MG tablet 100 mg GT HS Qty: 0 RF: 0 metoprolol tartrate 50 MG tablet 50 mg GT BID Qty: 0 RF: 0 docusate sodium 100 MG capsule 100 mg GT HS PRNQty: 0 RF: 0 docusate sodium 100 MG capsule 100 mg GT BID Qty: 0 RF: 0 bisacodyl 5 MG tablet,delayed release (DR/EC) 5 mg GT DAILY PRNQty: 0 RF: 0 furosemide 20 MG tablet 20 mg GT BID Qty: 0 RF: 0 ergocalciferol (vitamin D2) [Vitamin D2] 50,000 UNITS capsule 50,000 units GT .FRIDAY Qty: 0 RF: 0 multivitamin with minerals [Multiple Vitamin-Minerals] 1 EACH tablet 1 ea GT DAILY Qty: 0 RF: 0 finasteride [Proscar] 5 MG tablet 5 mg GT DAILY Qty: 0 RF: 0 metformin [Fortamet] 500 MG tablet extended release 24hr 500 mg GT BID Qty: 0 RF: 0 carbidopa-levodopa 1 EACH tablet,disintegrating 2 tab GT QID Qty: 0 RF: 0 Discharge Instructions Activity:: Activity as Tolerated Equipment/Supplies:: No Equipment Needed Diet:: Carb Counting Discharge Orders Discharge Orders: Discharge Order (Routine); Ordered 03/05/18 Ordered By: Mamie Ryan Exam Narrative Exam Narrative: Exam Narrative: General: He is in no acute distress. He has been sleeping most of the day. he awakens easily to verbal stimuli. HEENT: normocephalic, atraumatic. Pupils are equal and round. Respiratory: Respirations are even and unlabored. Lung sounds are diminished throughout. Infrequent congested cough without sputum production, appears to have some difficulty clearing secretions. No rales, rhonchi or wheezing noted. Cardiovascular: Heart has regular rate and rhythm, no murmur appreciated. GI: abdomen soft, nontender, no masses appreciated, normoactive bowel sounds throughout. Peg tube intact, dressing at sight clean dry and intact. Extremities: left carballo with lesion with mild erythema and warmth, erythema appears improved from yesterday. No drainage from the lesion. No significant edema or swelling of calf. Pedal pulses palpable. DS: Data Vitals/I&O Vitals and I&O: Vital Signs Temperature 36.3 C L 03/05/18 07:50 Temperature Source Tympanic 03/05/18 07:50 Pulse 75 03/05/18 07:50 Pulse Rhythm Irregular 03/05/18 11:32 Pulse Strength Normal 03/01/18 16:00 Pulse 110 H 03/01/18 16:34 Respiratory Rate 17 03/05/18 07:50 Respiratory Effort Non-Labored 03/05/18 11:32 Respiratory Depth Normal 03/05/18 11:32 Respiratory Pattern Normal 03/05/18 11:32 Blood Pressure 151/79 H 03/05/18 07:50 Blood Pressure Mean 106 03/01/18 17:45 Blood Pressure Position Supine 03/01/18 16:00 Pulse Oximetry 99 03/05/18 07:50 Oxygen Delivery Method Room Air 03/05/18 07:50 Oxygen Flow Rate 0 03/05/18 07:50 Pain Level 0 03/05/18 07:50 Intake & Output 03/04/18 03/05/18 03/05/18 23:59 11:59 23:59 Intake Total 1200 / 1200 400 / 400 800 / 800 Output Total 120 / 120 Balance 1080 / 1080 395 / 395 785 / 785 Intake: Intake, Tube Feeding Amount 1200 / 1200 400 / 400 800 / 800 Output: Output, Residual 120 / 120 Other: Comment pt has been incontinent x 2 this shift incontinent x 1 of moderate amount, concentrated urine. Voiding Methods Diaper Diaper Incontinent Incontinent Labs on day of discharge: Labs from last 24 hours 03/05/18 07:12 Sodium 137 Potassium 4.0 Chloride 100 Carbon Dioxide 29.3 Anion Gap 7.7 BUN 25 H Creatinine 1.02 Estimated GFR/1.73 m2 >= 60.00 Glucose 92 Calcium 9.8 Magnesium 2.0 C-Reactive Protein 2.60 H 03/04/18 18:15 Nose MRSA Screen - Pending Preliminary micro results at discharge 03/04/18 18:15 MRSA Screen - Pending Nose
--- NOTE | 2018-03-05 14:53 | INITIAL_ITS ---
- If Service Date Differs Date of service: 03/05/18 Time of Service: 14:28 Care Management Initial Assess REASON FOR HOSPITALIZATION:: Delusion admitted for stablization. PAST MEDICAL HISTORY/PAST SURGICAL HISTORY:: DM type 2, dysphagia, schizophrenia , bipolar disorder, parkinsons, disease, schizoaffective disorder, peripheral axonal neuropathy, tardive dyskinesia, PEG tube. PREVIOUS FUNCTIONAL STATUS/SOCIAL/FAMILY SUPPORTS:: Benton is a [facility] at [facility]. Support person is daughter Liz Cid who is also his DPOA CURRENT FUNCTIONAL STATUS:: Benton is calm and appropiate at this time when CM into visit. Primary nurse reports that he has been cooperative able to tolerate his medicaitons today via peg tube. ADVANCE DIRECTIVES:: Guardian, DPOA Liz Rodrigues Has patient been provided with information about the portal?: No Did the patient sign up for the portal?: No CODE STATUS:: DNR/DNI INSURANCE COVERAGE / FINANCIAL ISSUES:: Medicare and Medicaid CURRENT HOME/COMMUNITY SERVICES/EQUIPMENT:: Benton is a resident of [facility] for LTC. He has a wheelchair and receives total assistance from [facility] to meet his ADL's and needs. PRIMARY CARE PHYSICIAN:: at [facility] POTENTIAL DISCHARGE NEEDS:: Return to [facility]. PATIENT/FAMILY EDUCATION NEEDS:: Discharge education and follow up plan of care to [facility]. ANTICIPATED BARRIERS TO DISCHARGE:: Barriers identified to discharge include SNF willingness to allow the patient to return to his place of residence. CM coordianted return of patient with admissions and Debora Torres. TRANSPORTATION:: [place] vs van PLAN:: Benton will be [facility]. He is medically ready for return per provider. He has been appropiate and had stabilized per provider.
--- NOTE | 2018-03-05 14:59 | CMDISCH_ITS ---
- If Service Date Differs Date of service: 03/05/18 Time of Service: 14:54 LACE Index Scoring Tool - Questions: Length of Stay (in days): 4 - 6 Acuity (Admit via E.D.?): Yes Comorbidities: Diabetes w/o Complication, Dementia E.D. Visits: 4 - Answers: Total Score: 16 Risk of Readmission: High Risk Care Management Discharge Reason for Hospitalization: Delusion admitted for stablization. Discharge Plan: Benton is being [facility] to [facility] is [facility], Benton will be discharged via ambulance vs w/c van coordinated by [facility], CM waiting notificaiton. CCRN, and Medical provider notified of plan to dischange pt will transfer at 1530. Patient/Family Education Needs: Discharge education to [facility]. Services Needed at Discharge: Jail Facility
== END 2018-03-05 15:31 | disposition skilled nursing facility (03) | DRG 885 ==
LOC: ER 22:15 → MS 22:26
PROVIDERS: Admitting Provider Internal Medicine; Emergency Provider Nurse Practitioner Family; PCP Family Medicine; Visit Provider Internal Medicine
DX: F23 Brief psychotic disorder (principal); L03.115 Cellulitis of right lower limb; G21.11 Neuroleptic induced parkinsonism; F22 Delusional disorders; R45.1 Restlessness and agitation; F25.8 Other schizoaffective disorders; Z78.1 Physical restraint status; S60.212A Contusion of left wrist, initial encounter; S60.211A Contusion of right wrist, initial encounter; Y84.8 Other medical procedures as the cause of abnormal reaction of the patient, or of later complication, without mention of misadventure at the time of the procedure; Y92.239 Unspecified place in hospital as the place of occurrence of the external cause; Z93.1 Gastrostomy status; Z79.84 Long term (current) use of oral hypoglycemic drugs; I10 Essential (primary) hypertension; F31.9 Bipolar disorder, unspecified; R13.10 Dysphagia, unspecified; N40.0 Benign prostatic hyperplasia without lower urinary tract symptoms; E11.42 Type 2 diabetes mellitus with diabetic polyneuropathy; Z22.322 Carrier or suspected carrier of Methicillin resistant Staphylococcus aureus; Z66 Do not resuscitate
CPT/HCPCS: 36415; 80048; 80053; 85652; 87081; 92610; 96372; 99220; 99232; 99233; 99239; 99285; G8996; J1650; 81003; 82330; 83735; 84443; 85025; 85049; 86140; 99226; 99284; G0378; J1630; J3490

== ENCOUNTER 2018-03-06 09:47 | Emergency (ER) | payer MEDICARE, MEDICAID, SELFPAY ==
[2018-03-06 09:52] VITALS: BP 169/97; PULSE 93; RESP 18; TEMP 36.6; O2SAT 97
--- NOTE | 2018-03-06 09:55 | NUR.NOTE ---
Pt. is verbally aggressive, does permit vital signs. Swearing frequently, answers doctors questions inappropriately You tell me, cock suckers. Pt. does follow intermittent commands, moves all extremities. swelling noted to b/l hands and feet, right foot is more edematous than left.
--- NOTE | 2018-03-06 10:01 | NUR.NOTE ---
Pt. continues to be verbally aggressive with this RN and MD Hendricks, pt. offered pills through his GT, this RN and MD Hendricks attempted to reassure patient. Shut the fuck up. Pt. educated on importance of safety and plan for IM medication for his safety.
[2018-03-06] MEDS: LORazepam 2 MG/ML VIAL IM (10:14)
--- NOTE | 2018-03-06 10:16 | NUR.NOTE ---
Pt. tolerated IM Ativan, plan to adminster IM haldol and Benadryl through GT tube only if needed for patient and staff safety.
--- NOTE | 2018-03-06 10:26 | NUR.NOTE ---
pt. is alert, calm, RR WNL.
[2018-03-06 12:18] VITALS: BP 176/79; PULSE 79; O2SAT 97
--- NOTE | 2018-03-06 12:39 | W.ED.GENAD ---
Discharge Plan Disposition Patient Disposition: HOME Condition: Improving Discharge Details Chief Complaint: AMS/LOC Clinical Impression: Schizoaffective disorder, Agitated Reason For Visit: DANIEL Primary Care Provider: Puma Johnston ED Provider: Wolf Hendricks Home Meds and New Rx's Prescriptions: No Action albuterol sulfate 2.5 MG/3 ML solution for nebulization 2.5 mg Inhalation Q6H PRN PRNRF: 0 quetiapine 200 MG tablet 100 mg GT HS RF: 0 magnesium oxide 400 mg (241.3 mg magnesium) Tablet 400 mg PO DAILY PRNQty: 1 RF: 0 mineral oil [Fleet Mineral Oil] 133 ML enema 133 ml MT DAILY PRNRF: 0 bisacodyl 10 MG suppository 10 mg MT DAILY PRNRF: 0 Mouthwash [Biotene Mouthwash] 59 ML Btl 5 ml PO AC RF: 0 quetiapine 25 MG tablet 75 mg GT BID Qty: 0 RF: 0 acetaminophen [Tylenol] 325 MG tablet 650 mg GT Q4H PRN PRNQty: 0 RF: 0 sennosides-docusate sodium [Senna Plus] 1 EACH tablet 1 ea GT BID PRNQty: 0 RF: 0 divalproex 500 MG tablet,delayed release (DR/EC) 500 mg GT TID Qty: 0 RF: 0 magnesium hydroxide [Milk of Magnesia] 400 MG/5 ML suspension 30 ml GT DAILY Qty: 0 RF: 0 trazodone 100 MG tablet 100 mg GT HS Qty: 0 RF: 0 metoprolol tartrate 50 MG tablet 50 mg GT BID Qty: 0 RF: 0 docusate sodium 100 MG capsule 100 mg GT HS PRNQty: 0 RF: 0 docusate sodium 100 MG capsule 100 mg GT BID Qty: 0 RF: 0 bisacodyl 5 MG tablet,delayed release (DR/EC) 5 mg GT DAILY PRNQty: 0 RF: 0 furosemide 20 MG tablet 20 mg GT BID Qty: 0 RF: 0 ergocalciferol (vitamin D2) [Vitamin D2] 50,000 UNITS capsule 50,000 units GT .FRIDAY Qty: 0 RF: 0 multivitamin with minerals [Multiple Vitamin-Minerals] 1 EACH tablet 1 ea GT DAILY Qty: 0 RF: 0 finasteride [Proscar] 5 MG tablet 5 mg GT DAILY Qty: 0 RF: 0 metformin [Fortamet] 500 MG tablet extended release 24hr 500 mg GT BID Qty: 0 RF: 0 carbidopa-levodopa 1 EACH tablet,disintegrating 2 tab GT QID Qty: 0 RF: 0 Discharge Instructions Additional Instructions: Please continue to take medication as prescribed. Please follow-up with your doctor at the nursing rehab facility. Return to the ER for any worsening or new concerning symptoms. Discharge Data Discharge Date/Time-TO BE ENTERED AT DEPARTURE: 03/06/18 15:55 Medical Decision Making 11:00 -- 72yo m with schizoaffective disorder, parkinsons, dm, htn, cellulitis RLE, here with agitation. Aggressive and verbally abusive to staff. Patient lacks capacity and demanding to leave. He is attempting to get out of bed and I am worried that he is going to hurt himself. Offered his prescribed risperidal and ativan and patient refusing. Symptoms are a result of schizoaffective disorder and medication noncompliance. Will give ativan 2mg IM for anxiolysis. 12:45 -- Patient now stable and asleep after anxiolytic. Spoke with [facility] Dr. Spain who notes that patient cannot be accepted back at [facility]. Spoke with Hospitalist to admit patient. Awaiting return call. 15:00 -- Care management involved in placement. Patient to be transferred back to [facility]. Dr. Spain will accept transfer. HPI General Mode of arrival: ambulatory. Date/Time Provider Initiated Documentation: 03/06/18 09:55. Limitations to Documentation: altered mental status. Information obtained by: patient. HPI Narrative: 72yo m with schizoaffective disorder, parkinsons dementia, dm, htn, cellulitis RLE, here with agitation. Aggressive toward staff at [facility]. History limited secondary to altered mentation and not willing to participate. Related Data Home Medications Medication Instructions Recorded Confirmed albuterol sulfate 2.5 mg INHALATION Q6H PRN PRN 05/20/16 03/01/18 Mouthwash [Biotene Mouthwash] 5 ml PO AC 12/10/17 03/01/18 bisacodyl 10 mg MT DAILY PRN 12/10/17 03/01/18 mineral oil [Fleet Mineral Oil] 133 ml MT DAILY PRN 0803/01/18 acetaminophen [Tylenol] 650 mg GT Q4H PRN PRN #0 12/19/17 03/01/18 bisacodyl 5 mg GT DAILY PRN #0 12/19/17 03/01/18 carbidopa-levodopa 2 tab GT QID #0 12/19/17 03/01/18 divalproex 500 mg GT TID #0 12/19/17 03/01/18 docusate sodium 100 mg GT BID #0 12/19/17 03/01/18 docusate sodium 100 mg GT HS PRN #0 12/19/17 03/01/18 ergocalciferol (vitamin D2) 50,000 units GT .FRIDAY #0 12/19/17 03/01/18 [Vitamin D2] finasteride [Proscar] 5 mg GT DAILY #0 12/19/17 03/01/18 furosemide 20 mg GT BID #0 12/19/17 03/01/18 magnesium hydroxide [Milk of 30 ml GT DAILY #0 12/19/17 03/01/18 Magnesia] metformin [Fortamet] 500 mg GT BID #0 12/19/17 03/01/18 metoprolol tartrate 50 mg GT BID #0 12/19/17 03/01/18 multivitamin with minerals 1 ea GT DAILY #0 12/19/17 03/01/18 [Multiple Vitamin-Minerals] quetiapine 75 mg GT BID #0 12/19/17 03/01/18 sennosides-docusate sodium [Senna 1 ea GT BID PRN #0 12/19/17 03/01/18 Plus] trazodone 100 mg GT HS #0 12/19/17 03/01/18 quetiapine 100 mg GT HS 03/01/18 03/01/18 magnesium oxide 400 mg PO DAILY PRN #1 tab 03/05/18 Previous Rx's Medication Instructions Recorded acetaminophen [Tylenol] 650 mg GT Q4H PRN PRN #0 12/19/17 bisacodyl 5 mg GT DAILY PRN #0 12/19/17 carbidopa-levodopa 2 tab GT QID #0 12/19/17 divalproex 500 mg GT TID #0 12/19/17 docusate sodium 100 mg GT BID #0 12/19/17 docusate sodium 100 mg GT HS PRN #0 12/19/17 ergocalciferol (vitamin D2) 50,000 units GT .FRIDAY #0 12/19/17 [Vitamin D2] finasteride [Proscar] 5 mg GT DAILY #0 12/19/17 furosemide 20 mg GT BID #0 12/19/17 magnesium hydroxide [Milk of 30 ml GT DAILY #0 12/19/17 Magnesia] metformin [Fortamet] 500 mg GT BID #0 12/19/17 metoprolol tartrate 50 mg GT BID #0 12/19/17 multivitamin with minerals 1 ea GT DAILY #0 12/19/17 [Multiple Vitamin-Minerals] quetiapine 75 mg GT BID #0 12/19/17 sennosides-docusate sodium [Senna 1 ea GT BID PRN #0 12/19/17 Plus] trazodone 100 mg GT HS #0 12/19/17 magnesium oxide 400 mg PO DAILY PRN #1 tab 03/05/18 Allergies Allergy/AdvReac Type Severity Reaction Status Date / Time No Known Allergies Allergy Unverified 03/01/18 11:00 General Stated Complaint: AMS/LOC MERRY: 3 Review of Systems Review of Systems patient not willing to participate [facility] Medical History Dysphagia (Chronic) Type 2 diabetes mellitus (Chronic) Peripheral axonal neuropathy (Chronic) BPH (benign prostatic hyperplasia) (Chronic) Essential hypertension (Chronic) Neuroleptic induced Parkinsonism (Chronic) Schizophrenia (Chronic) Bipolar disorder (Chronic) Schizoaffective disorder (Chronic) Parkinsons disease (Chronic) Tardive dyskinesia (Chronic) Social History Smoking/Tobacco Use Status: Never Surgical History History of percutaneous endoscopic gastrostomy (Chronic) Exam Const General: combative Orientation: alert and awake Limitations: behavioral limitations HENMT Head: normocephalic and atraumatic Mouth: moist mucous membranes Eyes Conjunctivae: normal conjunctivae Sclera: normal sclerae Resp Auscultation: clear to auscultation bilaterally, no rales, no rhonchi and no wheezes Cardio Jugular venous pressure: no JVD Rate: regular rate and not tachycardic Rhythm: regular rhythm Skin General skin exam: no rashes or lesions noted Neuro General: alert and awake Speech: speech normal Extrem General: no edema Psych Affect: labile affect, hostile and irritable affect Attitude: not cooperative Insight: limited Course Vital Signs Temperature 36.6 C 03/06/18 09:52 Pulse 93 H 03/06/18 09:52 Respiratory Rate 18 03/06/18 09:52 Blood Pressure 169/97 H 03/06/18 09:52 Pulse Oximetry 97 03/06/18 09:52 Temperature 36.6 C 03/06/18 09:52 Temperature Source Temporal Artery Scan 03/06/18 09:52 Pulse 79 03/06/18 12:18 Respiratory Rate 18 03/06/18 09:52 Blood Pressure 176/79 H 03/06/18 12:18 Pulse Oximetry 97 03/06/18 12:18 Oxygen Delivery Method Room Air 03/06/18 12:18 Oxygen Flow Rate 0 03/06/18 12:18 Pain Level 0 03/06/18 09:52
--- NOTE | 2018-03-06 12:40 | NUR.NOTE ---
Pt. moved to [facility], continuous 02 monitoring continues.:
--- NOTE | 2018-03-06 12:48 | ED.GENADUL_ITS ---
Discharge Plan Disposition Patient Disposition: HOME Condition: Improving Discharge Details Chief Complaint: AMS/LOC Clinical Impression: Schizoaffective disorder, Agitated Reason For Visit: DANIEL Primary Care Provider: Puma Johnston ED Provider: Wolf Hendricks Home Meds and New Rx's Prescriptions: No Action albuterol sulfate 2.5 MG/3 ML solution for nebulization 2.5 mg Inhalation Q6H PRN PRNRF: 0 quetiapine 200 MG tablet 100 mg GT HS RF: 0 magnesium oxide 400 mg (241.3 mg magnesium) Tablet 400 mg PO DAILY PRNQty: 1 RF: 0 mineral oil [Fleet Mineral Oil] 133 ML enema 133 ml [place] DAILY PRNRF: 0 bisacodyl 10 MG suppository 10 mg [place] DAILY PRNRF: 0 Mouthwash [Biotene Mouthwash] 59 ML Btl 5 ml PO AC RF: 0 quetiapine 25 MG tablet 75 mg GT BID Qty: 0 RF: 0 acetaminophen [Tylenol] 325 MG tablet 650 mg GT Q4H PRN PRNQty: 0 RF: 0 sennosides-docusate sodium [Senna Plus] 1 EACH tablet 1 ea GT BID PRNQty: 0 RF: 0 divalproex 500 MG tablet,delayed release (DR/EC) 500 mg GT TID Qty: 0 RF: 0 magnesium hydroxide [Milk of Magnesia] 400 MG/5 ML suspension 30 ml GT DAILY Qty: 0 RF: 0 trazodone 100 MG tablet 100 mg GT HS Qty: 0 RF: 0 metoprolol tartrate 50 MG tablet 50 mg GT BID Qty: 0 RF: 0 docusate sodium 100 MG capsule 100 mg GT HS PRNQty: 0 RF: 0 docusate sodium 100 MG capsule 100 mg GT BID Qty: 0 RF: 0 bisacodyl 5 MG tablet,delayed release (DR/EC) 5 mg GT DAILY PRNQty: 0 RF: 0 furosemide 20 MG tablet 20 mg GT BID Qty: 0 RF: 0 ergocalciferol (vitamin D2) [Vitamin D2] 50,000 UNITS capsule 50,000 units GT .FRIDAY Qty: 0 RF: 0 multivitamin with minerals [Multiple Vitamin-Minerals] 1 EACH tablet 1 ea GT DAILY Qty: 0 RF: 0 finasteride [Proscar] 5 MG tablet 5 mg GT DAILY Qty: 0 RF: 0 metformin [Fortamet] 500 MG tablet extended release 24hr 500 mg GT BID Qty: 0 RF: 0 carbidopa-levodopa 1 EACH tablet,disintegrating 2 tab GT QID Qty: 0 RF: 0 Discharge Instructions Additional Instructions: Please continue to take medication as prescribed. Please follow-up with your doctor at the nursing rehab facility. Return to the ER for any worsening or new concerning symptoms. Discharge Data Discharge Date/Time-TO BE ENTERED AT DEPARTURE: 03/06/18 15:55 Medical Decision Making 11:00 -- 72yo m with schizoaffective disorder, parkinsons, dm, htn, cellulitis RLE, here with agitation. Aggressive and verbally abusive to staff. Patient lacks capacity and demanding to leave. He is attempting to get out of bed and I am worried that he is going to hurt himself. Offered his prescribed risperidal and ativan and patient refusing. Symptoms are a result of schizoaffective disorder and medication noncompliance. Will give ativan 2mg IM for anxiolysis. 12:45 -- Patient now stable and asleep after anxiolytic. Spoke with correction Dr. Spain who notes that patient cannot be accepted back at [facility]. Spoke with Hospitalist to admit patient. Awaiting return call. 15:00 -- Care management involved in placement. Patient to be transferred back to [facility]. Dr. Spain will accept transfer. HPI General Mode of arrival: ambulatory . Date/Time Provider Initiated Documentation: 03/06/18 09:55 . Limitations to Documentation: altered mental status . Information obtained by: patient . HPI Narrative: 72yo m with schizoaffective disorder, parkinsons dementia, dm, htn, cellulitis RLE, here with agitation. Aggressive toward staff at correction. History limited secondary to altered mentation and not willing to participate. Related Data Home Medications Medication Instructions Recorded Confirmed albuterol sulfate 2.5 mg INHALATION Q6H PRN PRN 05/20/16 03/01/18 Mouthwash [Biotene Mouthwash] 5 ml PO AC 12/10/17 03/01/18 bisacodyl 10 mg [place] DAILY PRN 12/10/17 03/01/18 mineral oil [Fleet Mineral Oil] 133 ml AZ DAILY PRN 0803/01/18 acetaminophen [Tylenol] 650 mg GT Q4H PRN PRN #0 12/19/17 03/01/18 bisacodyl 5 mg GT DAILY PRN #0 12/19/17 03/01/18 carbidopa-levodopa 2 tab GT QID #0 12/19/17 03/01/18 divalproex 500 mg GT TID #0 12/19/17 03/01/18 docusate sodium 100 mg GT BID #0 12/19/17 03/01/18 docusate sodium 100 mg GT HS PRN #0 12/19/17 03/01/18 ergocalciferol (vitamin D2) 50,000 units GT .FRIDAY #0 12/19/17 03/01/18 [Vitamin D2] finasteride [Proscar] 5 mg GT DAILY #0 12/19/17 03/01/18 furosemide 20 mg GT BID #0 12/19/17 03/01/18 magnesium hydroxide [Milk of 30 ml GT DAILY #0 12/19/17 03/01/18 Magnesia] metformin [Fortamet] 500 mg GT BID #0 12/19/17 03/01/18 metoprolol tartrate 50 mg GT BID #0 12/19/17 03/01/18 multivitamin with minerals 1 ea GT DAILY #0 12/19/17 03/01/18 [Multiple Vitamin-Minerals] quetiapine 75 mg GT BID #0 12/19/17 03/01/18 sennosides-docusate sodium [Senna 1 ea GT BID PRN #0 12/19/17 03/01/18 Plus] trazodone 100 mg GT HS #0 12/19/17 03/01/18 quetiapine 100 mg GT HS 03/01/18 03/01/18 magnesium oxide 400 mg PO DAILY PRN #1 tab 03/05/18 Previous Rx's Medication Instructions Recorded acetaminophen [Tylenol] 650 mg GT Q4H PRN PRN #0 12/19/17 bisacodyl 5 mg GT DAILY PRN #0 12/19/17 carbidopa-levodopa 2 tab GT QID #0 12/19/17 divalproex 500 mg GT TID #0 12/19/17 docusate sodium 100 mg GT BID #0 12/19/17 docusate sodium 100 mg GT HS PRN #0 12/19/17 ergocalciferol (vitamin D2) 50,000 units GT .FRIDAY #0 12/19/17 [Vitamin D2] finasteride [Proscar] 5 mg GT DAILY #0 12/19/17 furosemide 20 mg GT BID #0 12/19/17 magnesium hydroxide [Milk of 30 ml GT DAILY #0 12/19/17 Magnesia] metformin [Fortamet] 500 mg GT BID #0 12/19/17 metoprolol tartrate 50 mg GT BID #0 12/19/17 multivitamin with minerals 1 ea GT DAILY #0 12/19/17 [Multiple Vitamin-Minerals] quetiapine 75 mg GT BID #0 12/19/17 sennosides-docusate sodium [Senna 1 ea GT BID PRN #0 12/19/17 Plus] trazodone 100 mg GT HS #0 12/19/17 magnesium oxide 400 mg PO DAILY PRN #1 tab 03/05/18 Allergies Allergy/AdvReac Type Severity Reaction Status Date / Time No Known Allergies Allergy Unverified 03/01/18 11:00 General Stated Complaint: AMS/LOC MERRY: 3 Review of Systems Review of Systems patient not willing to participate [facility] Medical History Dysphagia (Chronic) Type 2 diabetes mellitus (Chronic) Peripheral axonal neuropathy (Chronic) BPH (benign prostatic hyperplasia) (Chronic) Essential hypertension (Chronic) Neuroleptic induced Parkinsonism (Chronic) Schizophrenia (Chronic) Bipolar disorder (Chronic) Schizoaffective disorder (Chronic) Parkinsons disease (Chronic) Tardive dyskinesia (Chronic) Social History Smoking/Tobacco Use Status: Never Surgical History History of percutaneous endoscopic gastrostomy (Chronic) Exam Const General: combative Orientation: alert and awake Limitations: behavioral limitations HENMT Head: normocephalic and atraumatic Mouth: moist mucous membranes Eyes Conjunctivae: normal conjunctivae Sclera: normal sclerae Resp Auscultation: clear to auscultation bilaterally, no rales, no rhonchi and no wheezes Cardio Jugular venous pressure: no JVD Rate: regular rate and not tachycardic Rhythm: regular rhythm Skin General skin exam: no rashes or lesions noted Neuro General: alert and awake Speech: speech normal Extrem General: no edema Psych Affect: labile affect, hostile and irritable affect Attitude: not cooperative Insight: limited Course Vital Signs Temperature 36.6 C 03/06/18 09:52 Pulse 93 H 03/06/18 09:52 Respiratory Rate 18 03/06/18 09:52 Blood Pressure 169/97 H 03/06/18 09:52 Pulse Oximetry 97 03/06/18 09:52 Temperature 36.6 C 03/06/18 09:52 Temperature Source Temporal Artery Scan 03/06/18 09:52 Pulse 79 03/06/18 12:18 Respiratory Rate 18 03/06/18 09:52 Blood Pressure 176/79 H 03/06/18 12:18 Pulse Oximetry 97 03/06/18 12:18 Oxygen Delivery Method Room Air 03/06/18 12:18 Oxygen Flow Rate 0 03/06/18 12:18 Pain Level 0 03/06/18 09:52
--- NOTE | 2018-03-06 14:58 | PDOC.ERCMPRO ---
Care Management Progress Note 03/06-Benton is a 72 year old male that was brought to the emergency department via [facility] for aggressive behaviors. Dr. Santoro had spoken with Dr. Shiva Hendricks, ED Provider, and stated that [facility] would not take patient back. Dr. Hendricks has medically cleared the patient for discharge. Many phone calls today to Nani and Dr. Spain at [facility]. They both are adamant that they will not take him back. Harriet Martin is here and has sat in on many of the phone calls including ones with Cherie [facility] Supervisor [place], and Sis Canales with department of licensing and protection. Sis Canales called back and stated that [facility] was sending letter of emergent discharge from their facility. Sis Canales stated that she now has to go thru the legal channels, regulatory pathway and cite them for deficiencies. She can not force them to take Benton back. Called [facility] and spoke with Torsten in ED. At this point, we will have to find a bed for Benton. While writing this note, Nani from [facility] called back and stated that she they would take Benton back. Notified nursing supervisor mail carriers Cherie Anaya certified orthotist practice manager, providers, and nursing that patient was returning to [facility]. Notified Debora Larios that that [facility] agreed to take Benton back.
--- NOTE | 2018-03-06 15:31 | CMPROGNOTE_ITS ---
Care Management Progress Note 03/06-Benton is a 72 year old male that was brought to the emergency department via [facility] for aggressive behaviors. Dr. Santoro had spoken with Dr. Shiva Hendricks, ED Provider, and stated that [facility] would not take patient back. Dr. Hendricks has medically cleared the patient for discharge. Many phone calls today to Nani and Dr. Spain at [facility]. They both are adamant that they will not take him back. Harriet Martin is here and has sat in on many of the phone calls including ones with Cherie [facility] Applied Technologist, and Sis Canales with department of licensing and protection. Sis Canales called back and stated that [facility] was sending letter of emergent discharge from their facility. Sis Canales stated that she now has to go thru the legal channels, regulatory pathway and cite them for deficiencies. She can not force them to take Benton back. Called [facility] and spoke with Torsten in ED. At this point, we will have to find a bed for Benton. While writing this note, Nani from [facility] called back and stated that she they would take Benton back. Notified nursing supervisory historian Cherie Anaya senior technical manager, providers, and nursing that patient was returning to [facility]. Notified Debora Larios that that [facility] agreed to take Benton back.
[2018-03-06 15:37] VITALS: BP 150/83; PULSE 83; TEMP 36.5; O2SAT 97
[2018-03-06] MEDS: QUEtiapine 50 MG TAB 100 MG PO (15:39)
--- NOTE | 2018-03-06 15:43 | NUR.NOTE ---
seroquel crushed and administered through [employer] T[employer] as ordered.
--- NOTE | 2018-03-06 16:00 | NUR.NOTE ---
Pt. is discharged back to [facility] in [place], sleeping, easily aroused. Report given to MD at facility. Pt. discharged in ambulance.
== END 2018-03-06 15:55 | disposition home or self-care (01) ==
PROVIDERS: Emergency Provider Student in an Organized Health Care Education/Training Program; PCP Family Medicine
DX: F25.9 Schizoaffective disorder, unspecified (principal); R45.1 Restlessness and agitation; G20 Parkinson's disease; I10 Essential (primary) hypertension; E11.9 Type 2 diabetes mellitus without complications; Z79.84 Long term (current) use of oral hypoglycemic drugs
CPT/HCPCS: 96372; 99284; J2060

== ENCOUNTER 2018-04-09 06:19 | Emergency (ER) | payer MEDICARE, MEDICAID, SELFPAY ==
[2018-04-09] VITALS (35 sets, daily range): BP systolic 91–124; BP diastolic 52–79; PULSE 70–92; RESP 15–28; TEMP 36.5–36.6; O2SAT 90–99
--- NOTE | 2018-04-09 07:12 | DI.RAD_ITS ---
SYMPTOM/DIAGNOSIS: COUGH AP CHEST: Comparison is made with 25 Mar 2018. There are worsening densities in the right lower lobe compared with the previous exam. A small right pleural effusion is also present. There may be a tiny left pleural effusion. The heart size is normal. The aorta is tortuous. IMPRESSION: Increasing densities at the right lung base consistent with worsening of the previously noted pneumonia.
--- NOTE | 2018-04-09 07:12 | DI.RAD_ITS ---
SYMPTOM/DIAGNOSIS: PAIN, S/P FALL LEFT ELBOW: No fracture or dislocation is seen. No joint effusion is identified. There are mild degenerative changes. IMPRESSION: Negative left elbow
[2018-04-09] MEDS: Normal Saline 1,000 ML 1000 ML IV (07:15)
--- NOTE | 2018-04-09 07:20 | W.ED.GENAD ---
Discharge Plan Disposition Patient Disposition: SNF (LEVEL 1) [facility] Condition: Stable Discharge Details Chief Complaint: HeadInjury Clinical Impression: Fall, Pneumonia Reason For Visit: DANIEL Primary Care Provider: Puma Johnston ED Provider: Puma Vega Home Meds and New Rx's Prescriptions: New levofloxacin 750 mg tablet 750 mg PO DAILY Qty: 6 RF: 0 Continue albuterol sulfate 2.5 MG/3 ML solution for nebulization 2.5 mg Inhalation Q6H PRN PRNRF: 0 quetiapine 200 MG tablet 100 mg GT HS RF: 0 magnesium oxide 400 mg (241.3 mg magnesium) Tablet 400 mg PO DAILY PRNQty: 1 RF: 0 mineral oil [Fleet Mineral Oil] 133 ML enema 133 ml [place] DAILY PRNRF: 0 bisacodyl 10 MG suppository 10 mg [place] DAILY PRNRF: 0 Mouthwash [Biotene Mouthwash] 59 ML Btl 5 ml PO AC RF: 0 quetiapine 25 MG tablet 75 mg GT BID Qty: 0 RF: 0 acetaminophen [Tylenol] 325 MG tablet 650 mg GT Q4H PRN PRNQty: 0 RF: 0 sennosides-docusate sodium [Senna Plus] 1 EACH tablet 1 ea GT BID PRNQty: 0 RF: 0 divalproex 500 MG tablet,delayed release (DR/EC) 500 mg GT TID Qty: 0 RF: 0 magnesium hydroxide [Milk of Magnesia] 400 MG/5 ML suspension 30 ml GT DAILY Qty: 0 RF: 0 trazodone 100 MG tablet 100 mg GT HS Qty: 0 RF: 0 metoprolol tartrate 50 MG tablet 50 mg GT BID Qty: 0 RF: 0 docusate sodium 100 MG capsule 100 mg GT HS PRNQty: 0 RF: 0 docusate sodium 100 MG capsule 100 mg GT BID Qty: 0 RF: 0 bisacodyl 5 MG tablet,delayed release (DR/EC) 5 mg GT DAILY PRNQty: 0 RF: 0 furosemide 20 MG tablet 20 mg GT BID Qty: 0 RF: 0 ergocalciferol (vitamin D2) [Vitamin D2] 50,000 UNITS capsule 50,000 units GT .FRIDAY Qty: 0 RF: 0 multivitamin with minerals [Multiple Vitamin-Minerals] 1 EACH tablet 1 ea GT DAILY Qty: 0 RF: 0 finasteride [Proscar] 5 MG tablet 5 mg GT DAILY Qty: 0 RF: 0 metformin [Fortamet] 500 MG tablet extended release 24hr 500 mg GT BID Qty: 0 RF: 0 carbidopa-levodopa 1 EACH tablet,disintegrating 2 tab GT QID Qty: 0 RF: 0 Discharge Instructions Additional Instructions: You are being treated for a pneumonia. Your lab work showed you have mild dehydration, if you are not drinkig fluids you should have supplemental fluid through your G tube. You refused a damon catheter at this time despite having urinary retention if you have severe worsening weakness or shortness of breath return to the emergency department Medical Decision Making 72 yo male who lives at [facility] comes in after he states he fell out of his wheelchair and hit his head, denies loc, chest pain or sob. Report that he hasn't been eating or drinking well recently. He is complaining of a headache since the fall without any pain, will image head and given his age c spine to eval for traumatic injuries. He does have dry mucous membranes so will hydrate with IVF. Will eval for electrolyte abnormalities. HAs full rom of all extremities so doubt traumatic injury but has left elbow pain with no redness or swelling, will image this to eval for fx. No abdominal tenderness on exam to suggest intrabdominal pathology labs show mild brittany otherwise no acute abnormalities. He has hx of incontinence which I suspect is from overflow given nurse did I and O catheter and had over 700cc. He then had 400cc after a liter of fluid and so I recommended a damon but the patient declined this at this time. Awaiting imaging. HAs no saddle anesthesia and back pain no findings to suggest cauda equina at this time Imaging shows right lower airspace disease. He continues to be HD stable. Will start him on levofloxacin and is stable to be managed at his [facility]. Differential Diagnosis weakness, electrolyte abnormality, pna, uti, sdh Imaging Data Radiologic Study: Attestation: I personally reviewed and interpreted this imaging study as follows: Imaging: X-Ray Radiologist's impression: IMPRESSION: No acute process. Mild degenerative changes within the olecranon. Radiologic Study #2: Attestation: I personally reviewed and interpreted this imaging study as follows: Imaging: X-Ray Radiologist's impression: IMPRESSION: -Mild airspace disease within the right lung base. Moderate subpulmonic pleural effusion Radiologic Study #3: Attestation: I personally reviewed and interpreted this imaging study as follows: Imaging: CT Scan Radiologist's impression: IMPRESSION: 1. No fracture. 2. . Severe degenerative disc disease IMPRESSION: no radiographic evidence of acute intracranial pathology. Lab Data Lab results reviewed: Yes I reviewed the patient's lab results. HPI General Mode of arrival: EMS. Date/Time Provider Initiated Documentation: 04/09/18 07:05. Limitations to Documentation: no limitations. Information obtained by: patient. History of Present Illness 72 year old M presents to the emergency department with the chief complaint of head pain, described as moderate, with intensity rated at 6. Quality is described as aching, Patient started experiencing this minute(s) (30) and it has been constant. No relieving factors improve symptom(s), No exacerbating factors reported . Patient did receive the following treatments prior to arrival, none Related Data Home Medications Medication Instructions Recorded Confirmed albuterol sulfate 2.5 mg INHALATION Q6H PRN PRN 05/20/16 04/09/18 Mouthwash [Biotene Mouthwash] 5 ml PO AC 12/10/17 04/09/18 bisacodyl 10 mg [place] DAILY PRN 12/10/17 04/09/18 mineral oil [Fleet Mineral Oil] 133 ml [place] DAILY PRN 12/10/17 04/09/18 acetaminophen [Tylenol] 650 mg GT Q4H PRN PRN #0 12/19/17 04/09/18 bisacodyl 5 mg GT DAILY PRN #0 12/19/17 04/09/18 carbidopa-levodopa 2 tab GT QID #0 12/19/17 04/09/18 divalproex 500 mg GT TID #0 12/19/17 04/09/18 docusate sodium 100 mg GT BID #0 12/19/17 04/09/18 docusate sodium 100 mg GT HS PRN #0 12/19/17 04/09/18 ergocalciferol (vitamin D2) 50,000 units GT .FRIDAY #0 12/19/17 04/09/18 [Vitamin D2] finasteride [Proscar] 5 mg GT DAILY #0 12/19/17 04/09/18 furosemide 20 mg GT BID #0 12/19/17 04/09/18 magnesium hydroxide [Milk of 30 ml GT DAILY #0 12/19/17 03/01/18 Magnesia] metformin [Fortamet] 500 mg GT BID #0 12/19/17 04/09/18 metoprolol tartrate 50 mg GT BID #0 12/19/17 04/09/18 multivitamin with minerals 1 ea GT DAILY #0 12/19/17 04/09/18 [Multiple Vitamin-Minerals] quetiapine 75 mg GT BID #0 12/19/17 04/09/18 sennosides-docusate sodium [Senna 1 ea GT BID PRN #0 12/19/17 04/09/18 Plus] trazodone 100 mg GT HS #0 12/19/17 04/09/18 quetiapine 100 mg GT HS 03/01/18 04/09/18 magnesium oxide 400 mg PO DAILY PRN #1 tab 03/05/18 04/09/18 levofloxacin 750 mg PO DAILY #6 tab 04/09/18 Previous Rx's Medication Instructions Recorded acetaminophen [Tylenol] 650 mg GT Q4H PRN PRN #0 12/19/17 bisacodyl 5 mg GT DAILY PRN #0 12/19/17 carbidopa-levodopa 2 tab GT QID #0 12/19/17 divalproex 500 mg GT TID #0 12/19/17 docusate sodium 100 mg GT BID #0 12/19/17 docusate sodium 100 mg GT HS PRN #0 12/19/17 ergocalciferol (vitamin D2) 50,000 units GT .FRIDAY #0 12/19/17 [Vitamin D2] finasteride [Proscar] 5 mg GT DAILY #0 12/19/17 furosemide 20 mg GT BID #0 12/19/17 magnesium hydroxide [Milk of 30 ml GT DAILY #0 12/19/17 Magnesia] metformin [Fortamet] 500 mg GT BID #0 12/19/17 metoprolol tartrate 50 mg GT BID #0 12/19/17 multivitamin with minerals 1 ea GT DAILY #0 12/19/17 [Multiple Vitamin-Minerals] quetiapine 75 mg GT BID #0 12/19/17 sennosides-docusate sodium [Senna 1 ea GT BID PRN #0 12/19/17 Plus] trazodone 100 mg GT HS #0 12/19/17 magnesium oxide 400 mg PO DAILY PRN #1 tab 03/05/18 levofloxacin 750 mg PO DAILY #6 tab 04/09/18 Allergies Allergy/AdvReac Type Severity Reaction Status Date / Time No Known Allergies Allergy Unverified 04/09/18 06:45 General Stated Complaint: HeadInjury MERRY: 3 Review of Systems Review of Systems All systems reviewed & are unremarkable except as noted in HPI and below Constitutional Denies chills and Denies fever(s) Eyes Denies loss of vision ENT Denies change in voice Cardiovascular Denies chest pain and Denies dyspnea Respiratory Denies dyspnea Gastrointestinal Denies abdominal pain, Denies nausea and Denies vomiting Musculoskeletal Denies joint swelling Integumentary/Breasts Denies rash Neurologic Denies loss of vision Psychiatric Denies depression Endocrine Denies heat intolerance PFSH Dysphagia (Chronic) Type 2 diabetes mellitus (Chronic) Peripheral axonal neuropathy (Chronic) BPH (benign prostatic hyperplasia) (Chronic) Essential hypertension (Chronic) Neuroleptic induced Parkinsonism (Chronic) Schizophrenia (Chronic) Bipolar disorder (Chronic) Schizoaffective disorder (Chronic) Parkinsons disease (Chronic) Tardive dyskinesia (Chronic) History of percutaneous endoscopic gastrostomy (Chronic) Medical History Dysphagia (Chronic) Type 2 diabetes mellitus (Chronic) Peripheral axonal neuropathy (Chronic) BPH (benign prostatic hyperplasia) (Chronic) Essential hypertension (Chronic) Neuroleptic induced Parkinsonism (Chronic) Schizophrenia (Chronic) Bipolar disorder (Chronic) Schizoaffective disorder (Chronic) Parkinsons disease (Chronic) Tardive dyskinesia (Chronic) Social History Smoking/Tobacco Use Status: Never Surgical History History of percutaneous endoscopic gastrostomy (Chronic) Social History Smoking/Tobacco Use Status: Never Exam Const General: no acute distress Orientation: alert HENMT Head: normal to inspection Ears: external ears normal General nose exam: external nose normal Mouth: moist mucous membranes Eyes General: appearance normal, both eyes and all related structures Neck Neck: normal visual inspection Resp Effort & Inspection: normal respiratory effort and able to speak in complete sentences Cardio Rate: regular rate Skin General skin exam: no rashes or lesions noted Neuro General: alert and oriented x3 Extrem General: normal to inspection Psych Mental Status: mental status grossly normal Course Vital Signs Temperature 36.5 C 04/09/18 06:30 Pulse 77 04/09/18 06:30 Respiratory Rate 18 04/09/18 06:30 Blood Pressure 94/55 L 04/09/18 06:30 Pulse Oximetry 95 04/09/18 06:30 Temperature 36.5 C 04/09/18 06:30 Temperature Source Temporal Artery Scan 04/09/18 06:30 Pulse 77 04/09/18 06:30 Respiratory Rate 18 04/09/18 06:30 Respiratory Effort 04/09/18 06:42 Respiratory Depth Normal 04/09/18 06:42 Respiratory Pattern Normal 04/09/18 06:42 Blood Pressure 94/55 L 04/09/18 06:30 Pulse Oximetry 95 04/09/18 06:30 Oxygen Delivery Method Room Air 04/09/18 06:30 Oxygen Flow Rate 0 04/09/18 06:30 Comment 04/09/18 06:30
--- NOTE | 2018-04-09 07:25 | ED.GENADUL_ITS ---
Discharge Plan Disposition Patient Disposition: SNF (LEVEL 1) [facility] Condition: Stable Discharge Details Chief Complaint: HeadInjury Clinical Impression: Fall, Pneumonia Reason For Visit: DANIEL Primary Care Provider: Puma Johnston ED Provider: Puma Vega Home Meds and New Rx's Prescriptions: New levofloxacin 750 mg tablet 750 mg PO DAILY Qty: 6 RF: 0 Continue albuterol sulfate 2.5 MG/3 ML solution for nebulization 2.5 mg Inhalation Q6H PRN PRNRF: 0 quetiapine 200 MG tablet 100 mg GT HS RF: 0 magnesium oxide 400 mg (241.3 mg magnesium) Tablet 400 mg PO DAILY PRNQty: 1 RF: 0 mineral oil [Fleet Mineral Oil] 133 ML enema 133 ml [place] DAILY PRNRF: 0 bisacodyl 10 MG suppository 10 mg [place] DAILY PRNRF: 0 Mouthwash [Biotene Mouthwash] 59 ML Btl 5 ml PO AC RF: 0 quetiapine 25 MG tablet 75 mg GT BID Qty: 0 RF: 0 acetaminophen [Tylenol] 325 MG tablet 650 mg GT Q4H PRN PRNQty: 0 RF: 0 sennosides-docusate sodium [Senna Plus] 1 EACH tablet 1 ea GT BID PRNQty: 0 RF: 0 divalproex 500 MG tablet,delayed release (DR/EC) 500 mg GT TID Qty: 0 RF: 0 magnesium hydroxide [Milk of Magnesia] 400 MG/5 ML suspension 30 ml GT DAILY Qty: 0 RF: 0 trazodone 100 MG tablet 100 mg GT HS Qty: 0 RF: 0 metoprolol tartrate 50 MG tablet 50 mg GT BID Qty: 0 RF: 0 docusate sodium 100 MG capsule 100 mg GT HS PRNQty: 0 RF: 0 docusate sodium 100 MG capsule 100 mg GT BID Qty: 0 RF: 0 bisacodyl 5 MG tablet,delayed release (DR/EC) 5 mg GT DAILY PRNQty: 0 RF: 0 furosemide 20 MG tablet 20 mg GT BID Qty: 0 RF: 0 ergocalciferol (vitamin D2) [Vitamin D2] 50,000 UNITS capsule 50,000 units GT .FRIDAY Qty: 0 RF: 0 multivitamin with minerals [Multiple Vitamin-Minerals] 1 EACH tablet 1 ea GT DAILY Qty: 0 RF: 0 finasteride [Proscar] 5 MG tablet 5 mg GT DAILY Qty: 0 RF: 0 metformin [Fortamet] 500 MG tablet extended release 24hr 500 mg GT BID Qty: 0 RF: 0 carbidopa-levodopa 1 EACH tablet,disintegrating 2 tab GT QID Qty: 0 RF: 0 Discharge Instructions Additional Instructions: You are being treated for a pneumonia. Your lab work showed you have mild dehydration, if you are not drinkig fluids you should have supplemental fluid through your G tube. You refused a damon catheter at this time despite having urinary retention if you have severe worsening weakness or shortness of breath return to the emergency department Medical Decision Making 72 yo male who lives at [facility] comes in after he states he fell out of his wheelchair and hit his head, denies loc, chest pain or sob. Report that he hasn't been eating or drinking well recently. He is complaining of a headache since the fall without any pain, will image head and given his age c spine to eval for traumatic injuries. He does have dry mucous membranes so will hydrate with IVF. Will eval for electrolyte abnormalities. HAs full rom of all extremities so doubt traumatic injury but has left elbow pain with no redness or swelling, will image this to eval for fx. No abdominal tenderness on exam to suggest intrabdominal pathology labs show mild brittany otherwise no acute abnormalities. He has hx of incontinence which I suspect is from overflow given nurse did I and O catheter and had over 700cc. He then had 400cc after a liter of fluid and so I recommended a damon but the patient declined this at this time. Awaiting imaging. HAs no saddle anesthesia and back pain no findings to suggest cauda equina at this time Imaging shows right lower airspace disease. He continues to be HD stable. Will start him on levofloxacin and is stable to be managed at his [facility]. Differential Diagnosis weakness, electrolyte abnormality, pna, uti, sdh Imaging Data Radiologic Study: Attestation: I personally reviewed and interpreted this imaging study as follows: Imaging: X-Ray Radiologist's impression: IMPRESSION: No acute process. Mild degenerative changes within the olecranon. Radiologic Study #2: Attestation: I personally reviewed and interpreted this imaging study as follows: Imaging: X-Ray Radiologist's impression: IMPRESSION: -Mild airspace disease within the right lung base. Moderate subpulmonic pleural effusion Radiologic Study #3: Attestation: I personally reviewed and interpreted this imaging study as follows: Imaging: CT Scan Radiologist's impression: IMPRESSION: 1. No fracture. 2. . Severe degenerative disc disease IMPRESSION: no radiographic evidence of acute intracranial pathology. Lab Data Lab results reviewed: Yes I reviewed the patient's lab results. HPI General Mode of arrival: EMS . Date/Time Provider Initiated Documentation: 04/09/18 07:05 . Limitations to Documentation: no limitations . Information obtained by: patient . History of Present Illness 72 year old M presents to the emergency department with the chief complaint of head pain, described as moderate, with intensity rated at 6. Quality is described as aching, Patient started experiencing this minute(s) (30) and it has been constant. No relieving factors improve symptom(s), No exacerbating factors reported . Patient did receive the following treatments prior to arrival, none Related Data Home Medications Medication Instructions Recorded Confirmed albuterol sulfate 2.5 mg INHALATION Q6H PRN PRN 05/20/16 04/09/18 Mouthwash [Biotene Mouthwash] 5 ml PO AC 12/10/17 04/09/18 bisacodyl 10 mg [place] DAILY PRN 12/10/17 04/09/18 mineral oil [Fleet Mineral Oil] 133 ml [place] DAILY PRN 12/10/17 04/09/18 acetaminophen [Tylenol] 650 mg GT Q4H PRN PRN #0 12/19/17 04/09/18 bisacodyl 5 mg GT DAILY PRN #0 12/19/17 04/09/18 carbidopa-levodopa 2 tab GT QID #0 12/19/17 04/09/18 divalproex 500 mg GT TID #0 12/19/17 04/09/18 docusate sodium 100 mg GT BID #0 12/19/17 04/09/18 docusate sodium 100 mg GT HS PRN #0 12/19/17 04/09/18 ergocalciferol (vitamin D2) 50,000 units GT .FRIDAY #0 12/19/17 04/09/18 [Vitamin D2] finasteride [Proscar] 5 mg GT DAILY #0 12/19/17 04/09/18 furosemide 20 mg GT BID #0 12/19/17 04/09/18 magnesium hydroxide [Milk of 30 ml GT DAILY #0 12/19/17 03/01/18 Magnesia] metformin [Fortamet] 500 mg GT BID #0 12/19/17 04/09/18 metoprolol tartrate 50 mg GT BID #0 12/19/17 04/09/18 multivitamin with minerals 1 ea GT DAILY #0 12/19/17 04/09/18 [Multiple Vitamin-Minerals] quetiapine 75 mg GT BID #0 12/19/17 04/09/18 sennosides-docusate sodium [Senna 1 ea GT BID PRN #0 12/19/17 04/09/18 Plus] trazodone 100 mg GT HS #0 12/19/17 04/09/18 quetiapine 100 mg GT HS 03/01/18 04/09/18 magnesium oxide 400 mg PO DAILY PRN #1 tab 03/05/18 04/09/18 levofloxacin 750 mg PO DAILY #6 tab 04/09/18 Previous Rx's Medication Instructions Recorded acetaminophen [Tylenol] 650 mg GT Q4H PRN PRN #0 12/19/17 bisacodyl 5 mg GT DAILY PRN #0 12/19/17 carbidopa-levodopa 2 tab GT QID #0 12/19/17 divalproex 500 mg GT TID #0 12/19/17 docusate sodium 100 mg GT BID #0 12/19/17 docusate sodium 100 mg GT HS PRN #0 12/19/17 ergocalciferol (vitamin D2) 50,000 units GT .FRIDAY #0 12/19/17 [Vitamin D2] finasteride [Proscar] 5 mg GT DAILY #0 12/19/17 furosemide 20 mg GT BID #0 12/19/17 magnesium hydroxide [Milk of 30 ml GT DAILY #0 12/19/17 Magnesia] metformin [Fortamet] 500 mg GT BID #0 12/19/17 metoprolol tartrate 50 mg GT BID #0 12/19/17 multivitamin with minerals 1 ea GT DAILY #0 12/19/17 [Multiple Vitamin-Minerals] quetiapine 75 mg GT BID #0 12/19/17 sennosides-docusate sodium [Senna 1 ea GT BID PRN #0 12/19/17 Plus] trazodone 100 mg GT HS #0 12/19/17 magnesium oxide 400 mg PO DAILY PRN #1 tab 03/05/18 levofloxacin 750 mg PO DAILY #6 tab 04/09/18 Allergies Allergy/AdvReac Type Severity Reaction Status Date / Time No Known Allergies Allergy Unverified 04/09/18 06:45 General Stated Complaint: HeadInjury MERRY: 3 Review of Systems Review of Systems All systems reviewed & are unremarkable except as noted in HPI and below Constitutional Denies chills and Denies fever(s) Eyes Denies loss of vision ENT Denies change in voice Cardiovascular Denies chest pain and Denies dyspnea Respiratory Denies dyspnea Gastrointestinal Denies abdominal pain, Denies nausea and Denies vomiting Musculoskeletal Denies joint swelling Integumentary/Breasts Denies rash Neurologic Denies loss of vision Psychiatric Denies depression Endocrine Denies heat intolerance PFSH Dysphagia (Chronic) Type 2 diabetes mellitus (Chronic) Peripheral axonal neuropathy (Chronic) BPH (benign prostatic hyperplasia) (Chronic) Essential hypertension (Chronic) Neuroleptic induced Parkinsonism (Chronic) Schizophrenia (Chronic) Bipolar disorder (Chronic) Schizoaffective disorder (Chronic) Parkinsons disease (Chronic) Tardive dyskinesia (Chronic) History of percutaneous endoscopic gastrostomy (Chronic) Medical History Dysphagia (Chronic) Type 2 diabetes mellitus (Chronic) Peripheral axonal neuropathy (Chronic) BPH (benign prostatic hyperplasia) (Chronic) Essential hypertension (Chronic) Neuroleptic induced Parkinsonism (Chronic) Schizophrenia (Chronic) Bipolar disorder (Chronic) Schizoaffective disorder (Chronic) Parkinsons disease (Chronic) Tardive dyskinesia (Chronic) Social History Smoking/Tobacco Use Status: Never Surgical History History of percutaneous endoscopic gastrostomy (Chronic) Social History Smoking/Tobacco Use Status: Never Exam Const General: no acute distress Orientation: alert HENMT Head: normal to inspection Ears: external ears normal General nose exam: external nose normal Mouth: moist mucous membranes Eyes General: appearance normal, both eyes and all related structures Neck Neck: normal visual inspection Resp Effort & Inspection: normal respiratory effort and able to speak in complete sentences Cardio Rate: regular rate Skin General skin exam: no rashes or lesions noted Neuro General: alert and oriented x3 Extrem General: normal to inspection Psych Mental Status: mental status grossly normal Course Vital Signs Temperature 36.5 C 04/09/18 06:30 Pulse 77 04/09/18 06:30 Respiratory Rate 18 04/09/18 06:30 Blood Pressure 94/55 L 04/09/18 06:30 Pulse Oximetry 95 04/09/18 06:30 Temperature 36.5 C 04/09/18 06:30 Temperature Source Temporal Artery Scan 04/09/18 06:30 Pulse 77 04/09/18 06:30 Respiratory Rate 18 04/09/18 06:30 Respiratory Effort 04/09/18 06:42 Respiratory Depth Normal 04/09/18 06:42 Respiratory Pattern Normal 04/09/18 06:42 Blood Pressure 94/55 L 04/09/18 06:30 Pulse Oximetry 95 04/09/18 06:30 Oxygen Delivery Method Room Air 04/09/18 06:30 Oxygen Flow Rate 0 04/09/18 06:30 Comment 04/09/18 06:30
[2018-04-09 07:35] LABS: Abs Immature Grans 0.01 k/cumm (0.0-0.09); Absolute Basophil Count 0.02 k/cumm (0.0-0.2); Absolute Eosinophil Count 0.02 k/cumm (0.0-0.7); Absolute Lymphocyte Count 1.76 k/cumm (1.2-3.4); Absolute Neutrophil Count 5.02 k/cumm (1.2-6.7); Basophils % 0.3; Eosinophils % 0.3; HCT 30.8 % (40.0-50.0); HGB 10.3 g/dL (13.5-17.5); Immature Grans % 0.1; Lymphocytes % 24.3; Mean Corp. HGB Concentration 33.4 g/dL (32.0-36.0); Mean Corpuscular Hemoglobin 29.5 pg (27.0-33.0); Mean Corpuscular Volume 88.3 fL (80-95); Monocytes % 5.5; Neutrophils % 69.5; Platelet Count 447 x1000/uL (130-400); RBC 3.49 m/cumm (4.50-6.00); RBC Distribution Width 13.3 % (11.8-14.1); White Blood Cell Count 7.23 k/cumm (4.4-10.8)
[2018-04-09 07:40] LABS: AST 9 U/L (15-37); Albumin 2.6 g/dL (3.4-5.0); Alkaline Phosphatase 58 U/L (46-116); Anion Gap 12.9 mmol/L (3-11); BUN 24 mg/dL (7-18); Bilirubin, Direct 0.16 mg/dL (0.00-0.20); Bilirubin, Total 0.5 mg/dL (0.2-1.0); CO2 26.1 mmol/L (21.0-32.0); CREATININE 1.64 mg/dL (0.70-1.30); Calcium 10.5 mg/dL (8.5-10.1); Chloride 101 mmol/L (98-107); Estimated GFR 41.74 (mL/min/1.73m2); Glucose 100 mg/dL (70-100); Magnesium 1.4 mg/dL (1.8-2.4); Potassium 3.8 mmol/L (3.5-5.1); Sodium 140 mmol/L (136-145); Total Protein 7.9 g/dL (6.4-8.2)
[2018-04-09 07:45] LABS: ALT < 6 U/L (12-78)
[2018-04-09 07:54] LABS: Bilirubin Negative (Negative); Blood Negative (Negative); Clarity Clear; Glucose Negative (Negative); Ketones Negative (Negative); Leukocyte Esterase Negative (Negative); Nitrite Negative (Negative); Specific Gravity 1.015 (1.005-1.025); Urobilinogen 0.2 EU/dL (Up TO 0.2); pH 5.5 (5-8)
--- NOTE | 2018-04-09 08:34 | DI.CT_ITS ---
SYMPTOM/DIAGNOSIS: FALL, PAIN NONCONTRAST HEAD CT: There is again noted to be age related atrophy. No infarct, hemorrhage, mass or skull fracture is seen. The ventricles are normal in size. The visualized portions of the sinuses and mastoid air cells appear clear. The orbits are unremarkable. IMPRESSION: Atrophy, no acute abnormality. CT CERVICAL SPINE: There are severe degenerative changes with prominent end plate osteophytes projecting anteriorly, consistent with DISH. No fractures are identified. The lung apices appear clear. IMPRESSION: No acute abnormality.
--- NOTE | 2018-04-09 09:17 | NUR.NOTE ---
Per Dr Vega--insert a Damon cath due to pt with no urge to void and Urine in bladder---Pt declined a damon--Dr Vega notified.Nursing Note:
--- NOTE | 2018-04-09 09:22 | DI.VRAD_ITS ---
EXAM: XR Left Elbow Complete, 3 or more Views EXAM DATE/TIME: 04/09/2018 8:35 AM CLINICAL HISTORY: 72 years old, male; Pain; Elbow; Left; Patient HX: S/P fall pain; Additional info: PT cannot externally rotate elbow TECHNIQUE: XR Left of the elbow, 3 or more views. COMPARISON: No relevant prior studies available. FINDINGS: Bones/joints: The osseous structures about the elbow are without fracture. Medial and lateral columns are grossly normal. Radial head and proximal ulna are normal. No joint effusion. -Mild degenerative changes within the olecranon Soft tissues: Normal. IMPRESSION: No acute process. Mild degenerative changes within the olecranon. Dictated and Authenticated by: Vega Lua MD. Ordering:BELINDA NICHOLAS MD
--- NOTE | 2018-04-09 09:23 | DI.VRAD_ITS ---
EXAM: XR Chest, 1 View EXAM DATE/TIME: 04/09/2018 8:34 AM CLINICAL HISTORY: 72 years old, male; Signs and symptoms; Cough; Additional info: PT cannot externally rotate elbow. PT not responsive to directions. Cannot hold head up for images TECHNIQUE: XR of the chest, 1 view. COMPARISON: CR XR CHEST 2V PA LATERAL 03/25/2018 1:41 PM FINDINGS: Lungs: -Mild airspace disease within the right lung base. Moderate subpulmonic pleural effusion. Pleural space: See Lungs Finding. Heart/Mediastinum: Unremarkable. No cardiomegaly. Bones/joints: Unremarkable. IMPRESSION: -Mild airspace disease within the right lung base. Moderate subpulmonic pleural effusion. Dictated and Authenticated by: Vega Lua MD. Ordering:BELINDA NICHOLAS MD
--- NOTE | 2018-04-09 09:30 | DI.VRAD_ITS ---
EXAM: CT Head Without Contrast EXAM DATE/TIME: 04/09/2018 7:08 AM CLINICAL HISTORY: 72 years old, male; Signs and symptoms; Other: Fall, pain TECHNIQUE: Axial computed tomography images of the head/brain without contrast. Coronal and sagittal reformatted images were created and reviewed. COMPARISON: CT HEAD WITHOUT CONTRAST 11/13/2017 12:42 PM FINDINGS: Brain: -hypodensity is seen in the periventricular cerebral white matter. This change is nonspecific but is most likely secondary to chronic ischemia within microvascular distributions. There are no other intra or extra-axial masses, lesions or collections. The montaño white matter distinction is maintained throughout the brain. There is no radiographic evidence of intracranial hemorrhage. Ventricles: The ventricles are enlarged on the basis of mild diffuse cerebral volume loss. Bones/joints: Normal. No acute fracture. Sinuses: Normal as visualized. No acute sinusitis. Mastoid air cells: Normal as visualized. No mastoid effusion. Soft tissues: Normal. IMPRESSION: no radiographic evidence of acute intracranial pathology. EXAM: CT Cervical Spine Without Intravenous Contrast EXAM DATE/TIME: 04/09/2018 7:08 AM CLINICAL HISTORY: 72 years old, male; Signs and symptoms; Other: Fall, pain TECHNIQUE: Axial computed tomography images of the cervical spine without intravenous contrast. Coronal and sagittal reformatted images were created and reviewed. COMPARISON: CT HEAD WITHOUT CONTRAST 11/13/2017 12:42 PM FINDINGS: Vertebrae: -The alignment is normal. -The posterior vertebral line and the spinal laminar line are normal -odontoid process normal -no fracture Multi-level facet hypertrophic changes- Discs/Spinal canal/Neural foramina: Severe diffuse degenerative disc disease throughout the cervical spine Soft tissues: Unremarkable. Thyroid: Prominent thyroid gland Lungs: Lung apices are normal. IMPRESSION: 1. No fracture. 2. . Severe degenerative disc disease Dictated and Authenticated by: Vega Lua MD. Ordering:BELINDA NICHOLAS MD
[2018-04-09] MEDS: LEVOFLOXACIN 500 MG, LEVOFLOXACIN 250 MG 750 MG PO (09:35)
== END 2018-04-09 10:37 | disposition skilled nursing facility (03) ==
PROVIDERS: Emergency Provider Emergency Medicine; PCP Family Medicine
DX: S09.90XA Unspecified injury of head, initial encounter (principal); W05.0XXA Fall from non-moving wheelchair, initial encounter; J18.9 Pneumonia, unspecified organism; N17.2 Acute kidney failure with medullary necrosis; E86.0 Dehydration; M25.522 Pain in left elbow; E11.9 Type 2 diabetes mellitus without complications; Z79.84 Long term (current) use of oral hypoglycemic drugs; I10 Essential (primary) hypertension; G20 Parkinson's disease; Z93.1 Gastrostomy status
CPT/HCPCS: 36415; 51701; 80053; 80076; 96360; 99284; 70450; 71045; 72125; 73080; 81003; 83735; 85025; 99285; J3490

== ENCOUNTER → 2018-05-06 12:50 | Outpatient (BNVA) | payer MEDICARE, MEDICAID, SELFPAY | PROVIDERS: PCP Family Medicine; Referring Provider Family Medicine; Visit Provider Surgery | DX: R69 Illness, unspecified (principal) | CPT/HCPCS: 99213; 99308 ==

== ENCOUNTER 2018-05-12 14:05 | Outpatient (CLI) | payer MEDICARE, MEDICAID, SELFPAY ==
--- NOTE | 2018-05-12 13:34 | DI.RAD_ITS ---
SYMPTOM/DIAGNOSIS: COUGH WITH SPUTUM, DECREASED BREATH SOUNDS RLL, H/O ASPIRATION AP AND LATERAL CHEST: Comparison is made with 04/09/18. Heart size and pulmonary vasculature are within normal limits. The lungs appear hyperinflated suggesting underlying COPD. There are now infiltrates seen in both the right left lower lobes, not present on the prior examination. No gross effusions or pneumothoraces are identified. The bones appear intact. IMPRESSION: Bilateral basilar infiltrates suspicious for pneumonia.
== END 2018-05-12 14:25 ==
PROVIDERS: PCP Family Medicine; Visit Provider Family Medicine
DX: R05 Cough (principal); R09.89 Other specified symptoms and signs involving the circulatory and respiratory systems; R91.8 Other nonspecific abnormal finding of lung field
CPT/HCPCS: 71046

== ENCOUNTER 2018-05-15 20:21 | Emergency (ER) | payer MEDICARE, MEDICAID, SELFPAY ==
[2018-05-15] VITALS (40 sets, daily range): BP systolic 106–190; BP diastolic 53–152; PULSE 72–192; RESP 4–43; TEMP 36.8; O2SAT 82–100
--- NOTE | 2018-05-15 20:36 | W.ED.GENAD ---
Discharge Plan Disposition Patient Disposition: HOSPITAL, NON-SPECIFIC Condition: Stable Discharge Details Chief Complaint: SOB Clinical Impression: HCAP (healthcare-associated pneumonia), Dehydration Reason For Visit: DANIEL Primary Care Provider: Puma Johnston ED Provider: Ryan Oates [place] [facility] Rx's Prescriptions: No Action albuterol sulfate 2.5 MG/3 ML solution for nebulization 2.5 mg Inhalation Q6H PRN PRNRF: 0 quetiapine 200 MG tablet 300 mg PO HS RF: 0 magnesium oxide 400 mg (241.3 mg magnesium) Tablet 400 mg PO DAILY PRNQty: 1 RF: 0 bisacodyl 10 MG suppository 10 mg LA PRN PRNRF: 0 Mouthwash [Biotene Mouthwash] 59 ML Btl 5 ml PO AC RF: 0 quetiapine 25 mg Tablet 75 mg PO .DAILY 1300 RF: 0 olanzapine 2.5 mg Tablet 2.5 mg PO TID RF: 0 lorazepam 1 mg Tablet 1 mg PO PRN PRNRF: 0 amoxicillin-pot clavulanate [Augmentin] 875-125 mg Tablet 1 tab PO BID RF: 0 quetiapine 25 MG tablet 100 mg PO .DAILY 0800 RF: 0 acetaminophen [Tylenol] 325 MG tablet 650 mg PO Q4H PRN PRNRF: 0 sennosides-docusate sodium [Senna Plus] 1 EACH tablet 1 ea PO BID PRNRF: 0 divalproex 500 MG tablet,delayed release (DR/EC) 500 mg PO TID RF: 0 magnesium hydroxide [Milk of Magnesia] 400 MG/5 ML suspension 30 ml PO DAILY RF: 0 trazodone 100 MG tablet 100 mg PO HS RF: 0 metoprolol tartrate 50 MG tablet 25 mg PO BID RF: 0 docusate sodium 100 MG capsule 100 mg PO BID RF: 0 docusate sodium 100 MG capsule 100 mg PO HS PRNRF: 0 bisacodyl 5 MG tablet,delayed release (DR/EC) 5 mg PO DAILY PRNRF: 0 furosemide 20 MG tablet 20 mg PO BID RF: 0 ergocalciferol (vitamin D2) [Vitamin D2] 50,000 UNITS capsule 50,000 units PO .FRIDAY RF: 0 multivitamin with minerals [Multiple Vitamin-Minerals] 1 EACH tablet 1 ea PO DAILY RF: 0 finasteride [Proscar] 5 MG tablet 5 mg PO DAILY RF: 0 carbidopa-levodopa 1 EACH tablet,disintegrating 2 tab PO QID RF: 0 Medical Decision Making Patient sent over for evaluation of low saturations. He is being treated for presumed aspiration pneumonia. He is a difficult historian. He is also very difficult to understand. He endorses chest pain, shortness of breath, cough. He does not appear to be in distress. His blood pressure is good. His pulse does not seem fast but his EKG is showing a sinus tach. Will place on monitor and watch. Will give a liter of LR. Will check a repeat x-ray to see if it is worsening. Will get laboratory studies including a lactic acid and a troponin. 22:00 - Patient's lactic acid is 3.5 and he is tachycardic but blood pressure is fine. Possibly related to the albuterol neb he received? White count is normal. Hgb is baseline. Creatinine is worsening. Calcium is markedly elevated (13.6 when corrected for albumin) which he has never had before. Possible lab error? Chest x-ray per radiology is now showing nodular opacities in addition to the basilar infiltrates seen on the 8th. He continues to look ok. Liter of LR almost in. Will continue with saline at 150 ml/hr and give Zosyn and Levaquin for presumed HCAP (had been being treated for presumed aspiration pneumonia). Repeat troponin, lactic acid and calcium at 1 am. Consider admission. 23:30 - Patient's heart rate continues to run in the 130 range. Blood pressure has remained stable. No change in respiratory status. Given that his heart rate is not changing even after a liter of fluid as well as his lab abnormalities, I feel admission is warranted. There are no beds here at [facility]. I contacted [facility] and spoke to the VULNERABILITY RESEARCHER covering the hospitalist service. Patient is accepted in transfer to [facility] for treatment of HCAP, dehydration. Accepting is Kylee Sin APRN. He will go by ambulance with fluids, antibiotics, oxygen. Medical Records Medical records reviewed: Yes I reviewed the patient's medical records. Lab Data Lab results reviewed: Yes I reviewed the patient's lab results. ECG Data Attestation: I personally reviewed and interpreted this ECG (s) as follows: Prior ECG tracings: not available for review Interpretation: Sinus tachycardia at 142. Normal axis and intervals. There are no acute ST changes noted. There is a lot of tremor artifact. HPI General Mode of arrival: EMS. Date/Time Provider Initiated Documentation: 05/15/18 20:22. Information obtained by: patient, EMS and old records reviewed. HPI Narrative: Patient is sent over from rehab for evaluation of low O2 saturations. Patient reports to me that he has been sick for a little while. He does not know if he has had fever or not. He does report cough, difficulty breathing, chest pain. He had an x-ray done on the eighth and was diagnosed with pneumonia. It is presumed to be aspiration pneumonia as he just recently had his G-tube pulled. He is on Augmentin. Per rehab report his saturations were in the 80s. He was given a nebulized treatment. EMS was called and he is transported here. Patient is a poor historian. He is difficult to understand because of his tardive dyskinesia and neuroleptic induced Parkinson disease. Related Data Home Medications Medication Instructions Recorded Confirmed albuterol sulfate 2.5 mg INHALATION Q6H PRN PRN 05/20/16 05/15/18 Mouthwash [Biotene Mouthwash] 5 ml PO AC 12/10/17 05/15/18 bisacodyl 10 mg LA PRN PRN 12/10/17 05/15/18 quetiapine 300 mg PO HS 03/01/18 05/15/18 magnesium oxide 400 mg PO DAILY PRN #1 tab 03/05/18 05/15/18 acetaminophen [Tylenol] 650 mg PO Q4H PRN PRN 05/15/18 05/15/18 amoxicillin-pot clavulanate 1 tab PO BID 05/15/18 05/15/18 [Augmentin] bisacodyl 5 mg PO DAILY PRN 05/15/18 05/15/18 carbidopa-levodopa 2 tab PO QID 05/15/18 05/15/18 divalproex 500 mg PO TID 05/15/18 05/15/18 docusate sodium 100 mg PO BID 05/15/18 05/15/18 docusate sodium 100 mg PO HS PRN 05/15/18 05/15/18 ergocalciferol (vitamin D2) 50,000 units PO .Friday05/15/18 05/15/18 [Vitamin D2] finasteride [Proscar] 5 mg PO DAILY 05/15/18 05/15/18 furosemide 20 mg PO BID 05/15/18 05/15/18 lorazepam 1 mg PO PRN PRN 05/15/18 05/15/18 magnesium hydroxide [Milk of 30 ml PO DAILY 05/15/18 05/15/18 Magnesia] metoprolol tartrate 25 mg PO BID 05/15/18 05/15/18 multivitamin with minerals 1 ea PO DAILY 05/15/18 05/15/18 [Multiple Vitamin-Minerals] olanzapine 2.5 mg PO TID 05/15/18 05/15/18 quetiapine 75 mg PO .DAILY 1300 05/15/18 05/15/18 quetiapine 100 mg PO .DAILY 0800 05/15/18 05/15/18 sennosides-docusate sodium [Senna 1 ea PO BID PRN 05/15/18 05/15/18 Plus] trazodone 100 mg PO HS 05/15/18 05/15/18 Previous Rx's Medication Instructions Recorded magnesium oxide 400 mg PO DAILY PRN #1 tab 03/05/18 Allergies Allergy/AdvReac Type Severity Reaction Status Date / Time No Known Allergies Allergy Unverified 04/09/18 06:45 General Stated Complaint: SOB MERRY: 2 Review of Systems Review of Systems Unobtainable due to (unable to obtain due to poor historian/difficulty understanding) [facility] Medical History Dysphagia (Chronic) Type 2 diabetes mellitus (Chronic) Peripheral axonal neuropathy (Chronic) BPH (benign prostatic hyperplasia) (Chronic) Essential hypertension (Chronic) Neuroleptic induced Parkinsonism (Chronic) Schizophrenia (Chronic) Bipolar disorder (Chronic) Schizoaffective disorder (Chronic) Parkinsons disease (Chronic) Tardive dyskinesia (Chronic) Surgical History History of percutaneous endoscopic gastrostomy (Chronic) Social History Smoking/Tobacco Use Status: Never Exam Const General: cooperative, comfortable, no acute distress and other (In no distress, tremulous from his Parkinson's, breathing comfortably) Orientation: alert and oriented x3 HENMT Head: normocephalic and atraumatic Mouth: mucous membranes dry (from mouth breathing) Neck Neck: trachea midline and supple Resp Effort & Inspection: cough, respiratory effort not decreased, not labored, no respiratory distress and no use of accessory muscles Auscultation: diminished lung sounds on the right in the lower lung bocanegra, no rales, rhonchi (few scattered in bases) and no wheezes Cardio Rate: regular rate Rhythm: regular rhythm Heart Sounds: S1 normal and S2 normal Pulses: radial pulses present GI Palpation: soft, not firm and nontender Skin Rashes: no rashes Neuro General: alert, oriented x3, moves all extremities and no focal motor deficits Motor: tremor Extrem General: no clubbing, cyanosis or edema Psych Appearance: grossly normal Mental Status: mental status grossly normal Speech and Movement: slurred speech and other (tremor) Course Vital Signs Temperature 98.2 F 05/15/18 20:26 Pulse 92 H 05/15/18 20:26 Respiratory Rate 24 05/15/18 20:26 Blood Pressure 122/93 H 05/15/18 20:26 Pulse Oximetry 97 05/15/18 20:26 Temperature 98.2 F 05/15/18 20:26 Temperature Source Skin 05/15/18 20:26 Pulse 72 05/15/18 20:34 Respiratory Rate 24 05/15/18 20:26 Respiratory Effort 05/15/18 20:31 Blood Pressure 122/93 H 05/15/18 20:26 Blood Pressure Position Sitting 05/15/18 20:26 Pulse Oximetry 95 05/15/18 20:27 Oxygen Delivery Method Nasal Cannula 05/15/18 20:27 Oxygen Flow Rate 4 05/15/18 20:27
[2018-05-15 20:51] LABS: Lactate-non-spesis 3.5 mmol/L (0.6-1.4)
--- NOTE | 2018-05-15 20:52 | ED.GENADUL_ITS ---
Discharge Plan Disposition Patient Disposition: HOSPITAL, NON-SPECIFIC Condition: Stable Discharge Details Chief Complaint: SOB Clinical Impression: HCAP (healthcare-associated pneumonia), Dehydration Reason For Visit: DANIEL Primary Care Provider: Puma Johnston ED Provider: Ryan Oates [place] [facility] and [facility] Rx's Prescriptions: No Action albuterol sulfate 2.5 MG/3 ML solution for nebulization 2.5 mg Inhalation Q6H PRN PRNRF: 0 quetiapine 200 MG tablet 300 mg PO HS RF: 0 magnesium oxide 400 mg (241.3 mg magnesium) Tablet 400 mg PO DAILY PRNQty: 1 RF: 0 bisacodyl 10 MG suppository 10 mg DC PRN PRNRF: 0 Mouthwash [Biotene Mouthwash] 59 ML Btl 5 ml PO AC RF: 0 quetiapine 25 mg Tablet 75 mg PO .DAILY 1300 RF: 0 olanzapine 2.5 mg Tablet 2.5 mg PO TID RF: 0 lorazepam 1 mg Tablet 1 mg PO PRN PRNRF: 0 amoxicillin-pot clavulanate [Augmentin] 875-125 mg Tablet 1 tab PO BID RF: 0 quetiapine 25 MG tablet 100 mg PO .DAILY 0800 RF: 0 acetaminophen [Tylenol] 325 MG tablet 650 mg PO Q4H PRN PRNRF: 0 sennosides-docusate sodium [Senna Plus] 1 EACH tablet 1 ea PO BID PRNRF: 0 divalproex 500 MG tablet,delayed release (DR/EC) 500 mg PO TID RF: 0 magnesium hydroxide [Milk of Magnesia] 400 MG/5 ML suspension 30 ml PO DAILY RF: 0 trazodone 100 MG tablet 100 mg PO HS RF: 0 metoprolol tartrate 50 MG tablet 25 mg PO BID RF: 0 docusate sodium 100 MG capsule 100 mg PO BID RF: 0 docusate sodium 100 MG capsule 100 mg PO HS PRNRF: 0 bisacodyl 5 MG tablet,delayed release (DR/EC) 5 mg PO DAILY PRNRF: 0 furosemide 20 MG tablet 20 mg PO BID RF: 0 ergocalciferol (vitamin D2) [Vitamin D2] 50,000 UNITS capsule 50,000 units PO .FRIDAY RF: 0 multivitamin with minerals [Multiple Vitamin-Minerals] 1 EACH tablet 1 ea PO DAILY RF: 0 finasteride [Proscar] 5 MG tablet 5 mg PO DAILY RF: 0 carbidopa-levodopa 1 EACH tablet,disintegrating 2 tab PO QID RF: 0 Medical Decision Making Patient sent over for evaluation of low saturations. He is being treated for presumed aspiration pneumonia. He is a difficult historian. He is also very difficult to understand. He endorses chest pain, shortness of breath, cough. He does not appear to be in distress. His blood pressure is good. His pulse does not seem fast but his EKG is showing a sinus tach. Will place on monitor and watch. Will give a liter of LR. Will check a repeat x-ray to see if it is worsening. Will get laboratory studies including a lactic acid and a troponin. 22:00 - Patient's lactic acid is 3.5 and he is tachycardic but blood pressure is fine. Possibly related to the albuterol neb he received? White count is normal. Hgb is baseline. Creatinine is worsening. Calcium is markedly elevated (13.6 when corrected for albumin) which he has never had before. Possible lab error? Chest x-ray per radiology is now showing nodular opacities in addition to the basilar infiltrates seen on the 8th. He continues to look ok. Liter of LR almost in. Will continue with saline at 150 ml/hr and give Zosyn and Levaquin for presumed HCAP (had been being treated for presumed aspiration pneumonia). Repeat troponin, lactic acid and calcium at 1 am. Consider admission. 23:30 - Patient's heart rate continues to run in the 130 range. Blood pressure has remained stable. No change in respiratory status. Given that his heart rate is not changing even after a liter of fluid as well as his lab abnormalities, I feel admission is warranted. There are no beds here at [facility]. I contacted [facility] and spoke to the RETANNER covering the hospitalist service. Patient is accepted in transfer to [facility] for treatment of HCAP, dehydration. Accepting is Kylee Sin APRN. He will go by ambulance with fluids, antibiotics, oxygen. Medical Records Medical records reviewed: Yes I reviewed the patient's medical records. Lab Data Lab results reviewed: Yes I reviewed the patient's lab results. ECG Data Attestation: I personally reviewed and interpreted this ECG (s) as follows: Prior ECG tracings: not available for review Interpretation: Sinus tachycardia at 142. Normal axis and intervals. There are no acute ST changes noted. There is a lot of tremor artifact. HPI General Mode of arrival: EMS . Date/Time Provider Initiated Documentation: 05/15/18 20:22 . Information obtained by: patient, EMS and old records reviewed . HPI Narrative: Patient is sent over from rehab for evaluation of low O2 saturations. Patient reports to me that he has been sick for a little while. He does not know if he has had fever or not. He does report cough, difficulty breathing, chest pain. He had an x-ray done on the eighth and was diagnosed with pneumonia. It is presumed to be aspiration pneumonia as he just recently had his G-tube pulled. He is on Augmentin. Per rehab report his saturations were in the 80s. He was given a nebulized treatment. EMS was called and he is transported here. Patient is a poor historian. He is difficult to understand because of his tardive dyskinesia and neuroleptic induced Parkinson disease. Related Data Home Medications Medication Instructions Recorded Confirmed albuterol sulfate 2.5 mg INHALATION Q6H PRN PRN 05/20/16 05/15/18 Mouthwash [Biotene Mouthwash] 5 ml PO AC 12/10/17 05/15/18 bisacodyl 10 mg DC PRN PRN 12/10/17 05/15/18 quetiapine 300 mg PO HS 03/01/18 05/15/18 magnesium oxide 400 mg PO DAILY PRN #1 tab 03/05/18 05/15/18 acetaminophen [Tylenol] 650 mg PO Q4H PRN PRN 05/15/18 05/15/18 amoxicillin-pot clavulanate 1 tab PO BID 05/15/18 05/15/18 [Augmentin] bisacodyl 5 mg PO DAILY PRN 05/15/18 05/15/18 carbidopa-levodopa 2 tab PO QID 05/15/18 05/15/18 divalproex 500 mg PO TID 05/15/18 05/15/18 docusate sodium 100 mg PO BID 05/15/18 05/15/18 docusate sodium 100 mg PO HS PRN 05/15/18 05/15/18 ergocalciferol (vitamin D2) 50,000 units PO .Friday05/15/18 05/15/18 [Vitamin D2] finasteride [Proscar] 5 mg PO DAILY 05/15/18 05/15/18 furosemide 20 mg PO BID 05/15/18 05/15/18 lorazepam 1 mg PO PRN PRN 05/15/18 05/15/18 magnesium hydroxide [Milk of 30 ml PO DAILY 05/15/18 05/15/18 Magnesia] metoprolol tartrate 25 mg PO BID 05/15/18 05/15/18 multivitamin with minerals 1 ea PO DAILY 05/15/18 05/15/18 [Multiple Vitamin-Minerals] olanzapine 2.5 mg PO TID 05/15/18 05/15/18 quetiapine 75 mg PO .DAILY 1300 05/15/18 05/15/18 quetiapine 100 mg PO .DAILY 0800 05/15/18 05/15/18 sennosides-docusate sodium [Senna 1 ea PO BID PRN 05/15/18 05/15/18 Plus] trazodone 100 mg PO HS 05/15/18 05/15/18 Previous Rx's Medication Instructions Recorded magnesium oxide 400 mg PO DAILY PRN #1 tab 03/05/18 Allergies Allergy/AdvReac Type Severity Reaction Status Date / Time No Known Allergies Allergy Unverified 04/09/18 06:45 General Stated Complaint: SOB MERRY: 2 Review of Systems Review of Systems Unobtainable due to (unable to obtain due to poor historian/difficulty understanding) [facility] Medical History Dysphagia (Chronic) Type 2 diabetes mellitus (Chronic) Peripheral axonal neuropathy (Chronic) BPH (benign prostatic hyperplasia) (Chronic) Essential hypertension (Chronic) Neuroleptic induced Parkinsonism (Chronic) Schizophrenia (Chronic) Bipolar disorder (Chronic) Schizoaffective disorder (Chronic) Parkinsons disease (Chronic) Tardive dyskinesia (Chronic) Surgical History History of percutaneous endoscopic gastrostomy (Chronic) Social History Smoking/Tobacco Use Status: Never Exam Const General: cooperative, comfortable, no acute distress and other (In no distress, tremulous from his Parkinson's, breathing comfortably) Orientation: alert and oriented x3 HENMT Head: normocephalic and atraumatic Mouth: mucous membranes dry (from mouth breathing) Neck Neck: trachea midline and supple Resp Effort & Inspection: cough, respiratory effort not decreased, not labored, no respiratory distress and no use of accessory muscles Auscultation: diminished lung sounds on the right in the lower lung bocanegra, no rales, rhonchi (few scattered in bases) and no wheezes Cardio Rate: regular rate Rhythm: regular rhythm Heart Sounds: S1 normal and S2 normal Pulses: radial pulses present GI Palpation: soft, not firm and nontender Skin Rashes: no rashes Neuro General: alert, oriented x3, moves all extremities and no focal motor deficits Motor: tremor Extrem General: no clubbing, cyanosis or edema Psych Appearance: grossly normal Mental Status: mental status grossly normal Speech and Movement: slurred speech and other (tremor) Course Vital Signs Temperature 98.2 F 05/15/18 20:26 Pulse 92 H 05/15/18 20:26 Respiratory Rate 24 05/15/18 20:26 Blood Pressure 122/93 H 05/15/18 20:26 Pulse Oximetry 97 05/15/18 20:26 Temperature 98.2 F 05/15/18 20:26 Temperature Source Skin 05/15/18 20:26 Pulse 72 05/15/18 20:34 Respiratory Rate 24 05/15/18 20:26 Respiratory Effort 05/15/18 20:31 Blood Pressure 122/93 H 05/15/18 20:26 Blood Pressure Position Sitting 05/15/18 20:26 Pulse Oximetry 95 05/15/18 20:27 Oxygen Delivery Method Nasal Cannula 05/15/18 20:27 Oxygen Flow Rate 4 05/15/18 20:27
[2018-05-15 20:54] LABS: Abs Immature Grans 0.01 k/cumm (0.0-0.09); Absolute Basophil Count 0.02 k/cumm (0.0-0.2); Absolute Lymphocyte Count 1.25 k/cumm (1.2-3.4); Absolute Monocyte Count 0.73 k/cumm (0.11-0.7); Absolute Neutrophil Count 6.78 k/cumm (1.2-6.7); Basophils % 0.2; HCT 34.7 % (40.0-50.0); HGB 10.9 g/dL (13.5-17.5); Immature Grans % 0.1; Lymphocytes % 14.2; Mean Corp. HGB Concentration 31.4 g/dL (32.0-36.0); Mean Corpuscular Hemoglobin 28.7 pg (27.0-33.0); Mean Corpuscular Volume 91.3 fL (80-95); Mean Platelet Volume 9.8 fL (8.0-11.0); Monocytes % 8.3; Neutrophils % 77.2; Platelet Count 333 x1000/uL (130-400); RBC Distribution Width 14.7 % (11.8-14.1); White Blood Cell Count 8.79 k/cumm (4.4-10.8)
[2018-05-15 21:12] LABS: AST 33 U/L (15-37); Albumin 2.6 g/dL (3.4-5.0); Alkaline Phosphatase 73 U/L (46-116); Anion Gap 9.4 mmol/L (3-11); BUN 35 mg/dL (7-18); Bilirubin, Total 0.5 mg/dL (0.2-1.0); CO2 31.6 mmol/L (21.0-32.0); Chloride 103 mmol/L (98-107); Estimated GFR 37.49 (mL/min/1.73m2); Glucose 175 mg/dL (70-100); Magnesium 2.3 mg/dL (1.8-2.4); Potassium 3.7 mmol/L (3.5-5.1); Sodium 144 mmol/L (136-145); Total Protein 8.7 g/dL (6.4-8.2)
--- NOTE | 2018-05-15 21:12 | DI.RAD_ITS ---
SYMPTOMS/DIAGNOSIS: COUGH, SHORTNESS OF BREATH, CHEST PAIN AP AND LATERAL CHEST: Comparison is made with 8Jan19. The heart size is normal. There has been interval increase in bilateral infiltrates which now involve the majority of the lower lobes as well as lower portions of the upper lobes. No effusions are seen. The heart size is normal. IMPRESSION: Interval worsening of bilateral pneumonia.
[2018-05-15] MEDS: Lactated Ringers 1,000 ML 1000 ML IV (21:14)
[2018-05-15 21:19] LABS: ALT < 6 U/L (12-78); Troponin I < 0.02 ng/mL (0.00-0.06)
[2018-05-15 21:23] LABS: Calcium 12.7 mg/dL (8.5-10.1)
--- NOTE | 2018-05-15 21:46 | DI.VRAD_ITS ---
EXAM: XR Chest, 2 Views EXAM DATE/TIME: 05/15/2018 8:35 PM CLINICAL HISTORY: 72 years old, male; Signs and symptoms; Cough and shortness of breath and other: Chest pain TECHNIQUE: XR of the chest, 2 views. COMPARISON: CR XR CHEST 2V PA LATERAL 05/12/2018 1:18 PM FINDINGS: Lungs: There is persistent patchy consolidation within the lung bases bilaterally. There are multiple faint nodular opacities scattered throughout both lungs, new. Pleural space: No definite effusion. Heart/Mediastinum: Unremarkable cardiac silhouette and vasculature. Bones/joints: Unremarkable. IMPRESSION: 1. Persistent bilateral lower lobe patchy consolidation consistent with pneumonias. 2. Multiple ill-defined nodular opacities scattered throughout both lungs, new since the prior study. Differential diagnosis includes infectious infiltrates including bacterial and atypical pneumonias, vascular etiologies including septic emboli and pulmonary hemorrhage as well as neoplasm (unlikely given the acute change since the prior study performed on 05/12/2018). Consider further evaluation with CT scan of the chest as clinically indicated. Dictated and Authenticated by: Breezy Mcdaniels MD. Ordering:DAYO Davis MD
[2018-05-15] MEDS: QUEtiapine 100 MG TAB 200 MG PO (21:47)
[2018-05-15] MEDS: Normal Saline 1,000 ML 150 ML IV (22:24)
[2018-05-15] MEDS: Normal Saline Flush 10 ML SYR IVP (22:25)
--- NOTE | 2018-05-15 22:25 | NUR.NOTE ---
Nursing Note: pt is agitated and angry making threatening statements about hitting/killing if he doesn't get to his fucking room right now explained that he has not yet been admitted and we are still waiting for lab results and full diagnosis. Continues to swear and threaten but is staying still in bed at this time. Offered fluids and warm blanket, pt has declined both at this time.
[2018-05-15] MEDS: PIPERACILLIN/TAZO 4.5 GM in Normal Saline 100 ML IVPB (23:10)
--- NOTE | 2018-05-15 23:28 | NUR.NOTE ---
Nursing Note: Pt O2 noted to be 80-81% RA- Oxygen applied via NC @ 3L/min- O2 quickly up to 88% and rising when pt states Enough of this shit and took of nasal cannula. Pt educated on low oxygen and the need for supplemental oxygen- Pt states I dont give a fuck, now get outta here!. Dr. Oates updated and in to assess pt.
[2018-05-15] MEDS: Albuterol 2.5 MG/3 ML INH SOLN VIAL UPD (23:35)
[2018-05-15] MEDS: LEVOFLOXACIN 750 MG/150 ML BAG 100 MG IVPB (23:55)
[2018-05-16 00:20] VITALS: TEMP 36.7
== END 2018-05-16 00:10 | disposition short-term general hospital (02) ==
PROVIDERS: Emergency Provider Emergency Medicine; PCP Family Medicine
DX: J18.9 Pneumonia, unspecified organism (principal); Y95 Nosocomial condition; E86.0 Dehydration; R09.02 Hypoxemia; E83.52 Hypercalcemia; E11.9 Type 2 diabetes mellitus without complications; I10 Essential (primary) hypertension; G21.11 Neuroleptic induced parkinsonism
CPT/HCPCS: 36415; 80053; 93005; 94640; 96361; 96365; 96368; 99285; 71046; 83605; 83735; 84484; 85025; 93010; J1956; J2543; J7613

== ENCOUNTER 2018-06-28 11:37 | Emergency (ER) | payer MEDICARE, SELFPAY ==
[2018-06-28 11:43] VITALS: BP 118/82; PULSE 114; RESP 16; TEMP 37.2; O2SAT 95
--- NOTE | 2018-06-28 12:05 | W.ED.GENAD ---
Discharge Plan Disposition Patient Disposition: SNF (LEVEL 1) [facility] Condition: Stable Discharge Details Chief Complaint: PsychEval Clinical Impression: Schizophrenia Primary Care Provider: Puma Johnston ED Provider: Puma Vega Home Meds and New Rx's Prescriptions: Continued albuterol sulfate 2.5 MG/3 ML solution for nebulization 2.5 mg Inhalation Q6H PRN PRNRF: 0 quetiapine 200 MG tablet 300 mg PO HS RF: 0 magnesium oxide 400 mg (241.3 mg magnesium) Tablet 400 mg PO DAILY PRNQty: 1 RF: 0 bisacodyl 10 MG suppository 10 mg [place] PRN PRNRF: 0 Mouthwash [Biotene Mouthwash] 59 ML Btl 5 ml PO AC RF: 0 quetiapine 25 mg Tablet 75 mg PO .DAILY 1300 RF: 0 olanzapine 2.5 mg Tablet 2.5 mg PO TID RF: 0 lorazepam 1 mg Tablet 1 mg PO PRN PRNRF: 0 amoxicillin-pot clavulanate [Augmentin] 875-125 mg Tablet 1 tab PO BID RF: 0 quetiapine 25 MG tablet 100 mg PO .DAILY 0800 RF: 0 acetaminophen [Tylenol] 325 MG tablet 650 mg PO Q4H PRN PRNRF: 0 sennosides-docusate sodium [Senna Plus] 1 EACH tablet 1 ea PO BID PRNRF: 0 divalproex 500 MG tablet,delayed release (DR/EC) 500 mg PO TID RF: 0 magnesium hydroxide [Milk of Magnesia] 400 MG/5 ML suspension 30 ml PO DAILY RF: 0 trazodone 100 MG tablet 100 mg PO HS RF: 0 metoprolol tartrate 50 MG tablet 25 mg PO BID RF: 0 docusate sodium 100 MG capsule 100 mg PO BID RF: 0 docusate sodium 100 MG capsule 100 mg PO HS PRNRF: 0 bisacodyl 5 MG tablet,delayed release (DR/EC) 5 mg PO DAILY PRNRF: 0 furosemide 20 MG tablet 20 mg PO BID RF: 0 ergocalciferol (vitamin D2) [Vitamin D2] 50,000 UNITS capsule 50,000 units PO .FRIDAY RF: 0 multivitamin with minerals [Multiple Vitamin-Minerals] 1 EACH tablet 1 ea PO DAILY RF: 0 finasteride [Proscar] 5 MG tablet 5 mg PO DAILY RF: 0 carbidopa-levodopa 1 EACH tablet,disintegrating 2 tab PO QID RF: 0 Medical Decision Making 72 yo male with hx of schizoprenia comes in with chief complaint of being hostile at [facility] and rehab. 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 He apparently stopped taking all his meds over a month ago and today was hostile towards a nurse and was threatening people. He was given 2mg IM ativan with ems and is now calm though still angry, but supriya si/hi on my exam. He does know his name, place and time of day on my exam, refuses to answer most other qustions. Given no significant concerning agitation here and his recent advanced directive do not feel further intervention necessary, but will give him his oral antipsychotic that he is supposed to be on. will discuss with care management at this time pt has been calm here, sleeping. [facility] by [facility]. Differential Diagnosis schizoprenia, bipolar HPI General Mode of arrival: EMS. Date/Time Provider Initiated Documentation: 06/28/18 11:39. Limitations to Documentation: no limitations. Information obtained by: patient and EMS. History of Present Illness 72 year old M presents to the emergency department with the chief complaint of agitation, Patient started experiencing this hour(s) (1) and it has been constant. No relieving factors improve symptom(s), No exacerbating factors reported . Patient notes no other symptoms.. Patient did receive the following treatments prior to arrival, other (im ativan 2mg with ems) Related Data Home Medications Medication Instructions Recorded Confirmed albuterol sulfate 2.5 mg INHALATION Q6H PRN PRN 05/20/16 06/28/18 Mouthwash [Biotene Mouthwash] 5 ml PO AC 12/10/17 06/28/18 bisacodyl 10 mg VT PRN PRN 12/10/17 06/28/18 quetiapine 300 mg PO HS 03/01/18 06/28/18 magnesium oxide 400 mg PO DAILY PRN #1 tab 03/05/18 06/28/18 acetaminophen [Tylenol] 650 mg PO Q4H PRN PRN 05/15/18 06/28/18 amoxicillin-pot clavulanate 1 tab PO BID 05/15/18 06/28/18 [Augmentin] bisacodyl 5 mg PO DAILY PRN 05/15/18 06/28/18 carbidopa-levodopa 2 tab PO QID 05/15/18 06/28/18 divalproex 500 mg PO TID 05/15/18 06/28/18 docusate sodium 100 mg PO BID 05/15/18 06/28/18 docusate sodium 100 mg PO HS PRN 05/15/18 06/28/18 ergocalciferol (vitamin D2) 50,000 units PO .Friday05/15/18 06/28/18 [Vitamin D2] finasteride [Proscar] 5 mg PO DAILY 05/15/18 06/28/18 furosemide 20 mg PO BID 05/15/18 06/28/18 lorazepam 1 mg PO PRN PRN 05/15/18 06/28/18 magnesium hydroxide [Milk of 30 ml PO DAILY 05/15/18 06/28/18 Magnesia] metoprolol tartrate 25 mg PO BID 05/15/18 06/28/18 multivitamin with minerals 1 ea PO DAILY 05/15/18 06/28/18 [Multiple Vitamin-Minerals] olanzapine 2.5 mg PO TID 05/15/18 06/28/18 quetiapine 75 mg PO .DAILY 1300 05/15/18 06/28/18 quetiapine 100 mg PO .DAILY 0800 05/15/18 06/28/18 sennosides-docusate sodium [Senna 1 ea PO BID PRN 05/15/18 06/28/18 Plus] trazodone 100 mg PO HS 05/15/18 06/28/18 Previous Rx's Medication Instructions Recorded magnesium oxide 400 mg PO DAILY PRN #1 tab 03/05/18 Allergies Allergy/AdvReac Type Severity Reaction Status Date / Time No Known Allergies Allergy Unverified 06/28/18 11:47 General Stated Complaint: PsychEval MERRY: 2 Review of Systems Review of Systems Unobtainable due to (pt refusing to answer most, denies hi/si on my exam) [facility] Medical History Dysphagia (Chronic) Type 2 diabetes mellitus (Chronic) Peripheral axonal neuropathy (Chronic) BPH (benign prostatic hyperplasia) (Chronic) Essential hypertension (Chronic) Neuroleptic induced Parkinsonism (Chronic) Schizophrenia (Chronic) Bipolar disorder (Chronic) Schizoaffective disorder (Chronic) Parkinsons disease (Chronic) Tardive dyskinesia (Chronic) Surgical History History of percutaneous endoscopic gastrostomy (Chronic) Social History Smoking and Tabacco status: Never Exam Const General: no acute distress Orientation: alert HENMT Head: normal to inspection Ears: external ears normal General nose exam: external nose normal Mouth: moist mucous membranes Eyes General: appearance normal, both eyes and all related structures Neck Neck: normal visual inspection Resp Effort & Inspection: normal respiratory effort and able to speak in complete sentences Cardio Rate: regular rate Skin General skin exam: no rashes or lesions noted Neuro General: alert Extrem General: normal to inspection Psych Mood: angry Course Vital Signs Temperature 37.2 C 06/28/18 11:43 Pulse 114 H 06/28/18 11:43 Respiratory Rate 16 06/28/18 11:43 Blood Pressure 118/82 06/28/18 11:43 Pulse Oximetry 95 06/28/18 11:43 Temperature 37.2 C 06/28/18 11:43 Temperature Source Skin 06/28/18 11:43 Pulse 114 H 06/28/18 11:43 Respiratory Rate 16 06/28/18 11:43 Blood Pressure 118/82 06/28/18 11:43 Blood Pressure Position Sitting 06/28/18 11:43 Pulse Oximetry 95 06/28/18 11:43 Oxygen Delivery Method Room Air 06/28/18 11:43 Oxygen Flow Rate 0 06/28/18 11:43
--- NOTE | 2018-06-28 12:12 | ED.GENADUL_ITS ---
Discharge Plan Disposition Patient Disposition: SNF (LEVEL 1) [facility] Condition: Stable Discharge Details Chief Complaint: PsychEval Clinical Impression: Schizophrenia Primary Care Provider: Puma Johnston ED Provider: Puma Vega Home Meds and New Rx's Prescriptions: Continued albuterol sulfate 2.5 MG/3 ML solution for nebulization 2.5 mg Inhalation Q6H PRN PRNRF: 0 quetiapine 200 MG tablet 300 mg PO HS RF: 0 magnesium oxide 400 mg (241.3 mg magnesium) Tablet 400 mg PO DAILY PRNQty: 1 RF: 0 bisacodyl 10 MG suppository 10 mg [place] PRN PRNRF: 0 Mouthwash [Biotene Mouthwash] 59 ML Btl 5 ml PO AC RF: 0 quetiapine 25 mg Tablet 75 mg PO .DAILY 1300 RF: 0 olanzapine 2.5 mg Tablet 2.5 mg PO TID RF: 0 lorazepam 1 mg Tablet 1 mg PO PRN PRNRF: 0 amoxicillin-pot clavulanate [Augmentin] 875-125 mg Tablet 1 tab PO BID RF: 0 quetiapine 25 MG tablet 100 mg PO .DAILY 0800 RF: 0 acetaminophen [Tylenol] 325 MG tablet 650 mg PO Q4H PRN PRNRF: 0 sennosides-docusate sodium [Senna Plus] 1 EACH tablet 1 ea PO BID PRNRF: 0 divalproex 500 MG tablet,delayed release (DR/EC) 500 mg PO TID RF: 0 magnesium hydroxide [Milk of Magnesia] 400 MG/5 ML suspension 30 ml PO DAILY RF: 0 trazodone 100 MG tablet 100 mg PO HS RF: 0 metoprolol tartrate 50 MG tablet 25 mg PO BID RF: 0 docusate sodium 100 MG capsule 100 mg PO BID RF: 0 docusate sodium 100 MG capsule 100 mg PO HS PRNRF: 0 bisacodyl 5 MG tablet,delayed release (DR/EC) 5 mg PO DAILY PRNRF: 0 furosemide 20 MG tablet 20 mg PO BID RF: 0 ergocalciferol (vitamin D2) [Vitamin D2] 50,000 UNITS capsule 50,000 units PO .FRIDAY RF: 0 multivitamin with minerals [Multiple Vitamin-Minerals] 1 EACH tablet 1 ea PO DAILY RF: 0 finasteride [Proscar] 5 MG tablet 5 mg PO DAILY RF: 0 carbidopa-levodopa 1 EACH tablet,disintegrating 2 tab PO QID RF: 0 Medical Decision Making 72 yo male with hx of schizoprenia comes in with chief complaint of being hostile at [facility] and rehab. 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 He apparently stopped taking all his meds over a month ago and today was hostile towards a nurse and was threatening people. He was given 2mg IM ativan with ems and is now calm though still angry, but supriya si/hi on my exam. He does know his name, place and time of day on my exam, refuses to answer most other qustions. Given no significant concerning agitation here and his recent advanced directive do not feel further intervention necessary, but will give him his oral antipsychotic that he is supposed to be on. will discuss with care management at this time pt has been calm here, sleeping. [facility] will [facility] by ambulance. Differential Diagnosis schizoprenia, bipolar HPI General Mode of arrival: EMS . Date/Time Provider Initiated Documentation: 06/28/18 11:39 . Limitations to Documentation: no limitations . Information obtained by: patient and EMS . History of Present Illness 72 year old M presents to the emergency department with the chief complaint of agitation, Patient started experiencing this hour(s) (1) and it has been constant. No relieving factors improve symptom(s), No exacerbating factors reported . Patient notes no other symptoms.. Patient did receive the following treatments prior to arrival, other (im ativan 2mg with ems) Related Data Home Medications Medication Instructions Recorded Confirmed albuterol sulfate 2.5 mg INHALATION Q6H PRN PRN 05/20/16 06/28/18 Mouthwash [Biotene Mouthwash] 5 ml PO AC 12/10/17 06/28/18 bisacodyl 10 mg [place] PRN PRN 12/10/17 06/28/18 quetiapine 300 mg PO HS 03/01/18 06/28/18 magnesium oxide 400 mg PO DAILY PRN #1 tab 03/05/18 06/28/18 acetaminophen [Tylenol] 650 mg PO Q4H PRN PRN 05/15/18 06/28/18 amoxicillin-pot clavulanate 1 tab PO BID 05/15/18 06/28/18 [Augmentin] bisacodyl 5 mg PO DAILY PRN 05/15/18 06/28/18 carbidopa-levodopa 2 tab PO QID 05/15/18 06/28/18 divalproex 500 mg PO TID 05/15/18 06/28/18 docusate sodium 100 mg PO BID 05/15/18 06/28/18 docusate sodium 100 mg PO HS PRN 05/15/18 06/28/18 ergocalciferol (vitamin D2) 50,000 units PO .Friday05/15/18 06/28/18 [Vitamin D2] finasteride [Proscar] 5 mg PO DAILY 05/15/18 06/28/18 furosemide 20 mg PO BID 05/15/18 06/28/18 lorazepam 1 mg PO PRN PRN 05/15/18 06/28/18 magnesium hydroxide [Milk of 30 ml PO DAILY 05/15/18 06/28/18 Magnesia] metoprolol tartrate 25 mg PO BID 05/15/18 06/28/18 multivitamin with minerals 1 ea PO DAILY 05/15/18 06/28/18 [Multiple Vitamin-Minerals] olanzapine 2.5 mg PO TID 05/15/18 06/28/18 quetiapine 75 mg PO .DAILY 1300 05/15/18 06/28/18 quetiapine 100 mg PO .DAILY 0800 05/15/18 06/28/18 sennosides-docusate sodium [Senna 1 ea PO BID PRN 05/15/18 06/28/18 Plus] trazodone 100 mg PO HS 05/15/18 06/28/18 Previous Rx's Medication Instructions Recorded magnesium oxide 400 mg PO DAILY PRN #1 tab 03/05/18 Allergies Allergy/AdvReac Type Severity Reaction Status Date / Time No Known Allergies Allergy Unverified 06/28/18 11:47 General Stated Complaint: PsychEval MERRY: 2 Review of Systems Review of Systems Unobtainable due to (pt refusing to answer most, denies hi/si on my exam) [facility] Medical History Dysphagia (Chronic) Type 2 diabetes mellitus (Chronic) Peripheral axonal neuropathy (Chronic) BPH (benign prostatic hyperplasia) (Chronic) Essential hypertension (Chronic) Neuroleptic induced Parkinsonism (Chronic) Schizophrenia (Chronic) Bipolar disorder (Chronic) Schizoaffective disorder (Chronic) Parkinsons disease (Chronic) Tardive dyskinesia (Chronic) Surgical History History of percutaneous endoscopic gastrostomy (Chronic) Social History Smoking and Tabacco status: Never Exam Const General: no acute distress Orientation: alert HENMT Head: normal to inspection Ears: external ears normal General nose exam: external nose normal Mouth: moist mucous membranes Eyes General: appearance normal, both eyes and all related structures Neck Neck: normal visual inspection Resp Effort & Inspection: normal respiratory effort and able to speak in complete sentences Cardio Rate: regular rate Skin General skin exam: no rashes or lesions noted Neuro General: alert Extrem General: normal to inspection Psych Mood: angry Course Vital Signs Temperature 37.2 C 06/28/18 11:43 Pulse 114 H 06/28/18 11:43 Respiratory Rate 16 06/28/18 11:43 Blood Pressure 118/82 06/28/18 11:43 Pulse Oximetry 95 06/28/18 11:43 Temperature 37.2 C 06/28/18 11:43 Temperature Source Skin 06/28/18 11:43 Pulse 114 H 06/28/18 11:43 Respiratory Rate 16 06/28/18 11:43 Blood Pressure 118/82 06/28/18 11:43 Blood Pressure Position Sitting 06/28/18 11:43 Pulse Oximetry 95 06/28/18 11:43 Oxygen Delivery Method Room Air 06/28/18 11:43 Oxygen Flow Rate 0 06/28/18 11:43
[2018-06-28] MEDS: OLANZapine 10 MG TAB PO (12:56)
--- NOTE | 2018-06-28 13:08 | PDOC.ERCMPRO ---
- If Service Date Differs Date of service: 06/28/18 Time of Service: 13:09 Care Management Progress Note CM contacted by ED provider. Benton [facility] behaviors at [facility] toward staff. Patient per provider is stable, calm and does not have an acute reason to be admitted. Provider states Benton is ready to return to the Rehab. CM contacted the Rehab and was told by Uma' that patient would not be allowed to return and will need placement at [facility] or [facility]. CM reviewed the plan with [facility] staff including patient no meeting acute requirement for inpatient. CM did contact both facilities who have no agreed to take the patient per admissions, and there are no beds available at either facility. Uma request that CM speak with medical coding specialist newspaper subscription solicitor. CM spoke with director and reviewed lack of bed availability and requested that patient return to his home and await placement. Placement for psychiatric stabilization should be coordinated by their director social and provider. Director agrees to have patient return to [facility]. CM contacted ED provider and requested transportation be arranged via [employer] to have the patient return to [facility]. JORGE LUIS contacted Erica at [facility] rehab and she agreed that patient can return anytime.
--- NOTE | 2018-06-28 13:19 | CMPROGNOTE_ITS ---
- If Service Date Differs Date of service: 06/28/18 Time of Service: 13:09 Care Management Progress Note CM contacted by ED provider. Benton arrived to the [facility] after aggressive behaviors at [facility] toward staff. Patient per provider is stable, calm and does not have an acute reason to be admitted. Provider states Benton is ready to return to the Rehab. CM contacted the Rehab and was told by Uma' that patient would not be allowed to return and will need placement at [facility] or [facility]. CM reviewed the plan with [facility] staff including patient no meeting acute requirement for inpatient. CM did contact both facilities who have no agreed to take the patient per admissions, and there are no beds available at either facility. Uma request that CM speak with medical lab specialist loss prevention representative. CM spoke with director and reviewed lack of bed availability and requested that patient return to his home and await placement. Placement for psychiatric stabilization should be coordinated by their social worker clinical and provider. Director agrees to have patient return to [facility]. CM contacted ED provider and requested transportation be arranged via [employer] to have the patient return to [facility]. JORGE LUIS contacted Erica at [facility] and rehab and she agreed that patient can return anytime.
== END 2018-06-28 13:17 | disposition skilled nursing facility (03) ==
PROVIDERS: Emergency Provider Emergency Medicine; PCP Family Medicine
DX: F20.9 Schizophrenia, unspecified (principal); F69 Unspecified disorder of adult personality and behavior; G20 Parkinson's disease; I10 Essential (primary) hypertension
CPT/HCPCS: 99283